=== PATIENT | female | born 1985 | race Caucasian/White ===

== ENCOUNTER 2017-05-21 22:46 | Emergency (ER) | payer OTHER ==
[~2017-05-21] VITALS: Ht 149.9 cm; Wt 98.3 kg
[2017-05-21] MEDS ORDERED: EFFE75CA75 PO (22:56)
[2017-05-21] MEDS ORDERED: REME30TA PO (22:56)
[2017-05-21] MEDS ORDERED: LATU40TA PO (22:56)
[2017-05-21] MEDS ORDERED: TRAZ50TA11 PO (22:56)
[2017-05-21] MEDS ORDERED: VIST25CA PO (22:56)
[2017-05-22] LABS: INR 0.85
[2017-05-22 00:31] LABS: BASO % 0.6 % (0.0-1.0); EOS # 0.3 K/mm3 (0.0-0.50); EOS % 3.3 % (0.0-3.0); LARGE UNSTAINED CELL # 0.1 K/mm3 (0.0-0.4); LARGE UNSTAINED CELL % 1.5 % (0.0-4.0); LYMPH # 3.3 K/mm3 (1.5-4.5); LYMPH % 35.2 % (24.0-44.0); MEAN CORPUSCULAR HEMOGLOBIN 28.2 pg (27.0-33.0); MEAN CORPUSCULAR HGB CONC 33.8 g/dl (32.0-36.5); MEAN CORPUSCULAR VOLUME 83.2 fl (80.0-96.0); MONO # 0.4 K/mm3 (0.0-0.8); MONO % 4.6 % (0.0-5.0); NEUTROPHILS # 4.9 K/mm3 (1.8-7.7); NEUTROPHILS % 54.9 % (36.0-66.0); PLATELET COUNT, AUTOMATED 237 k/mm3 (150-450); RED CELL DISTRIBUTION WIDTH 15.9 % (11.5-14.5)
[2017-05-22 01:05] LABS: ALBUMIN 2.9 GM/DL (3.2-5.2); ALBUMIN/GLOBULIN RATIO 1.12 (1.00-1.93); ALKALINE PHOSPHATASE 53 U/L (45-117); ALT/SGPT 18 U/L (12-78); ANION GAP 7 MEQ/L (8-16); AST/SGOT 10 U/L (15-37); BILIRUBIN,DIRECT < 0.1 MG/DL (0.0-0.2); BILIRUBIN,TOTAL 0.3 MG/DL (0.2-1.0); BLOOD UREA NITROGEN 11 MG/DL (7-18); CALCIUM LEVEL 6.9 MG/DL (8.5-10.1); CARBON DIOXIDE LEVEL 23 MEQ/L (21-32); CHLORIDE LEVEL 113 MEQ/L (98-107); CREATININE FOR GFR 0.91 MG/DL (0.55-1.02); FREE T4 0.77 NG/DL (0.76-1.46); GLOMERULAR FILTRATION RATE > 60.0 (>60); GLUCOSE, FASTING 82 MG/DL (70-105); POTASSIUM SERUM 3.5 MEQ/L (3.5-5.1); SODIUM LEVEL 143 MEQ/L (136-145); TOTAL PROTEIN 5.5 GM/DL (6.4-8.2)
[2017-05-22 01:14] LABS: CONTROL LINE HCG INT CTR LINE PRESENT
--- NOTE | 2017-05-22 02:07 | REP ---
Clinical: Chest pain . Comparison: None . Findings: The mediastinum and cardiac silhouette are stable and within normal limits for portable technique. The lung lr are clear without acute consolidation, effusion, or pneumothorax. Skeletal structures are intact. Impression: No acute cardiopulmonary process appreciated. Signed by Nick Kilpatrick MD 05/22/2017 01:58 A
[2017-05-22] MEDS ORDERED: ISOVUE-370 76% 100ML VIAL (Q9967) As Ordered ONE (03:14)
--- NOTE | 2017-05-22 04:09 | REP ---
Clinical: Acute chest pain. Technique: Axial contrast enhanced images from the thoracic inlet to the upper abdomen using 100 ml Isovue 370 intravenous contrast material with coronal and sagittal re-formations. Findings: Satisfactory enhancement of the pulmonary vasculature is achieved and no filling defects are identified to suggest pulmonary embolus. Thoracic aorta is normal caliber without aneurysm or dissection. Heart and pericardium are normal. Bilateral lung lr are well aerated and clear without acute pulmonary parenchymal consolidation or atelectasis. No nodule or mass lesion. No pleural effusion/reaction. No pneumothorax. No adenopathy. Impression: No evidence for pulmonary embolus. No acute pleuroparenchymal or mediastinal process. Signed by Nick Kilpatrick MD 05/22/2017 04:01 A
[2017-05-22] MEDS ORDERED: KETO10TAB PO (04:38)
[2017-05-22 04:51] VITALS: BP 135/63
--- NOTE | 2017-05-22 11:24 | ECGEPIP ---
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
== END 2017-05-22 04:52 | disposition home or self-care (01) ==
LOC: M ED 22:46
DX: R07.1 Chest pain on breathing (principal); J45.909 Unspecified asthma, uncomplicated; F32.9 Major depressive disorder, single episode, unspecified; F45.42 Pain disorder with related psychological factors; Z90.49 Acquired absence of other specified parts of digestive tract; Z86.711 Personal history of pulmonary embolism; Z79.899 Other long term (current) drug therapy
CPT/HCPCS: 36415; 71010; 71275; 80048; 80076; 82550; 82553; 83690; 84439; 84443; 84703; 85025; 85379; 85610; 85730; 93000; 93041; 94760; 99285; Q9967

== ENCOUNTER 2017-06-20 13:44 | Emergency (ER) | payer OTHER ==
[~2017-06-20] VITALS: Ht 149.9 cm; Wt 90.9 kg
[2017-06-20 13:44] VITALS: BP 140/87
[~2017-06-20 13:44] MED LIST: EFFE75CA75 PO; KETO10TAB PO; LATU40TA PO; REME30TA PO; TRAZ50TA11 PO; VIST25CA PO
[2017-06-20] MEDS ORDERED: PROT1TAB2 PO (13:57)
[2017-06-20] MEDS ORDERED: ONDANSETRON 4 MG ORAL DISINTEGRATING TAB (S0181) PO ONE (15:15)
--- NOTE | 2017-06-20 16:06 | REP ---
Abdominal series: Four views. History: Abdominal pain. Comparison chest x-ray May 22, 2017. Findings: Upright chest radiograph is normal. Heart size is normal. There is no evidence of infiltrate or free subdiaphragmatic air. Supine and erect views of the abdomen show clips in the right upper quadrant. Psoas margins and flank stripes are intact. No mass or organomegaly is seen. There is an air-fluid level in a loop of right colon. There are several loops of air-filled nondilated small bowel in the central abdomen. These are nonspecific. Impression: Nonspecific small bowel loops. Surgical clips right upper quadrant. No evidence of free air. Signed by Sukumar Bush MD 06/20/2017 05:00 P
[2017-06-20 16:29] LABS: BASO # 0.1 K/mm3 (0.0-0.2); BASO % 0.8 % (0.0-1.0); EOS # 0.2 K/mm3 (0.0-0.50); EOS % 2.1 % (0.0-3.0); LARGE UNSTAINED CELL # 0.2 K/mm3 (0.0-0.4); LARGE UNSTAINED CELL % 2.1 % (0.0-4.0); LYMPH # 2.4 K/mm3 (1.5-4.5); LYMPH % 28.1 % (24.0-44.0); MEAN CORPUSCULAR HEMOGLOBIN 29.1 pg (27.0-33.0); MEAN CORPUSCULAR HGB CONC 34.1 g/dl (32.0-36.5); MEAN CORPUSCULAR VOLUME 85.4 fl (80.0-96.0); MONO # 0.5 K/mm3 (0.0-0.8); MONO % 5.6 % (0.0-5.0); NEUTROPHILS % 61.4 % (36.0-66.0); PLATELET COUNT, AUTOMATED 201 k/mm3 (150-450); RED CELL DISTRIBUTION WIDTH 15.1 % (11.5-14.5); WHITE BLOOD COUNT 8.1 K/mm3 (4.0-10.0)
[2017-06-20 17:07] LABS: ALBUMIN 3.5 GM/DL (3.2-5.2); ALBUMIN/GLOBULIN RATIO 0.95 (1.00-1.93); ALKALINE PHOSPHATASE 58 U/L (45-117); ALT/SGPT 17 U/L (12-78); ANION GAP 6 MEQ/L (8-16); AST/SGOT 14 U/L (15-37); BILIRUBIN,DIRECT 0.1 MG/DL (0.0-0.2); BILIRUBIN,TOTAL 0.5 MG/DL (0.2-1.0); BLOOD UREA NITROGEN 18 MG/DL (7-18); CALCIUM LEVEL 8.4 MG/DL (8.5-10.1); CARBON DIOXIDE LEVEL 25 MEQ/L (21-32); CHLORIDE LEVEL 109 MEQ/L (98-107); CREATININE FOR GFR 1.07 MG/DL (0.55-1.02); GLOMERULAR FILTRATION RATE > 60.0 (>60); GLUCOSE, FASTING 82 MG/DL (70-105); POTASSIUM SERUM 4.2 MEQ/L (3.5-5.1); SODIUM LEVEL 140 MEQ/L (136-145); TOTAL PROTEIN 7.2 GM/DL (6.4-8.2)
[2017-06-20] MEDS ORDERED: ZOFR4TAB3 PO (17:26)
== END 2017-06-20 17:33 | disposition home or self-care (01) ==
LOC: M ED 13:44
DX: K29.70 Gastritis, unspecified, without bleeding (principal); Z87.891 Personal history of nicotine dependence; Z79.899 Other long term (current) drug therapy

== ENCOUNTER 2017-08-06 16:14 | Emergency (ER) | payer OTHER ==
[~2017-08-06] VITALS: Ht 149.9 cm; Wt 101.8 kg
[2017-08-06 16:14] VITALS: BP 114/70
[~2017-08-06 16:14] MED LIST changes: +PROT1TAB2 PO; +ZOFR4TAB3 PO
[2017-08-06] MEDS ORDERED: GUAN1TA (16:28)
[2017-08-06] MEDS ORDERED: NYST1POW9 TOP (17:07)
== END 2017-08-06 17:32 | disposition home or self-care (01) ==
LOC: M ED 16:14
DX: B37.2 Candidiasis of skin and nail (principal); J45.909 Unspecified asthma, uncomplicated; E28.2 Polycystic ovarian syndrome; Z86.711 Personal history of pulmonary embolism; F41.9 Anxiety disorder, unspecified; F32.9 Major depressive disorder, single episode, unspecified; Z79.899 Other long term (current) drug therapy

== ENCOUNTER 2017-08-14 17:10 | Emergency (ER) | payer OTHER ==
[~2017-08-14] VITALS: Ht 149.9 cm; Wt 102.3 kg
[~2017-08-14 17:10] MED LIST changes: +GUAN1TA; +NYST1POW9 TOP
[2017-08-14] MEDS ORDERED: GUAN1TAB16 PO (17:30)
[2017-08-14] MEDS ORDERED: LATU1TAB PO (17:30)
[2017-08-14] MEDS ORDERED: KEFL500C17 PO (19:29)
[2017-08-14 19:49] VITALS: BP 122/78
== END 2017-08-14 19:50 | disposition home or self-care (01) ==
LOC: M ED 17:10
DX: S69.91XA Unspecified injury of right wrist, hand and finger(s), initial encounter (principal); T23.001A Burn of unspecified degree of right hand, unspecified site, initial encounter; T31.0 Burns involving less than 10% of body surface; X15.0XXA Contact with hot stove (kitchen), initial encounter; Y92.9 Unspecified place or not applicable; Y93.9 Activity, unspecified; Y99.9 Unspecified external cause status; J45.909 Unspecified asthma, uncomplicated; Z86.711 Personal history of pulmonary embolism; E28.2 Polycystic ovarian syndrome; F41.9 Anxiety disorder, unspecified; F32.9 Major depressive disorder, single episode, unspecified; F43.10 Post-traumatic stress disorder, unspecified; F60.3 Borderline personality disorder; Z90.49 Acquired absence of other specified parts of digestive tract; Z98.84 Bariatric surgery status; Z79.899 Other long term (current) drug therapy

== ENCOUNTER 2017-09-06 10:05 | Emergency (ER) | payer OTHER ==
[~2017-09-06] VITALS: Ht 149.9 cm; Wt 104.9 kg
[~2017-09-06 10:05] MED LIST changes: +GUAN1TAB16 PO; +KEFL500C17 PO; +LATU1TAB PO
[2017-09-06] MEDS ORDERED: TESS100C PO (11:13)
[2017-09-06] MEDS ORDERED: AUGM875T28 PO (11:13)
[2017-09-06 11:24] VITALS: BP 138/74
== END 2017-09-06 11:24 | disposition home or self-care (01) ==
LOC: M ED 10:05
DX: J01.80 Other acute sinusitis (principal); J45.909 Unspecified asthma, uncomplicated; F41.9 Anxiety disorder, unspecified; F32.9 Major depressive disorder, single episode, unspecified; Z87.891 Personal history of nicotine dependence

== ENCOUNTER 2017-09-27 22:03 | Emergency (ER) | payer OTHER ==
[~2017-09-27] VITALS: Ht 149.9 cm; Wt 100.0 kg
[~2017-09-27 22:03] MED LIST changes: +AUGM875T28 PO; +TESS100C PO
[2017-09-27 23:12] LABS: ABG BASE EXCESS -0.2 (-2.0-2.0); ABG PARTIAL PRESSURE CO2 33.1 mmHg (35.0-45.0); ABG PARTIAL PRESSURE O2 94.1 mmHg (75.0-100.0); ABG STANDARD HCO3 24.4 MEQ/L (22.0-26.0); ABG pH (ARTERIAL) 7.459 UNITS (7.350-7.450)
[2017-09-27 23:32] LABS: BASO % 0.4 % (0.0-1.0); EOS # 0.2 10^3/uL (0.0-0.50); EOS % 1.6 % (0.0-3.0); IMMATURE GRANULOCYTE % 0.2 % (0-0); LYMPH # 4.5 10^3/uL (1.5-4.5); LYMPH % 42.5 % (24.0-44.0); MEAN CORPUSCULAR HEMOGLOBIN 29.1 pg (27.0-33.0); MEAN CORPUSCULAR HGB CONC 33.6 g/dl (32.0-36.5); MEAN CORPUSCULAR VOLUME 86.5 fl (80.0-96.0); MONO # 0.8 10^3/uL (0.0-0.8); MONO % 7.7 % (0.0-5.0); NEUTROPHILS % 47.6 % (36.0-66.0); PLATELET COUNT, AUTOMATED 277 10^3/uL (150-450); RED CELL DISTRIBUTION WIDTH 12.4 % (11.5-14.5); WHITE BLOOD COUNT 10.5 10^3/uL (4.0-10.0)
[2017-09-27 23:43] LABS: INR 0.92
[2017-09-27 23:54] LABS: CONTROL LINE HCG INT CTR LINE PRESENT
[2017-09-28 00:05] LABS: ANION GAP 6 MEQ/L (8-16); BLOOD UREA NITROGEN 12 MG/DL (7-18); CALCIUM LEVEL 8.7 MG/DL (8.5-10.1); CARBON DIOXIDE LEVEL 28 MEQ/L (21-32); CHLORIDE LEVEL 106 MEQ/L (98-107); CREATININE FOR GFR 1.07 MG/DL (0.55-1.02); GLOMERULAR FILTRATION RATE > 60.0 (>60); GLUCOSE, FASTING 83 MG/DL (70-105); POTASSIUM SERUM 4.2 MEQ/L (3.5-5.1); SODIUM LEVEL 140 MEQ/L (136-145)
[2017-09-28] MEDS ORDERED: ISOVUE-370 76% 100ML VIAL (Q9967) As Ordered ONE (00:36)
[2017-09-28 01:13] VITALS: BP 140/86
--- NOTE | 2017-09-28 01:40 | REPUSA ---
CLINICAL HISTORY: Dyspnea, exclude PE. TECHNIQUE: Multiple incremental axial, coronal and oblique images are obtained from the thoracic inle t to the upper abdomen. Intravenous contrast material was administered as per pulmonary embolism prot ocol. COMMENTS: There is excellent opacification of pulmonary arterial system without evidence for pulmonary embolism . Aorta is of normal caliber without evidence for dissection or aneurysm. There is no evidence of pleural or parenchymal mass. There are no pleural effusions. There is no evid ence of hilar or mediastinal lymphadenopathy. The heart and great vessels are within normal limits. Images of the upper abdomen demonstrate no evidence of adrenal mass. The bony structures are free of lytic or blastic lesions. IMPRESSION: No evidence for pulmonary embolism. Thank you for your kind referral of this patient.
[2017-09-28] MEDS ORDERED: KETO10TAB PO (01:42)
[2017-09-28] MEDS ORDERED: KETOROLAC 30 MG/ML VIAL (J1885) IV ONE (01:45)
--- NOTE | 2017-09-28 08:08 | REP ---
Chest two views HISTORY: Chest pain Comparison: 06/20/2017 The lungs are clear. The heart is normal in size. The pulmonary vasculature is normal in appearance. The bony structure is intact. IMPRESSION: No acute disease. Signed by Florian Paulson MD 09/28/2017 07:59 A
--- NOTE | 2017-09-28 18:00 | ECGEPIP ---
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
[2017-09-29] MEDS ORDERED: CITRSOL8 PO (18:39)
[2017-09-29] MEDS ORDERED: COLA100C5 PO (18:39)
== END 2017-09-28 02:07 | disposition home or self-care (01) ==
LOC: M ED 22:03
DX: R07.89 Other chest pain (principal); F32.9 Major depressive disorder, single episode, unspecified; Z86.711 Personal history of pulmonary embolism; Z79.899 Other long term (current) drug therapy
CPT/HCPCS: 36600; 71020; 71275; 80048; 82803; 84703; 85025; 85610; 85730; 93000; 96374; 99284; J1885; Q9967

== ENCOUNTER 2017-09-29 12:27 | Emergency (ER) | payer OTHER ==
[~2017-09-29] VITALS: Ht 149.9 cm; Wt 100.0 kg
[2017-09-29] MEDS ORDERED: NS 1,000 ML IV ONE (15:30)
[2017-09-29] MEDS ORDERED: ONDANSETRON 4MG/2ML VIAL (J2405) IV ONE (15:30)
[2017-09-29 16:57] LABS: BASO % 0.5 % (0.0-1.0); EOS # 0.2 10^3/uL (0.0-0.50); EOS % 2.1 % (0.0-3.0); IMMATURE GRANULOCYTE % 0.2 % (0-0); LYMPH # 2.4 10^3/uL (1.5-4.5); LYMPH % 28.4 % (24.0-44.0); MEAN CORPUSCULAR HEMOGLOBIN 29.1 pg (27.0-33.0); MEAN CORPUSCULAR HGB CONC 33.6 g/dl (32.0-36.5); MEAN CORPUSCULAR VOLUME 86.6 fl (80.0-96.0); MONO # 0.5 10^3/uL (0.0-0.8); NEUTROPHILS # 5.3 10^3/uL (1.8-7.7); NEUTROPHILS % 62.8 % (36.0-66.0); PLATELET COUNT, AUTOMATED 281 10^3/uL (150-450); RED CELL DISTRIBUTION WIDTH 12.5 % (11.5-14.5); WHITE BLOOD COUNT 8.5 10^3/uL (4.0-10.0)
[2017-09-29 16:57] LABS: CONTROL LINE HCG INT CTR LINE PRESENT
[2017-09-29 17:05] LABS: ALBUMIN 3.3 GM/DL (3.2-5.2); ALBUMIN/GLOBULIN RATIO 0.85 (1.00-1.93); ALKALINE PHOSPHATASE 66 U/L (45-117); ALT/SGPT 24 U/L (12-78); AMYLASE 63 U/L (25-115); ANION GAP 7 MEQ/L (8-16); AST/SGOT 38 U/L (7-37); BILIRUBIN,DIRECT < 0.1 MG/DL (0.0-0.2); BILIRUBIN,TOTAL 0.7 MG/DL (0.2-1.0); BLOOD UREA NITROGEN 13 MG/DL (7-18); CALCIUM LEVEL 8.7 MG/DL (8.5-10.1); CARBON DIOXIDE LEVEL 25 MEQ/L (21-32); CHLORIDE LEVEL 107 MEQ/L (98-107); CREATININE FOR GFR 0.85 MG/DL (0.55-1.02); GLOMERULAR FILTRATION RATE > 60.0 (>60); GLUCOSE, FASTING 104 MG/DL (70-105); SODIUM LEVEL 139 MEQ/L (136-145); TOTAL PROTEIN 7.2 GM/DL (6.4-8.2)
[2017-09-29] MEDS ORDERED: CITRSOL8 PO (18:39)
[2017-09-29] MEDS ORDERED: COLA100C5 PO (18:39)
[2017-09-29 18:54] VITALS: BP 133/92
--- NOTE | 2017-09-29 19:35 | REP ---
FINDINGS: Supine and upright views of the abdomen show the intestinal gas pattern to be nonspecific. Gas and stool is seen throughout the colon within the rectosigmoid region. The organ silhouettes insofar as delineated appear unremarkable. No abdominal calcific densities are seen within the abdomen or pelvis. The accompanying single frontal view of the chest shows no free subdiaphragmatic air, cardiomegaly, infiltrates or effusions. The accompanying frontal view of the chest has been compared to the previous two view chest exam of 09/27/2017. The accompanying frontal view of the chest is unchanged from the prior exam. IMPRESSION: Nonspecific intestinal gas pattern. Signed by James Caro DO 09/29/2017 08:06 P
== END 2017-09-29 18:55 | disposition home or self-care (01) ==
LOC: M ED 12:27
DX: K59.00 Constipation, unspecified (principal); R10.11 Right upper quadrant pain; R10.12 Left upper quadrant pain; R10.31 Right lower quadrant pain; R10.32 Left lower quadrant pain; Z90.49 Acquired absence of other specified parts of digestive tract; Z98.84 Bariatric surgery status; J45.909 Unspecified asthma, uncomplicated; Z86.711 Personal history of pulmonary embolism; K21.9 Gastro-esophageal reflux disease without esophagitis; E28.2 Polycystic ovarian syndrome; F41.9 Anxiety disorder, unspecified; F32.9 Major depressive disorder, single episode, unspecified; F43.10 Post-traumatic stress disorder, unspecified; F60.3 Borderline personality disorder; Z79.899 Other long term (current) drug therapy
CPT/HCPCS: 36415; 74022; 80048; 80076; 81001; 82150; 83690; 84703; 85025; 96361; 96374; 99284; J2405

== ENCOUNTER → 2017-10-31 | Outpatient (REF) | payer OTHER ==
[2017-10-31 10:15] LABS: PROTHROMBIN TIME 12.6 SECONDS (12.4-14.5)
[2017-10-31 10:16] LABS: INR 0.94
[2017-11-04 09:48] LABS: DRVV SCREEN 40.1 SEC
[2017-11-04 09:52] LABS: PTT LUPUS TYPE ANTICOAG SCREEN 0.9 (0-1.2)
== END ==
LOC: M LAB REF 09:56
DX: D68.62 Lupus anticoagulant syndrome (principal)

== ENCOUNTER 2017-11-03 19:55 | Emergency (ER) | payer OTHER ==
[2017-11-03] MEDS: ADACEL/BOOSTRIX VACCINE (DIPHTH/PERTUSS/ACELL/TETANUS)0.5ML SYR (90715) IM (22:19)
== END 2017-11-03 22:24 | disposition home or self-care (01) ==
LOC: M ED 19:55
DX: T23.101A Burn of first degree of right hand, unspecified site, initial encounter (principal); Z86.711 Personal history of pulmonary embolism; Z98.84 Bariatric surgery status; F43.12 Post-traumatic stress disorder, chronic; X11.8XXA Contact with other hot tap-water, initial encounter; Y92.89 Other specified places as the place of occurrence of the external cause; Y93.89 Activity, other specified
CPT/HCPCS: 90715

== ENCOUNTER 2017-11-22 19:14 | Emergency (ER) | payer OTHER ==
[2017-11-22] MEDS: NS 1,000 ML IV (22:06)
[2017-11-22 22:08] LABS: BASO # 0.1 10^3/uL (0.0-0.2); BASO % 0.5 % (0.0-1.0); EOS # 0.2 10^3/uL (0.0-0.50); EOS % 1.7 % (0.0-3.0); HEMATOCRIT 39.6 % (36.0-47.0); HEMOGLOBIN 13.2 g/dl (12.0-16.0); IMMATURE GRANULOCYTE % 0.3 % (0-0); LYMPH # 3.6 10^3/uL (1.5-4.5); LYMPH % 36.4 % (24.0-44.0); MEAN CORPUSCULAR HEMOGLOBIN 29.2 pg (27.0-33.0); MEAN CORPUSCULAR HGB CONC 33.3 g/dl (32.0-36.5); MEAN CORPUSCULAR VOLUME 87.6 fl (80.0-96.0); MONO # 0.7 10^3/uL (0.0-0.8); MONO % 6.7 % (0.0-5.0); NEUTROPHILS # 5.4 10^3/uL (1.8-7.7); NEUTROPHILS % 54.4 % (36.0-66.0); PLATELET COUNT, AUTOMATED 243 10^3/uL (150-450); RED BLOOD COUNT 4.52 10^6/uL (4.00-5.40); RED CELL DISTRIBUTION WIDTH 12.9 % (11.5-14.5)
[2017-11-22 22:22] LABS: BILIRUBIN, URINE MANUAL NEGATIVE (NEGATIVE); BLOOD URINE MANUAL RFX NEGATIVE (NEGATIVE); GLUCOSE, URINE (UA) MANUAL NEGATIVE (NEGATIVE); KETONE, URINE MANUAL NEGATIVE (NEGATIVE); MICROSCOPIC INDICATED? RFX NO (NO); NITRITE, URINE MANUAL RFX NEGATIVE (NEGATIVE); PROTEIN, URINE MANUAL REFLEX NEGATIVE (NEGATIVE); SP GRAVITY,URINE MANUAL REFLEX 1.025 (1.002-1.035); UROBILINOGEN, URINE MANUAL NORMAL (NORMAL)
[2017-11-22] MEDS: AMOXICILLIN 500 MG CAP PO (22:22)
[2017-11-22] MEDS: ALBUTEROL SULFATE 2.5 MG/0.5 ML INH NEB SOLN NEB (22:29)
[2017-11-22 22:31] LABS: ANION GAP 4 MEQ/L (8-16); BLOOD UREA NITROGEN 12 MG/DL (7-18); CALCIUM LEVEL 8.2 MG/DL (8.5-10.1); CARBON DIOXIDE LEVEL 29 MEQ/L (21-32); CHLORIDE LEVEL 110 MEQ/L (98-107); CREATININE FOR GFR 1.12 MG/DL (0.55-1.02); GLOMERULAR FILTRATION RATE 59.6 (>60); GLUCOSE, FASTING 84 MG/DL (70-100); POTASSIUM SERUM 4.5 MEQ/L (3.5-5.1); SODIUM LEVEL 143 MEQ/L (136-145)
[2017-11-22 22:44] LABS: INFLUENZA A AMPLIFICATION NEGATIVE (NEGATIVE); INFLUENZA B AMPLIFICATION NEGATIVE (NEGATIVE)
== END 2017-11-22 23:43 | disposition home or self-care (01) ==
LOC: M ED 19:14
DX: J45.901 Unspecified asthma with (acute) exacerbation (principal); J02.0 Streptococcal pharyngitis; E86.0 Dehydration; Z86.711 Personal history of pulmonary embolism; E28.2 Polycystic ovarian syndrome; K21.9 Gastro-esophageal reflux disease without esophagitis; F43.10 Post-traumatic stress disorder, unspecified; F41.9 Anxiety disorder, unspecified; F32.9 Major depressive disorder, single episode, unspecified; Z98.84 Bariatric surgery status; Z87.891 Personal history of nicotine dependence; Z79.899 Other long term (current) drug therapy
CPT/HCPCS: 71046

== ENCOUNTER 2017-12-03 18:26 | Emergency (ER) | payer OTHER ==
[2017-12-03] MEDS: ALBUTEROL SULFATE 2.5 MG/0.5 ML INH NEB SOLN NEB (21:17)
[2017-12-03] MEDS: predniSONE 20 MG TAB PO (21:27)
[2017-12-03 22:12] LABS: INFLUENZA A AMPLIFICATION NEGATIVE (NEGATIVE); INFLUENZA B AMPLIFICATION NEGATIVE (NEGATIVE)
== END 2017-12-03 22:57 | disposition home or self-care (01) ==
LOC: M ED 18:26
DX: J45.901 Unspecified asthma with (acute) exacerbation (principal); E28.2 Polycystic ovarian syndrome; F41.9 Anxiety disorder, unspecified; F32.9 Major depressive disorder, single episode, unspecified; F43.10 Post-traumatic stress disorder, unspecified; F60.3 Borderline personality disorder; Z87.891 Personal history of nicotine dependence; Z79.899 Other long term (current) drug therapy
CPT/HCPCS: 94640

== ENCOUNTER 2017-12-12 17:18 | Emergency (ER) | payer OTHER | END 2017-12-12 22:01 | disposition home or self-care (01) | LOC: M ED 17:18 | DX: S83.92XA Sprain of unspecified site of left knee, initial encounter (principal); S80.02XA Contusion of left knee, initial encounter; M17.12 Unilateral primary osteoarthritis, left knee; W19.XXXA Unspecified fall, initial encounter; Y92.099 Unspecified place in other non-institutional residence as the place of occurrence of the external cause; Y93.9 Activity, unspecified; Z86.711 Personal history of pulmonary embolism; F31.9 Bipolar disorder, unspecified; K21.9 Gastro-esophageal reflux disease without esophagitis; Z98.84 Bariatric surgery status; Z87.891 Personal history of nicotine dependence; Z79.899 Other long term (current) drug therapy | CPT/HCPCS: 73564 ==

== ENCOUNTER 2018-01-01 12:47 | Emergency (ER) | payer OTHER ==
[2018-01-01] MEDS: ONDANSETRON 4 MG ORAL DISINTEGRATING TAB (S0181) PO (13:50)
[2018-01-01] MEDS: KETOROLAC 30 MG/ML VIAL (J1885) IV (13:50)
[2018-01-01] MEDS: NS 1,000 ML IV (13:50)
[2018-01-01 14:05] LABS: BASO % 0.5 % (0.0-1.0); EOS # 0.1 10^3/uL (0.0-0.50); EOS % 1.6 % (0.0-3.0); HEMOGLOBIN 12.8 g/dl (12.0-16.0); IMMATURE GRANULOCYTE % 0.3 % (0-3.0); LYMPH # 2.4 10^3/uL (1.5-4.5); LYMPH % 31.8 % (24.0-44.0); MEAN CORPUSCULAR HEMOGLOBIN 28.3 pg (27.0-33.0); MEAN CORPUSCULAR HGB CONC 32.8 g/dl (32.0-36.5); MEAN CORPUSCULAR VOLUME 86.1 fl (80.0-96.0); MONO # 0.7 10^3/uL (0.0-0.8); MONO % 9.5 % (0.0-5.0); NEUTROPHILS # 4.2 10^3/uL (1.8-7.7); NEUTROPHILS % 56.3 % (36.0-66.0); PLATELET COUNT, AUTOMATED 253 10^3/uL (150-450); RED BLOOD COUNT 4.53 10^6/uL (4.00-5.40); RED CELL DISTRIBUTION WIDTH 12.6 % (11.5-14.5); WHITE BLOOD COUNT 7.5 10^3/uL (4.0-10.0)
[2018-01-01 14:15] LABS: CONTROL LINE HCG INT CTR LINE PRESENT; HCG, SERUM QUALITATIVE NEGATIVE (NEGATIVE)
[2018-01-01 14:17] LABS: KETONE, URINE AUTO RFX TRACE mg/dL (NEGATIVE); MUCUS, URINE RFX SMALL (NEGATIVE); NITRITE, URINE AUTO RFX NEGATIVE (NEGATIVE); RBC, URINE AUTO RFX 2 /HPF (0-3); SPECIFIC GRAVITY UR AUTO RFX 1.021 (1.002-1.035); SQUAM EPITHELIAL CELL UR AURFX 3 /HPF (0-6)
[2018-01-01 14:30] LABS: INR 0.96; PROTHROMBIN TIME 12.9 SECONDS (12.4-14.5)
[2018-01-01 14:31] LABS: ALBUMIN 3.2 GM/DL (3.2-5.2); ALBUMIN/GLOBULIN RATIO 1.07 (1.00-1.93); ALKALINE PHOSPHATASE 63 U/L (45-117); ALT/SGPT 20 U/L (12-78); AMYLASE 71 U/L (25-115); ANION GAP 6 MEQ/L (8-16); AST/SGOT 11 U/L (7-37); BILIRUBIN,DIRECT < 0.1 MG/DL (0.0-0.2); BILIRUBIN,TOTAL 0.3 MG/DL (0.2-1.0); BLOOD UREA NITROGEN 12 MG/DL (7-18); CALCIUM LEVEL 8.1 MG/DL (8.5-10.1); CARBON DIOXIDE LEVEL 25 MEQ/L (21-32); CHLORIDE LEVEL 110 MEQ/L (98-107); CREATININE FOR GFR 0.79 MG/DL (0.55-1.30); GLOMERULAR FILTRATION RATE > 60.0 (>60); GLUCOSE, FASTING 84 MG/DL (70-100); LIPASE 225 U/L (73-393); PARTIAL THROMBOPLASTIN TIME 25.1 SECONDS (26.8-37.9); POTASSIUM SERUM 4.3 MEQ/L (3.5-5.1); SODIUM LEVEL 141 MEQ/L (136-145); TOTAL PROTEIN 6.2 GM/DL (6.4-8.2)
[2018-01-01 14:56] LABS: LEUKOCYTE ESTERASE UR AUTO RFX TRACE (NEGATIVE); WBC, URINE AUTO RFX 14 /HPF (0-3)
== END 2018-01-01 15:45 | disposition home or self-care (01) ==
LOC: M ED 12:47
DX: N39.0 Urinary tract infection, site not specified (principal); R11.10 Vomiting, unspecified; R10.9 Unspecified abdominal pain; K21.9 Gastro-esophageal reflux disease without esophagitis; Z87.19 Personal history of other diseases of the digestive system; Z90.49 Acquired absence of other specified parts of digestive tract; Z79.899 Other long term (current) drug therapy; Z79.01 Long term (current) use of anticoagulants; Z86.711 Personal history of pulmonary embolism
CPT/HCPCS: J1885

== ENCOUNTER → 2018-02-25 | Outpatient (CLI) | payer OTHER | LOC: M SLEEP 19:31 | DX: G47.33 Obstructive sleep apnea (adult) (pediatric) (principal) | CPT/HCPCS: 95810 ==

== ENCOUNTER 2018-04-27 18:24 | Emergency (ER) | payer OTHER | END 2018-04-27 21:03 | disposition home or self-care (01) | LOC: M ED 18:24 | DX: B37.3 Candidiasis of vulva and vagina (principal); K21.9 Gastro-esophageal reflux disease without esophagitis; Z79.899 Other long term (current) drug therapy; Z79.2 Long term (current) use of antibiotics; Z79.01 Long term (current) use of anticoagulants | CPT/HCPCS: 99283 ==

== ENCOUNTER → 2018-04-28 | Outpatient (REF) | payer OTHER ==
[2018-05-02 00:12] LABS: HERPES ZOSTER, VARICELLA IgG 333 index (Immune >165); HSV IgM TYPES 1&2 1.42 Ratio (0.00-0.90); HSV TYPE II IgG SPECIFIC 9.67 index (0.00-0.90)
== END ==
LOC: M LAB REF 19:14
DX: L29.2 Pruritus vulvae (principal)
CPT/HCPCS: 86694

== ENCOUNTER 2018-05-26 23:33 | Emergency (ER) | payer OTHER ==
[2018-05-27] MEDS: NORCO 5/325MG TABLET (BULK FOR ED) PO (00:56)
== END 2018-05-27 01:00 | disposition home or self-care (01) ==
LOC: M ED 23:33
DX: S83.421A Sprain of lateral collateral ligament of right knee, initial encounter (principal); M17.11 Unilateral primary osteoarthritis, right knee; X58.XXXA Exposure to other specified factors, initial encounter; Y92.099 Unspecified place in other non-institutional residence as the place of occurrence of the external cause; Y93.89 Activity, other specified; Y99.9 Unspecified external cause status; E66.9 Obesity, unspecified; K21.9 Gastro-esophageal reflux disease without esophagitis; F43.10 Post-traumatic stress disorder, unspecified; N83.209 Unspecified ovarian cyst, unspecified side; Z79.84 Long term (current) use of oral hypoglycemic drugs; Z79.899 Other long term (current) drug therapy; Z88.6 Allergy status to analgesic agent
CPT/HCPCS: 73564

== ENCOUNTER → 2018-06-08 | Outpatient (REF) | payer OTHER, MEDICAID ==
[2018-06-10 14:15] LABS: HPV HYBRID CAPTURE II Negative (Negative)
== END ==
LOC: M LAB REF 13:36
DX: Z12.4 Encounter for screening for malignant neoplasm of cervix (principal)

== ENCOUNTER 2018-06-11 18:13 | Emergency (ER) | payer OTHER ==
[2018-06-11] MEDS: ACETAMINOPHEN TAB 650MG DOSE (2X325MG) PO (21:27)
== END 2018-06-11 22:56 | disposition home or self-care (01) ==
LOC: M ED 18:13
DX: S80.02XA Contusion of left knee, initial encounter (principal); S70.02XA Contusion of left hip, initial encounter; W01.0XXA Fall on same level from slipping, tripping and stumbling without subsequent striking against object, initial encounter; Y92.512 Supermarket, store or market as the place of occurrence of the external cause; J45.909 Unspecified asthma, uncomplicated; K21.9 Gastro-esophageal reflux disease without esophagitis; F41.9 Anxiety disorder, unspecified; F31.9 Bipolar disorder, unspecified; F43.10 Post-traumatic stress disorder, unspecified; Z87.42 Personal history of other diseases of the female genital tract; Z98.84 Bariatric surgery status; Z88.8 Allergy status to other drugs, medicaments and biological substances; Z79.899 Other long term (current) drug therapy; Z79.01 Long term (current) use of anticoagulants; Z79.84 Long term (current) use of oral hypoglycemic drugs
CPT/HCPCS: 73564

== ENCOUNTER → 2018-06-11 | Outpatient (CLI) | payer OTHER | LOC: M RAD 16:26 | DX: N92.0 Excessive and frequent menstruation with regular cycle (principal) | CPT/HCPCS: 76856 ==

== ENCOUNTER → 2018-07-10 | Outpatient (CLI) | payer OTHER | LOC: M RAD 07:35 | DX: R16.0 Hepatomegaly, not elsewhere classified (principal) | CPT/HCPCS: 76705 ==

== ENCOUNTER 2018-09-05 23:21 | Emergency (ER) | payer OTHER | END 2018-09-06 00:35 | disposition home or self-care (01) | LOC: M ED 23:21 | DX: B37.9 Candidiasis, unspecified (principal); L30.4 Erythema intertrigo; J45.909 Unspecified asthma, uncomplicated | CPT/HCPCS: 99282 ==

== ENCOUNTER 2018-09-19 13:09 | Emergency (ER) | payer OTHER | END 2018-09-19 14:32 | disposition home or self-care (01) | LOC: M ED 13:09 | DX: S50.12XA Contusion of left forearm, initial encounter (principal); V49.49XA Driver injured in collision with other motor vehicles in traffic accident, initial encounter; Y92.410 Unspecified street and highway as the place of occurrence of the external cause; K21.9 Gastro-esophageal reflux disease without esophagitis; F33.9 Major depressive disorder, recurrent, unspecified; F41.9 Anxiety disorder, unspecified; F43.10 Post-traumatic stress disorder, unspecified; Z79.899 Other long term (current) drug therapy; Z79.01 Long term (current) use of anticoagulants; Z88.8 Allergy status to other drugs, medicaments and biological substances | CPT/HCPCS: 73090 ==

== ENCOUNTER 2018-10-12 23:19 | Emergency (ER) | payer OTHER ==
[2018-10-13] MEDS: predniSONE 20 MG TAB PO (01:52)
== END 2018-10-13 01:54 | disposition home or self-care (01) ==
LOC: M ED 23:19
DX: M25.512 Pain in left shoulder (principal); Z79.899 Other long term (current) drug therapy; Z79.01 Long term (current) use of anticoagulants; Z88.8 Allergy status to other drugs, medicaments and biological substances; F19.11 Other psychoactive substance abuse, in remission
CPT/HCPCS: 99283

== ENCOUNTER 2018-11-14 18:01 | Emergency (ER) | payer OTHER ==
[~2018-11-14] VITALS: Ht 149.9 cm; Wt 99.1 kg
[~2018-11-14 18:01] MED LIST changes: +ACET1TAB55 PO; +ACET30TAB PO; +ACET65SU PR; +ADDE10CA3 PO; +ALKATAB21 PO; +AMOX500C PO; +BACI500O59 TOP; +CIPR-249 PO; +CITRSOL8 PO; +COLA100C5 PO; +CYTO100T PO; +EFFE150C2 PO; +EFFE37.5 PO; +EFFE75CA2 PO; -EFFE75CA75 PO; +FAMO1TAB11; +FLUC150T; +FLUC150T PO; +LATU1TAB; +LATU20TA PO; +METF500T13; +NAPR-50 PO; +NYST1OIN TOP; +NYSTOI TOP; +PANT20TA2; +PHEN15CA PO; +PRAZ2CAP; +PRAZ2CAP PO; +PRAZ5CAP PO; +PRED20TA PO; +PROTPAK PO; +SUCR1TAB56; +TOPI50TA9; +TRAZ-160; +TRAZ-160 PO; +TRAZ-163; -TRAZ50TA11 PO; +TYLE-45 PO; +VENTAER; +VENTAER INH; +XARE10TA PO; +ZOFR4TAB14 PO; -ZOFR4TAB3 PO
[2018-11-14] MEDS ORDERED: MORPHINE 4 MG/ML 1ML VIAL/SYRINGE (J2270) IV ONE (19:15)
[2018-11-14] MEDS ORDERED: METOCLOPRAMIDE INJ 10MG/2ML VIAL (J2765) IV ONE (19:15)
[2018-11-14] MEDS ORDERED: NS 1,000 ML IV ONE (19:15)
[2018-11-14] MEDS: GASTROGRAFIN SOLUTION 30ML PO SCH ×2 (19:43→20:25)
[2018-11-14 21:14] LABS: ALBUMIN 3.8 GM/DL (3.2-5.2); ALT/SGPT 20 U/L (12-78); AMYLASE 70 U/L (25-115); BILIRUBIN,DIRECT < 0.1 MG/DL (0.0-0.2); BILIRUBIN,TOTAL 0.3 MG/DL (0.2-1.0); BLOOD UREA NITROGEN 16 MG/DL (7-18); CALCIUM LEVEL 8.5 MG/DL (8.5-10.1); CARBON DIOXIDE LEVEL 20 MEQ/L (21-32); CHLORIDE LEVEL 114 MEQ/L (98-107); GLOMERULAR FILTRATION RATE 54.7 (>60); GLUCOSE, FASTING 75 MG/DL (70-100); LIPASE 239 U/L (73-393); POTASSIUM SERUM 4.1 MEQ/L (3.5-5.1); SODIUM LEVEL 140 MEQ/L (136-145); TOTAL PROTEIN 7.7 GM/DL (6.4-8.2)
[2018-11-14 21:18] LABS: APPEARANCE, URINE HAZY (CLEAR); BACTERIA, URINE AUTO NEGATIVE (NEGATIVE); BILIRUBIN, URINE AUTO NEGATIVE (NEGATIVE); BLOOD, URINE BLOOD NEGATIVE (NEGATIVE); COLOR, URINE YELLOW (YELLOW); GLUCOSE, URINE (UA) AUTO NEGATIVE (NEGATIVE); KETONE, URINE AUTO NEGATIVE (NEGATIVE); LEUKOCYTE ESTERASE, URINE AUTO NEGATIVE (NEGATIVE); MUCUS, URINE SMALL (NEGATIVE); NITRITE, URINE AUTO NEGATIVE (NEGATIVE); PROTEIN, URINE AUTO 1+ mg/dL (NEGATIVE); RBC, URINE AUTO 2 /HPF (0-3); SPECIFIC GRAVITY URINE AUTO 1.016 (1.002-1.035); SQUAMOUS EPITHELIAL CELL UR AU 2 /HPF (0-6); UROBILINOGEN, URINE AUTO 0.2 mg/dL (0.0-2.0); WBC, URINE AUTO 12 /HPF (0-3)
[2018-11-14] MEDS ORDERED: ISOVUE-370 76% 100ML VIAL (Q9967) As Ordered ONE (21:18)
--- NOTE | 2018-11-14 22:26 | REPVR ---
EXAM: CT Abdomen and Pelvis With Contrast EXAM DATE/TIME: 11/14/2018 9:25 PM CLINICAL HISTORY: 33 years old, female; Pain; Abdominal pain; Additional info: Right upper abd pain TECHNIQUE: Axial computed tomography images of the abdomen and pelvis with intravenous contrast. All CT scans at this facility use at least one of these dose optimization techniques: automated exposure control; mA and/or kV adjustment per patient size (includes targeted exams where dose is matched to clinical indication); or iterative reconstruction. Coronal and sagittal reformatted images were created and reviewed. CONTRAST: 100 ml of iso 370 administered intravenously. COMPARISON: CT ABD PELVIS W/O CONTRAST 01/01/2018 2:21 PM FINDINGS: Lower thorax: Small hiatal hernia. ABDOMEN: Liver: Mild hepatomegaly. Mild hepatic steatosis. Gallbladder and bile ducts: Status post cholecystectomy. Mild central biliary ductal dilatation, likely postsurgical. Pancreas: Unremarkable. Spleen: Unremarkable. Adrenals: Unremarkable. Kidneys and ureters: No mass. No radiodense calculi. No hydronephrosis. Stomach and bowel: Status post gastric sleeve and partial colectomy. No definite bowel wall thickening. No obstruction. No pneumatosis. Appendix: Normal. PELVIS: Bladder: Unremarkable. Reproductive: Probable involuting left ovarian corpus luteal cyst. ABDOMEN and PELVIS: Intraperitoneal space: No free fluid. No organized fluid collection. No free air. Bones/joints: No acute osseous abnormality. Soft tissues: Unremarkable. Vasculature: Unremarkable. No aneurysm. Lymph nodes: Small mesenteric lymph nodes, nonspecific in appearance. No pathologically enlarged lymph nodes. IMPRESSION: 1. No CT evidence of acute intra-abdominal or pelvic pathology. 2. Additional findings, as above. Electronically signed by: Camilo Guerin On 11/14/2018 22:26:14 PM
[2018-11-14 22:48] LABS: BASO # 0.1 10^3/uL (0.0-0.2); BASO % 0.7 % (0.0-1.0); EOS # 0.3 10^3/uL (0.0-0.50); EOS % 2.9 % (0.0-3.0); HEMATOCRIT 36.6 % (36.0-47.0); HEMOGLOBIN 11.5 g/dl (12.0-15.5); LYMPH # 3.3 10^3/uL (1.5-4.5); LYMPH % 31.9 % (24.0-44.0); MEAN CORPUSCULAR HEMOGLOBIN 24.9 pg (27.0-33.0); MEAN CORPUSCULAR HGB CONC 31.4 g/dl (32.0-36.5); MEAN CORPUSCULAR VOLUME 79.4 fl (80.0-96.0); MONO # 0.7 10^3/uL (0.0-0.8); MONO % 6.6 % (0.0-5.0); NEUTROPHILS % 57.7 % (36.0-66.0); PLATELET COUNT, AUTOMATED 287 10^3/uL (150-450); RED BLOOD COUNT 4.61 10^6/uL (4.00-5.40); WHITE BLOOD COUNT 10.4 10^3/uL (4.0-10.0)
[2018-11-14 23:15] VITALS: BP 126/79
[2018-11-14] MEDS ORDERED: NORCO 5/325MG TABLET (BULK FOR ED) PO ONE (23:15)
== END 2018-11-14 23:31 | disposition home or self-care (01) ==
LOC: M ED 18:01
DX: N83.202 Unspecified ovarian cyst, left side (principal); K44.9 Diaphragmatic hernia without obstruction or gangrene; R11.0 Nausea; G96.9 Disorder of central nervous system, unspecified; J45.909 Unspecified asthma, uncomplicated; Z86.711 Personal history of pulmonary embolism; Z90.49 Acquired absence of other specified parts of digestive tract; K21.9 Gastro-esophageal reflux disease without esophagitis; F41.9 Anxiety disorder, unspecified; F32.9 Major depressive disorder, single episode, unspecified; F43.10 Post-traumatic stress disorder, unspecified; F60.3 Borderline personality disorder; Z88.8 Allergy status to other drugs, medicaments and biological substances; Z98.84 Bariatric surgery status; Z77.098 Contact with and (suspected) exposure to other hazardous, chiefly nonmedicinal, chemicals; Z79.899 Other long term (current) drug therapy
CPT/HCPCS: 36415; 74177; 80048; 80076; 81001; 81025; 82150; 83605; 83690; 85025; 96361; 96374; 96375; 99284; J2270; J2765; Q9963; Q9967

== ENCOUNTER 2018-11-29 19:53 | Emergency (ER) | payer OTHER ==
[~2018-11-29] VITALS: Ht 149.9 cm; Wt 99.1 kg
[2018-11-29 19:53] VITALS: BP 135/86
[2018-11-29] MEDS ORDERED: NS 1,000 ML IV ONE (21:00)
[2018-11-29 21:31] LABS: ALBUMIN 3.6 GM/DL (3.2-5.2); ALT/SGPT 20 U/L (12-78); BILIRUBIN,DIRECT 0.1 MG/DL (0.0-0.2); BILIRUBIN,TOTAL 0.3 MG/DL (0.2-1.0); BLOOD UREA NITROGEN 13 MG/DL (7-18); CALCIUM LEVEL 8.4 MG/DL (8.5-10.1); CARBON DIOXIDE LEVEL 23 MEQ/L (21-32); CHLORIDE LEVEL 110 MEQ/L (98-107); CREATININE FOR GFR 0.81 MG/DL (0.55-1.30); GLOMERULAR FILTRATION RATE > 60.0 (>60); GLUCOSE, FASTING 92 MG/DL (70-100); LIPASE 202 U/L (73-393); POTASSIUM SERUM 3.9 MEQ/L (3.5-5.1); SODIUM LEVEL 142 MEQ/L (136-145); TOTAL PROTEIN 6.8 GM/DL (6.4-8.2)
[2018-11-29] MEDS ORDERED: METOCLOPRAMIDE INJ 10MG/2ML VIAL (J2765) IV ONE (23:00)
== END 2018-11-29 23:28 | disposition home or self-care (01) ==
LOC: M ED 19:53
DX: K52.9 Noninfective gastroenteritis and colitis, unspecified (principal); Z20.89 Contact with and (suspected) exposure to other communicable diseases; K21.9 Gastro-esophageal reflux disease without esophagitis; Z86.711 Personal history of pulmonary embolism; F32.9 Major depressive disorder, single episode, unspecified; K29.70 Gastritis, unspecified, without bleeding; Z79.899 Other long term (current) drug therapy; Z88.6 Allergy status to analgesic agent
CPT/HCPCS: 80048; 80076; 83690; 96361; 96374; 99284; J2765

== ENCOUNTER → 2019-02-05 | Outpatient (CLI) | payer OTHER ==
[~2019-02-05] MED LIST changes: +ACET-716 PO; -ACET30TAB PO; +CLAR10CA3 PO; +DICY20TA PO; -NAPR-50 PO; +NAPR-837 PO; +OMEP20CA3 PO; +ZOFR4TAB16 PO
[2019-02-05 10:02] LABS: THYROID STIMULATING HORMONE 2.79 uIU/ML (0.358-3.740)
[2019-02-05 11:08] LABS: CLOSTRIDIUM DIFFICILE PCR NEGATIVE (NEGATIVE)
== END ==
LOC: M LAB 08:40
PROVIDERS: ATTEND Internal Medicine Gastroenterology
DX: R19.7 Diarrhea, unspecified (principal)

== ENCOUNTER 2019-02-11 06:40 | Day surgery (SDC) | payer OTHER ==
[~2019-02-11] VITALS: Ht 149.9 cm; Wt 98.0 kg
[~2019-02-11 06:40] MED LIST changes: +NS 1,000 ML IV ONE
[2019-02-11] MEDS ORDERED: SIMETHICONE 40MG/0.6ML DROPS 30ML As Ordered ONE (06:47)
[2019-02-11] MEDS ORDERED: PROPOFOL 200 MG/20 ML VIAL As Ordered ONE ×2 (07:16→07:54)
--- NOTE | 2019-02-11 08:03 | ROOR ---
Patient Name: Alex Postal Procedure Date: 02/11/2019 7:30 AM Date of : 1985 Age: 33 Room: [facility] Gender: Female Note Status: Finalized Procedure: Colonoscopy Indications: Chronic diarrhea Providers: Elmer MCGOVERN MD Referring MD: Alvina DEJESUS NP, ZUHAIR MORENO [facility] Requesting Provider: Medicines: Monitored Anesthesia Care Complications: No immediate complications. Procedure: Pre-Anesthesia Assessment: - The heart rate, respiratory rate, oxygen saturations, blood pressure, adequacy of pulmonary ventilation, and response to care were monitored throughout the procedure. The Colonoscope was introduced through the anus and advanced to 20 cm into the ileum. The colonoscopy was performed without difficulty. The patient tolerated the procedure well. The quality of the bowel preparation was adequate. Findings: The perianal and digital rectal examinations were normal. There was evidence of a prior end-to-end ileo-colonic anastomosis in the mid/distal sigmoid colon (at ~30 cm from verge). This was patent and was characterized by healthy appearing mucosa. The anastomosis was traversed. The exam was otherwise without abnormality on direct and retroflexion views. Biopsies were taken with a cold forceps in the entire colon and in the entire examined ileum for histology. Impression: - Patent end-to-end ileo-sigmoid anastomosis at 25-30 cm. - Normal rectum/sigmoid. - Normal neoterminal ileum to 20 cm - Biopsies were taken with a cold forceps for histology in the entire colon and in the entire examined ileum. Recommendation: - Use Questran at 1 scoop (4 grams) twice a day (the script was sent to your pharmacy on file) - Telephone endoscopist for pathology results in 2 weeks. Elmer Mcgovern MD Elmer MCGOVERN MD 02/11/2019 8:02:40 AM Electronically signed by Elmer MCGOVERN MD Number of Addenda: 0 Note Initiated On: 02/11/2019 7:30 AM Estimated Blood Loss: Estimated blood loss: none.
[2019-02-11 08:10] VITALS: BP 146/77
== END 2019-02-11 08:33 | disposition home or self-care (01) ==
LOC: M OPP 06:40
PROVIDERS: ATTEND Internal Medicine Gastroenterology
DX: R19.7 Diarrhea, unspecified (principal); Z98.0 Intestinal bypass and anastomosis status

== ENCOUNTER 2019-02-23 11:10 | Inpatient (IN) | payer OTHER ==
[~2019-02-23] VITALS: Ht 149.9 cm; Wt 96.2 kg
[~2019-02-23 11:10] MED LIST changes: -NS 1,000 ML IV ONE; -PANT20TA2; +PANT20TA2 PO; -PRAZ2CAP; -SUCR1TAB56; +SUCR1TAB56 PO
[2019-02-23] MEDS ORDERED: CHOL4POW3 PO (11:20)
[2019-02-23] MEDS ORDERED: VENL37.598 PO (11:20)
--- NOTE | 2019-02-23 12:33 | REP ---
CT Head without contrast HISTORY: Infarction COMPARISON: None There is no intraparenchymal hemorrhage, acute infarct, mass or midline shift. The ventricular system is normal in appearance. There is no extra cerebral collection. There is no fracture. The visualized sinuses are clear. IMPRESSION: There is no intracranial lesion. Electronically Signed by Florian Paulson MD 02/23/2019 12:25 P
--- NOTE | 2019-02-23 12:36 | REP ---
CHEST, SINGLE VIEW: There is no evidence of acute infiltrate. No pleural effusion is seen. The heart is normal in size. The mediastinal silhouette is unremarkable. The visualized osseous structures are intact. IMPRESSION: No acute pulmonary disease. Electronically Signed by Delgado Patricia MD 02/24/2019 04:37 P
[2019-02-23 13:19] LABS: BASO # 0.1 10^3/uL (0.0-0.2); BASO % 0.6 % (0.0-1.0); EOS # 0.3 10^3/uL (0.0-0.50); EOS % 3.1 % (0.0-3.0); HEMATOCRIT 38.8 % (36.0-47.0); LYMPH # 2.6 10^3/uL (1.5-4.5); LYMPH % 29.4 % (24.0-44.0); MEAN CORPUSCULAR HEMOGLOBIN 24.6 pg (27.0-33.0); MEAN CORPUSCULAR HGB CONC 30.9 g/dl (32.0-36.5); MEAN CORPUSCULAR VOLUME 79.5 fl (80.0-96.0); MONO # 0.6 10^3/uL (0.0-0.8); MONO % 6.7 % (0.0-5.0); NEUTROPHILS # 5.4 10^3/uL (1.8-7.7); NEUTROPHILS % 59.9 % (36.0-66.0); PLATELET COUNT, AUTOMATED 294 10^3/uL (150-450); RED BLOOD COUNT 4.88 10^6/uL (4.00-5.40)
[2019-02-23 13:39] LABS: PROTHROMBIN TIME 13.3 SECONDS (12.1-14.4)
[2019-02-23 13:40] LABS: PARTIAL THROMBOPLASTIN TIME 25.6 SECONDS (25.4-37.6)
[2019-02-23 13:42] LABS: BLOOD UREA NITROGEN 12 MG/DL (7-18); CALCIUM LEVEL 8.9 MG/DL (8.5-10.1); CARBON DIOXIDE LEVEL 28 MEQ/L (21-32); CHLORIDE LEVEL 107 MEQ/L (98-107); CK-MB VALUE MASS < 1.0 NG/ML (<3.6); CPK CREATINE PHOSPHOKINASE 79 U/L (26-192); CREATININE FOR GFR 0.71 MG/DL (0.55-1.30); GLOMERULAR FILTRATION RATE > 60.0 (>60); GLUCOSE, FASTING 79 MG/DL (70-100); MB/CK RELATIVE INDEX 1.27 (< OR =4); POTASSIUM SERUM 4.5 MEQ/L (3.5-5.1); SODIUM LEVEL 139 MEQ/L (136-145); TROPONIN I < 0.02 NG/ML (< 0.10)
--- NOTE | 2019-02-23 13:59 | REP ---
MRA BRAIN WITHOUT CONTRAST: HISTORY: Infarction. 3D [id number] MR angiography was performed at the level of the [place]. There is no aneurysm, arteriovenous malformation, or atherosclerotic lesion. Major intracranial vessels are patent. The left vertebral artery is dominant. IMPRESSION: Normal MRA brain. Electronically Signed by Florian Paulson MD 02/23/2019 02:16 P
[2019-02-23] MEDS ORDERED: ASPIRIN 325 MG TAB PO ONE (14:00)
--- NOTE | 2019-02-23 14:02 | REP ---
MR BRAIN WITHOUT CONTRAST: HISTORY: Infarction. COMPARISON: CT, 02/23/2019. Several punctate areas of increased signal intensity on T2-weighted images are present in the subcortical white matter of the frontal lobes. There is no intraparenchymal hemorrhage, infarct, mass, or midline shift. The ventricular system is normal in appearance. There is no extracerebral collection. Mucosal thickening is present in the left ethmoid and maxillary sinuses. IMPRESSION: There are several punctate areas of increased signal intensity in the subcortical white matter of the frontal lobes. This is a nonspecific finding. Electronically Signed by Florian Paluson MD 02/23/2019 02:16 P
--- NOTE | 2019-02-23 14:44 | HPEPDOC ---
[facility] Medical History & Physical Date of Admission Feb 23, 2019 History and Physical CHIEF COMPLAINT: Left sided weakness HISTORY OF PRESENT ILLNESS: 33 yo female presents for one day history of left sided weakness PAST MEDICAL HISTORY: 1. History of PE (2013, completed course of Xarelto) 2. History of substance abuse (quit 6 years ago) 3. PCOS 4. States she has tested positive for lupus anti-coagulant in the past 5. Short gut syndrome SOCIAL HISTORY: History of illicit drug abuse over six years ago. HOME MEDICATIONS: Please see below. PHYSICAL EXAMINATION: VITAL SIGNS: See Below General: NAD, lying comfortably in bede HEENT: NC/AT, EOMI, PERRLA Lungs: CTA B/L Heart: +S1S2, RRR Abd: soft, NT, +BS, obese Ext: no edema Neuro: strength 5/5 throughout, possible some left sided weakness; states has no sensation left upper extremity LABORATORY DATA: See below. MICROBIOLOGY: Please see below. ASSESSMENT: 33 yo female for focal neurologic deficits. #left sided weakness - MRI pending - neuro c/s pending - check lupus anti-coagulant - PT/OT #Hx PE - completed course of Xarelto #DVT prophylaxis - mechanical for now pending MRI Vital Signs Vital Signs Date Time Temp Pulse Resp B/P (MAP) Pulse Ox O2 Delivery O2 Flow Rate FiO2 02/23/19 13:06 02/23/19 12:55 78 91 02/23/19 11:10 97.8 16 Room Air Laboratory Data Labs 24H Laboratory Tests 2 02/23/19 13:02: Immature Granulocyte % (Auto) 0.3, White Blood Count 9.0, Red Blood Count 4.88, Hemoglobin 12.0, Hematocrit 38.8, Mean Corpuscular Volume 79.5L, Mean Corpuscular Hemoglobin 24.6L, Mean Corpuscular Hemoglobin Concent 30.9L, Red Cell Distribution Width 13.9, Platelet Count 294, Neutrophils (%) (Auto) 59.9, Lymphocytes (%) (Auto) 29.4, Monocytes (%) (Auto) 6.7H, Eosinophils (%) (Auto) 3.1H, Basophils (%) (Auto) 0.6, Neutrophils # (Auto) 5.4, Lymphocytes # (Auto) 2.6, Monocytes # (Auto) 0.6, Eosinophils # (Auto) 0.3, Basophils # (Auto) 0.1, Nucleated Red Blood Cells % (auto) 0.0, Prothrombin Time 13.3, Prothromb Time International Ratio 1.00, Activated Partial Thromboplast Time 25.6, Anion Gap 4L, Glomerular Filtration Rate > 60.0, Blood Urea Nitrogen 12, Creatinine 0.71, Sodium Level 139, Potassium Level 4.5, Chloride Level 107, Carbon Dioxide Level 28, Calcium Level 8.9, Total Creatine Kinase 79, Creatine Kinase MB < 1.0, Creatine Kinase MB Relative Index 1.27, Troponin I < 0.02 CBC/BMP Laboratory Tests 02/23/19 13:02 Red Blood Count 4.88, Mean Corpuscular Volume 79.5 L, Mean Corpuscular Hemoglobin 24.6 L, Mean Corpuscular Hemoglobin Concent 30.9 L, Red Cell Distribution Width 13.9, Neutrophils (%) (Auto) 59.9, Lymphocytes (%) (Auto) 29.4, Monocytes (%) (Auto) 6.7 H, Eosinophils (%) (Auto) 3.1 H, Basophils (%) (Auto) 0.6, Neutrophils # (Auto) 5.4, Lymphocytes # (Auto) 2.6, Monocytes # (Auto) 0.6, Eosinophils # (Auto) 0.3, Basophils # (Auto) 0.1, Calcium Level 8.9, Total Creatine Kinase 79 Home Medications Scheduled Dicyclomine HCl (Dicyclomine HCl) 20 Mg Tab, 20 MG PO QID Loratadine (Claritin) 10 Mg Cap, 10 MG PO DAILY Misoprostol (Cytotec) 100 Mcg Tab, 1 TAB PO QID Omeprazole (Omeprazole) 20 Mg Cap, 20 MG PO DAILY Pantoprazole Sodium (Pantoprazole Sodium) 20 Mg Tab, 40 DAILY Sucralfate (Sucralfate) 1 Gm Tab, QID Trazodone HCl (Trazodone HCl) 100 Mg Tab, QHS Scheduled PRN Ondansetron HCl (Zofran) 4 Mg Tab, 4 MG PO Q6HP PRN for NAUSEA Prazosin Hcl (Prazosin HCl) 2 Mg Cap, QHSP PRN for ANXIETY/AGITATION Miscellaneous Medications Cholestyramine (with Sugar) (Cholestyramine Powder) 378 Gm Powder Venlafaxine HCl (Venlafaxine HCl ER) 37.5 Mg Cap.er.24h Allergies Coded Allergies: NSAIDS (Non-Steroidal Anti-Inflamma (Verified Adverse Reaction, Intermediate, gastric bypass, 01/28/19) egg (Verified Adverse Reaction, Mild, N/V, 01/28/19) CAMPBELL ACE MD Feb 23, 2019 14:44
[2019-02-23 15:09] LABS: DRVV SCREEN 37.5 SEC
[2019-02-23] MEDS ORDERED: TRAZ-160 PO (15:10)
[2019-02-23 15:23] LABS: PTT LUPUS TYPE ANTICOAG SCREEN 0.9 (0-1.2)
[2019-02-23 16:10] VITALS: BP 134/80
[2019-02-23] MEDS ORDERED: SLF 3 ML SYR IV PRN (17:30)
[2019-02-23 20:00] VITALS: BP 117/87
[2019-02-23] MEDS: SLF 3 ML SYR IV SCH (20:50)
[2019-02-23] MEDS ORDERED: ACETAMINOPHEN TAB 650MG DOSE (2X325MG) PO ONE (22:45)
[2019-02-24] VITALS (7 sets, daily range): BP systolic 110–138; BP diastolic 61–93
--- NOTE | 2019-02-24 05:49 | ECGEPIP ---
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
[2019-02-24] MEDS: SLF 3 ML SYR IV SCH ×2 (06:00→15:14)
[2019-02-24 06:23] LABS: HEMATOCRIT 37.7 % (36.0-47.0); HEMOGLOBIN 11.7 g/dl (12.0-15.5); MEAN CORPUSCULAR HEMOGLOBIN 24.3 pg (27.0-33.0); MEAN CORPUSCULAR VOLUME 78.2 fl (80.0-96.0); PLATELET COUNT, AUTOMATED 225 10^3/uL (150-450); RED BLOOD COUNT 4.82 10^6/uL (4.00-5.40); WHITE BLOOD COUNT 5.9 10^3/uL (4.0-10.0)
[2019-02-24 06:47] LABS: ALBUMIN 3.4 GM/DL (3.2-5.2); ALT/SGPT 21 U/L (12-78); BILIRUBIN,TOTAL 0.7 MG/DL (0.2-1.0); BLOOD UREA NITROGEN 16 MG/DL (7-18); CALCIUM LEVEL 8.3 MG/DL (8.5-10.1); CARBON DIOXIDE LEVEL 23 MEQ/L (21-32); CHLORIDE LEVEL 109 MEQ/L (98-107); CHOLESTEROL LEVEL 139 MG/DL (<200); CHOLESTEROL RISK RATIO 2.527 (<5); CREATININE FOR GFR 0.74 MG/DL (0.55-1.30); GLOMERULAR FILTRATION RATE > 60.0 (>60); GLUCOSE, FASTING 76 MG/DL (70-100); HDL CHOLESTEROL 55 MG/DL (>40); LDL CHOLESTEROL 66 MG/DL (<100); NON-HDL-C 84 MG/DL; POTASSIUM SERUM 4.2 MEQ/L (3.5-5.1); SODIUM LEVEL 140 MEQ/L (136-145); TOTAL PROTEIN 6.4 GM/DL (6.4-8.2); TRIGLYCERIDES LEVEL 89 MG/DL (<150)
--- NOTE | 2019-02-24 08:06 | CR ---
DATE OF CONSULTATION: 02/24/2019 REFERRING PHYSICIAN: Dr. Florian Salas REASON FOR CONSULTATION: Left-sided weakness and left eye visual problems. HISTORY OF PRESENT ILLNESS: Alex Monk is a 33-year-old woman presented to [facility] with left-sided numbness, weakness and left-sided vision problems. The patient states that she developed numbness and tingling of left arm and leg around 06:30 p.m. 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 It continued to worsen. She woke up this morning and had no problems but her symptoms returned around 10:30 a.m.. She again developed left-sided numbness, tingling and some weakness in her left arm and leg. The patient states that she also had a slight slurred speech yesterday. Today, her symptoms came back around 10:30 a.m. and around 11 o'clock she also started feeling that her left eye vision became dark and she still sees shadows with the left eye. She denies any pain in her eyes. She denies any headaches or neck pain. The patient has chronic low back pain, which is 6 out of 10 in intensity. She denies any seizures, dysphagia, dysarthria, diplopia, urinary incontinence, falls or loss of consciousness. Emergency room physician called me and he mentioned that the patient had a headache. The patient currently denies any headaches. He did not mention any problems with her vision, but the patient states that she had vision problems since this morning and when she came in. PAST MEDICAL HISTORY: History of pulmonary embolism into 1013. The patient was on Xarelto at that time. History of substance abuse, quit 6 years ago. Polycystic ovarian syndrome. The patient stated that she had tested positive for lupus anticoagulant in the past, short gut syndrome. SOCIAL HISTORY: She quit smoking in 2016. She smoked one to two packs per day. She quit using crack cocaine in 2012. She rarely drinks alcohol. FAMILY HISTORY: Her son is in custody of her sister and she was told that he had seizures. The patient's grandfather had cerebral aneurysm. MEDICATIONS: - Claritin 10 mg twice a day - Cytotec 100 mcg by mouth four times a day - Prilosec 20 mg by mouth daily - Protonix 20 mg, 2 capsules daily - sucralfate 1 gram by mouth four times a day - trazodone 1 mg by mouth at night - venlafaxine 37.5 mg by mouth daily - cholestyramine ALLERGIES: NONSTEROIDAL ANTIINFLAMMATORY DRUGS. PHYSICAL EXAMINATION: Temperature 96.8, pulse 86, respiratory 16, blood pressure 140/85. Heart regular rate and rhythm. Lungs clear to auscultation. Abdomen soft, nontender, nondistended. No pedal edema. No musculoskeletal abnormalities. No rash. No signs of meningeal irritation. The patient is awake, alert, oriented to place, person and time. Normal speech, comprehension and repetition. Extraocular muscles are intact. No facial weakness. Tongue and uvula are midline. Recent and distant memory is intact. There is no nystagmus. 5/5 strength throughout on the right side. Left-sided strength is 4+/5 with intermittent activation and give way The patient states that she has decreased touch and pinprick sensation on the left arm and leg. She is able to do tandem walking, even though she appears to have weakness on left side of her body. DIAGNOSTIC STUDIES: MRI and MRA of brain showed rare punctate white matter foci without any acute disease. 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 ASSESSMENT: 1. Left-sided numbness, weakness and left-sided visual problems of unclear etiology. 2. 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 PLAN: 1. MRI cervical and lumbosacral spine. 2. Ophthalmology consultation for her left eye visual loss. The patient denies any headaches or eye pain. 3. Physical and occupational therapy. 4. EMG nerve conduction study of left arm and leg on outpatient basis. 5. Follow with our office in 2 - 4 weeks after hospital discharge.
--- NOTE | 2019-02-24 08:35 | REP ---
MR CERVICAL SPINE WITHOUT CONTRAST: HISTORY: Left side numbness. A small right paracentral disc protrusion with associated osteophyte formation is present at the C2-3 level. There is mild effacement of the thecal sac without spinal cord compression. Uncinate process hypertrophy is present on the right. This produces minimal narrowing of the right C2 neural foramen. The left C2 neural foramina is patent. A disc bulge is present at the C5-6 level. There is minimal effacement of the thecal sac without spinal cord compression. The C5 neural foramina are patent. A disc bulge is present at the C6-7 level. There is minimal effacement of the thecal sac without spinal cord compression. The C6 neural foramina are patent. There is no other disc bulge or herniation. The remaining neural foramina are patent. The spinal cord is normal in signal intensity. Normal signal intensity is present is present in the cervical vertebral bodies. There is loss of the normal lordotic curve. IMPRESSION:There is cervical spondylosis at the C2-3, C5-6 and C6-7 levels without spinal cord compression. Electronically Signed by Florian Paulson MD 02/24/2019 09:01 A
--- NOTE | 2019-02-24 08:39 | REP ---
MR LUMBAR SPINE WITHOUT CONTRAST: HISTORY: Left side weakness. COMPARISON: 05/19/2015. Decreased signal intensity on T2-weighted images is present in the L3-4 intervertebral disc. The disc is decreased in height. These findings are consistent with disc degeneration. There is no disc bulge or herniation at the L1-2, L2-3, L4-5 and L5-S1 levels. There is hypertrophy of the posterior articulating facets at the L4-5 and L5-S1 levels. The nerves exit the neural foramina without compression. A diffuse disc bulge is present at the L3-4 level. There is minimal compression of the thecal sac. The L3 nerves exit the neural foramina without compression. The conus medullaris is normal in appearance terminating at the level of the T12-L1 intervertebral disc . Normal signal intensity is present in the lumbar vertebral bodies. IMPRESSION: Diffuse disc bulge at the L3-4 level with minimal thecal sac compression. Electronically Signed by Florian Paulson MD 02/24/2019 09:02 A
[2019-02-24 10:50] LABS: VITAMIN B12 LEVEL 731 PG/ML (247-911)
--- NOTE | 2019-02-24 12:19 | IPNPDOC ---
Text Note Date of Service The patient was seen on 02/24/19. NOTE Subjective: Patient seen and examined at bedside. No acute overnight events reported Patient has no new medical complaints. States her weakness/numbness is improving. Objective: General: NAD, sitting comfortably in chair HEENT: NC/AT, EOMI, PERRL Lungs: CTA B/L Heart: +S1S2, RRR Abd: soft, obese, NT, +BS Ext: no edema ASSESSMENT: 33 yo female for focal neurologic deficits. #left sided weakness - MRI no acute pathology - neuro c/s appreciated - check lupus anti-coagulant - PT/OT #vision deficits - patient still complains of visual deficits - but improving - d/w optho dr hester #Hx PE - completed course of Xarelto #DVT prophylaxis - mechanical Dispo: failed PT, discharge to optho clinic when ready - anticipate 24-48 hours A-FIB/CHADSVASC A-FIB History Current/History of A-Fib/PAF?: No VS,Fishbone, I+O VS, Fishbone, I+O Laboratory Tests 02/23/19 13:02 Red Blood Count 4.88, Mean Corpuscular Volume 79.5 L, Mean Corpuscular Hemoglobin 24.6 L, Mean Corpuscular Hemoglobin Concent 30.9 L, Red Cell Distribution Width 13.9, Neutrophils (%) (Auto) 59.9, Lymphocytes (%) (Auto) 29.4, Monocytes (%) (Auto) 6.7 H, Eosinophils (%) (Auto) 3.1 H, Basophils (%) (Auto) 0.6, Neutrophils # (Auto) 5.4, Lymphocytes # (Auto) 2.6, Monocytes # (Auto) 0.6, Eosinophils # (Auto) 0.3, Basophils # (Auto) 0.1, Calcium Level 8.9, Total Creatine Kinase 79 02/24/19 05:39 Red Blood Count 4.82, Mean Corpuscular Volume 78.2 L, Mean Corpuscular Hemoglobin 24.3 L, Mean Corpuscular Hemoglobin Concent 31.0 L, Red Cell Distribution Width 13.9, Calcium Level 8.3 L, Aspartate Amino Transf (AST/SGOT) 15, Alanine Aminotransferase (ALT/SGPT) 21, Alkaline Phosphatase 57, Total Elliott irubin 0.7, Triglycerides Level 89, LDL Cholesterol 66, Total Protein 6.4, Albumin 3.4 Vital Signs Date Time Temp Pulse Resp B/P (MAP) Pulse Ox O2 Delivery O2 Flow Rate FiO2 02/24/19 08:00 97.8 66 18 110/70 (83) 96 02/23/19 16:06 Room Air I&O- Last 24 Hours up to 6 AM 02/24/19 06:00 Intake Total 240 ml Output Total 0 ml Balance 240 ml CAMPBELL ACE MD February 24, 2019 12:19
[2019-02-24] MEDS ORDERED: ONDANSETRON 4 MG TAB (S0181) PO PRN (18:30)
[2019-02-24] MEDS ORDERED: PRAZOSIN 1 MG CAP PO PRN (18:30)
[2019-02-24] MEDS: PANTOPRAZOLE 20 MG TAB PO SCH (20:15)
[2019-02-24] MEDS: SUCRALFATE 1 GM TAB PO SCH (20:15)
[2019-02-24] MEDS: miSOPROStol 100 MCG TAB (S0191) PO SCH (20:15)
[2019-02-24] MEDS ORDERED: traZODone 50 MG TAB PO SCH (21:00)
[2019-02-24] MEDS: CHOLESTYRAMINE 4 GM PWD PKT PO SCH (21:35)
[2019-02-25 04:00] VITALS: BP 126/77
[2019-02-25 08:00] VITALS: BP 134/90
[2019-02-25] MEDS: SUCRALFATE 1 GM TAB PO SCH ×2 (08:11→12:03)
[2019-02-25] MEDS: PANTOPRAZOLE 20 MG TAB PO SCH (08:11)
[2019-02-25] MEDS: miSOPROStol 100 MCG TAB (S0191) PO SCH ×2 (08:12→12:03)
[2019-02-25] MEDS ORDERED: NYSTATIN 100,000 UNITS/GM TOPICAL PWD 15 GM TOP SCH (09:00)
[2019-02-25] MEDS ORDERED: OMEPRAZOLE 20 MG CAP PO SCH (09:00)
[2019-02-25] MEDS ORDERED: VENLAFAXINE **XR** 37.5 MG CAPSULE PO SCH (09:00)
[2019-02-25] MEDS ORDERED: LORATADINE 10 MG TAB PO SCH (09:00)
[2019-02-25] MEDS: CHOLESTYRAMINE 4 GM PWD PKT PO SCH (09:41)
[2019-02-25 12:00] VITALS: BP 143/93
[2019-02-25 13:28] LABS: ALBUMIN 3.56 GM/DL (3.29-5.55); ALBUMIN % 55.7 % (55.8-66.1); ALPHA-1-GLOBULIN % 3.8 % (2.9-4.9); ALPHA-1-GLOBULINS 0.24 GM/DL (0.17-0.41); ALPHA-2-GLOBULINS % 12.5 % (7.1-11.8); BETA-1-GLOBULINS 0.44 GM/DL (0.28-0.60); BETA-1-GLOBULINS % 6.9 % (4.7-7.2); BETA-2-GLOBULINS 0.36 GM/DL (0.19-0.55); BETA-2-GLOBULINS % 5.7 % (3.2-6.5); GAMMA GLOBULIN % 15.4 % (11.1-18.8); GAMMA GLOBULINS 0.99 GM/DL (0.65-1.58)
--- NOTE | 2019-02-25 16:12 | DS.PDOC ---
Discharge Summary General Date of Admission Feb 23, 2019 at 14:35 Date of Discharge 02/25/19 Specialist/Consultants Involve: NIRMAL ARENAS MD Specialist/Consultants Involve dr hester - [facility] Discharge Summary PROCEDURES PERFORMED DURING STAY: [None]. ADMITTING DIAGNOSES: 1. left sided weakness DISCHARGE DIAGNOSES: 1. left sided weakness, numbness, left visual changes - unknown etiology COMPLICATIONS/CHIEF COMPLAINT: Left Sided Weakness. HOSPITAL COURSE: 33 year old female admitted for left sided weakness, left sided visual deficits, left side parasthesia. Seen by neurology, further workup including imaging and laboratory studies - MRI brain, C-spine, L-spine, electrophoresis. Serum copper pending. DISCHARGE MEDICATIONS: Please see below. ALLERGIES: Please see below. PHYSICAL EXAMINATION ON DISCHARGE: VITAL SIGNS: See Below General: NAD, sitting comfortably at edge of bed HEENT: NC/AT, EOMI, PERRLA Lungs: CTA B/L Heart: +S1S2, RRR Abd: soft, NT, +BS, obese Ext: no edema Neuro: strength 5/5 throughout LABORATORY DATA: Please see below. ACTIVITY: [As tolerated]. DIET: Regular DISPOSITION: 01 Home, Self-Care. DISCHARGE INSTRUCTIONS: 1. Follow up today with ophthalmology - Dr. Hester. 2. Follow up with PCP in 3-5 days. 3. Follow up with neurology Dr. Arenas - 2-3 weeks. DISCHARGE CONDITION: [Stable]. TIME SPENT ON DISCHARGE: Greater than 30 minutes. Vital Signs/I&Os Vital Signs Date Time Temp Pulse Resp B/P (MAP) Pulse Ox O2 Delivery O2 Flow Rate FiO2 02/25/19 12:00 98.9 78 18 143/93 (110) 98 02/23/19 16:06 Room Air I&O- Last 24 Hours up to 6 AM 02/25/19 06:00 Intake Total 720 ml Output Total 775 ml Balance -55 ml Discharge Medications Scheduled Cholestyramine (with Sugar) (Cholestyramine Powder) 378 Gm Powder, 2 DOSE PO BID, (Reported) 2 SCOOPS Dicyclomine HCl (Dicyclomine HCl) 20 Mg Tab, 20 MG PO ACHS, (Reported) Loratadine (Claritin) 10 Mg Cap, 10 MG PO DAILY, (Reported) Misoprostol (Cytotec) 100 Mcg Tab, 100 MCG PO QID, (Reported) Omeprazole (Omeprazole) 20 Mg Cap, 20 MG PO DAILY, (Reported) Pantoprazole Sodium (Pantoprazole Sodium) 20 Mg Tab, 20 MG PO BID, (Reported) Sucralfate (Sucralfate) 1 Gm Tab, 1 GRAM PO QID, (Reported) Trazodone HCl (Trazodone HCl) 50 Mg Tablet, 100 MG PO QHS, (Reported) Venlafaxine HCl (Venlafaxine HCl ER) 37.5 Mg Cap.er.24h, 37.5 MG PO DAILY, (Reported) Scheduled PRN Ondansetron HCl (Zofran) 4 Mg Tab, 4 MG PO Q6HP PRN for NAUSEA, (Reported) Prazosin Hcl (Prazosin HCl) 2 Mg Cap, 2 MG PO QHS PRN for NIGHTMARES, (Reported) Allergies Coded Allergies: NSAIDS (Non-Steroidal Anti-Inflamma (Verified Adverse Reaction, Intermediate, gastric bypass, 01/28/19) egg (Verified Adverse Reaction, Mild, N/V, 01/28/19) CAMPBELL ACE MD February 25, 2019 16:12
== END 2019-02-25 14:14 | disposition home or self-care (01) | DRG 58 ==
LOC: M ED 11:10 → M ED INP 14:35 → M PCU 16:11
PROVIDERS: ADMIT Internal Medicine; ATTEND Internal Medicine
DX: R20.0 Anesthesia of skin (principal); G82.20 Paraplegia, unspecified; Z79.899 Other long term (current) drug therapy; Z88.8 Allergy status to other drugs, medicaments and biological substances; Z91.012 Allergy to eggs; Z88.6 Allergy status to analgesic agent; Z86.711 Personal history of pulmonary embolism; E28.2 Polycystic ovarian syndrome

== ENCOUNTER → 2019-03-17 | Outpatient (CLI) | payer OTHER ==
[~2019-03-17] MED LIST changes: +CHOL4POW3 PO; +VENL37.598 PO
--- NOTE | 2019-03-19 10:02 | SLEEPHOME ---
DATE OF STUDY: 03/17/2019 ORDERED BY: Nick Valdez Diagnostic home sleep testing was performed due to concern for the obstructive sleep apnea syndrome in this patient with history of excessive somnolence and nonrestorative sleep. For testing, a nocturnal T3 respiratory monitoring device was used. Continuous record was made of pulse, oxygen saturation, airflow, chest and abdominal strain and body position. 9 hours and 59 minutes of data were reviewed. There were 7 hours and 58 minutes marked as time in bed. During the interval marked time in bed, there were 65 respiratory events identified of 10 seconds in duration or greater for a respiratory event index of 8.2. The events were predominantly obstructive, 13 mixed and central apneas were seen. Baseline pulse rate 65 beats per minute, pulse rate ranged 45-164. Baseline saturation 95% and saturations fell as low as 72%. Testing was performed in both the supine and nonsupine positions. IMPRESSION: Abnormal home sleep testing with repetitive respiratory events and oxygen desaturations to 72% with a respiratory event index of 8.2 is consistent with the obstructive sleep apnea syndrome. RECOMMENDATION: The patient should be encouraged to undergo formal sleep evaluation and in-laboratory pressure titration.
== END ==
LOC: M SLEEP HO 10:37
PROVIDERS: ATTEND Physician Assistant
DX: G47.33 Obstructive sleep apnea (adult) (pediatric) (principal)

== ENCOUNTER → 2019-04-07 | Outpatient (CLI) | payer OTHER ==
[~2019-04-07] MED LIST changes: -TRAZ-160; -TRAZ-160 PO; +TRAZ-252; +TRAZ-252 PO
--- NOTE | 2019-04-08 21:53 | SLEEPCENT ---
DATE OF PROCEDURE: 04/07/2019 ORDERED BY: David Valdez PA-C Nocturnal polysomnography was performed for the titration of pressure therapy in this patient with a clinical diagnosis of obstructive sleep apnea syndrome confirmed by home testing revealing a respiratory event index of 8.2. For testing the patient was fit with a [employer] [place] View full face mask of small size, 4 cm of water pressure were applied to the circuit and the lights were extinguished. 8 hours and 48 minutes of data were reviewed. There were 446 minutes of sleep identified. Sleep latency was prolonged at 47 minutes. Rapid eye movement (REM) latency was short at 65 minutes. Sleep architecture improved with pressure therapy. There were four REM cycles noted. Overall sleep efficiency was 85.5%. The electrocardiogram showed a sinus rhythm with an average heart rate of 58 beats per minute. EEG showed normal waveforms for awake and sleep. Respiratory events were fully palliated with continuous positive airway pressure (CPAP) at a pressure of +5. There was scattered limb activity and remaining measures of sleep physiology were normal. IMPRESSION: Obstructive sleep apnea syndrome (G47.33). RECOMMENDATIONS: Nightly use of pressure therapy 5 cm of water.
== END ==
LOC: M SLEEP 19:49
PROVIDERS: ATTEND Physician Assistant
DX: G47.33 Obstructive sleep apnea (adult) (pediatric) (principal)

== ENCOUNTER 2019-04-19 11:13 | Emergency (ER) | payer OTHER ==
[~2019-04-19] VITALS: Ht 149.9 cm; Wt 97.3 kg
[~2019-04-19 11:13] MED LIST changes: -OMEP20CA3 PO; +OMEP20CA4 PO
--- NOTE | 2019-04-19 12:44 | REP ---
Clinical: Pain with recent fall. Technique: AP, lateral, bilateral oblique views of the left ankle. Findings: Generalized age-related degenerative changes are appreciated. Swelling cannot be excluded. No obvious acute fracture dislocation. The mortise intact. Lateral view demonstrates moderate calcaneal heal spur. Impression: No acute fracture or dislocation identified. Electronically Signed by Nick Kilpatrick MD 04/19/2019 12:35 P
[2019-04-19 13:06] VITALS: BP 141/101
== END 2019-04-19 13:09 | disposition home or self-care (01) ==
LOC: M ED 11:13
DX: S93.402A Sprain of unspecified ligament of left ankle, initial encounter (principal); X50.1XXA Overexertion from prolonged static or awkward postures, initial encounter; Y92.098 Other place in other non-institutional residence as the place of occurrence of the external cause; K21.9 Gastro-esophageal reflux disease without esophagitis; J45.909 Unspecified asthma, uncomplicated; Z86.711 Personal history of pulmonary embolism; Z87.891 Personal history of nicotine dependence; Z98.84 Bariatric surgery status; Z91.012 Allergy to eggs; Z88.6 Allergy status to analgesic agent; Z79.899 Other long term (current) drug therapy; Z79.01 Long term (current) use of anticoagulants

== ENCOUNTER → 2019-05-07 | Outpatient (CLI) | payer OTHER ==
[~2019-05-07] MED LIST changes: +ALBU8.5H INH; +BENZ200C70 PO; +E-Z-GAS II EFFERVESCENT PACKET (SODIUM BICARB./CITRIC ACID/SIMETHICONE) As Ordered ONE; +E-Z-HD 98% w/w 340GM SUSP BTL As Ordered ONE; +E-Z-PAQUE 96% w/w SUSP 176GM BTL As Ordered ONE; +OMEP1CAP73 PO; -OMEP20CA4 PO; +ONDA4TAB6 PO; +RIZA5TAB52; -TRAZ-163; +TRAZ-257
--- NOTE | 2019-05-07 20:16 | REP ---
Upper GI Air Contrast with SBFT The procedure was performed by MENG Barker, under the the direct supervision of Dr. Bush. The images were reviewed with Dr. Bush. The exhaust and muffler repairer film shows no organomegaly or pathological masses. The intestinal gas pattern appears normal. There are postsurgical gloria noted in the right upper quadrant Liquid barium and gas producing crystals were given in the erect position as well as liquid barium in the prone position in order to perform a double contrast upper GI examination. Flash penetration out aspiration was visualized during oral and pharyngeal stages of deglutition. There are osteophytes of the C5/6 vertebral bodies indenting the posterior esophageal wall. Esophageal transport is efficient and there is no esophagitis, stricture, or mucosal ring noted. There is a small hiatal hernia. Gastroesophageal reflux as visualized to the level of the shabnam. The stomach moy are normally outlined. The rugal folds are smooth and regular. There is no gastritis, neoplasm, or ulcer disease noted. The duodenal moy are normally outlined. The mucosal folds are smooth and regular. There is no duodenitis, peptic ulcer disease, or neoplasm noted. The visualized portion of the proximal small bowel appears normal in course and caliber. The barium column was followed through the small bowel to the level of the ileocolonic anastomosis in the right upper quadrant. There is no obstruction and contrast flows freely into the remaining sigmoid colon. Small bowel transit time was approximately 20 minutes. During fluoroscopy gentle palpation shows all loops are freely mobile and pliable. There are no fixed or angulated loops. The small bowel mucosal pattern is normal in course and caliber. There is no transition to set suggest a partial small-bowel obstruction. Impression: 1. Hiatal hernia. 2. Gastroesophageal reflux to the level of the shabnam. 3. C5-6 osteophytes indenting the posterior wall of the esophagus. 4. Free flow of contrast into the ileocolonic anastomosis, no obstruction. 5. Flash penetration without aspiration. 1.8 minutes of fluoroscopy time was utilized for this procedure. Some fluoroscopic images are performed with last image hold technology. These images require no additional radiation. Reviewed by MENG Figueroa 05/07/2019 03:33 P Electronically Signed by Sukumar Bush MD 05/07/2019 08:07 P
== END ==
LOC: M RAD 10:16
PROVIDERS: ATTEND Surgery
DX: K21.9 Gastro-esophageal reflux disease without esophagitis (principal); K44.9 Diaphragmatic hernia without obstruction or gangrene; M25.78 Osteophyte, vertebrae

== ENCOUNTER 2019-10-01 18:47 | Emergency (ER) | payer OTHER ==
[~2019-10-01] VITALS: Ht 149.9 cm; Wt 100.5 kg
[~2019-10-01 18:47] MED LIST changes: -ALBU8.5H INH; -BENZ200C70 PO; -E-Z-GAS II EFFERVESCENT PACKET (SODIUM BICARB./CITRIC ACID/SIMETHICONE) As Ordered ONE; -E-Z-HD 98% w/w 340GM SUSP BTL As Ordered ONE; -E-Z-PAQUE 96% w/w SUSP 176GM BTL As Ordered ONE; +OMEP-172 PO; -OMEP1CAP73 PO; -ONDA4TAB6 PO; -RIZA5TAB52; +TRAZ-163; -TRAZ-257
[2019-10-01] MEDS ORDERED: RIZA5TAB52 (20:04)
[2019-10-01] MEDS ORDERED: TOPI50TA9 (20:05)
[2019-10-01] MEDS ORDERED: ONDANSETRON 4MG/2ML VIAL (J2405) IV ONE (21:00)
[2019-10-01] MEDS ORDERED: NS 1,000 ML IV ONE (21:00)
[2019-10-01] MEDS ORDERED: MORPHINE 4 MG/ML 1ML VIAL/SYRINGE (J2270) IV ONE (21:00)
[2019-10-01 21:19] LABS: BASO # 0.1 10^3/uL (0.0-0.2); BASO % 0.6 % (0.0-1.0); EOS # 0.2 10^3/uL (0.0-0.5); EOS % 2.4 % (0.0-3.0); HEMATOCRIT 40.1 % (36.0-47.0); HEMOGLOBIN 12.1 g/dl (12.0-15.5); LYMPH # 3.3 10^3/uL (1.5-5.0); LYMPH % 34.9 % (24.0-44.0); MEAN CORPUSCULAR HEMOGLOBIN 24.8 pg (27.0-33.0); MEAN CORPUSCULAR HGB CONC 30.2 g/dl (32.0-36.5); MEAN CORPUSCULAR VOLUME 82.3 fl (80.0-96.0); MONO # 0.7 10^3/uL (0.0-0.8); MONO % 7.7 % (0.0-5.0); NEUTROPHILS # 5.2 10^3/uL (1.5-8.5); NEUTROPHILS % 54.1 % (36.0-66.0); PLATELET COUNT, AUTOMATED 305 10^3/uL (150-450); RED BLOOD COUNT 4.87 10^6/uL (4.00-5.40); WHITE BLOOD COUNT 9.6 10^3/uL (4.0-10.0)
[2019-10-01 21:42] LABS: ALBUMIN 3.4 GM/DL (3.2-5.2); ALT/SGPT 18 U/L (12-78); BILIRUBIN,DIRECT < 0.1 MG/DL (0.0-0.2); BILIRUBIN,TOTAL 0.3 MG/DL (0.2-1.0); BLOOD UREA NITROGEN 13 MG/DL (7-18); CALCIUM LEVEL 8.9 MG/DL (8.5-10.1); CARBON DIOXIDE LEVEL 26 MEQ/L (21-32); CHLORIDE LEVEL 110 MEQ/L (98-107); GLOMERULAR FILTRATION RATE > 60.0 (>60); GLUCOSE, FASTING 77 MG/DL (70-100); LIPASE 243 U/L (73-393); POTASSIUM SERUM 4.3 MEQ/L (3.5-5.1); SODIUM LEVEL 141 MEQ/L (136-145); TOTAL PROTEIN 6.8 GM/DL (6.4-8.2)
[2019-10-01 21:43] LABS: HCG, SERUM QUALITATIVE NEGATIVE (NEGATIVE)
[2019-10-01] MEDS ORDERED: ISOVUE-370 76% 100ML VIAL (Q9967) As Ordered ONE (21:45)
[2019-10-01 22:10] VITALS: BP 120/56
--- NOTE | 2019-10-01 22:38 | REPVR ---
PROCEDURE INFORMATION: Exam: CT Abdomen And Pelvis With Contrast Exam date and time: 10/01/2019 9:58 PM Age: 34 years old Clinical history: Abdominal pain; Localized; Right upper quadrant (ruq); Additional info: Right side abdominal pain worse in ruq TECHNIQUE: Imaging protocol: Computed tomography of the abdomen and pelvis with intravenous contrast. Radiation optimization: All CT scans at this facility use at least one of these dose optimization techniques: automated exposure control; mA and/or kV adjustment per patient size (includes targeted exams where dose is matched to clinical indication); or iterative reconstruction. Contrast material: ISOVUE 370; Contrast volume: 100 ml; Contrast route: IV; COMPARISON: CT ABD/PEL W/IV ORAL CONTRAS 11/14/2018 9:12 PM FINDINGS: Liver: Normal. No mass. Gallbladder and bile ducts: There has been prior cholecystectomy. Pancreas: Normal. No ductal dilation. Spleen: Normal. No splenomegaly. Adrenals: Normal. No mass. Kidneys and ureters: Normal. No hydronephrosis. Stomach and bowel: Changes from prior bariatric surgery are noted. Prior partial colectomy. The small bowel and residual colon are unremarkable. No bowel obstruction or inflammatory process. Appendix: The appendix is not well-visualized. No right lower quadrant inflammatory changes. Intraperitoneal space: Unremarkable. No free air. No significant fluid collection. Vasculature: Unremarkable. No abdominal aortic aneurysm. Lymph nodes: Unremarkable. No enlarged lymph nodes. Bladder: Unremarkable as visualized. Reproductive: Unremarkable as visualized. Bones/joints: Unremarkable. No acute fracture. Soft tissues: Unremarkable. IMPRESSION: 1. No acute findings. 2. Postoperative changes as above. Electronically signed by: Ryan Heranndez On 10/01/2019 22:37:42 PM
--- NOTE | 2019-10-02 09:16 | REP ---
ABDOMEN, TWO VIEWS: 10/01/2019. CLINICAL HISTORY: Right-sided abdominal pain. COMPARISON: Upper GI series with small bowel, 05/07/2019. CT abdomen/pelvis 11/14/2018. FINDINGS: There are right upper quadrant surgical clips and anastomotic sutures in the left upper quadrant from prior surgery. Gas pattern is nonspecific. There is a gas filled bowel loop likely at the ileocolic anastomosis in the right upper quadrant. This is similar to previous CT. I do not see any other air-fluid levels. There is no mass or abnormal soft-tissue calcification. Bones are without acute findings. IMPRESSION: 1. Nonspecific gas pattern without any definite obstruction, mass, or free air. 2. Postoperative changes in the right and left upper quadrant. Electronically Signed by Aime Rosenthal MD 10/02/2019 07:43 P
== END 2019-10-01 23:01 | disposition home or self-care (01) ==
LOC: M ED 18:47
DX: R10.84 Generalized abdominal pain (principal); R11.0 Nausea; R51 Headache; Z86.711 Personal history of pulmonary embolism; E28.2 Polycystic ovarian syndrome; F43.10 Post-traumatic stress disorder, unspecified; K21.9 Gastro-esophageal reflux disease without esophagitis; Z79.899 Other long term (current) drug therapy; Z88.6 Allergy status to analgesic agent; Z91.012 Allergy to eggs
CPT/HCPCS: 36415; 74019; 74177; 80048; 80076; 81001; 83605; 83690; 84703; 85025; 87086; 96361; 96374; 96375; 99284; J2270; J2405; Q9967

== ENCOUNTER 2019-10-31 18:18 | Emergency (ER) | payer OTHER ==
[~2019-10-31] VITALS: Ht 149.9 cm; Wt 95.5 kg
[~2019-10-31 18:18] MED LIST changes: +RIZA5TAB52
[2019-10-31] MEDS ORDERED: BENZ200C70 PO (18:26)
[2019-10-31] MEDS ORDERED: ALBU8.5H INH (18:26)
[2019-10-31] MEDS ORDERED: PRED20TA PO (18:26)
[2019-10-31] MEDS ORDERED: ONDANSETRON 4 MG ORAL DISINTEGRATING TAB (Q0162 PER 1MG) PO ONE (20:00)
[2019-10-31 20:35] LABS: INFLUENZA A AMPLIFICATION NEGATIVE (NEGATIVE); INFLUENZA B AMPLIFICATION NEGATIVE (NEGATIVE)
[2019-10-31 20:57] VITALS: BP 127/79
[2019-10-31] MEDS ORDERED: ONDA4TAB6 PO (21:00)
== END 2019-10-31 21:15 | disposition home or self-care (01) ==
LOC: M ED 18:18
DX: J06.9 Acute upper respiratory infection, unspecified (principal); B34.9 Viral infection, unspecified; Z79.899 Other long term (current) drug therapy; Z88.6 Allergy status to analgesic agent; Z91.012 Allergy to eggs
CPT/HCPCS: 87502; 87880; 99284; Q0162

== ENCOUNTER → 2019-12-07 | Outpatient (REF) | payer OTHER, MEDICAID ==
[~2019-12-07] MED LIST changes: +ALBU8.5H INH; +BENZ200C70 PO; -OMEP-172 PO; +OMEP1CAP73 PO; +ONDA4TAB6 PO; -TRAZ-163; +TRAZ-257
[2019-12-07 19:09] LABS: BASO # 0.1 10^3/uL (0.0-0.2); BASO % 0.8 % (0.0-1.0); EOS # 0.2 10^3/uL (0.0-0.5); HEMATOCRIT 40.2 % (36.0-47.0); HEMOGLOBIN 11.9 g/dl (12.0-15.5); LYMPH # 1.9 10^3/uL (1.5-5.0); MEAN CORPUSCULAR HEMOGLOBIN 24.4 pg (27.0-33.0); MEAN CORPUSCULAR HGB CONC 29.6 g/dl (32.0-36.5); MEAN CORPUSCULAR VOLUME 82.4 fl (80.0-96.0); MONO # 0.5 10^3/uL (0.0-0.8); MONO % 8.6 % (0.0-5.0); NEUTROPHILS # 3.3 10^3/uL (1.5-8.5); NEUTROPHILS % 55.3 % (36.0-66.0); PLATELET COUNT, AUTOMATED 281 10^3/uL (150-450); RED BLOOD COUNT 4.88 10^6/uL (4.00-5.40)
[2019-12-07 19:37] LABS: ALBUMIN 3.6 GM/DL (3.2-5.2); ALT/SGPT 18 U/L (12-78); BILIRUBIN,TOTAL 0.6 MG/DL (0.2-1.0); BLOOD UREA NITROGEN 13 MG/DL (7-18); CALCIUM LEVEL 8.5 MG/DL (8.5-10.1); CARBON DIOXIDE LEVEL 29 MEQ/L (21-32); CHLORIDE LEVEL 107 MEQ/L (98-107); CHOLESTEROL LEVEL 155 MG/DL (<200); CREATININE FOR GFR 0.84 MG/DL (0.55-1.30); FREE T4 1.07 NG/DL (0.76-1.46); GLOMERULAR FILTRATION RATE > 60.0 (>60); GLUCOSE, FASTING 77 MG/DL (70-100); HDL CHOLESTEROL 62 MG/DL (>40); LDL CHOLESTEROL 79 MG/DL (<100); NON-HDL-C 93 MG/DL; POTASSIUM SERUM 4.5 MEQ/L (3.5-5.1); SODIUM LEVEL 140 MEQ/L (136-145); TOTAL PROTEIN 6.7 GM/DL (6.4-8.2); TRIGLYCERIDES LEVEL 71 MG/DL (<150)
[2019-12-07 19:41] LABS: HEMOGLOBIN A1c 5.1 %
[2019-12-08 11:49] LABS: TOTAL 25(OH) VITAMIN D 29.2 NG/ML (30.0-100.0)
[2019-12-08 12:08] LABS: VITAMIN B12 LEVEL 287 PG/ML
== END ==
LOC: M LAB REF 17:27
PROVIDERS: ATTEND Nurse Practitioner Family
DX: R53.83 Other fatigue (principal); Z13.9 Encounter for screening, unspecified; N92.0 Excessive and frequent menstruation with regular cycle; G43.109 Migraine with aura, not intractable, without status migrainosus; F41.8 Other specified anxiety disorders; E66.01 Morbid (severe) obesity due to excess calories

== ENCOUNTER 2019-12-24 05:26 | Emergency (ER) | payer MEDICAID, OTHER ==
[~2019-12-24] VITALS: Ht 149.9 cm; Wt 98.8 kg
[2019-12-24 06:27] LABS: INFLUENZA A AMPLIFICATION NEGATIVE (NEGATIVE); INFLUENZA B AMPLIFICATION POSITIVE (NEGATIVE)
[2019-12-24] MEDS ORDERED: OSEL75CA PO (06:59)
[2019-12-24 07:03] VITALS: BP 137/87
== END 2019-12-24 07:10 | disposition home or self-care (01) ==
LOC: M ED 05:26
DX: J10.1 Influenza due to other identified influenza virus with other respiratory manifestations (principal); Z20.89 Contact with and (suspected) exposure to other communicable diseases; R51 Headache; E28.2 Polycystic ovarian syndrome; Z86.711 Personal history of pulmonary embolism; F43.10 Post-traumatic stress disorder, unspecified; F41.9 Anxiety disorder, unspecified; F32.9 Major depressive disorder, single episode, unspecified; F60.3 Borderline personality disorder; Z98.84 Bariatric surgery status; Z79.899 Other long term (current) drug therapy; Z88.6 Allergy status to analgesic agent; Z91.012 Allergy to eggs

== ENCOUNTER → 2019-12-29 | Outpatient (REF) | payer OTHER ==
[~2019-12-29] MED LIST changes: +OSEL75CA PO
[2019-12-29 16:13] LABS: CHLAMYDIA DNA AMPLIFICATION NEGATIVE (NEGATIVE); GC DNA AMPLIFICATION NEGATIVE (NEGATIVE)
== END ==
LOC: M SFHCWAGY 12:55
PROVIDERS: ATTEND Obstetrics & Gynecology
DX: Z12.4 Encounter for screening for malignant neoplasm of cervix (principal); Z11.3 Encounter for screening for infections with a predominantly sexual mode of transmission; N88.0 Leukoplakia of cervix uteri

== ENCOUNTER 2020-01-24 06:29 | Observation (INO) | payer OTHER ==
[~2020-01-24] VITALS: Ht 149.9 cm; Wt 101.0 kg
[~2020-01-24 06:29] MED LIST changes: -RIZA5TAB52; +RIZA5TAB52 PO; +TOPI50TA9 PO
[2020-01-24] MEDS ORDERED: MORPHINE 4 MG/ML 1ML VIAL/SYRINGE (J2270) IV ONE (07:00)
[2020-01-24] MEDS ORDERED: NS 500 ML IV ONE (07:00)
[2020-01-24] MEDS ORDERED: ISOVUE-370 76% 100ML VIAL (Q9967) As Ordered ONE (07:31)
[2020-01-24] MEDS ORDERED: ONDANSETRON 4MG/2ML VIAL (J2405) IV ONE (07:45)
--- NOTE | 2020-01-24 08:02 | REP ---
A portable chest x-ray: Single view. History: Abdominal pain. Comparison study: February 23 2019. Findings: The lungs are well inflated and clear. Pleural angles are sharp. Heart size is normal. Pulmonary vasculature is not increased. No significant bony abnormalities seen. Impression: No active disease. Electronically Signed by Sukumar Bush MD 01/24/2020 07:53 A
--- NOTE | 2020-01-24 08:22 | REP ---
CT pulmonary angiogram: With IV contrast. History: Abdomen pain. History of bowel surgery. Comparison studies: Comparison CT study of the chest is from September 28, 2017. Contrast dose: 100 ML of Isovue [address] technique: Helical scanning is acquired and overlapping 1.5 mm and contiguous 3 mm axial images are reformatted. In addition, maximum intensity projection and multiplanar re-formation images are generated in sagittal and coronal imaging projections. CT pulmonary angiographic findings: There is good opacification of the pulmonary arterial tree. There is no filling defect or vessel cutoff to suggest pulmonary embolism. No pleural or pericardial effusion is seen. No hilar or mediastinal mass or adenopathy is observed. There is no evidence of pulmonary nodule or mass lesion. No definite infiltrate is seen. There is subsegmental atelectatic changes in the lower lobes bilaterally. The lungs are slightly under inflated. No bony abnormality. Impression: No acute cardiopulmonary disease seen. No CT evidence of pulmonary embolus. Electronically Signed by Sukumar Bush MD 01/24/2020 08:14 A
[2020-01-24] MEDS ORDERED: NS 1,000 ML IV ONE (08:30)
[2020-01-24] MEDS ORDERED: ONDA4TAB6 PO (08:43)
[2020-01-24] MEDS ORDERED: VENL75CA47 PO (08:43)
[2020-01-24 08:44] LABS: BASO % 0.3 % (0.0-1.0); EOS # 0.3 10^3/uL (0.0-0.5); EOS % 3.1 % (0.0-3.0); HEMATOCRIT 40.5 % (36.0-47.0); HEMOGLOBIN 12.3 g/dl (12.0-15.5); LYMPH # 2.1 10^3/uL (1.5-5.0); LYMPH % 20.6 % (24.0-44.0); MEAN CORPUSCULAR HEMOGLOBIN 24.3 pg (27.0-33.0); MEAN CORPUSCULAR HGB CONC 30.4 g/dl (32.0-36.5); MEAN CORPUSCULAR VOLUME 79.9 fl (80.0-96.0); MONO # 0.8 10^3/uL (0.0-0.8); MONO % 7.4 % (0.0-5.0); NEUTROPHILS # 7.1 10^3/uL (1.5-8.5); NEUTROPHILS % 68.2 % (36.0-66.0); PLATELET COUNT, AUTOMATED 260 10^3/uL (150-450); RED BLOOD COUNT 5.07 10^6/uL (4.00-5.40); WHITE BLOOD COUNT 10.3 10^3/uL (4.0-10.0)
[2020-01-24 09:13] LABS: ALBUMIN 3.1 GM/DL (3.2-5.2); BILIRUBIN,DIRECT 0.2 MG/DL (0.0-0.2); BILIRUBIN,TOTAL 0.8 MG/DL (0.2-1.0); TOTAL PROTEIN 6.3 GM/DL (6.4-8.2)
--- NOTE | 2020-01-24 09:32 | REP ---
CT ABDOMEN AND PELVIS WITH IV BUT WITHOUT ORAL CONTRAST: HISTORY: History of bowel surgery. Abdominal pain. CT CONTRAST DOSE: 100 mL of intravenous Isovue 370. Comparison CT study October 01, 2019. CT FINDINGS: There is moderate diffuse fatty infiltration of the liver. The patient is status post gastric sleeve. The gallbladder is surgically absent. No focal hepatic or splenic lesion is seen. No abnormality is noted in the pancreas. No adrenal lesion is seen. The kidneys enhance symmetrically and appear morphologically intact. No retroperitoneal mass or adenopathy is observed. The small bowel obstruction pattern in the bowel gas with multiple moderately dilated central and proximal abdominal small bowel loops. There is some interloop fluid in the left mid abdomen. The distal most loops of small intestine are normal in caliber. There appears to be a point of transition in the left lower quadrant. There is no evidence of free intraperitoneal air. There is some mucosal fold and mild mural thickening in the involved small bowel loops. No uterine, ovarian or urinary bladder abnormality. No abdominal wall defect is seen. No bony abnormality is appreciated. IMPRESSION: Small bowel obstruction pattern with point of transition in the left lower quadrant. No obstructive lesion visible. There is mural edema and some interloop ascitic fluid but no evidence of free air. Postoperative changes. Fatty infiltration of the liver. Electronically Signed by Sukumar Bush MD 01/24/2020 03:33 P
[2020-01-24] MEDS ORDERED: ONDANSETRON 4MG/2ML VIAL (J2405) IV PRN (10:30)
[2020-01-24] MEDS ORDERED: ACETAMINOPHEN TAB 650MG DOSE (2X325MG) PO PRN (10:30)
[2020-01-24] MEDS ORDERED: RIZATRIPTAN MLT 10 MG TAB PO PRN (10:30)
[2020-01-24] MEDS: MORPHINE 2 MG/ML 1ML VIAL (J2270) IV PRN ×4 (11:13→22:30)
[2020-01-24] MEDS: KETOROLAC 30 MG/ML VIAL (J1885) IV PRN (11:13)
[2020-01-24 11:15] VITALS: BP 120/76
[2020-01-24] MEDS: LR 1,000 ML IV SCH ×2 (11:23→18:38)
[2020-01-24] MEDS: VENLAFAXINE **XR** 75MG CAPSULE PO SCH (11:31)
[2020-01-24] MEDS: PANTOPRAZOLE 40MG INJ (PROTONIX) (C9113) IV SCH (11:32)
[2020-01-24] MEDS: TOPIRAMATE (TopAMAX) 25 MG TAB PO SCH (11:32)
[2020-01-24 14:00] VITALS: BP 118/74
[2020-01-24 18:00] VITALS: BP 148/118
[2020-01-24 19:15] VITALS: BP 126/76
[2020-01-24] MEDS: traZODone 50 MG TAB PO SCH (20:18)
[2020-01-24 22:00] VITALS: BP 142/88
--- NOTE | 2020-01-24 23:53 | HPE ---
DATE OF ADMISSION: 01/24/2020 Date of placement on observation status is January 24, 2020. ADMITTING DIAGNOSIS: Small bowel obstruction. HISTORY OF THE PRESENT ILLNESS: The patient is a pleasant 34-year-old woman who presented to the hospital on the morning of the 23 of January for evaluation of abdominal pain. The patient reported that she had some abdominal discomfort on the evening of the , but it was fairly mild and she went to sleep. She awoke at about 5 o'clock in the morning of the with what she described as severe pain. She initially felt as if she would feel better if she had a bowel movement. She reported having waves of pain every 10 or 15 minutes. She had some nausea but no vomiting. She attempted to have a bowel movement, which she did have and she described it as fairly normal for her and of moderate quantity. She had some crampy-type pains with the bowel movement, but this did not resolve her discomfort. Her discomfort continued to come in waves, and she presented to the emergency department for evaluation. She was evaluated with some blood tests and a CT scan of the abdomen and pelvis. Her CT scan suggested some dilated proximal small bowel, primarily in the left mid and upper abdomen, and I was consulted regarding treatment of what appeared to be a bowel obstruction. She is now admitted for treatment. ALLERGIES: The patient has no known drug allergies. She was advised to avoid NONSTEROIDAL ANTI-INFLAMMATORY MEDICATIONS by her bariatric surgeon following her sleeve gastrectomy. Does report allergies to EGGS. MEDICATIONS: Current medications include: - dicyclomine 20 mg by mouth before meals and at bedtime as needed for abdominal pain - loratadine 10 mg by mouth daily - Zofran 4 mg orally dissolving tablets by mouth every 6 hours as needed for nausea or vomiting - Protonix 20 mg by mouth daily - rizatriptan benzoate 5 mg by mouth daily as needed for migraines - topiramate 50 mg by mouth daily - trazodone 50 mg by mouth nightly - venlafaxine hydrochloride ER 75 mg by mouth daily SURGICAL HISTORY: Her surgical history is significant for a history of necrotizing enterocolitis as an infant. She apparently had surgery with a temporary ostomy with a partial bowel resection. She was subsequently reconnected and has done well in this regard. She had a cholecystectomy and in 2014, she underwent a sleeve gastrectomy for obesity. She reports that she has lost about 150 pounds in the 4 years since her surgery and seems to have plateaued. She had an exploratory laparoscopy in 2018 because of some abdominal pains, and her bariatric surgeon did a lysis of adhesions laparoscopically. The patient has also had a section in 2016. MEDICAL HISTORY: Significant for longstanding obesity. She did have her sleeve gastrectomy in 2014 and remains morbidly obese. She has a history of pulmonary embolism in 2013 for which she received treatment with Xarelto, but reports that she has been off of anticoagulation for at least a year. Her medical history is significant for a history of migraine headaches. She reportedly has a history of sleep apnea and was previously prescribed a continuous positive airway pressure (CPAP) but does not use this. She does have a history of anxiety and depression as well. SOCIAL HISTORY: The patient is a former smoker and denies any significant alcohol intake. FAMILY HISTORY: Noncontributory. REVIEW OF SYSTEMS: Reveals no history of heart disease. She has no history of palpitations. She has had no dysuria or hematuria. She denies any current bone or joint issues. She has had no shortness of breath, cough or wheezing. She denies any history of hepatitis, pancreatitis, or jaundice. There is no history of peptic ulcer disease. She reports that she is eating a regular diet. PHYSICAL EXAM: Reveals a pleasant woman lying quietly propped up in a hospital stretcher. She is alert and oriented. Her vital signs at the time of my evaluation showed a temperature of 98.3, pulse of 85 and blood pressure of 131/64 with an oxygen saturation of 99% on room air. Sclerae are anicteric. Mucous membranes are moist. The patient is obviously morbidly obese. She is breathing easily. Heart exam shows a regular rate and rhythm. Lungs are clear to auscultation bilaterally with no wheezes, rales or rhonchi. The abdomen shows an irregular depressed midline scar beginning in the epigastrium and extending down to the area of the suprapubic region. There is no sign of definite hernia. The abdominal wall was quite obese. She has active bowel sounds throughout the abdomen. Palpation reveals some mild fairly diffuse tenderness in the upper abdomen, which may be slightly worse in the right upper quadrant than the rest of the abdomen. There is no rebound or guarding. Extremities are without edema, and she has palpable radial and pedal pulses. LABORATORY STUDIES: Include a med profile that is normal with a BUN of 13, creatinine 0.8 and a glucose of 83. Her CBC showed a white count of 10, hemoglobin 12, hematocrit 40, and platelet count of 260,000. Differential count showed 68% neutrophils, 21% lymphocytes and 7% monocytes. The liver function tests were normal with a total protein of 6.3 and an albumin of 3.1. Lipase was normal. Lactic acid was normal at 1.2. CT scan of the abdomen was obtained. She also had a CT angiogram of the chest, which showed no evidence of pulmonary embolus. Her CT scan of the abdomen and pelvis revealed a suggestion of some diffuse fatty infiltration of the liver. Her sleeve gastrectomy was noted. The gallbladder was absent. There was a suggestion of a small bowel obstruction with multiple moderately dilated proximal small bowel loops. The radiologist felt that there appeared to be a point of transition in the left lower quadrant, though I reviewed the films personally and felt that the transition point appeared to be more in the right upper quadrant in the region of where her bowel crossed beneath the liver. There was no free air and no significant free fluid. My impression is that she appears to be missing all of her colon with the exception of a portion of the sigmoid and her rectosigmoid. She appears to have an anastomosis of the small bowel to the colon in the right lower quadrant. On my review, it also seems that she has a roughly 5 cm cyst in the left adnexa. IMPRESSION: 1. Small bowel obstruction secondary to adhesions. 2. Morbid obesity. 3. History of migraine headaches. 4. History of obstructive sleep apnea. 5. Anxiety and depression. 6. History of prior colonic resection. PLAN: I discussed with the patient the nature of a small bowel obstruction and that these are usually caused by scar tissue from prior surgery. I advised her that these will often resolve on their own with observation and support and that most do not require surgical intervention. I discussed with her the possibility of a nasogastric (NG) tube, but given her prior gastric surgery, and her lack of any vomiting at this point, I have recommended that we hold off on the NG tube for now. I advised her that we would keep her nothing by mouth (n.p.o.) and provide her with IV fluids. She will be provided with analgesics as necessary. Her other medications will be continued as much as possible. She does not require any antibiotics at this time. We will follow her clinically based on bowel activity and physical exam. I will check back on her later in the day and see if she is progressing or not.
[2020-01-25 02:00] VITALS: BP 122/77
[2020-01-25] MEDS: KETOROLAC 30 MG/ML VIAL (J1885) IV PRN ×2 (02:26→09:54)
[2020-01-25] MEDS: LR 1,000 ML IV SCH ×3 (02:26→19:02)
[2020-01-25 05:36] LABS: BASO % 0.6 % (0.0-1.0); EOS # 0.3 10^3/uL (0.0-0.5); EOS % 4.2 % (0.0-3.0); HEMATOCRIT 33.6 % (36.0-47.0); LYMPH # 2.1 10^3/uL (1.5-5.0); LYMPH % 32.5 % (24.0-44.0); MEAN CORPUSCULAR HEMOGLOBIN 24.4 pg (27.0-33.0); MEAN CORPUSCULAR HGB CONC 30.7 g/dl (32.0-36.5); MEAN CORPUSCULAR VOLUME 79.6 fl (80.0-96.0); MONO # 0.6 10^3/uL (0.0-0.8); MONO % 8.5 % (0.0-5.0); NEUTROPHILS # 3.5 10^3/uL (1.5-8.5); NEUTROPHILS % 53.7 % (36.0-66.0); PLATELET COUNT, AUTOMATED 248 10^3/uL (150-450); RED BLOOD COUNT 4.22 10^6/uL (4.00-5.40); WHITE BLOOD COUNT 6.5 10^3/uL (4.0-10.0)
[2020-01-25 05:40] LABS: HEMOGLOBIN 10.3 g/dl (12.0-15.5)
[2020-01-25 05:59] LABS: BLOOD UREA NITROGEN 14 MG/DL (7-18); CALCIUM LEVEL 7.8 MG/DL (8.5-10.1); CARBON DIOXIDE LEVEL 25 MEQ/L (21-32); CHLORIDE LEVEL 110 MEQ/L (98-107); CREATININE FOR GFR 0.86 MG/DL (0.55-1.30); GLOMERULAR FILTRATION RATE > 60.0 (>60); GLUCOSE, FASTING 73 MG/DL (70-100); POTASSIUM SERUM 4.1 MEQ/L (3.5-5.1); SODIUM LEVEL 141 MEQ/L (136-145)
[2020-01-25 06:00] VITALS: BP 117/66
[2020-01-25] MEDS: PANTOPRAZOLE 40MG INJ (PROTONIX) (C9113) IV SCH (08:17)
[2020-01-25] MEDS: TOPIRAMATE (TopAMAX) 25 MG TAB PO SCH (08:17)
[2020-01-25] MEDS: VENLAFAXINE **XR** 75MG CAPSULE PO SCH (08:17)
--- NOTE | 2020-01-25 08:22 | REP ---
KUB: Two views. HISTORY: Small bowel obstruction. COMPARISON STUDY: October 01, 2019. FINDINGS: There are surgical sutures in the left upper quadrant and clips in the right upper quadrant. There is air and stool in a nondistended colon in the right mid abdomen and in the distal colon. No small bowel dilation is seen. Flank stripes are intact. The right psoas margin is obscured. Left psoas margin is intact. No mass or organomegaly is seen. No pathologic calcification is noted. IMPRESSION: Surgical clips and sutures in the upper abdomen. Normal bowel gas pattern. Electronically Signed by Sukumar Bush MD 01/25/2020 10:17 A
[2020-01-25 10:00] VITALS: BP 118/73
[2020-01-25 14:00] VITALS: BP 125/77
[2020-01-25 18:00] VITALS: BP 130/71
[2020-01-25] MEDS: traZODone 50 MG TAB PO SCH (20:07)
[2020-01-25 22:00] VITALS: BP 127/78
--- NOTE | 2020-01-25 23:17 | IPN ---
DATE: 01/25/2020 HISTORY: The patient was placed on observation yesterday for a small bowel obstruction. This morning she had reported that she had not passed any gas, though her pain had largely resolved. She had had two episodes of a very small amount of bilious emesis yesterday but none overnight or into the morning. A KUB this morning showed resolution of small bowel loops in the upper abdomen with some gas and stool noted in her residual rectosigmoid. Vital signs: Show that she has been afebrile since admission. Her pulse is in the 60s and 70s, and her blood pressure is normal. Intake and output shows that her urine output has been adequate, though she has mostly been voiding in the bathroom. PHYSICAL EXAMINATION: The patient is alert and oriented. Heart exam shows a regular rhythm. Lungs are clear, and the abdomen shows active bowel sounds with the abdomen being soft and without any significant tenderness. Laboratory studies today showed a white count of 6 with a hemoglobin of 10, hematocrit 34 and platelet count of 248,000. The differential was normal. Her chemistries were normal as well. IMPRESSION: The patient was seen twice today; first in the morning when she reported no flatus and then in the early afternoon after she had her KUB reviewed. At that time, she reported some flatus and a bowel movement and was indicating that she was not having any pain at that point. PLAN: The patient was advanced to clear liquids and encouraged to be up out of bed. If she tolerates the clear liquids, will advance to full liquids and saline lock her IV. I would anticipate monitoring her overnight, and if she is doing well on the morning of January 26, 2020, she can be discharged home.
[2020-01-26 02:00] VITALS: BP 123/78
[2020-01-26 06:00] VITALS: BP 122/77
[2020-01-26] MEDS: PANTOPRAZOLE 40MG INJ (PROTONIX) (C9113) IV SCH (09:31)
[2020-01-26] MEDS: TOPIRAMATE (TopAMAX) 25 MG TAB PO SCH (09:31)
[2020-01-26] MEDS: VENLAFAXINE **XR** 75MG CAPSULE PO SCH (09:31)
[2020-01-26 10:00] VITALS: BP 136/88
--- NOTE | 2020-01-26 17:52 | IPN ---
DATE: 01/26/2020 HISTORY: The patient was admitted on January 23 with a small-bowel obstruction. She was provided with analgesics, and her symptoms had largely resolved by the morning of the . Her followup KUB showed improvement in her x-ray picture. She was started on clear liquids at about noon on January 24 and advanced to full liquids later that evening. She has done well overnight with no pain and several bowel movements with positive flatus. Vital signs show that she has been afebrile. Her pulse is in the 60s to low 70s. Blood pressure is excellent. Intake and output shows that her intake was 970 in orally with 1200 of intravenous (IV) fluid yesterday. Her urine output has been brisk today, and she reports several bowel movements. PHYSICAL EXAMINATION: The patient is lying quietly in the hospital bed and denies any pain, nausea, or vomiting. IMPRESSION: The patient's obstruction has clearly resolved, and she is now asymptomatic and tolerating a full liquid diet. PLAN: The patient will be discharged home today. She will continue her usual medications. I did discuss with her that sometimes dietary issues can cause partial or temporary blockages in people who have had issues with adhesions. She volunteered that she had recently eaten a lot of cabbage, and this certainly could be a culprit. I advised her to monitor her diet closely. There is no need for her to followup with me in the office. She can return to the emergency department as needed.
== END 2020-01-26 11:23 | disposition home or self-care (01) ==
LOC: M ED 06:29 → EEVIPCON 06:30 → M ED INP 06:30 → ENRESERVDT 10:42 → ENRESERVTM 10:42 → M MSPAV 11:19
PROVIDERS: ADMIT Surgery; ATTEND Surgery
DX: K56.50 Intestinal adhesions [bands], unspecified as to partial versus complete obstruction (principal); E66.01 Morbid (severe) obesity due to excess calories; G47.30 Sleep apnea, unspecified; G43.909 Migraine, unspecified, not intractable, without status migrainosus; Z86.711 Personal history of pulmonary embolism; Z98.84 Bariatric surgery status; Z79.899 Other long term (current) drug therapy; Z87.891 Personal history of nicotine dependence; F41.9 Anxiety disorder, unspecified; F32.9 Major depressive disorder, single episode, unspecified
CPT/HCPCS: 36415; 71045; 71275; 74018; 74177; 80047; 80048; 80076; 83605; 83690; 84702; 85025; 96361; 96374; 96375; 96376; 99284; C9113; J1885; J2270; J2405; Q9967

== ENCOUNTER → 2020-02-11 | Outpatient (CLI) | payer OTHER ==
[~2020-02-11] MED LIST changes: +VENL75CA47 PO
--- NOTE | 2020-02-12 10:18 | REP ---
Pelvic sonography: History: Abnormal uterine bleeding. Findings: Transabdominal and transvaginal scanning are performed. Uterine dimensions are 9.5 x 4.8 x 6.8 cm. Endometrial echo is 0.9 cm thick. There is a small amount of endocervical fluid visualized. No focal uterine mass is seen. Exam quality is somewhat inhibited by patient body habitus and relatively limited urinary bladder filling. Limited visualization of the left ovary transvaginally. Left ovarian dimensions are 2.8 x 3.1 x 2.3 cm. Doppler flow is observed in the left ovary. No left ovarian abnormality is seen. The right ovary measures 4.4 x 2.9 x 3.1 cm. There is a right ovarian cyst seen on transabdominal scanning 2.5 x 1.5 x 2.1 cm consistent with an ovarian follicle. Doppler flow is noted in the right ovary as well. Resistive indices are 0.60 on the right and 0.46 on the left. Impression: A small quantity of endocervical fluid is seen. Otherwise unremarkable pelvic sonography. Follicle cyst right ovary.
== END ==
LOC: M WHC 13:23
PROVIDERS: ATTEND Obstetrics & Gynecology
DX: N93.9 Abnormal uterine and vaginal bleeding, unspecified (principal); N83.01 Follicular cyst of right ovary

== ENCOUNTER → 2020-02-14 | Outpatient (REF) | payer OTHER | LOC: M SFHCWAGY 07:28 | PROVIDERS: ATTEND Obstetrics & Gynecology | DX: N39.9 Disorder of urinary system, unspecified (principal) ==

== ENCOUNTER 2020-04-30 20:18 | Emergency (ER) | payer OTHER ==
[~2020-04-30] VITALS: Ht 149.9 cm; Wt 99.9 kg
[~2020-04-30 20:18] MED LIST changes: -CYTO100T PO; +CYTO1TAB2 PO; -PANT20TA2 PO; +PANT20TA6 PO
[2020-04-30] MEDS ORDERED: NS 1,000 ML IV ONE (20:45)
[2020-04-30] MEDS ORDERED: ONDANSETRON 4MG/2ML VIAL IV ONE (20:45)
[2020-04-30 21:23] LABS: BASO # 0.1 10^3/uL (0.0-0.2); EOS # 0.4 10^3/uL (0.0-0.5); EOS % 4.3 % (0.0-3.0); HEMOGLOBIN 11.8 g/dl (12.0-15.5); LYMPH # 3.3 10^3/uL (1.5-5.0); LYMPH % 33.6 % (24.0-44.0); MEAN CORPUSCULAR HEMOGLOBIN 24.7 pg (27.0-33.0); MEAN CORPUSCULAR HGB CONC 31.1 g/dl (32.0-36.5); MEAN CORPUSCULAR VOLUME 79.7 fl (80.0-96.0); MONO # 0.7 10^3/uL (0.0-0.8); MONO % 6.7 % (0.0-5.0); NEUTROPHILS # 5.4 10^3/uL (1.5-8.5); NEUTROPHILS % 54.2 % (36.0-66.0); PLATELET COUNT, AUTOMATED 284 10^3/uL (150-450); RED BLOOD COUNT 4.77 10^6/uL (4.00-5.40)
[2020-04-30 21:48] LABS: ALBUMIN 3.4 GM/DL (3.2-5.2); ALT/SGPT 19 U/L (12-78); BILIRUBIN,DIRECT < 0.1 MG/DL (0.0-0.2); BILIRUBIN,TOTAL 0.2 MG/DL (0.2-1.0); LIPASE 294 U/L (73-393); TOTAL PROTEIN 6.8 GM/DL (6.4-8.2)
[2020-04-30] MEDS ORDERED: ISOVUE-370 76% 100ML VIAL As Ordered ONE (21:50)
--- NOTE | 2020-04-30 22:21 | REPVR ---
PROCEDURE INFORMATION: Exam: CT Abdomen And Pelvis With Contrast Exam date and time: 04/30/2020 9:55 PM Age: 34 years old Clinical indication: Abdominal pain; Localized; Right lower quadrant (rlq); Additional info: Sudden rlq pain with nausea R/O appendicitis TECHNIQUE: Imaging protocol: Computed tomography of the abdomen and pelvis with intravenous contrast. Radiation optimization: All CT scans at this facility use at least one of these dose optimization techniques: automated exposure control; mA and/or kV adjustment per patient size (includes targeted exams where dose is matched to clinical indication); or iterative reconstruction. Contrast material: ISOVUE 370; Contrast volume: 100 ml; Contrast route: INTRAVENOUS (IV); COMPARISON: CT ABD/PEL W/IV CONTRAST ONLY 01/24/2020 7:48 AM FINDINGS: Liver: There is a diffuse decrease in hepatic parenchymal density, consistent with steatosis. Gallbladder and bile ducts: There has been a cholecystectomy. Pancreas: Normal. No ductal dilation. Spleen: Normal. No splenomegaly. Adrenals: Normal. No mass. Kidneys and ureters: Normal. No hydronephrosis. Stomach and bowel: This patient is status post gastric bypass surgery. 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 Increased feces demonstrated in the colon consistent with constipation. Fecalization of small bowel contents consistent with stasis. No significant small bowel dilatation to suggest obstruction. Appendix: Appendix not clearly visualized. Intraperitoneal space: Unremarkable. No free air. No significant fluid collection. Vasculature: Unremarkable. No abdominal aortic aneurysm. Lymph nodes: Unremarkable. No enlarged lymph nodes. Bladder: Unremarkable as visualized. Reproductive: 3.7 cm cyst left ovary likely functional. Bones/joints: Unremarkable. No acute fracture. Soft tissues: Unremarkable. IMPRESSION: 1. There is a diffuse decrease in hepatic parenchymal density, consistent with steatosis. 2. This patient is status post gastric bypass surgery. 3. There has been a cholecystectomy. 4. 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 5. Increased feces demonstrated in the colon consistent with constipation. 6. Appendix not clearly visualized. 7. Fecalization of small bowel contents consistent with stasis. No significant small bowel dilatation to suggest obstruction. Electronically signed by: Alireza Gomez On 04/30/2020 22:20:45 PM
[2020-04-30] MEDS ORDERED: MIRA3350 PO (22:44)
[2020-04-30 22:59] VITALS: BP 121/73
== END 2020-04-30 23:00 | disposition home or self-care (01) ==
LOC: M ED 20:18
DX: K59.00 Constipation, unspecified (principal); F43.10 Post-traumatic stress disorder, unspecified; F31.9 Bipolar disorder, unspecified; E28.2 Polycystic ovarian syndrome; K21.9 Gastro-esophageal reflux disease without esophagitis; Z98.84 Bariatric surgery status; Z90.49 Acquired absence of other specified parts of digestive tract; Z79.899 Other long term (current) drug therapy; Z88.6 Allergy status to analgesic agent; Z91.012 Allergy to eggs
CPT/HCPCS: 74177; 80047; 80076; 81001; 83690; 84702; 85025; 87086; 96361; 96374; 99284; J2405; Q9967

== ENCOUNTER 2020-05-13 10:07 | Emergency (ER) | payer OTHER ==
[~2020-05-13] VITALS: Ht 149.9 cm; Wt 100.3 kg
[2020-05-13 10:07] VITALS: BP 139/94
[~2020-05-13 10:07] MED LIST changes: +MIRA3350 PO
[2020-05-13] MEDS ORDERED: MELA3TAB49 PO (10:32)
--- NOTE | 2020-05-13 14:49 | REP ---
ANKLE: REASON: Pain after trauma. COMPARISON: No priors. FINDINGS: No acute fracture or destructive osseous lesion. The mortise is intact. There is a plantar calcaneal heel spur. Electronically Signed by James Caro DO 05/13/2020 04:26 P
== END 2020-05-13 12:36 | disposition home or self-care (01) ==
LOC: M ED 10:07
DX: S93.401A Sprain of unspecified ligament of right ankle, initial encounter (principal); X50.9XXA Other and unspecified overexertion or strenuous movements or postures, initial encounter; Y92.009 Unspecified place in unspecified non-institutional (private) residence as the place of occurrence of the external cause; Y93.9 Activity, unspecified; Y99.9 Unspecified external cause status; J45.909 Unspecified asthma, uncomplicated; F43.10 Post-traumatic stress disorder, unspecified; F41.9 Anxiety disorder, unspecified; Z79.899 Other long term (current) drug therapy; Z88.8 Allergy status to other drugs, medicaments and biological substances; Z91.012 Allergy to eggs; Z90.49 Acquired absence of other specified parts of digestive tract; Z98.84 Bariatric surgery status; Z86.711 Personal history of pulmonary embolism

== ENCOUNTER 2020-08-03 20:41 | Emergency (ER) | payer OTHER ==
[~2020-08-03] VITALS: Ht 149.9 cm; Wt 99.8 kg
[~2020-08-03 20:41] MED LIST changes: +MELA3TAB49 PO
[2020-08-03 20:42] VITALS: BP 127/89
[2020-08-03] MEDS ORDERED: PRED20TA PO (21:42)
[2020-08-03] MEDS ORDERED: predniSONE 20 MG TAB PO ONE (21:45)
== END 2020-08-03 22:12 | disposition home or self-care (01) ==
LOC: M ED 20:41
DX: M79.632 Pain in left forearm (principal); E66.9 Obesity, unspecified; R51.9 Headache, unspecified; K58.9 Irritable bowel syndrome, unspecified; K21.9 Gastro-esophageal reflux disease without esophagitis; G47.33 Obstructive sleep apnea (adult) (pediatric); F19.10 Other psychoactive substance abuse, uncomplicated; F41.9 Anxiety disorder, unspecified; F32.9 Major depressive disorder, single episode, unspecified; F43.10 Post-traumatic stress disorder, unspecified; F60.3 Borderline personality disorder; Z86.711 Personal history of pulmonary embolism; Z98.84 Bariatric surgery status; Z79.899 Other long term (current) drug therapy; Z88.6 Allergy status to analgesic agent; Z91.012 Allergy to eggs

== ENCOUNTER 2020-08-16 17:31 | Emergency (ER) | payer OTHER ==
[~2020-08-16] VITALS: Ht 149.9 cm; Wt 95.5 kg
[2020-08-16] MEDS ORDERED: TOPI200T7 (17:57)
[2020-08-16] MEDS ORDERED: VENL150C43 (17:57)
[2020-08-16] MEDS ORDERED: ALBUTEROL 90 MCG/ACT 8GM HFA INHALER INH ONE (19:00)
[2020-08-16 20:03] LABS: BASO # 0.1 10^3/uL (0.0-0.2); BASO % 0.5 % (0.0-1.0); EOS # 0.4 10^3/uL (0.0-0.5); EOS % 3.6 % (0.0-3.0); HEMATOCRIT 39.9 % (36.0-47.0); HEMOGLOBIN 12.2 g/dl (12.0-15.5); LYMPH # 3.1 10^3/uL (1.5-5.0); LYMPH % 26.2 % (24.0-44.0); MEAN CORPUSCULAR HGB CONC 30.6 g/dl (32.0-36.5); MEAN CORPUSCULAR VOLUME 78.4 fl (80.0-96.0); MONO # 0.6 10^3/uL (0.0-0.8); MONO % 5.3 % (0.0-5.0); NEUTROPHILS # 7.7 10^3/uL (1.5-8.5); NEUTROPHILS % 64.1 % (36.0-66.0); PLATELET COUNT, AUTOMATED 286 10^3/uL (150-450); RED BLOOD COUNT 5.09 10^6/uL (4.00-5.40); WHITE BLOOD COUNT 11.9 10^3/uL (4.0-10.0)
[2020-08-16 20:31] LABS: ALBUMIN 3.5 GM/DL (3.2-5.2); ALT/SGPT 12 U/L (12-78); BILIRUBIN,DIRECT 0.1 MG/DL (0.0-0.2); BILIRUBIN,TOTAL 0.4 MG/DL (0.2-1.0); BLOOD UREA NITROGEN 11 MG/DL (7-18); CALCIUM LEVEL 8.5 MG/DL (8.5-10.1); CARBON DIOXIDE LEVEL 21 MEQ/L (21-32); CHLORIDE LEVEL 111 MEQ/L (98-107); CK-MB VALUE MASS < 1.0 NG/ML (<3.6); CPK CREATINE PHOSPHOKINASE 72 U/L (26-192); CREATININE FOR GFR 0.98 MG/DL (0.55-1.30); GLOMERULAR FILTRATION RATE > 60.0 (>60); GLUCOSE, FASTING 78 MG/DL (70-100); MB/CK RELATIVE INDEX 1.39 (< OR =4); POTASSIUM SERUM 3.9 MEQ/L (3.5-5.1); SODIUM LEVEL 141 MEQ/L (136-145); TOTAL PROTEIN 6.8 GM/DL (6.4-8.2); TROPONIN I < 0.02 NG/ML (< 0.10)
[2020-08-16 21:00] VITALS: BP 132/70
--- NOTE | 2020-08-16 21:00 | REPVR ---
PROCEDURE INFORMATION: Exam: XR Chest, 1 View Exam date and time: 08/16/2020 8:22 PM Age: 35 years old Clinical indication: Chest pain; Additional info: Dyspnea/cough TECHNIQUE: Imaging protocol: XR of the chest Views: 1 view. COMPARISON: MA Chest, 1 view 01/24/2020 7:20 AM FINDINGS: Lungs: Unremarkable. No consolidation. Pleural space: Unremarkable. No pleural effusion. No pneumothorax. Heart/Mediastinum: Unremarkable. No cardiomegaly. Bones/joints: Unremarkable. IMPRESSION: No acute findings. No change from prior x-ray. Electronically signed by: Jamin Tobias On 08/16/2020 21:00:43 PM
--- NOTE | 2020-08-16 23:02 | ECGEPIP ---
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
== END 2020-08-16 21:38 | disposition home or self-care (01) ==
LOC: M ED 17:31
DX: R00.2 Palpitations (principal); F19.10 Other psychoactive substance abuse, uncomplicated; Z79.899 Other long term (current) drug therapy; Z88.6 Allergy status to analgesic agent; Z91.012 Allergy to eggs

== ENCOUNTER → 2020-08-23 | Outpatient (CLI) | payer OTHER ==
[~2020-08-23] MED LIST changes: +TOPI200T7; +VENL150C43
[2020-08-23 13:32] LABS: BASO # 0.1 10^3/uL (0.0-0.2); BASO % 0.7 % (0.0-1.0); EOS # 0.4 10^3/uL (0.0-0.5); EOS % 5.8 % (0.0-3.0); HEMATOCRIT 40.6 % (36.0-47.0); HEMOGLOBIN 12.3 g/dl (12.0-15.5); LYMPH # 2.3 10^3/uL (1.5-5.0); MEAN CORPUSCULAR HEMOGLOBIN 24.9 pg (27.0-33.0); MEAN CORPUSCULAR HGB CONC 30.3 g/dl (32.0-36.5); MEAN CORPUSCULAR VOLUME 82.2 fl (80.0-96.0); MONO # 0.5 10^3/uL (0.0-0.8); MONO % 7.4 % (0.0-5.0); NEUTROPHILS # 3.5 10^3/uL (1.5-8.5); NEUTROPHILS % 51.7 % (36.0-66.0); PLATELET COUNT, AUTOMATED 290 10^3/uL (150-450); RED BLOOD COUNT 4.94 10^6/uL (4.00-5.40); WHITE BLOOD COUNT 6.8 10^3/uL (4.0-10.0)
[2020-08-23 13:43] LABS: HEMATOCRIT 40.6 % (36.0-47.0)
[2020-08-23 14:04] LABS: ALBUMIN 3.3 GM/DL (3.2-5.2); ALT/SGPT 14 U/L (12-78); BILIRUBIN,TOTAL 0.5 MG/DL (0.2-1.0); BLOOD UREA NITROGEN 10 MG/DL (7-18); CALCIUM LEVEL 8.4 MG/DL (8.5-10.1); CARBON DIOXIDE LEVEL 26 MEQ/L (21-32); CHLORIDE LEVEL 114 MEQ/L (98-107); CREATININE FOR GFR 0.78 MG/DL (0.55-1.30); FERRITIN 6 NG/ML (8-252); GLOMERULAR FILTRATION RATE > 60.0 (>60); GLUCOSE, FASTING 74 MG/DL (70-100); IRON (FE) 38 UG/DL (50-170); MAGNESIUM LEVEL 2.2 MG/DL (1.8-2.4); PERCENT SATURATION 12.4 % (13.2-45.0); PHOSPHORUS LEVEL 2.2 MG/DL (2.5-4.9); POTASSIUM SERUM 4.1 MEQ/L (3.5-5.1); SODIUM LEVEL 143 MEQ/L (136-145); TOTAL IRON BINDING CAPACITY 306 UG/DL (250-450); TOTAL PROTEIN 6.6 GM/DL (6.4-8.2)
[2020-08-23 14:09] LABS: HEMOGLOBIN A1c 5.2 %; TOTAL 25(OH) VITAMIN D 30.6 NG/ML (30.0-100.0); VITAMIN B12 LEVEL 310 PG/ML (247-911)
== END ==
LOC: M PLALAB 11:29
PROVIDERS: ATTEND Physician Assistant
DX: K91.2 Postsurgical malabsorption, not elsewhere classified (principal); Z98.84 Bariatric surgery status; E55.9 Vitamin D deficiency, unspecified; Z86.39 Personal history of other endocrine, nutritional and metabolic disease

== ENCOUNTER 2020-09-03 20:08 | Emergency (ER) | payer OTHER ==
[~2020-09-03] VITALS: Ht 149.9 cm; Wt 95.5 kg
[2020-09-03 21:22] LABS: BASO # 0.1 10^3/uL (0.0-0.2); BASO % 0.7 % (0.0-1.0); EOS # 0.4 10^3/uL (0.0-0.5); EOS % 3.8 % (0.0-3.0); HEMATOCRIT 36.5 % (36.0-47.0); HEMOGLOBIN 11.1 g/dl (12.0-15.5); LYMPH # 2.8 10^3/uL (1.5-5.0); LYMPH % 28.4 % (24.0-44.0); MEAN CORPUSCULAR HEMOGLOBIN 24.3 pg (27.0-33.0); MEAN CORPUSCULAR HGB CONC 30.4 g/dl (32.0-36.5); MEAN CORPUSCULAR VOLUME 79.9 fl (80.0-96.0); MONO # 0.7 10^3/uL (0.0-0.8); MONO % 6.7 % (0.0-5.0); PLATELET COUNT, AUTOMATED 275 10^3/uL (150-450); RED BLOOD COUNT 4.57 10^6/uL (4.00-5.40)
[2020-09-03 22:20] LABS: ALBUMIN 3.2 GM/DL (3.2-5.2); ALT/SGPT 20 U/L (12-78); BILIRUBIN,DIRECT < 0.1 MG/DL (0.0-0.2); BILIRUBIN,TOTAL 0.4 MG/DL (0.2-1.0); BLOOD UREA NITROGEN 10 MG/DL (7-18); CALCIUM LEVEL 8.7 MG/DL (8.5-10.1); CARBON DIOXIDE LEVEL 25 MEQ/L (21-32); CHLORIDE LEVEL 112 MEQ/L (98-107); CK-MB VALUE MASS < 1.0 NG/ML (<3.6); CPK CREATINE PHOSPHOKINASE 73 U/L (26-192); CREATININE FOR GFR 0.88 MG/DL (0.55-1.30); FREE T4 1.04 NG/DL (0.76-1.46); GLOMERULAR FILTRATION RATE > 60.0 (>60); GLUCOSE, FASTING 84 MG/DL (70-100); LIPASE 153 U/L (73-393); MB/CK RELATIVE INDEX 1.37 (< OR =4); NT-PRO BNP 98 PG/ML (<125); POTASSIUM SERUM 3.6 MEQ/L (3.5-5.1); SODIUM LEVEL 142 MEQ/L (136-145); TOTAL PROTEIN 6.2 GM/DL (6.4-8.2); TROPONIN I < 0.02 NG/ML (< 0.10)
--- NOTE | 2020-09-03 22:44 | REPVR ---
PROCEDURE INFORMATION: Exam: XR Chest, 1 View Exam date and time: 09/03/2020 8:12 PM Age: 35 years old Clinical indication: Chest pain; Type not specified TECHNIQUE: Imaging protocol: XR of the chest Views: 1 view. COMPARISON: CR PORTABLE CHEST X-RAY 2020-08-16 20:19 FINDINGS: Lungs: Unremarkable. No consolidation. Pleural space: Unremarkable. No pleural effusion. No pneumothorax. Heart/Mediastinum: Unremarkable. No cardiomegaly. Bones/joints: Unremarkable. IMPRESSION: No acute findings. Electronically signed by: Elmer Meneses On 09/03/2020 22:43:51 PM
[2020-09-03 22:45] VITALS: BP 113/73
--- NOTE | 2020-09-04 09:52 | ECGEPIP ---
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
== END 2020-09-03 22:58 | disposition home or self-care (01) ==
LOC: M ED 20:08
DX: R00.2 Palpitations (principal); J45.909 Unspecified asthma, uncomplicated; Z86.711 Personal history of pulmonary embolism; K58.9 Irritable bowel syndrome, unspecified; K21.9 Gastro-esophageal reflux disease without esophagitis; E28.2 Polycystic ovarian syndrome; Z98.84 Bariatric surgery status; Z79.899 Other long term (current) drug therapy; Z88.6 Allergy status to analgesic agent; Z91.012 Allergy to eggs

== ENCOUNTER → 2020-10-04 | Outpatient (CLI) | payer SELFPAY ==
[~2020-10-04] MED LIST changes: +MIRT-60 PO; -REME30TA PO
== END ==
LOC: M LABSMTC 10:30
PROVIDERS: ATTEND Pediatrics
DX: Z11.59 Encounter for screening for other viral diseases (principal)

== ENCOUNTER 2020-10-27 21:09 | Emergency (ER) | payer OTHER, SELFPAY ==
[~2020-10-27] VITALS: Ht 149.9 cm; Wt 101.9 kg
[2020-10-27 21:10] VITALS: BP 128/87
[2020-10-27] MEDS ORDERED: KETOROLAC 60MG 2ML VIAL IM ONE (22:15)
--- NOTE | 2020-10-27 22:44 | REPVR ---
PROCEDURE INFORMATION: Exam: XR Right Knee Exam date and time: 10/27/2020 10:08 PM Age: 35 years old Clinical indication: Pain; Knee; Right; Additional info: Injury TECHNIQUE: Imaging protocol: XR Right knee. Views: 4 or more views. COMPARISON: CR Knee, complete 06/11/2018 9:08 PM FINDINGS: Bones/joints: Subtle lucent line of the articular surface medial tibial plateau could be a minimal hairline fracture or area of bony trabecular injury. There is narrowing of the medial knee joint which is consistent with changes of chondromalacia. There is moderate osteophyte formation medial and lateral compartments. There is a bipartite patella which is a normal variant. Very prominent osteophyte formation along the margins of the patella. Osteophyte formation at the tibial spine is also present and there is osteophyte formation along the anterior surface of the medial femoral condyle. Soft tissues: Prominent medial side. IMPRESSION: Possible minimal hairline fracture of the articular surface medial femoral condyle. An MRI scan would better define bone injuries such as a hairline fracture or bony trabecular injury. Severe degenerative and arthritic changes described above. Electronically signed by: Skyler Castillo On 10/27/2020 22:44:18 PM
== END 2020-10-27 23:00 | disposition home or self-care (01) ==
LOC: M ED 21:09
DX: S72.421A Displaced fracture of lateral condyle of right femur, initial encounter for closed fracture (principal); W10.9XXA Fall (on) (from) unspecified stairs and steps, initial encounter; Y92.099 Unspecified place in other non-institutional residence as the place of occurrence of the external cause; Y93.9 Activity, unspecified; Y99.9 Unspecified external cause status; F43.10 Post-traumatic stress disorder, unspecified; G47.00 Insomnia, unspecified; K58.9 Irritable bowel syndrome, unspecified; K21.9 Gastro-esophageal reflux disease without esophagitis; R51.9 Headache, unspecified; E28.2 Polycystic ovarian syndrome; Z86.711 Personal history of pulmonary embolism; F19.11 Other psychoactive substance abuse, in remission; Z98.84 Bariatric surgery status; M25.761 Osteophyte, right knee; Z79.899 Other long term (current) drug therapy; Z88.6 Allergy status to analgesic agent; Z91.012 Allergy to eggs
CPT/HCPCS: 73564; 96372; 99284; J1885

== ENCOUNTER 2021-02-13 22:14 | Emergency (ER) | payer OTHER ==
[~2021-02-13] VITALS: Ht 149.9 cm; Wt 100.4 kg
[~2021-02-13 22:14] MED LIST changes: -DICY20TA PO; +DICY20TA3 PO; -TOPI200T7; +TOPI200T7 PO
[2021-02-13] MEDS ORDERED: BIOT1CAP2 PO (22:43)
[2021-02-13] MEDS ORDERED: VITMTA PO (22:43)
[2021-02-14 03:06] VITALS: BP 139/99
== END 2021-02-14 04:10 | disposition home or self-care (01) ==
LOC: M ED 22:14
DX: S46.911A Strain of unspecified muscle, fascia and tendon at shoulder and upper arm level, right arm, initial encounter (principal); X50.3XXA Overexertion from repetitive movements, initial encounter; Y92.9 Unspecified place or not applicable; Y93.89 Activity, other specified; Y99.0 Civilian activity done for income or pay; F43.10 Post-traumatic stress disorder, unspecified; Z86.711 Personal history of pulmonary embolism; Z79.899 Other long term (current) drug therapy; Z88.6 Allergy status to analgesic agent; Z91.012 Allergy to eggs

== ENCOUNTER 2021-03-01 11:49 | Emergency (ER) | payer OTHER ==
[~2021-03-01] VITALS: Ht 149.9 cm; Wt 210.0 kg
[~2021-03-01 11:49] MED LIST changes: +BIOT1CAP2 PO; +VITMTA PO
[2021-03-01 13:35] LABS: BASO # 0.1 10^3/uL (0.0-0.2); BASO % 0.5 % (0.0-1.0); EOS # 0.1 10^3/uL (0.0-0.5); EOS % 0.9 % (0.0-3.0); HEMATOCRIT 43.3 % (36.0-47.0); LYMPH # 1.8 10^3/uL (1.5-5.0); LYMPH % 14.5 % (24.0-44.0); MEAN CORPUSCULAR HEMOGLOBIN 23.4 pg (27.0-33.0); MONO # 0.5 10^3/uL (0.0-0.8); MONO % 4.2 % (2.0-8.0); NEUTROPHILS # 9.9 10^3/uL (1.5-8.5); NEUTROPHILS % 79.3 % (36.0-66.0); PLATELET COUNT, AUTOMATED 323 10^3/uL (150-450); RED BLOOD COUNT 5.55 10^6/uL (4.00-5.40); WHITE BLOOD COUNT 12.4 10^3/uL (4.0-10.0)
[2021-03-01 14:04] LABS: ALBUMIN 3.8 GM/DL (3.2-5.2); BILIRUBIN,DIRECT 0.2 MG/DL (0.0-0.2); BILIRUBIN,TOTAL 0.6 MG/DL (0.2-1.0); TOTAL PROTEIN 7.4 GM/DL (6.4-8.2)
[2021-03-01] MEDS ORDERED: ONDANSETRON 4MG/2ML VIAL IV ONE (14:55)
[2021-03-01] MEDS ORDERED: MORPHINE 4 MG/ML 1ML VIAL/SYRINGE (J2270) IV ONE ×2 (14:55→19:25)
[2021-03-01] MEDS: GASTROGRAFIN SOLUTION 30ML PO SCH ×2 (14:58→15:30)
[2021-03-01] MEDS ORDERED: ISOVUE-370 76% 100ML VIAL As Ordered ONE (16:31)
--- NOTE | 2021-03-01 18:41 | REPVR ---
PROCEDURE INFORMATION: Exam: CT Abdomen And Pelvis With Contrast Exam date and time: 03/01/2021 2:27 PM Age: 35 years old Clinical indication: Abdominal pain; Additional info: Rlq pain, h/o gastric bypass TECHNIQUE: Imaging protocol: Computed tomography of the abdomen and pelvis with contrast. Radiation optimization: All CT scans at this facility use at least one of these dose optimization techniques: automated exposure control; mA and/or kV adjustment per patient size (includes targeted exams where dose is matched to clinical indication); or iterative reconstruction. Contrast material: ISOVUE 370; Contrast volume: 100 ml; Contrast route: INTRAVENOUS (IV); Other contrast: Oral, gastrografin; COMPARISON: CT ABD/PEL W/IV CONTRAST ONLY 04/30/2020 9:52 PM FINDINGS: Lungs: Clear appearing lung bases. Heart: The heart is normal in size and there is no evidence of pericardial effusion. Liver: Normal appearing liver. Gallbladder and bile ducts: Surgical clips at the gallbladder fossa. Pancreas: Normal. No ductal dilation. Spleen: Normal spleen. Adrenal glands: Normal adrenal glands. Kidneys and ureters: There is enhancement of both kidneys. There is no evidence of hydronephrosis right or left kidney. Stomach and bowel: Contrast opacified all of the small bowel and colon. At the junction of the sigmoid colon and rectum there is a focal area of narrowing and not seen on 2019. Direct visualization might be considered to ensure that this is normal. There is dilatation of the right colon. The left colon has been removed. There is distension of the small bowel with contrast in a few air-fluid levels which may be secondary to mild ileus. Intraperitoneal space: There is no evidence of pneumoperitoneum or free fluid. Vasculature: There is enhancement of the aorta which appears intact. Lymph nodes: Unremarkable. No enlarged lymph nodes. Urinary bladder: Normal urinary bladder. Reproductive: There is a 2.3 cm cyst of the right ovary. There is a cyst of the left ovary which measures 4.4 cm and previously measuring 4 cm 04/30/2020. There may be some internal high density debris such is blood material or proteinaceous material. Normal common bile duct. Normal uterus. Bones/joints: There is no evidence of bony abnormality. Soft tissues: There is no evidence of soft tissue abnormality. IMPRESSION: 1. 4.4 cm cyst left ovary which is increased by 3 mm since 04/30/2020. 2. At the junction of sigmoid colon and rectum there is focal tapering which may be normal variation or due to scarring. Direct visualization should be considered. This is thought unnecessary sequential surveillance and study should be obtained. 3. There is moderate distention of small bowel with a few air-fluid levels that could be the result of ileus. Electronically signed by: Skyler Castillo On 03/01/2021 18:41:30 PM
[2021-03-01] MEDS ORDERED: ONDA4TAB6 PO (19:40)
[2021-03-01] MEDS ORDERED: HYDR-3713 PO (19:40)
[2021-03-01 19:41] VITALS: BP 134/80
== END 2021-03-01 20:18 | disposition home or self-care (01) ==
LOC: M ED 11:49
DX: K56.7 Ileus, unspecified (principal); R93.3 Abnormal findings on diagnostic imaging of other parts of digestive tract; E66.9 Obesity, unspecified; K21.9 Gastro-esophageal reflux disease without esophagitis; E28.2 Polycystic ovarian syndrome; Z86.711 Personal history of pulmonary embolism; Z90.49 Acquired absence of other specified parts of digestive tract; Z79.899 Other long term (current) drug therapy; Z88.6 Allergy status to analgesic agent; Z91.012 Allergy to eggs
CPT/HCPCS: 36415; 74177; 80047; 80076; 81001; 83690; 84702; 85025; 87086; 96374; 96375; 96376; 99284; J2270; J2405; Q9963; Q9967

== ENCOUNTER → 2021-04-09 | Outpatient (REF) | payer OTHER ==
[~2021-04-09] MED LIST changes: +HYDR-3713 PO
== END ==
LOC: M PLALAB 12:13
PROVIDERS: ATTEND Obstetrics & Gynecology
DX: N83.209 Unspecified ovarian cyst, unspecified side (principal)

== ENCOUNTER → 2021-04-27 | Outpatient (CLI) | payer OTHER ==
[~2021-04-27] MED LIST changes: +PANT40TA29; +RIZA10TA2; +TRAZ1TAB14
== END ==
LOC: M LABSMTC 10:45
PROVIDERS: ATTEND Anesthesiology
DX: Z01.812 Encounter for preprocedural laboratory examination (principal); Z20.822 Contact with and (suspected) exposure to COVID-19

== ENCOUNTER 2021-05-02 09:42 | Day surgery (SDC) | payer OTHER ==
[~2021-05-02] VITALS: Ht 149.9 cm; Wt 98.4 kg
[~2021-05-02 09:42] MED LIST changes: +NS 1,000 ML IV ONE
[2021-05-02] MEDS ORDERED: LIDOCAINE 2% 100MG/5ML SDV (FOR ANES.) As Ordered ONE (11:55)
[2021-05-02] MEDS ORDERED: propofoL 200 MG/20 ML VIAL As Ordered ONE (11:55)
--- NOTE | 2021-05-02 12:19 | ROOR ---
Patient Name: Alex Postal Procedure Date: 05/02/2021 11:55 AM Date of : 1985 Age: 35 Room: [facility] Gender: Female Note Status: Finalized Procedure: Upper GI endoscopy Indications: Suspected esophageal reflux Providers: DO Oneyda Smith MD: Ivis Harding Requesting Provider: Medicines: Propofol per Anesthesia Complications: No immediate complications. Procedure: Pre-Anesthesia Assessment: - Prior to the procedure, a History and Physical was performed, and patient medications and allergies were reviewed. The patient is competent. The risks and benefits of the procedure and the sedation options and risks were discussed with the patient. All questions were answered and informed consent was obtained. Patient identification and proposed procedure were verified by the physician, the nurse, the sales team recruiter and the endoscopy technician in the endoscopy suite. Mental Status Examination: alert and oriented. Airway Examination: normal oropharyngeal airway and neck mobility. Respiratory Examination: clear to auscultation. CV Examination: normal. Prophylactic Antibiotics: The patient does not require prophylactic antibiotics. Prior Anticoagulants: The patient has taken no previous anticoagulant or antiplatelet agents. ASA Grade Assessment: III - A patient with severe systemic disease. After reviewing the risks and benefits, the patient was deemed in satisfactory condition to undergo the procedure. The anesthesia plan was to use monitored anesthesia care (MAC). Immediately prior to administration of medications, the patient was re-assessed for adequacy to receive sedatives. The heart rate, respiratory rate, oxygen saturations, blood pressure, adequacy of pulmonary ventilation, and response to care were monitored throughout the procedure. The physical status of the patient was re-assessed after the procedure. The Endoscope was introduced through the mouth, and advanced to the third part of duodenum. The upper GI endoscopy was accomplished without difficulty. The patient tolerated the procedure well. Findings: The Z-line was irregular. Biopsies were taken with a cold forceps for histology. Estimated blood loss was minimal. Scattered mild inflammation characterized by congestion (edema), erythema, friability, granularity and mucus was found in the entire examined stomach. Biopsies were taken with a cold forceps for Helicobacter pylori testing. Estimated blood loss was minimal. One non-bleeding cratered gastric ulcer with no stigmata of bleeding was found on the greater curvature of the stomach. Impression: - Z-line irregular. Biopsied. - Gastritis. Biopsied. - Non-bleeding gastric ulcer with no stigmata of bleeding. Recommendation: - Patient has a contact number available for emergencies. The signs and symptoms of potential delayed complications were discussed with the patient. Return to normal activities tomorrow. Written discharge instructions were provided to the patient. - Await pathology results. - Return to my office at appointment to be scheduled. Procedure Code(s): --- Professional --- 49306, Esophagogastroduodenoscopy, flexible, transoral; with biopsy, single or multiple Diagnosis Code(s): --- Professional --- K22.8, Other specified diseases of esophagus K29.70, Gastritis, unspecified, without bleeding K25.9, Gastric ulcer, unspecified as acute or chronic, without hemorrhage or perforation CPT copyright 2019 [employer]. All rights reserved. The codes documented in this report are preliminary and upon sas developer review may be revised to meet current compliance requirements. Delgado Lovell DO 05/02/2021 12:19:35 PM Electronically signed by Delgado Lovell DO Number of Addenda: 0 Note Initiated On: 05/02/2021 11:55 AM Estimated Blood Loss: Estimated blood loss was minimal.
--- NOTE | 2021-05-02 12:23 | ROOR ---
Patient Name: Alex Postal Procedure Date: 05/02/2021 11:55 AM Date of : 1985 Age: 35 Room: [facility] Gender: Female Note Status: Finalized Procedure: Colonoscopy Indications: Abnormal CT of the GI tract Providers: DO Oneyda Smith MD: Ivis Harding Requesting Provider: Medicines: Propofol per Anesthesia Complications: No immediate complications. Procedure: Pre-Anesthesia Assessment: - Prior to the procedure, a History and Physical was performed, and patient medications and allergies were reviewed. The patient is competent. The risks and benefits of the procedure and the sedation options and risks were discussed with the patient. All questions were answered and informed consent was obtained. Patient identification and proposed procedure were verified by the physician, the nurse, the dealer development manager and the mine technician in the endoscopy suite. Mental Status Examination: alert and oriented. Airway Examination: normal oropharyngeal airway and neck mobility. Respiratory Examination: clear to auscultation. CV Examination: normal. Prophylactic Antibiotics: The patient does not require prophylactic antibiotics. Prior Anticoagulants: The patient has taken no previous anticoagulant or antiplatelet agents. ASA Grade Assessment: III - A patient with severe systemic disease. After reviewing the risks and benefits, the patient was deemed in satisfactory condition to undergo the procedure. The anesthesia plan was to use monitored anesthesia care (MAC). Immediately prior to administration of medications, the patient was re-assessed for adequacy to receive sedatives. The heart rate, respiratory rate, oxygen saturations, blood pressure, adequacy of pulmonary ventilation, and response to care were monitored throughout the procedure. The physical status of the patient was re-assessed after the procedure. The Colonoscope was introduced through the anus and advanced to the ileocolonic anastomosis. The colonoscopy was performed without difficulty. The patient tolerated the procedure well. Findings: Non-bleeding internal hemorrhoids were found during retroflexion. The hemorrhoids were Grade I (internal hemorrhoids that do not prolapse). No signs of any stricture at the anastamosis. Impression: - Non-bleeding internal hemorrhoids. - No specimens collected. Recommendation: - Patient has a contact number available for emergencies. The signs and symptoms of potential delayed complications were discussed with the patient. Return to normal activities tomorrow. Written discharge instructions were provided to the patient. - Repeat colonoscopy in 5-10 years for screening purposes. - Return to my office PRN. Procedure Code(s): --- Professional --- 26529, Colonoscopy, flexible; diagnostic, including collection of specimen(s) by brushing or washing, when performed (separate procedure) Diagnosis Code(s): --- Professional --- K64.0, First degree hemorrhoids R93.3, Abnormal findings on diagnostic imaging of other parts of digestive tract CPT copyright 2019 [employer]. All rights reserved. The codes documented in this report are preliminary and upon business process manager review may be revised to meet current compliance requirements. Delgado Lovell DO 05/02/2021 12:22:49 PM Electronically signed by Delgado Lovell DO Number of Addenda: 0 Note Initiated On: 05/02/2021 11:55 AM Estimated Blood Loss: Estimated blood loss: none.
[2021-05-02 12:40] VITALS: BP 112/55
== END 2021-05-02 12:43 | disposition home or self-care (01) ==
LOC: M OPP 09:42
PROVIDERS: ATTEND Surgery
DX: K64.0 First degree hemorrhoids (principal); R93.3 Abnormal findings on diagnostic imaging of other parts of digestive tract; K22.8 Other specified diseases of esophagus; K29.70 Gastritis, unspecified, without bleeding; K25.9 Gastric ulcer, unspecified as acute or chronic, without hemorrhage or perforation; M32.9 Systemic lupus erythematosus, unspecified; Z79.899 Other long term (current) drug therapy; Z88.8 Allergy status to other drugs, medicaments and biological substances; Z91.012 Allergy to eggs

== ENCOUNTER → 2021-06-01 | Outpatient (CLI) | payer OTHER, MEDICAID ==
[~2021-06-01] MED LIST changes: -NS 1,000 ML IV ONE
--- NOTE | 2021-06-01 09:50 | REP ---
INDICATION: N83.209 OVARIAN CYST. COMPARISON: 06/11/2018. TECHNIQUE: Pelvic ultrasound utilizing transabdominal, endovaginal and Doppler ultrasound. FINDINGS: The uterus is anteverted and normal size measuring 8.4 x 5.3 x 5.7. The myometrium is unremarkable. The endometrium is not thickened measuring up to 9 mm and is otherwise unremarkable. Right ovary: There is a right ovarian cyst measuring 3.6 x 3.5 x 3.9 cm. No cysts septations are identified, however there are internal echoes, likely internal debris. Including the cyst the right ovary is upper normal size overall measuring 4.5 x 4.8 x 4.3 cm. Left ovary: The left ovary is normal size measuring 3.1 x 2.9 x 2.1 cm. There is no dominant left ovarian mass or cyst. There is vascular flow in both ovaries. The Doppler resistive index in the parenchymal arteries of the right ovary is 0.67 and left ovary 0.53. Nabothian cysts are incidentally identified in the cervix. The study is technically difficult because of patient body habitus. IMPRESSION: There is a right ovarian 3.9 cm cyst as described. Otherwise, negative pelvic ultrasound. <Electronically signed by Delgado Bartlett > 06/01/21 0946
== END ==
LOC: M WHC 08:55
PROVIDERS: ATTEND Obstetrics & Gynecology
DX: N83.201 Unspecified ovarian cyst, right side (principal)

== ENCOUNTER → 2021-08-07 | Outpatient (CLI) | payer OTHER ==
[2021-08-07 13:36] LABS: BASO # 0.1 10^3/uL (0.0-0.2); BASO % 0.7 % (0.0-1.0); EOS # 0.3 10^3/uL (0.0-0.5); EOS % 4.3 % (0.0-3.0); HEMATOCRIT 41.3 % (36.0-47.0); HEMOGLOBIN 12.6 g/dl (12.0-15.5); LYMPH % 29.8 % (24.0-44.0); MEAN CORPUSCULAR HEMOGLOBIN 24.4 pg (27.0-33.0); MEAN CORPUSCULAR HGB CONC 30.5 g/dl (32.0-36.5); MONO # 0.4 10^3/uL (0.0-0.8); MONO % 6.5 % (2.0-8.0); NEUTROPHILS % 58.4 % (36.0-66.0); PLATELET COUNT, AUTOMATED 288 10^3/uL (150-450); RED BLOOD COUNT 5.16 10^6/uL (4.00-5.40); WHITE BLOOD COUNT 6.8 10^3/uL (4.0-10.0)
[2021-08-07 14:13] LABS: ALBUMIN 3.4 GM/DL (3.2-5.2); ALT/SGPT 19 U/L (12-78); BILIRUBIN,TOTAL 0.8 MG/DL (0.2-1.0); BLOOD UREA NITROGEN 13 MG/DL (7-18); CALCIUM LEVEL 8.8 MG/DL (8.5-10.1); CARBON DIOXIDE LEVEL 26 MEQ/L (21-32); CHLORIDE LEVEL 109 MEQ/L (98-107); CHOLESTEROL LEVEL 159 MG/DL (<200); CHOLESTEROL RISK RATIO 2.271 (<5); CREATININE FOR GFR 0.91 MG/DL (0.55-1.30); FREE T4 1.01 NG/DL (0.76-1.46); GLOMERULAR FILTRATION RATE > 60.0 (>60); GLUCOSE, FASTING 89 MG/DL (70-100); HDL CHOLESTEROL 70 MG/DL (>40); IRON (FE) 51 UG/DL (50-170); LDL CHOLESTEROL 78 MG/DL (<100); NON-HDL-C 89 MG/DL; PERCENT SATURATION 15.3 % (13.2-45.0); SODIUM LEVEL 140 MEQ/L (136-145); TOTAL IRON BINDING CAPACITY 334 UG/DL (250-450); TOTAL PROTEIN 6.8 GM/DL (6.4-8.2); TRIGLYCERIDES LEVEL 57 MG/DL (<150)
[2021-08-07 14:15] LABS: TOTAL 25(OH) VITAMIN D 30.7 NG/ML (30.0-100.0); VITAMIN B12 LEVEL 362 PG/ML (247-911)
== END ==
LOC: M PLALAB 10:49
PROVIDERS: ATTEND Nurse Practitioner Family
DX: E55.9 Vitamin D deficiency, unspecified (principal); F41.8 Other specified anxiety disorders; Z13.220 Encounter for screening for lipoid disorders; Z98.84 Bariatric surgery status
CPT/HCPCS: 36415; 80053; 80061; 82306; 82607; 83550; 84439; 84443; 85025; 90471; 90682; G0463

== ENCOUNTER → 2021-09-14 | Outpatient (CLI) | payer OTHER ==
[~2021-09-14] MED LIST changes: +PRENTAB9 PO
== END ==
LOC: M PLALAB 13:34
PROVIDERS: ATTEND Nurse Practitioner Family
DX: Z32.01 Encounter for pregnancy test, result positive (principal)

== ENCOUNTER 2021-09-16 15:44 | Emergency (ER) | payer OTHER ==
[~2021-09-16] VITALS: Ht 149.9 cm; Wt 99.5 kg
[~2021-09-16 15:44] MED LIST changes: -PRENTAB9 PO
--- OUTSIDE RECORDS SUMMARY | 2021-09-16 15:49 | CCD | Continuity of Care Document ---
Author Author Alex CANDELARIO DO Organization Unknown Address [address] [place] [address], [facility] [place] [place] [address] Phone [phone] Care Team Providers Care Infection Prevention Coordinator Name Role Phone Cindy Chen AUTM [phone] Dean Shaffer MD AUTM [phone] Rubina Shen M.D. AUTM [phone] Ivis Harding.ABen-C AUTM [phone] Jie TorresP. AUTM [phone] AUTM Unavailable Problems Active Problems Provider Date Obstructive sleep apnea syndrome Sole Cabral Onset: 02/03/2018 Allergic asthma without status asthmaticus Elmer Mcgovern MD Onset: 01/12/2019 Difficulty breathing Sole Cabral Onset: 02/03/2018 Disturbance of consciousness Sole Cabral Onset: 01/25 Hypertrophy of tonsils Dean Shaffer MD Onset: 06/02/2018 Allergic rhinitis Dean Shaffer MD Onset: 06/02/2018 Postgastric surgery syndrome Elmer Mcgovern MD Onset: 01/25 Diarrhea Elmer Mcgovern MD Onset: 02/08/2019 Generalized abdominal pain Elmer Mcgovern MD Onset: 2018 Bariatric surgery status Elmer Mcgovern MD Onset: 02/09/20 19 Gynecologic examination Vanesa Montoya CNM Onset: 9 Excessive and frequent menstruation Vanesa Montoya CNM Onse t: 02/08/2019 Cyst of ovary Vanesa Montoya CNM Onset: 02/08/2019 Social History Type Date Description Comments Sex Female ETOH Use Occasionally consumes alcohol 1- 2 DRINKS OCCASIONALLY Recreational Drug Use Former Drug User 8 YEARS 3 MONTHS CLEAN FROM CRACK Tobacco Use Start: 10/27/93 End: 10/27/18 Patient is a forme r smoker hx: 1/2-1 ppd x's 25 years, pt vaped for a little while but quit in Oct 2018 Smoking Status Reviewed: 09/11/21 Patient is a former smoker hx : 1/2-1 ppd x's 25 years, pt vaped for a little while but quit in Oct 2018 Exercise Type/Frequency Occasional Mild Exercise Allergies and adverse reactions Active Allergies Criticality Reaction | Severity Comments Date Eggs Unable to assess criticality 02/03/2018 NSAIDS Unable to assess criticality patient had gastric sleeve eleazar Has Gastric Sleeve 06/02/2018 Medications Active Medications SIG Qnty Indications Ordering Provide r Date Claritin 10mg Capsules 10 mg by mouth once per day 30caps R06.83 Dean Shaffer MD 06/02/2018 Trazodone HCL 100mg Tablets 1 by mouth every day at bedtime prn Unknown [address] 1 by mouth twice a day 90tabs Unknown Effexor XR 150mg Caps ER 24HR 1 by mouth every day Unknown Multivitamin Adult Tablets 1 by mouth every day Unknown Vitamin B12 1 qd Unknown Topamax 200mg Tablets 1 by mouth twice per day Unknown Rizatriptan Benzoate 10mg Tablets as Needed Unknown Calcium 600 600mg Tablets 2 q d Unknown Biotin 1000mcg Chewtabs 1 qd Unknown Carafate 1gm Tablets 1 tab by mouth four times a day with meals for 6 months Unknown Venlafaxine HCL ER 37.5mg Caps ER 24HR Unknown Trazodone HCL 150mg Tablets Unknown 27-1mg Tablets 1 tab by mouth daily Unknown History Medications Sutab [id number] Tablets take tablets as directed per doctor for bowel prep. 1kit Z12.11 Delgado Lovell, DO 04/27/2021 - 05/20/2021 Suprep Bowel Prep Kit 17.5-3.13-1.6GM/177ML Solution take per doctor's bowel prep instructions. 354ml Delgado Lovell, DO 04/16/2021 - 04/27/2021 Immunizations Description No Information Available Vital Signs Date Vital Result Comment 09/11/2021 7:38am Body Temperature 98.4 F Height 59 inches 4'11" Weight 221.25 lb BMI (Body Mass Index) 44.7 kg/m2 [place] Body Weight 106 lb Weight 100.359 kg BSA (Body Surface Area) 1.93 m2 05/21/2021 10:20am BP Systolic 102 mmHg BP Diastolic 58 mmHg Height 59 inches 4'11" Weight 221.25 lb BMI (Body Mass Index) 44.7 kg/m2 [place] Body Weight 100 lb Weight 100.359 kg BSA (Body Surface Area) 1.93 m2 Results Test Acquired Date Facility Test Result H/L Range Note Laboratory test finding 05/02/2021 [facility] [address] [place], [place] [id number] [phone] Pathology Request For Service (SEE NOTE) 1 1 FINAL DIAGNOSIS A--Stomach, prepyloric, biopsy: Gastric mucosa without significant pathology. No H.pylori is identified. B-Esophagus, GE junction, biopsy: Fragments of squamous mucosa with reparative changes and inflammatory infiltrate including a few scattered eosinophils. No columnar mucosa identified. 05/03/2021 - 1016 CLINICAL DIAGNOSIS Reflux, abnormal imaging for colon 05/02/2021 - 1511 GROSS DIAGNOSIS A - Received in formalin labeled "prepyloric biopsy R/O H. pylori" and consists of fragment of tissue 0.1 x 0.1 x 0.1 cm. All in one. B - Received in formalin labeled "biopsy GE junction" and consists of fragments of tissue 0.1 x 0.1 x 0.1 cm. All in one. -OA 05/03/2021 - 1016 Signed MARILIN FITZPATRICK MD 05/03/2021 1016 Procedures Date Code Description Status 09/11/2021 16363 Office/Outpatient New Moderate M DM 45-59 Minutes Completed 05/21/2021 49036 Office/Outpatient Established Mo d MDM 30-39 Min Completed 05/02/2021 54086 Colonoscopy Flexible Proximal To Splenic Flexure Diagnostic W/Or Completed 05/02/2021 76933 Endoscopy Upper GI Biopsy Comple ryan 03/20/2021 19792 Office/Outpatient Established Mo d MDM 30-39 Min Completed Medical Devices Description No Information Available Encounters Type Date Location Provider Dx Diagnosis Office Visit 09/11/2021 8:00a [facility] Steff Candelario, DO M17.11 Unilateral primary osteoarthritis, right knee Office Visit 05/21/2021 10:00a [facility] BROOKE Javier R93.3 Abnormal findings on dx imaging of prt d igestive tract K64.0 First degree hemorrhoids K21.9 Gastro-esophageal reflux dis ease without esophagitis Office Visit 03/20/2021 3:45p [facility] Delgado Lovell, DO R93.3 Abnormal findings on dx imaging of prt d igestive tract K21.9 Gastro-esophageal reflux dis ease without esophagitis Assessments Date Code Description Provider 09/11/2021 M17.11 Unilateral primary osteoarthriti s, right knee Sánchez EveRaúl, DO 05/21/2021 R93.3 Abnormal findings on diagnostic imaging of other parts of digestive tract BROOKE Brooks 05/21/2021 K64.0 First degree hemorrhoids BROOKE Villagomez 05/21/2021 K21.9 Gastro-esophageal reflux disease without esophagitis BROOKE Brooks 05/02/2021 R93.3 Abnormal findings on diagnostic imaging of other parts of digestive tract Delgado Lovell, DO 05/02/2021 K64.0 First degree hemorrhoids Delgado Lovell, DO 05/02/2021 K22.8 Other specified diseases of esop hagus Delgado Lovell, DO 05/02/2021 K29.70 Gastritis, unspecified, without bleeding Delgado Lovell, DO 05/02/2021 K25.9 Gastric ulcer, unspe cified as acute or chronic, without hemorrhage or perforation Delgado Lovell, DO 03/20/2021 R93.3 Abnormal findings on diagnostic imaging of other parts of digestive tract Delgado Lovell, DO 03/20/2021 K21.9 Gastro-esophageal reflux disease without esophagitis Delgado Lovell DO Plan of Treatment 09/11/2021 - Raúl Candelario DO* M17.11 Unilateral primary osteoarthritis, right knee* Comments:* Follow-up after to discuss her right knee arthritis Functional Status Functional Condition Comment Date Status Independent with all ADL's Activ e Independent with all IADL's Acti ve Mental Status Mental Condition Comment Date Status Cognitive ability not impaired A ctive Referrals Description No Information Available
--- OUTSIDE RECORDS SUMMARY | 2021-09-16 15:49 | CCD ---
Author Author [facility] Organization [facility] Address Unknown Phone Unavailable Care Team Providers Care Lift Truck Operator Name Role Phone Melissa Sade Unavailable PROBLEMS Type Condition ICD9-CM Code XLR15-HA Code Onset Dates Condition S tatus W/U Status Risk SNOMED Code Notes Problem Abnormal uterine bleeding (AUB) N93.9 Active confirmed 02853679321414 Problem Chronic migraine G43.709 Active confirmed 42 4425398 Problem Insomnia G47.00 Active confirmed 087927292 Problem Vitamin D deficiency E55.9 Active confirmed 80196943 Problem Anxiety disorder, unspecified F41.9 Active confirm ed 388813505 Problem Major depressive disorder, single episode, unspecified F32.9 Active confirmed 99517605 Problem Anxiety with depression F41.8 Active confirmed 713585106 Problem Gastric ulcer without hemorrhage or perf oration, unspecified chronicity K25.9 Active confirmed 66783240 ALLERGIES Allergen (clinical drug ingredient) Drug/Non Drug Allergy do cumented on EMR Reaction Allergy Type Onset Date Status Egg Proteins Eggs or Egg-derived Products Unknown Drug Allergy Active Tolmetin NSAIDs Unknown Drug Allergy Active ENCOUNTERS from 1984 to 2021-09-14 Encounter Location Date Provider Diagnosis [address] [phone] [place] [address] Aug, Sade Torres IMMUNIZATIONS Vaccine Route Administration Date Status Influenza 18 yrs & older Flublok IM Intramuscular Aug 07, 2021 Administered Influenza 18 yrs & older Flublok IM Intramuscular Aug 10, 2020 Administered SOCIAL HISTORY Tobacco Use: Social History Observation Description Date Details (start date - stop date) Former Smoker Sex Assigned At : Social History Observation Description Sex Assigned At Unknown Education: Question Answer Notes Level of Education: High School Audit Question Answer Notes Total Score: 0 Interpretation: Alcohol Education Language: Question Answer Notes Languages spoken: Spanish Hoahaoism: Question Answer Notes Hoahaoism No scientologist beliefs that would impact health care. Domestic Violence: Question Answer Notes Status: Sexual Hx: Question Answer Notes Had sex in the last 12 months (vaginal, oral, or anal)? Yes LMP: 06/2021 Have you ever had an STD? Yes Prevention Strategies discussed: Other with Men only Use protection? No Herpes? Yes Drug and Alcohol Question Answer Notes Total Score: 0 Interpretation: No problems reported Alcohol Screening: Question Answer Notes Did you have a drink containing alcohol in the past year? No Points 0 Interpretation Negative Tobacco Use: Question Answer Notes Are you a: former smoker How long has it been since you last smoked? 5-10 years REASON FOR REFERRAL No Information VITAL SIGNS No information MEDICATIONS Medication SIG (Take, Route, Frequency, Duration) Notes Start Da te End Date Status Protonix 40 MG 1 tablet Orally BID A ctive Carafate 1 GM 1 tablet Orally Twice a day Active Diflucan 150 MG 1 tablet Orally take now; re peat in 72 hours if your symptoms persist for 4 days Aug, Not-Taking Calcium 500 MG 1 tablet with meals Orally Twice a day for 30 day(s) Not-Taking Effexor XR 150 MG 1 capsule with food Orally Once a day along with 37 .5 Active Topamax 200 MG 1 tablet Orally twice a day Active traZODone HCl 100 MG 1 tablet at bedtime as needed Orally prn Active Multivitamin - 1 tablet Orally Once a day Active Valtrex 1 GM 1 tablet Orally Once a day for 5 day(s) 2019 Not-Taking Biotin 10 MG 1 tablet Orally Once a day for 30 day(s) Active Calcium 200 MG as directed Orally Ac tive Multivitamin Adult - as directed Orally Not-Taking Rizatriptan Benzoate 10 MG TAKE 1 TABLET BY MOUTH EVER Y 2 HOURS NEEDED NO MORE THAN 2 PILLS IN 24 HOURS Oral Active Triamcinolone Acetonide 0.5 % 1 application Externally Once a day for 14 day(s) Apr, Active Vitamin B Complex - as directed Orally Not-Taking Melatonin 3 MG 2 tablet at bedtime as needed Orally Once a day Active PROCEDURES No Information RESULTS No Results REASON FOR VISIT labs MEDICAL (GENERAL) HISTORY Type Description Date Medical History migraines Medical History PTSD Medical History Depression and anxiety Medical History PCOS Medical History s/p Gastric Sleeve in [address] Perez f/u yearly Medical History Non-bleeding gastric Ulcer -04/2021 Dr. Lucian darling- EGD Medical History Hemorroid grade I -colonoscopy 04/2021 Medical History Insomnia Surgical History NEC -small bowel resection as an infant Surgical History colostomy reversal at 9 months old Surgical History gastric sleeve 2014 Surgical History cholecystectomy 2017 Surgical History 2016 Surgical History exploratory laparoscopy- Dr. Perez, abdominal pain s/p gastric sleeeve 2018 Surgical History right knee surgery 2018 Surgical History colonoscopy and endoscopy 05/02/2021 Hospitalization History childbirth Hospitalization History bowel obstruction 01/2020 Hospitalization History after exploratory laparoscopy 2017 Hospitalization History pulmonary embolism x 3- [facility] in [place] 2013 Hospitalization History bowel obstruction 01/2020 Goals [place] No Information Health Concerns No Information MEDICAL EQUIPMENT No Information MENTAL STATUS No Information FUNCTIONAL STATUS No Information ASSESSMENTS No Information PLAN OF TREATMENT Medication Medication Name Sig Start Date Stop Date Effexor XR 150 MG 1 capsule with food Orally Once a day traZODone HCl 100 MG 1 tablet at bedtime as needed Orally prn Multivitamin - 1 tablet Orally Once a day Topamax 200 MG 1 tablet Orally twice a day Calcium 200 MG as directed Orally Rizatriptan Benzoate 10 MG TAKE 1 TABLET BY MOUTH EVER Y 2 HOURS NEEDED NO MORE THAN 2 PILLS IN 24 HOURS Oral Protonix 40 MG 1 tablet Orally BID Carafate 1 GM 1 tablet Orally Twice a day Next Appt Details Provider Name:Ru Silver, 11:00:00 AM, [address] [place] [address], , [place], [address], Provider Name:Sade Torres, 02-05 09:30:00 AM, [address] [place] [address] , [place], [address], Insurance Providers Payer Name Payer Address Payer Phone Insured Name Patient Relati onship to Insured Coverage Start Date Coverage End Date [place] [phone] EMILY SPANGLER
--- OUTSIDE RECORDS SUMMARY | 2021-09-16 15:49 | CCD ---
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 Name Role Phone MickiSari lucianoy Unavailable PROBLEMS Type Condition ICD9-CM Code [id number] Code Onset Dates Condition S tatus W/U Status Risk SNOMED Code Notes Problem Abnormal uterine bleeding (AUB) N93.9 Active confirmed 53221279694317 Problem Chronic migraine G43.709 Active confirmed 42 5915578 Problem Insomnia G47.00 Active confirmed 372393592 Problem Vitamin D deficiency E55.9 Active confirmed 66369958 Problem Anxiety disorder, unspecified F41.9 Active confirm ed 683162925 Problem Major depressive disorder, single episode, unspecified F32.9 Active confirmed 59729482 Problem Anxiety with depression F41.8 Active confirmed 742759721 Problem Gastric ulcer without hemorrhage or perf oration, unspecified chronicity K25.9 Active confirmed 15682451 ALLERGIES Allergen (clinical drug ingredient) Drug/Non Drug Allergy do cumented on EMR Reaction Allergy Type Onset Date Status Egg Proteins Eggs or Egg-derived Products Unknown Drug Allergy Active Tolmetin NSAIDs Unknown Drug Allergy Active ENCOUNTERS from 1984 to 2021-09-14 Encounter Location Date Provider Diagnosis [address] [phone] [place] [address] Aug, Sade Torres Positive test Z32. 01 IMMUNIZATIONS Vaccine Route Administration Date Status Influenza [...] Education Language: Question Answer Notes Languages spoken: Belarusian Mandaeism: Question Answer Notes Mandaeism No latter day beliefs that would impact health care. Domestic [...] a day Active PROCEDURES No Information RESULTS Component Value Reference Range HCG, SERUM QUANTITATIVE Reviewed date:09/14/2021 16:02:29 Interpretation: Performing Lab:Formerly [facility], [facility], [facility], [facility] [address] [facility] [address] , ,[place] [address] HCG, SERUM QUANTITATIVE 309 REASON FOR VISIT positive test MEDICAL (GENERAL) HISTORY Type Description Date Medical History migraines Medical History PTSD Medical History Depression and anxiety Medical History PCOS Medical History s/p Gastric Sleeve in [address] Perez f/u yearly Medical History Non-bleeding gastric Ulcer -04/2021 Dr. Epstein ryden- EGD Medical History Hemorroid grade I -colonoscopy 04/2021 Medical History Insomnia Surgical History NEC -small bowel resection as an Surgical History colostomy reversal at 9 months old Surgical History gastric sleeve 2014 Surgical History cholecystectomy 2017 Surgical History 2016 Surgical History exploratory laparoscopy- Dr. Perez, abdominal pain s/p gastric sleeeve 2017 Surgical History right knee surgery 2018 Surgical History colonoscopy and endoscopy 05/02/2021 Hospitalization History childbirth Hospitalization History bowel obstruction 01/2020 Hospitalization History after exploratory laparoscopy 2018 Hospitalization History pulmonary embolism x 3- [facility] in [place] 2013 Hospitalization History bowel obstruction 01/2020 Goals Section No Information Health Concerns No Information MEDICAL EQUIPMENT No Information MENTAL STATUS No Information FUNCTIONAL STATUS No Information ASSESSMENTS Encounter Date Diagnosis Assessment Notes Treatment Notes Treatm ent Clinical Notes Aug, Positive test (ICD-10 - Z32.01) PLAN OF TREATMENT Medication Medication Name Sig [...] Appt Details Provider Name:Ru Silver, 11:00:00 AM, [address] [facility], , [place], [address], Provider Name:Sade oTrres, 2-0 02-05 09:30:00 AM, [address] [facility], , [place], [address], Insurance Providers Payer Name Payer Address Payer Phone Insured Name Patient Relati onship to Insured Coverage Start Date Coverage End Date [place] [phone] EMILY SPANGLER self
--- OUTSIDE RECORDS SUMMARY | 2021-09-16 15:50 | CCD ---
Author Author [facility] Organization [facility] Address Unknown Phone Unavailable Support Name Relationship Address Phone MORGAN SPANGLER Next Of Kin [address] [place] [address] ANÍBAL, AMAURI Next Of Kin [address] [place] [address] MORGAN MONSON Next Of Kin Unknown Rubina Pompa DDS Next Of Kin [address] [place], [place] [phone] Morgan Spangler (Boyfriend) Next Of Kin Unknown Unavai monica BELL Next Of Kin [address] [place] [address] MARCO HERNANDES Next Of Kin [address] [place] [address] MARCO DELGADILLO Next Of Kin Unknown Alvina Cornelius Next Of Kin [address] [place] [address] MORGAN ORTEGA Next Of Kin [address] [place] [address] Cindy Aguilar Next Of Kin [address] [place], [place] [phone] JAZMIN SPANGLER Next Of Kin [address] [place] [address] TAM Next Of Kin Unknown Unavailable POSTALCAMPBELL Next Of Kin [address] [place] [address] FAISAL HERNANDES Next Of Kin [address] [place] [address] MISTY SLAUGHTER Next Of Kin Unknown Unavailabl e POSTAL, FAISAL Next Of Kin [address] [address] POSTAL, VINCENZO Next Of Kin Unknown FAISAL POSTAL Next Of Kin [address] [place] [address] VINCENZO POSTAL Next Of Kin [address] [place] [address] RAFAEL POSTAL Next Of Kin [address] [place] [address] MISTY SLAUGHTER Next Of Kin [address] [place] [address] WILFREDO HERNANDES Next Of Kin Unknown PHONG GOMES Next Of Kin [address] [place] [address] MISTY YOUNG Next Of Kin [address] [place] [address] [place] PER PT [id number] Next Of Kin Unknown Unavailable WILFREDO HERNANDES Next Of Kin [address] [place] [address] AMAURI SPANGLER ECON [address] [place] [address] Unavailable Morgan Spangler ECON Unknown [phone] Misty Slaughter ECON [address] [place] [address] Care Team Providers Care Gerontology Aide Name Role Phone Fish, Jazmine [facility], PA-C Unavailable Unavailabl e Fish, [facility], PA-C Unavailable Unavailabl e Fish, [facility], PA-C Unavailable Unavailabl e Fish, [facility], PA-C Unavailable Unavailabl e Fish, [facility], PA-C Unavailable Unavailabl e Fish, [facility], PA-C Unavailable Unavailabl e Fish, [facility], PA-C Unavailable Unavailabl e Fish, [facility], PA-C Unavailable Unavailabl e Fish, [facility], PA-C Unavailable Unavailabl e Fish, [facility], PA-C Unavailable Unavailabl e Fish, [facility], PA-C Unavailable Unavailabl e Fish, [facility], PA-C Unavailable Unavailabl e Fish, [facility], PA-C Unavailable Unavailabl e Fish, [facility], PA-C Unavailable Unavailabl e Fish, [facility], PA-C Unavailable Unavailabl e Fish, [facility], PA-C Unavailable Unavailabl e Fish, [facility], PA-C Unavailable Unavailabl e Fish, [facility], PA-C Unavailable Unavailabl e Fish, [facility], PA-C Unavailable Unavailabl e Fish, [facility], PA-C Unavailable Unavailabl e Fish, [facility], PA-C Unavailable Unavailabl e Fish, [facility], PA-C Unavailable Unavailabl e Fish, [facility], PA-C Unavailable Unavailabl e Fish, [facility], PA-C Unavailable Unavailabl e Fish, [facility], PA-C Unavailable Unavailabl e Fish, [facility], PA-C Unavailable Unavailabl e Fish, [facility], PA-C Unavailable Unavailabl e Fish, [facility], PA-C Unavailable Unavailabl e Fish, [facility], PA-C Unavailable Unavailabl e Fish, [facility], PA-C Unavailable Unavailabl e Fish, [facility], PA-C Unavailable Unavailabl e Fish, [facility], PA-C Unavailable Unavailabl e Fish, [facility], PA-C Unavailable Unavailabl e Fish, [facility], PA-C Unavailable Unavailabl e Fish, [facility], PA-C Unavailable Unavailabl e Fish, [facility], PA-C Unavailable Unavailabl e Milad Mckinley MD Unavailable Unavailable Milad Mckinley MD Unavailable Unavailable Milad Mckinley MD Unavailable Unavailable Milad Mckinley MD Unavailable Unavailable Milad Mckinley MD Unavailable Unavailable Milad Mckinley MD Unavailable Unavailable JAZMYNE PA-C, [id number]. ROSSY PA Unavailable Unava ilable JAZMYNE PA-C, [id number] A. ROSSY PA Unavailable Unava ilable JAZMYNE PA-C, [id number] A. ROSSY PA Unavailable Unava ilable JAZMYNE PA-C, [id number] A. ROSSY PA Unavailable Unava ilable JAZMYNE PA-C, [id number]. ROSSY PA Unavailable Unava ilable JAZMYNE PA-C, [id number] A. ROSSY PA Unavailable Unava ilable JAZMYNE PA-C, [id number]. ROSSY PA Unavailable Unava ilable CRISTI CASEY MD Unavailable Unavailable CRISTI CASEY MD Unavailable Unavailable CRISTI CASEY MD Unavailable Unavailable BRYDEN, A GELY DO Unavailable Unavailable BRYDEN, A EGLY DO Unavailable Unavailable BRYDEN, A GELY DO Unavailable Unavailable BRYDEN, A GELY DO Unavailable Unavailable BRYDEN, A GELY DO Unavailable Unavailable BRYDEN, A GELY DO Unavailable Unavailable BRYDEN, A GELY DO Unavailable Unavailable BRYDEN, A GELY DO Unavailable Unavailable BRYDEN, A GELY DO Unavailable Unavailable BRYDEN, A GELY DO Unavailable Unavailable BRYDEN, A GELY DO Unavailable Unavailable BRYDEN, A GELY DO Unavailable Unavailable BRYDEN, A GELY DO Unavailable Unavailable BRYDEN, A GELY DO Unavailable Unavailable BRYDEN, A GELY DO Unavailable Unavailable BRYDEN, A GELY DO Unavailable Unavailable BRYDEN, A GELY DO Unavailable Unavailable BRYDEN, A GELY DO Unavailable Unavailable BRYDEN, A GELY DO Unavailable Unavailable BRYDEN, A GELY DO Unavailable Unavailable BRYDEN, A GELY DO Unavailable Unavailable BRYDEN, A GELY DO Unavailable Unavailable BRYDEN, A GELY DO Unavailable Unavailable BRYDEN, A GELY DO Unavailable Unavailable BRYDEN, A GELY DO Unavailable Unavailable BRYDEN, A GELY DO Unavailable Unavailable BRYDEN, A GELY DO Unavailable Unavailable BRYDEN, A GELY DO Unavailable Unavailable BRYDEN, A GELY DO Unavailable Unavailable Dille, E Rubina DDS Unavailable Unavailable Dille, E Rubina DDS Unavailable Unavailable Dille, E Rubina DDS Unavailable Unavailable Dille, E Rubina DDS Unavailable Unavailable [place], Arvind Unavailable Unavailable [place], Arvind Unavailable Unavailable KAMBHAMPATI DO, AZEEM Unavailable Unavailable Ramirez, L Noreen RPA Unavailable Unavailable Ramirez, L Noreen RPA Unavailable Unavailable Ramirez, L Noreen RPA Unavailable Unavailable Ramirez, L Noreen RPA Unavailable Unavailable Ramirez, L Noreen RPA Unavailable Unavailable Ramirez, L Noreen RPA Unavailable Unavailable Ramirez, L Noreen RPA Unavailable Unavailable Ramirez, L Noreen RPA Unavailable Unavailable Ramirez, L Noreen RPA Unavailable Unavailable Ramirez, L Noreen RPA Unavailable Unavailable Ramirez, L Noreen RPA Unavailable Unavailable Ramirez, L Noreen RPA Unavailable Unavailable Ramirez, L Noreen RPA Unavailable Unavailable Ramirez, L Noreen RPA Unavailable Unavailable Ramirez, L Noreen RPA Unavailable Unavailable Ramirez, L Noreen RPA Unavailable Unavailable Ramirez, L Noreen RPA Unavailable Unavailable Ramirez, L Noreen RPA Unavailable Unavailable Ramirez, L Noreen RPA Unavailable Unavailable Ramirez, L Noreen RPA Unavailable Unavailable Ramirez, L Noreen RPA Unavailable Unavailable Ramirez, L Noreen RPA Unavailable Unavailable Ramirez, L Noreen RPA Unavailable Unavailable Ramirez, L Noreen RPA Unavailable Unavailable Ramirez, L Noreen RPA Unavailable Unavailable Ramirez, L Noreen RPA Unavailable Unavailable Ramirez, L Noreen RPA Unavailable Unavailable Ramirez, L Noreen RPA Unavailable Unavailable Ramirez, L Noreen RPA Unavailable Unavailable Ramirez, L Noreen RPA Unavailable Unavailable Ramirez, L Noreen RPA Unavailable Unavailable Ramirez, L Noreen RPA Unavailable Unavailable JOE, P ARMANDO MD Unavailable Unavailable JOE, P ARMANDO MD Unavailable Unavailable JOE, P ARMANDO MD Unavailable Unavailable JOE, P ARMANDO MD Unavailable Unavailable JOE, P ARMANDO MD Unavailable Unavailable JOE, P ARMANDO MD Unavailable Unavailable JOE, P ARMANDO MD Unavailable Unavailable JOE, P ARMANDO MD Unavailable Unavailable JOE, P ARMANDO MD Unavailable Unavailable JOE, P ARMANDO MD Unavailable Unavailable JOE, P ARMANDO MD Unavailable Unavailable JOE, P ARMANDO MD Unavailable Unavailable JOE, P ARMANDO MD Unavailable Unavailable JOE, P ARMANDO MD Unavailable Unavailable JOE, P ARMANDO MD Unavailable Unavailable JOE, P ARMANDO MD Unavailable Unavailable JOE, P ARMANDO MD Unavailable Unavailable JOE, P ARMANDO MD Unavailable Unavailable JOE, P ARMANDO MD Unavailable Unavailable JOE, P ARMANDO MD Unavailable Unavailable JOE, P ARMANDO MD Unavailable Unavailable JOE, P ARMANDO MD Unavailable Unavailable JOE, P ARMANDO MD Unavailable Unavailable JOE, P ARMANDO MD Unavailable Unavailable JOE, P ARMANDO MD Unavailable Unavailable OJE, P ARMANDO MD Unavailable Unavailable JOE, P ARMANDO MD Unavailable Unavailable Rodrigo JOE MD Unavailable Unavailable Rodrigo JOE MD Unavailable Unavailable Rodrigo JOE MD Unavailable Unavailable Rodrigo JOE MD Unavailable Unavailable Rodrigo JOE MD Unavailable Unavailable Rodrigo JOE MD Unavailable Unavailable Rodrigo JOE MD Unavailable Unavailable Rodrigo JOE MD Unavailable Unavailable Rodrigo JOE MD Unavailable Unavailable Rodrigo JOE MD Unavailable Unavailable Rodrigo JOE MD Unavailable Unavailable Rodrigo JOE MD Unavailable Unavailable Rodrigo JOE MD Unavailable Unavailable Rodrigo JOE MD Unavailable Unavailable Rodrigo JOE MD Unavailable Unavailable Rodrigo JOE MD Unavailable Unavailable Rodrigo JOE MD Unavailable Unavailable Rodrigo JOE MD Unavailable Unavailable Keisha Pena MD Unavailable Unavailable Keisha Pena MD Unavailable Unavailable Keisha Pena MD Unavailable Unavailable Keisha Pena MD Unavailable Unavailable Keisha Pena MD Unavailable Unavailable Keisha ePna MD Unavailable Unavailable Keisha Pena MD Unavailable Unavailable Keisha Pena MD Unavailable Unavailable Keisha Pena MD Unavailable Unavailable Keisha Pena MD Unavailable Unavailable Keisha Pena MD Unavailable Unavailable Keisha Pena MD Unavailable Unavailable Keisha Pena MD Unavailable Unavailable Keisha Pena MD Unavailable Unavailable Keisha Pena MD Unavailable Unavailable Keisha Pena MD Unavailable Unavailable Keisha Pena MD Unavailable Unavailable Keisha Pena MD Unavailable Unavailable Keisha Pena MD Unavailable Unavailable Keisha Pena MD Unavailable Unavailable Keisha Pena MD Unavailable Unavailable Keisha Pena MD Unavailable Unavailable Keisha Pena MD Unavailable Unavailable Keisha Pena MD Unavailable Unavailable Keisha Pena MD Unavailable Unavailable Keisha Pena MD Unavailable Unavailable Keisha Pena MD Unavailable Unavailable Keisha Pena MD Unavailable Unavailable Keisha Pena MD Unavailable Unavailable Keisha Pena MD Unavailable Unavailable Slezka, Vojtech MD Unavailable Unavailable Slezka, Vojtech MD Unavailable Unavailable Slezka, Vojtech MD Unavailable Unavailable Slezka, Vojtech MD Unavailable Unavailable Slezka, Vojtech MD Unavailable Unavailable Slezka, Vojtech MD Unavailable Unavailable Slezka, Vojtech MD Unavailable Unavailable Slezka, Vojtech MD Unavailable Unavailable Slezka, Vojtech MD Unavailable Unavailable Slezka, Vojtech MD Unavailable Unavailable Slezka, Vojtech MD Unavailable Unavailable Slezka, Vojtech MD Unavailable Unavailable Slezka, Vojtech MD Unavailable Unavailable Slezka, Vojtech MD Unavailable Unavailable Slezka, Vojtech MD Unavailable Unavailable Slezka, Vojtech MD Unavailable Unavailable Slezka, Vojtech MD Unavailable Unavailable Slezka, Vojtech MD Unavailable Unavailable Slezka, Vojtech MD Unavailable Unavailable Slezka, Vojtech MD Unavailable Unavailable Slezka, Vojtech MD Unavailable Unavailable Slezka, Vojtech MD Unavailable Unavailable Slezka, Vojtech MD Unavailable Unavailable Slezka, Vojtech MD Unavailable Unavailable Slezka, Vojtech MD Unavailable Unavailable Slezka, Vojtech MD Unavailable Unavailable Slezka, Vojtech MD Unavailable Unavailable Slezka, Vojtech MD Unavailable Unavailable Slezka, Vojtech MD Unavailable Unavailable Re-disclosure Warning The records that you are about to access may contain information from federally-assisted alcohol or drug abuse programs. If such information is present, then the following federally mandated warning applies: This information has been disclosed to you from records protected by federal confidentiality rules (42 CFR part 2). The federal rules prohibit you from making any further disclosure of this information unless further disclosure is expressly permitted by the written consent of the person to whom it pertains or as otherwise permitted by 42 CFR part 2. A general authorization for the release of medical or other information is NOT sufficient for this purpose. The Federal rules restrict any use of the information to criminally investigate or prosecute any alcohol or drug abuse patient.The records that you are about to access may contain highly sensitive health information, the redisclosure of which is protected by Article 27-F of the [facility] Public Health law. If you continue you may have access to information: Regarding HIV / AIDS; Provided by facilities licensed or operated by the [facility] Office of Mental Health; or Provided by the [facility] Office for People With Developmental Disabilities. If such information is present, then the following [facility] mandated warning applies: This information has been disclosed to you from confidential records which are protected by state law. State law prohibits you from making any further disclosure of this information without the specific written consent of the person to whom it pertains, or as otherwise permitted by law. Any unauthorized further disclosure in violation of state law may result in a fine or half-way sentence or both. A general authorization for the release of medical or other information is NOT sufficient authorization for further disc losure. Allergies and Adverse Reactions Type Description Substance Reaction Status Data Source(s ) Propensity to adverse reactions NO ALLERGIES ON FILE NO ALLERGIES ON FILE [facility] Propensity to adverse reactions NSAIDS (NON-STEROIDAL ANTI-I NFLAMMATORY DRUG) NSAIDS (NON-STEROIDAL ANTI-INFLAMMATORY DRUG) [facility] Family History Family Member Name Family Member Gender Family Member Status Date o f Status Description Data Source(s) Unknown Unknown Problem [facility] ([facility], ) Unknown Unknown Problem [facility] ([facility], ) Encounters Encounter Providers Location Date Indications Data Source(s ) Unknown [address] [facility] [address] 09/14/2021 12:00:00 AM EST eCW1 ([facility]) Unknown [address] [facility] [address] 09/14/2021 12:00:00 AM EST eCW1 ([facility]) Outpatient Attender: CRISTI Wood/Marie/Dhruv/ Froilan 09/11/2021 07:00:00 AM EST [facility] ([facility], ) Emergency Attender: Milad Mckinley MDConsultant: [phone] ROSSY SAMANO PA-C 08/31/2021 05:37:00 PM EDT - 08/31/2021 10:27:00 PM EDT [facility] Patient discharged. Unknown [address] [facility] [address] 08/08/2021 12:00:00 AM EDT eCW1 ([facility]) Emergency Attender: Mliad Mckinley MDConsultant: [id number] ROSSY SAMANO PA-C 06/03/2021 06:56:00 PM EDT - 06/03/2021 11:39:00 PM EDT [facility] Patient discharged. Outpatient Attender: Noreen Wood/Marie/Dhruv/R nav 05/21/2021 10:00:00 AM EDT [facility] [place] [address] [facility] [address] 05/15/2021 12:00:00 AM EDT eCW1 ([facility]) Unknown [address] [facility] [address] 05/15/2021 12:00:00 AM EDT eCW1 ([facility]) Outpatient [address] [facility] [address] 04/09/2021 12:00:00 AM EDT eCW1 ([facility]) Outpatient Attender: GELY Negron/Marie/Dhruv/Hans ndparvez 03/20/2021 03:45:00 PM EDT [facility] ([facility], ) Emergency Attender: Arvind Ballard ES1-ES1 2020 12:36:00 AM EDT - 03/04/2021 07:15:00 AM EDT [facility] Patient discharged. Unknown [address] [facility] [address] 02/27/2021 12:00:00 AM EDT eCW1 ([facility]) Outpatient [address] [facility] [address] 02/06/2021 12:00:00 AM EDT eCW1 ([facility]) Outpatient Attender: Keisha Pena MD SJP.GERBER-SJP.GERBER 10/27 12:00:00 AM [facility] Outpatient Attender: ARMANDO JOE MD [id number] 10/31/2020 12:00:00 AM [facility] [place] [address] [facility] [place] [address] 10/03/2020 12:00:00 AM EST eCW1 ([facility]) Unknown [address] [facility] [address] 09/18/2020 12:00:00 AM EST eCW1 ([facility]) Outpatient Att[facility]: [facility] 09/05/2020 12:00:48 A M EST [facility] Unknown [address] [facility] [address] 09/04/2020 12:00:00 AM EST eCW1 ([facility]) Outpatient Attender: Clau SAM PA-C Physical Therapy 08/24/2020 03:20:00 PM EDT [facility] ([facility]) Outpatient [address] [facility] [address] 08/22/2020 12:00:00 AM EDT eCW1 ([facility]) EMERGENCY Attender: AZEEM ARROYO DO [id number] 08/13/2020 03:28:23 PM EDT - 08/13/2020 04:19:00 PM EDT [facility] Patient discharged. Outpatient [address] [facility] [address] 08/10/2020 12:00:00 AM EDT eCW1 ([facility]) Outpatient Attender: Rubina MARTINES 08/03/2020 12:00:28 A M EDT [facility] Outpatient Attender: Clau SAM PA-C Physical Therapy 08/01/2020 09:30:00 AM EDT [facility] ([facility]) Immunizations Vaccine Date Status Description Data Source(s) COVID-19 VACCINE Moderna 09/01/2021 12:00:00 AM EDT completed [employer] Vaccine Series Complete: NOThis Data was Submitted to [facility] Via [employer]. influenza, recombinant, quadrIvalent,injectable, prese rvative free 08/07/2021 10:30:00 AM EDT completed eCW1 ([facility]) influenza, recombinant, quadrIvalent,injectable, prese rvative free 08/07/2021 10:30:00 AM EDT completed eCW1 ([facility]) influenza, recombinant, quadrIvalent,injectable, prese rvative free 08/07/2021 10:30:00 AM EDT completed eCW1 ([facility]) COVID-19 VACCINE Moderna 01/19/2021 12:00:00 AM EDT completed [facility] Vaccine Series Complete: NOThis Data was Submitted to [facility] Via [employer]. influenza, recombinant, quadrIvalent,injectable, prese rvative free 08/10/2020 11:21:00 AM EDT completed eCW1 ([facility]) influenza, recombinant, quadrIvalent,injectable, prese rvative free 08/10/2020 11:21:00 AM EDT completed eCW1 ([facility]) influenza, recombinant, quadrIvalent,injectable, prese rvative free 08/10/2020 11:21:00 AM EDT completed eCW1 ([facility]) influenza, recombinant, quadrIvalent,injectable, prese rvative free 08/10/2020 11:21:00 AM EDT completed eCW1 ([facility]) influenza, recombinant, quadrIvalent,injectable, prese rvative free 08/10/2020 11:21:00 AM EDT completed eCW1 ([facility]) influenza, recombinant, quadrIvalent,injectable, prese rvative free 08/10/2020 11:21:00 AM EDT completed eCW1 ([facility]) influenza, recombinant, quadrIvalent,injectable, prese rvative free 08/10/2020 11:21:00 AM EDT completed eCW1 ([facility]) influenza, recombinant, quadrIvalent,injectable, prese rvative free 08/10/2020 11:21:00 AM EDT completed eCW1 ([facility]) influenza, recombinant, quadrIvalent,injectable, prese rvative free 08/10/2020 11:21:00 AM EDT completed eCW1 ([facility]) influenza, recombinant, quadrIvalent,injectable, prese rvative free 08/10/2020 11:21:00 AM EDT completed eCW1 ([facility]) influenza, recombinant, quadrIvalent,injectable, prese rvative free 08/10/2020 11:21:00 AM EDT completed eCW1 ([facility]) influenza, recombinant, quadrIvalent,injectable, prese rvative free 08/10/2020 11:21:00 AM EDT completed eCW1 ([facility]) influenza, recombinant, quadrIvalent,injectable, prese rvative free 08/10/2020 11:21:00 AM EDT completed eCW1 ([facility]) Medications Medication Brand Name Start Date Product Form Dose Route Admi nistrative Instructions Pharmacy Instructions Status Indications Reaction Description Data Source(s) Triamcinolone Acetonide 5 MG/ML Topical Cream Triamcin olone Acetonide 0.5 % Triamcinolone Acetonide 0.5 % 05/15/2021 12:00:00 AM EDT 1.0 {appli cation} active Triamcinolone Acetonide 0 .5 % eCW1 ([facility]) Triamcinolone Acetonide 5 MG/ML Topical Cream Triamcin olone Acetonide 0.5 % Triamcinolone Acetonide 0.5 % 05/15/2021 12:00:00 AM EDT 1.0 {appli cation} active Triamcinolone Acetonide 0 .5 % eCW1 ([facility]) Triamcinolone Acetonide 5 MG/ML Topical Cream Triamcin olone Acetonide 0.5 % Triamcinolone Acetonide 0.5 % 05/15/2021 12:00:00 AM EDT 1.0 {appli cation} active Triamcinolone Acetonide 0 .5 % eCW1 ([facility]) Triamcinolone Acetonide 5 MG/ML Topical Cream Triamcin olone Acetonide 0.5 % Triamcinolone Acetonide 0.5 % 05/15/2021 12:00:00 AM EDT 1.0 {appli cation} active Triamcinolone Acetonide 0 .5 % eCW1 ([facility]) Triamcinolone Acetonide 5 MG/ML Topical Cream Triamcin olone Acetonide 0.5 % Triamcinolone Acetonide 0.5 % 05/15/2021 12:00:00 AM EDT 1.0 {appli cation} active Triamcinolone Acetonide 0 .5 % eCW1 ([facility]) Sutab Sutab 04/27/2021 12:00:00 AM EDT completed [facility] ([facility], ) Suprep Bowel Prep Kit Suprep Bowel Prep Kit 04/16/2021 12:00:00 AM EDT completed [facility]ENT ([facility], ) iopamidol (ISOVUE-370) 76 % 70 mL [id number] 03/04/2021 05:21:55 AM E DT 70 mL Intravenous completed 70 mL, Intrav enous, Once in imaging, contrast, Starting on 03/04/21 at 0521, For 1 dose [facility] Medication administered onsite Aluminum Hydroxide 40 MG/ML / Magnesium Hydroxide 40 MG/ML / Simethicone 4 MG/ML Oral Suspension alum & mag hydroxide-simeth 200-200-20 MG/5ML suspension 30 mL alum & mag hydroxide-simeth 200-200-20 MG/5ML suspension 30 mL 03/04/2021 03:30:00 AM EDT 30 mL Oral completed 30 mL, Oral, Once, On 03/04/21 at 0330, For 1 dose [facility] Medication administered onsite lidocaine (XYLOCAINE) 2 % mouth solution 10 mL [id number] 03/04/2021 03:30:00 AM EDT 10 mL Mouth/Throat completed 1 0 mL, Mouth/Throat, Once, On 03/04/21 at 0330, For 1 dose [facility] Medication administered onsite topiramate 200 MG Oral Tablet Topiramate 200 MG Oral T ablet (TOPAMAX) Topiramate 200 MG Oral Tablet (TOPAMAX) 10/16/2020 12:00:00 AM EST 200 mg Oral active Take 200 mg by mouth Two Times D [facility] topiramate 200 MG Oral Tablet topiramate (TOPAMAX) 200 MG tablet topiramate (TOPAMAX) 200 MG tablet 10/16/2020 12:00:00 AM EST 200 mg Oral active Take 200 mg by mouth 2 (two) times a day [facility] valacyclovir 1000 MG Oral Tablet [Valtrex] Valtrex 1 GM Valt karen 1 GM 09/18/2020 12:00:00 AM EST 1.0 {tablet} active Va ltrex 1 GM eCW1 ([facility]) Fluconazole 150 MG Oral Tablet [Diflucan] Diflucan 150 MG Di flucan 150 MG 09/18/2020 12:00:00 AM EST 1.0 {tablet} active Diflucan 150 MG eCW1 ([facility]) Fluconazole 150 MG Oral Tablet [Diflucan] Diflucan 150 MG Di flucan 150 MG 09/18/2020 12:00:00 AM EST 1.0 {tablet} suspended Diflucan 150 MG eCW1 ([facility]) Fluconazole 150 MG Oral Tablet [Diflucan] Diflucan 150 MG Di flucan 150 MG 09/18/2020 12:00:00 AM EST 1.0 {tablet} active Diflucan 150 MG eCW1 ([facility]) Fluconazole 150 MG Oral Tablet [Diflucan] Diflucan 150 MG Di flucan 150 MG 09/18/2020 12:00:00 AM EST 1.0 {tablet} suspended Diflucan 150 MG eCW1 ([facility]) Fluconazole 150 MG Oral Tablet [Diflucan] Diflucan 150 MG Di flucan 150 MG 09/18/2020 12:00:00 AM EST 1.0 {tablet} suspended Diflucan 150 MG eCW1 ([facility]) Fluconazole 150 MG Oral Tablet [Diflucan] Diflucan 150 MG Di flucan 150 MG 09/18/2020 12:00:00 AM EST 1.0 {tablet} active Diflucan 150 MG eCW1 ([facility]) Fluconazole 150 MG Oral Tablet [Diflucan] Diflucan 150 MG Di flucan 150 MG 09/18/2020 12:00:00 AM EST 1.0 {tablet} suspended Diflucan 150 MG eCW1 ([facility]) valacyclovir 1000 MG Oral Tablet [Valtrex] Valtrex 1 GM Valt karen 1 GM 09/18/2020 12:00:00 AM EST 1.0 {tablet} active Va ltrex 1 GM eCW1 ([facility]) valacyclovir 1000 MG Oral Tablet [Valtrex] Valtrex 1 GM Valt karen 1 GM 09/18/2020 12:00:00 AM EST 1.0 {tablet} active Va ltrex 1 GM eCW1 ([facility]) Fluconazole 150 MG Oral Tablet [Diflucan] Diflucan 150 MG Di flucan 150 MG 09/18/2020 12:00:00 AM EST 1.0 {tablet} suspended Diflucan 150 MG eCW1 ([facility]) valacyclovir 1000 MG Oral Tablet [Valtrex] Valtrex 1 GM Valt karen 1 GM 09/18/2020 12:00:00 AM EST 1.0 {tablet} suspended Valtrex 1 GM eCW1 ([facility]) valacyclovir 1000 MG Oral Tablet valACYclovir (VALTREX ) 1000 MG tablet valACYclovir (VALTREX) 1000 MG tablet 09/18/2020 12:00:00 AM EST active as needed [facility] Fluconazole 150 MG Oral Tablet [Diflucan] Diflucan 150 MG Di flucan 150 MG 09/18/2020 12:00:00 AM EST 1.0 {tablet} active Diflucan 150 MG eCW1 ([facility]) valacyclovir 1000 MG Oral Tablet [Valtrex] Valtrex 1 GM Valt karen 1 GM 09/18/2020 12:00:00 AM EST 1.0 {tablet} active Va ltrex 1 GM eCW1 ([facility]) valacyclovir 1000 MG Oral Tablet [Valtrex] Valtrex 1 GM Valt karen 1 GM 09/18/2020 12:00:00 AM EST 1.0 {tablet} suspended Valtrex 1 GM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 ................................ : 36 Film# .................. .:[id number] Sex ......... ........................ : F Unsigned transcriptions are preliminary reports and do not represent a medical or legal document KNEE COMPLETE-4 OR MORE Jose Antonio Bello [id number] COMPLETE:08/31/21 19:07 [facility] [id number] Reason(s): Pain RADIOGRAPHS OF THE RIGHT KNEE 4 VIEWS INDICATION: Pain COMPARISON: None. FINDINGS: Curvilinear lucency through the superior lateral quadrant of the patella. This has sclerotic margins. 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 No acute fracture. Moderate joint space narrowing and marginal osteophytes in the medial compartment. Mild degenerative changes in the lateral compartment and patellofemoral joint. No significant soft tissue abnormality. 8 Clinical Report - Physicians/Mid Levels [facility] Emergency Department [address] [place] [address] Phone #: ext- [phone] 08/31/2021 17:35 Patient: EMILY SPANGLER Sex: F : 1985 Age: 36y IMPRESSION: 1. 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 2. No acute fracture. 3. Tricompartmental osteoarthropathy. Electronically Reviewed and Signed By Amadeo Bell MD , 09/01/21 12:14, MELONY Transcribe Initials: NICOLE , Transcribe Date: 09/01/21 11:15, Dictation Date: Copy for: EMERGENCY DEPT via modem Copy for: 710 MED REC DISCHARGED Page 1 of 1.PROGRESS AND PROCEDURESCourse of Care: Enter room and pt lying peacefully in bed in NAD. Patient stable. Denies any newissues, concerns, or complaints. VSS, NAD, AOx3, interacting well and appropriately, no use of accessory muscle, able to speak full sentences, stable, non-toxic looking. Pt presents to the ER with c/o of atruamtic and insidious onset of R knee pain. Sts it started to hurt and is painful to bear weight. PE demos NV intact b/l LE. Noted TTP of the infrapatellar region and TTP of the posterier knee. Does ahve a hx of PEs a few yrs ago. No current CP, SOB, dyspnea, or palps. will order imaging for further eval. Pending results. Reviewed initial resutls. WIll order CT for furhter eval. Enter room and patient lying peacefully in bed in NAD. Patient stable. Pt sts many years ago she did sustained a injury to this knee. Pending restuls. Reviewed results Enter room pt sittig peacefully in bed in NAD. Denies any new issues, concerns, or complaints. Discussed results with pt. Discussed tx plan with pt. Discussed and counseled on stable condition. Discussed importance of a f/u with PCP. Discussed return to ER criteria. Answered their questions. Indicates and verbalizes that they understand, agree, and will comply with above. Denies any new questions or concerns. Patient has capacity to understand. Discharge decision based on the following: patient's condition is stable; patient's exam is stable; social support is adequate; transportation is available; follow-up is available. 9 Clinical Report - Physicians/Mid Levels [facility] Emergency Department [address] [place] [address] Phone #: ext- [phone] 08/31/2021 17:35 Patient: EMILY SPANGLER Sex: F : 1985 Age: 36y Discussed of OTC Motrin and Tylenol to control inflammation and pain management. Informed to follow directions on bottle that are appropriate for age and/or weight. Disposition: Discharged in good and improved condition. Condition: good and stable.CLINICAL IMPRESSION Acute right knee pain.INSTRUCTIONS Apply ice for 10 minutes three times a day for one weeks followed by heat 10 minutes three times a day for one weeks as needed. Don't apply ice directly to skin, don't use while asleep and don't use high setting on heating pad. No weight bearing on right leg for one weeks. (Recommend to utilize OTC Motrin and Tylenol to control inflammation and pain management. Recommend to follow the instructions on the bottle and not to exceed.). Prescription monitor program consulted by me due to This report was requested by: Jesus Killian Reference #: [id number]. Prescription does not exceed state maximum supply of medications Prescription Medications: hydrocodone 5 mg-acetaminophen 325 mg tablet Take 1 tablet three times a day for 3 days -- Dispense 9 tablet. Refills: 0. Substitution permitted. Pharmacy - [facility] - [address] [facility] ; [place], [place] [id number]. . The following was rx'ed today in [facility] ER: NORCO 5mg/325mg x 2 tabs ( VOID). Follow-up: Return to the emergency department as needed. Follow up with your healthcare provider in about two days if not better. Call for an appointment. Understanding of the discharge instructions verbalized by patient. Follow-up with: [facility], , , [address] [place] [address] [address], , [place], [address] Follow up. Reason for referral: evaluation and treatment. 10 Clinical Report - Physicians/Mid Levels [facility] Emergency Department [address] [place] [address] Phone #: ext- [phone] 08/31/2021 17:35 Patient: EMILY SPANGLER Sex: F : 1985 Age: 36y(Electronically signed by Jesus Killian P.A.-C 09/02/2021 00:34) Name Value Range Interpretation Code Description Data Queta rce(s) Supporting Document(s) ID Date Data Source [id number] 09/01/2021 12:15:00 PM EDT [facility] [address] [place] [address] PHONE: [phone] FAX: [phone] Name .................. : ANÍBAL Buchanan Acct Number.................. : [id number] ROOM. ................. : TR-1A MR Number ................... : [id number] Stay type ............. : E/R Discharge Date......... ... : 08/31/21 Admit Date ......... : 08/31/21 Admit Phys .................... : ARLEN Quintero Date of ....... : 1985 Family Phys ................... : JAZMYNE SCHAFFERSuperfish Phone .................. : [phone] Age ................................ : 36 Film# .................. .:[id number] Sex ................................. : F Unsigned transcriptions are preliminary reports and do not represent a medical or legal document CT LOWER EXT RT W/O CONT [id number] COMPLETE:09/01/21 07:23 [facility] [id number] Reason(s): patella vs fem condyle fx vs other. CT RIGHT KNEE WITHOUT CONTRAST INDICATION: Pain COMPARISON: X-rays 08/31/2021 CONTRAST: None PROCEDURE: The patient is scanned axially. Multiplanar reconstructions are performed. One or more of the following dose reduction techniques were utilized in effectively lowering the radiation dose for this examination: Automated Exposure Control, Adjustment of the mA and/or kV according to patient size, or Iterative reconstruction. FINDINGS: Accessory ossicle superior lateral patella sclerotic margins. No acute fracture. No subluxation or dislocation. Moderate joint space narrowing and marginal osteophytes in the medial compartment and patellofemoral joint. Mild joint space narrowing and marginal osteophytes in the lateral compartment. Cluster of subarticular cysts posterior weightbearing portion of the lateral femoral condyle measuring 7 mm. Sclerotic margins. 8mm oval bony density in the posterior intercondylar notch. This does not appear attached to the tibia or t he femur and may be a loose body. Best seen on sagittal 204 image 41. IMPRESSION: 1. Tricompartmental osteoarthropathy. 2. Probable loose body posterior intercondylar notch. 3. Subarticular cyst lateral femoral condyle, likely degenerative. 4. Bipartite patella. Page 1 of 2 [facility] [address] [place] [address] PHONE: [phone] FAX: [phone] Name .................. : ANÍBAL Buchanan Acct Number.................. : [id number] ROOM. ................. : TR-1A MR Number ................... : [id number] Stay type ............. : E/R Discharge Date......... ... : 08/31/21 Admit Date ......... : 08/31/21 Admit Phys .................... : ARLEN Quintero Date of ....... : 1985 Family Phys ................... : JAZMYNE CORRALES Phone .................. : [phone] Age ................................ : 36 Film# .................. .:[id number] Sex ................................. : F Unsigned transcriptions are preliminary reports and do not represent a medical or legal document CT LOWER EXT RT W/O CONT [id number] COMPLETE:09/01/21 07:23 [facility] [id number] Reason(s): patella vs fem condyle fx vs other. Preliminary report for this exam was provided by Daron. Electronically Reviewed and Signed By Amadeo Bell MD , 09/01/21 12:15, JWJose Antonio Transcribe Initials: NICOLE , Transcribe Date: 09/01/21 11:42, Dictation Date: Copy for: DANIELLE SEBASTIAN via fax Copy for: EMERGENCY DEPT via modem Copy for: 710 MED REC DISCHARGED Page 2 of 2 Name Value Range Interpretation Code Description Data Queta rce(s) Supporting Document(s) ID Date Data Source [id number] 09/01/2021 12:14:00 [place] [address] PHONE: [phone] FAX: [phone] Name .................. : ANÍBAL Buchanan Acct Number.................. : [id number] ROOM. ................. : TR-1A MR Number ................... : [id number] Stay type ............. : E/R Discharge Date......... ... : 08/31/21 Admit Date ......... : 08/31/21 Admit Phys .................... : ARLEN Quintero Date of ....... : 1985 Family Phys ................... : JAZMYNE CORRALES Phone .................. : [phone] Age ................................ : 36 Film# .................. .:[id number] Sex ................................. : F Unsigned transcriptions are preliminary reports and do not represent a medical or legal document KNEE COMPLETE-4 OR MORE S R [id number] COMPLETE:08/31/21 19:07 [facility] [id number] Reason(s): Pain RADIOGRAPHS OF THE RIGHT KNEE 4 VIEWS INDICATION: Pain COMPARISON: None. FINDINGS: Curvilinear lucency through the superior lateral quadrant of the patella. This has sclerotic margins. 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 No acute fracture. Moderate joint space narrowing and marginal osteophytes in the medial compartment. Mild degenerative changes in the lateral compartment and p atellofemoral joint. No significant soft tissue abnormality. IMPRESSION: 1. 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 2. No acute fracture. 3. Tricompartmental osteoarthropathy. Electronically Reviewed and Signed By Amadeo Bell MD , 09/01/21 12:14, MELONY Transcribe Initials: NICOLE , Transcribe Date: 09/01/21 11:15, Dictation Date: Copy for: EMERGENCY DEPT via mode Copy for: 710 MED REC DISCHARGED Page 1 of 1 Name Value Range Interpretation Code Description Data Queta rce(s) Supporting Document(s) ID Date Data Source [id number] 06/04/2021 05:33:00 PM EDT [facility] [address] [place] [address] PHONE: [phone] FAX: [phone] Name .................. : ANÍBAL Buchanan Acct Number.................. : [id number] ROOM. ................. : VT-49 Number ................... : [id number] Stay type ............. : E/R Discharge Date......... ... : Admit Date ......... : 06/03/21 Admit Phys .................... : ARLEN Quintero Date of ....... : 1985 Family Phys ................... : RAYSHAWN SAMANO Phone .................. : [phone] Age ................................ : 35 Film# .................. .:[id number] Sex ................................. : F Unsigned transcriptions are preliminary reports and do not represent a medical or legal document CT ABD & PELVIS W/ IV ONLY [id number] COMPLETE:06/03/21 20:32 [id number] Reason(s): Abdominal Pain CT ABDOMEN AND PELVIS WITH IV CONTRAST INDICATION: Abdominal pain. History of bowel resection and colostomy reversal, gastric sleeve. COMPARISON: None IV CONTRAST: None One or more of the following dose reduction techniques were utilized in effectively lowering the radiation dose for this examination: Automated Exposure Control, Adjustment of the mA and/or kV according to patient size, or Iterative reconstruction. FINDINGS: LUNG BASES: No pulmonary nodules or masses. No pleural effusions. LIVER/BILIARY: Liver is unremarkable. Multiple surgical clips in the gallbladder fossa or gallbladder is absent. SPLEEN: Normal. PANCREAS: Normal. ADRENALS: Normal bilaterally. RIGHT KIDNEY: No hydronephrosis, stones or masses. LEFT KIDNEY: No hydronephrosis, stones or masses. OTHER : No abnormalities seen in the urinary bladder. Uterus is unremarkable. Right ovarian water density cyst 44 mm. This has a few punctate mural calcifications. Page 1 of 2 [facility] [address] [place] [address] PHONE: [phone] FAX: [phone] Name .................. : ANÍBAL Buchanan Acct Number.................. : [id number] ROOM. ................. : VT-49 MR Number ................... : [id number] Stay type ............. : E/R Discharge Date......... ... : Admit Date ......... : 06/03/21 Admit Phys .................... : ARLEN Quintero Date of ....... : 1985 Family Phys ................... : RAYSHAWN SAMANO Phone .................. : [phone] Age ................................ : 35 Film# .................. .:[id number] Sex . ................................ : F Unsigned transcriptions are preliminary reports and do not represent a medical or legal document CT ABD & PELVIS W/ IV ONLY [id number] COMPLETE:06/03/21 20:32 [id number] Reason(s): Abdominal Pain BOWEL/GI: Radiopaque sutures around the stomach. Partial colectomy. There is fecalization of the content in the distal small bowel which is mildly dilated. No transition point seen to suggest obstruction. No bowel wall thickening. No hernia. PERITONEUM: No free fluid, focal fluid collection or free air. NODES/RETROPERITONEUM: No adenopathy. No AAA. SKELETAL: Within normal limits. IMPRESSION: 1. Prior gastric surgery and partial colectomy. 2. Fecalization of distal small bowel content. Bowel is mildly dilated. No transition point seen to suggest obstruction. 3. Right ovarian cyst 44 mm. Internal contents uniform water density. There are a few punctate mural calcifications. 4. Cholecystectomy. Electronically Reviewed and Signed By Amadeo Bell MD , 06/04/21 17:34, MELONY Transcribe Initials: NICOLE , Transcribe Date: 06/03/21 23:04, Dictation Date: Copy for: EMERGENCY DEPT via modem Copy for: 710 MED REC DISCHARGED Page 2 of 2 Name Value Range Interpretation Code Description Data Queta rce(s) Supporting Document(s) ID Date Data Source [id number] 06/03/2021 06:56:00 PM EDT [facility] 1 OrderSheet [facility] Emergency Department [address] [place] [address] Phone #: ext- [phone] 06/03/2021 18:55 Patient: EMILY SPANGLER Sex: F : 1985 Age: 35yWEIGHT:95.2 kg (S) HEIGHT:59 inches (S) BMI:42.4ALLERGIES: NSAIDsCHIEF COMPLAINT: abdominal painDIAGNOSIS: Gastroenteritis, Cyst of ovaryLAB ORDERSOrder Description Priority Entered Acknowledged InitialedUrinalysis (Clean STAT :06 06/03/2021 20:06 Diana Plascencia) Molly Plascencia R.N. R.NBen; Per protocol; Milad MckinleyHCMulugeta Urine Qual STAT 20:06/03/2021 20:06 Temo Plascencia Rachel Rachel R.N. R.NBen; Per protocol; Milad MckinleyCMP STAT 20:32 06/03/2021 21:05 Arlen Plascencia Jack ; Molly PerazaCBC w Diff STAT 20:32 06/03/2021 21:05 Arlen Plascencia Jack ; Molly PerazaLipase STAT 20:32 06/03/2021 21:05 Arlen Plascencia Jack ; Molly PerazaDIAGNOSTIC STUDY ORDERSOrder Description Priority Entered Acknowledged InitialedCT Abd PEL W/ IV STAT 20:32 06/03/2021 22:22 TemoContrast Only Milad Mckinley ; Molly Peraza(Oxygen?(No))(IV?(Yes)) Reason for Study: Abdominal PainMEDICATION/IV/DRIP/FLUID ORDERSOrder Description Priority Entered Acknowledged InitialedDicyclomine PO 10 20:32 06/03/2021 21:07 mg Arlen Plascencia Jack ; Molly PerazaGENERAL ORDERSOrder Description Priority Entered Acknowledged Initialed 2 OrderSheet [facility] Emergency Department [address] [place] [address] Phone #: ext- [phone] 06/03/2021 18:55 Patient: EMILY SPANGLER Sex: F : 1985 Age: 35y[Electronically signed by Sotero Vital RN (23:39 06/03/2021)][Electronically signed by Milad Mckinley (23:46 06/03/2021)][Electronically locked by Sotero Vital RN (23:39 06/03/2021)] Name Value Range Interpretation Code Description Data Queta rce(s) Supporting Document(s) ID Date Data Source [id number] 06/03/2021 06:56:00 PM EDT [facility] 1 Medication Reconciliation Report [facility] Emergency Department [address] [place] [address] Phone #: ext- [phone] 06/03/2021 18:55 Patient: EMILY SPANGLER Sex: F : 1985 Age: 35yWeight: 95.2 kgHeight/Length: 59 in.BMI: 42.4ALLERGIES: NSAIDsThe patient's Home Medications are listed below:CONTINUE TAKING THE FOLLOWING MEDICATIONS: Biotin Oral, daily Calcium Oral, daily Carafate Oral (1 gm), 4x a day Effexor XR Oral (150 mg), daily Multivitamin Oral, daily Protonix Oral 40 mg, 2x a day Topamax Oral (200 mg), 2x a dayThe source(s) of the original Home Medication information:Not obtained.The following Medications were given to the patient in the Emergency Department:Dicyclomine [PO] PO 10 mg, administered: 21:07 06/03/2021The following Medications were prescribed to the patient:None. Name Value Range Interpretation Code Description Data Queta rce(s) Supporting Document(s) ID Date Data Source [id number] 06/03/2021 06:56:00 PM EDT [facility] 1 Medication Administration Record [facility] Emergency Department [address] [place] [address] Phone #: ext- [phone] 06/03/2021 18:55 Patient: EMILY SPANGLER Sex: F : 1985 Age: 35yWeight: 95.2 kgHeight/Length: 59 inBMI: 42.4ALLERGIES: NSAIDs Date/Time Medication Administered Medication OrderedGiven DICYCLOMINE [PO] Dicyclomine PO 10 mg21:07 06/03/2021 Dose: 10 mg Molly Nath R.N. Name Value Range Interpretation Code Description Data Queta rce(s) Supporting Document(s) ID Date Data Source [id number] 06/03/2021 06:56:00 PM EDT [facility] 1 General Instructions [facility] Emergency Department [address] [place] [address] Phone #: ext- [phone] 06/03/2021 18:55 Patient: EMILY SPANGLER Sex: F : 1985 Age: 35yAcute noninfectious gastroenteritis. No volume depletion.Single simple right ovarian cyst with polycystic ovarian disease.INSTRUCTIONSWarnings: Further evaluation is necessary.GENERAL WARNINGS: Return or contact your physician immediately if your condition worsens orchanges unexpectedly, if not improving as expected, or if other problems arise.Your Current Medications: Your current home medications have been reviewed.CONTINUE TAKING THE FOLLOWING MEDICATIONS:Biotin Oral : daily.Calcium Oral : daily.Carafate Oral : Tablet 1 gm, 4x a day.Effexor XR Oral : Capsule Extended Release 24 Hour 150 mg, daily.Multivitamin Oral : daily.Protonix Oral : 40 mg 2x a day.Topamax Oral : Tablet 200 mg, 2x a day.Follow-up:Follow up with your healthcare provider.Understanding of the discharge instructions verbalized by patient. ADDITIONAL INFORMATIONViral Gastroenteritis ( Adult) 2 General Instructions [facility] Emergency Department [address] [place] [address] Phone #: ext- [phone] 06/03/2021 18:55 Patient: EMILY SPANGLER Sex: F : 1985 Age: 35yGastroenteritis is commonly called the "stomach flu," although it has nothing to do with influenza. It ismost often caused by a virus that affects the stomach and intestinal tract and usually lasts from 2 to 7days. Common viruses causing gastroenteritis include norovirus, rotavirus, and hepatitis A. Non- viralcauses of gastroenteritis include bacteria, parasites, and toxins.The danger from repeated vomiting or diarrhea is dehydration. This is the loss of too much fluid fromthe body. When this occurs, body fluids must be replaced. Antibiotics don't help with this illnessbecause it is usually viral. Simple home treatment will be helpful.Symptoms of viral gastroenteritis may include: Watery, loose stools Stomach pain or abdominal cramps Fever and chills Nausea and vomiting Loss of bowel control [facility] 3 General Instructions [facility] Emergency Department [address] [place] [address] Phone #: ext- [phone] 06/03/2021 18:55 Patient: EMILY SPANGLER Sex: F : 1985 Age: 35yGastroenteritis is transmitted by contact with the stool or vomit of an infected person. This can occurfrom person to person or from contact with a contaminated surface.Follow these guidelines when caring for yourself at home: If symptoms are severe, rest at home for the next 24 hours or until you are feeling better. Wash your hands with soap and water or use alcohol-based cnc manufacturing engineer to prevent the spread of infection. Wash your hands after touching anyone who is sick. Wash your hands or use alcohol-based cnc manufacturing engineer after using the toilet and before meals. Clean the toilet after each use.Remember these tips when preparing food: People with diarrhea should not prepare or serve food to others. When preparing foods, wash your hands before and after. Wash your hands after using cutting boards, countertops, knives, or utensils that have been in contact with raw food. Dry your hands with a single use towel. Keep uncooked meats away from cooked and givzl-xr-gxu foods.MedicineYou may use acetaminophen or NSAID medicines like ibuprofen or naproxen to control fever unlessanother medicine was given. If you have chronic liver or kidney disease, talk with your healthcareprovider before using these medicines. Also talk with your provider if you've had a stomach ulceror gastr ointestinal bleeding. Don't give aspirin to anyone under 18 years of age who is ill with a fever.It may cause severe liver damage. Don't use NSAIDS is you are already taking one for anothercondition (like arthritis) or are on aspirin (such as for heart disease or after a stroke).If medicine for vomiting or diarrhea are prescribed, take these only as directed. Nausea and diarrheamedicines are generally OK unless you have bleeding, fever, or severe abdominal pain.DietFollow these guidelines for food: Water and liquids are important so you don't get dehydrated. Drink a small amount at a time or suck on ice chips if you are vomiting. If you eat, avoid fatty, greasy, spicy, or fried foods. Don't eat dairy if you have diarrhea. This can make diarrhea worse. 4 General Instructions [facility] Emergency Department [address] [place] [address] Phone #: ext- [phone] 06/03/2021 18:55 [id number] : 1985 Age: 35y Avoid tobacco, alcohol, and caffeine which may worsen symptoms.During the first 24 hours (the first full day), follow the diet below: Beverages. Sports drinks, soft drinks without caffeine, noe blayne, mineral water (plain or flavored), decaffeinated tea and coffee. If you are very dehydrated, sports drinks aren't a good choice. They have too much sugar and not enough electrolytes. In this case, commercially available products called oral rehydration solutions, are best. Soups. Eat clear broth, consomm, and bouillon. Desserts. Eat gelatin, ice pops, and fruit juice bars.During the next 24 hours (the second day), you may add the following to the above: Hot cereal, plain toast, bread, rolls, and crackers Plain noodles, rice, mashed potatoes, chicken noodle or rice soup Unsweetened canned fruit (avoid pineapple), bananas Limit fat intake to less than 15 grams per day. Do this by avoiding margarine, butter, oils, mayonnaise, sauces, gravies, fried foods, peanut butter, meat, poultry, and fish. Limit fiber and avoid raw or cooked vegetables, fresh fruits (except bananas), and bran cereals. Limit caffeine and chocolate. Don't use spices or seasonings other than salt. Limit dairy products. Avoid alcohol.During the next 24 hours: Gradually resume a normal diet as you feel better and your symptoms improve. If at any time it starts getting worse again, go back to clear liquids until you feel better.Follow-up careFollow up with your healthcare provider, or as advised. Call your provider if you don't get better [id number] hours or if diarrhea lasts more than a week. Also follow up if you are unable to keep down liquidsand get dehydrated. If a stool (diarrhea) sample was taken, call as directed for the results.Call [phone] if any of these occur: 5 General Instructions [facility] Emergency Department [address] [place] [address] Phone #: ext- [phone] 06/03/2021 18:55 Patient: EMILY SPANGLER Parvez Sex: F : 1985 Age: 35y Trouble breathing Chest pain Confused Severe drowsiness or trouble awakening Fainting or loss of consciousness Rapid heart rate Seizure Stiff neckWhen to seek medical adviceCall your healthcare provider right away if any of these occur: Abdominal pain that gets worse Continued vomiting (unable to keep liquids down) Frequent diarrhea (more than 5 times a day) Blood in vomit or stool (black or red color) Dark urine, reduced urine output, or extreme thirst Weakness or dizziness Drowsiness Fever of 100.4F (38C) or higher, or as directed by your healthcare provider Enrike sauer [id number] [employer]. [address] [place] [address]. All rights reserved. This information is not intended as asubstitute for professional medical care. Always follow your healthcare professional's instructions.Ovarian Cysts 6 General Instructions [facility] Emergency Department [address] [place] [address] Phone #: ext- [phone] 06/03/2021 18:55 Patient: EMILY SPANGLER Sex: F : 1985 Age: 35yThe ovaries are two small organs located on each side of a woman's uterus (womb). They are part ofthe female reproductive system. Ovarian cysts are sacs filled with fluid or tissue that form on or insidethe ovaries.Ovarian cysts are common in women, especially during childbearing years. There are different typesof cysts. Most are harmless (benign) and go away on their own. They often cause no symptoms. Ifsymptoms do occur, they can include mild pain or pressure in the lower belly (abdomen).Cysts that are large or break (rupture) may cause more severe pain and symptoms. In these cases,you may need hospital care or treatment such as surgery. You may need more extensive treatment ifa cyst causes an ovary to twist (called torsion) or if your doctor suspects your cyst is cancerous. Keepin mind that most cysts are not cancerous, however.General care To help relieve pain, your healthcare provider may recommend using sjtf-dkm-uugqoze pain medicine. If needed, your provide may prescribe stronger pain medicine. Depending on the type of cyst you have, your healthcare provider may advise taking control pills. These help shrink cysts in certain cases. They may also help prevent new cysts from forming. Be sure to take these medicines as directed if they are prescribed. Your healthcare provider may advise you to watch your symptoms over time to see if they go away or worsen. Regular ultrasound tests may also be advised. These can help check if a cyst goes away or grows in size.Follow-up careFollow up with your healthcare provider, or as advised. 7 General Instructions [facility] Emergency Department [address] [place] [address] Phone #: ext- [phone] 06/03/2021 18:55 Patient: EMILY SPANGLER Sex: F : 1985 Age: 35yWhen to seek medical adviceCall your healthcare provider right away if any of these occur: Pain worsens or fails to get better with home treatment Fever of 100.4F (38C) or higher (or other fever amount directed by your healthcare provider) Nausea and vomiting Weakness, dizziness, or fainting Abnormal vaginal bleeding [phone] [employer]. [address] [place] [address]. All rights reserved. This information is not intended as asubstitute for professional medical care. Always follow your healthcare professional's instructions. You have been given the following additional information: Gastroenteritis, Viral (Adult) Ovarian Cyst(Electronically signed by Milad Mckinley 06/03/2021 23:46) Name Value Range Interpretation Code Description Data Queta rce(s) Supporting Document(s) ID Date Data Source [id number] 06/03/2021 06:56:00 PM EDT [facility] 1 Clinical Report - Nurses [facility] Emergency Department [address] [place] [address] Phone #: ext- [phone] 06/03/2021 18:55 Patient: EMILY SPANGLER Sex: F : 1985 Age: 35yTRIAGEArrived by private vehicle. Historian: patient. Accompanied by family.Acuity: LEVEL 3.Chief Complaint: ABDOMINAL PAIN, NAUSEA and DIARRHEA.Alert. No acute distress.Onset. (4 PM). ( PT reports around 4 pm she began having a sharp pain in her RLQ and nausea. Shealso had 3 episodes of watery diarrhea.).Treatment CONTEMPORARY OR MODERN DANCER:None.SEPSIS SCREEN: SIRS SCREEN NEGATIVE. SEPSIS SCREEN NEGATIVE. No suspected or confirmedsigns of infection present.AMMY COMA SCORE: 15- eyes open- spontaneous (4); best verbal response- oriented (5); bestmotor response- obeys commands (6). --19:23 06/03/21 Molly Plascencia R.N.19:16 06/03/21. BP: 123/80. HR: 72. RR: 16. O2 saturation: 97%. Temp: 98.1 F. Pain l evel now 06/05.--19:23 06/03/21 Molly Plascencia R.N.Weight: 95.2 kg stated. Height/Length: 59 inches Per Patient. BMI: 42.4. --19:20 06/03/21 Molly Plascencia R.N.MedicationsCarafate Oral (Tablet 1 gm), 4x a day. --19:20 06/03/21 Molly Plascencia R.N. Topamax Oral (Tablet 200 mg), 2x a day. --19:20 06/03/21 Molly Plascencia R.N. Effexor XR Oral (Capsule Extended Release 24 Hour 150 mg), daily. --19:20 06/03/21 Molly Plascencia R.N. Protonix Oral 40 mg, 2x a day. --19:06/03/21 Molly Plascencia R.N. Multivitamin Oral, daily. --19:06/03/21 Molly Plascencia R.N. Biotin Oral, daily. --19:06/03/21 Molly Plascencia R.N. Calcium Oral, daily. --19:06/03/21 Molly Plascencia R.N.AllergiesNSAIDs. --19:20 06/03/21 Molly Plascencia R.N.PROBLEMS:Polycystic Ovary Disease. 2 Clinical Report - Nurses [facility] Emergency Department [address] [place] [address] Phone #: ext- [phone] 06/03/2021 18:55 Patient: EMILY SPANGLER Sex: F : 1985 Age: 35yEsophageal ulcer. --19:23 06/03/21 Molly Plascencia R.N.ADDITIONAL SURGERIES:Bowel resection.Colostomy reversal..Gastric bypass. --19:23 06/03/21 Molly Plascencia R.N.Cholecystectomy.Knee Surgery.Laparoscopy. --19:06/03/21 Molly Plascencia R.N.HistoryPAST MEDICAL HX: Immunizations: up-to-date. Last normal menstrual period- 1 months ago.SOCIAL HX: Never smoker. Occasional alcohol use. Is a recovering addict. (pt has been sober fromcocaine for 9 years). No recent travel. No known contact with a sick individual. She was offered HIVtesting but declined and hepatitis C testing but declined. She has not traveled outside the [place]Infectious disease exposure: The patient was not exposed to C-diff, MRSA, VRE, CRE or Coronavirus.SELF HARM ASSESSMENT: Self harm assessment was performed. The patient answered "no" to thequestion(s) "Have you recently felt down, depressed, or hopeless?", "Do you have thoughts of harming orkilling yourself?", "Do you have a plan for harming or killing yourself?", "Have you recently had thoughtsabout harming or killing others?", "Do you have any dangerous items in your possession?", "Have younoticed less interest or pleasure in doing things?", "Are you here because you tried to hurt yourself?" and"Have you ever tried to hurt yourself before today?".ABUSE ASSESSMENT: No report of abuse.NUTRITIONAL RISK ASSESSMENT: The nutritional risk assessment revealed no deficiencies.FUNCTIONAL ASSESSMENT: Functional assessment: no impairments noted.LEARNING NEEDS ASSESSMENT: The learning needs assessment revealed no barriers.FALL RISK ASSESSMENT: Fall risk assessment completed. No risk factors identified.SKIN INTEGRITY ASSESSMENT: Skin integrity risk assessment completed. No skin integrity riskidentified. --19:23 06/03/21 Molly Plascencia R.N.FAMILY HX:No significant family medical history. --20:54 06/03/21 Milad Mckinley.InterventionsIdentification and allergy band on patient. To treatment room. --19:23 06/03/21 Molly Plascencia R.N.PHYSICAL ASSESSMENT 3 Clinical Report - Nurses [facility] Emergency Department [address] [place] [address] Phone #: ext- [phone] 06/03/2021 18:55 Patient: EMILY SPANGLER Sex: F : 1985 Age: 35y Ambulatory to room. GENERAL / NEURO / PSYCH: Alert. Oriented X 4. Appears in no acute distress. HEENT: Mucous membranes are pink. RESPIRATORY: Respirations not labored. Breath sounds within normal limits. GI / : The patient has had nausea and diarrhea. Abdominal tenderness in the right side of the abdomen. Bowel sounds within normal limits. SKIN: Skin is warm and dry. --20:13 06/03/21 Molly Plascencia R.N.NURSING PROGRESS NOTES20:05 06/03/21. BP: 128/78. HR: 79. RR: 16. O2 saturation: 98%. --20:06 06/03/21 [facility] TechEstefani ER Tech1 21:07 06/03/2021 Dicyclomine PO 10 mg given. Allergies verified and confirmed 5 rights. Information reviewed with patient including reason for taking this medication. Verbalizes understanding. --21:07 06/03/21 Molly Plascencia R.N. 21:18 06/03/2021 Site #1 started via IV in the left antecubital space with an 20g angiocath. --21:23 06/03/21 Mahi Vital R.N. The patient is calm and resting quietly. ( Pt using cellular device. Smiling. Appears to be in NAD.). --21:24 06/03/21 Mahi Vital R.N. Patient transported to [place] by wheelchair with mask and tech. --22:23 06/03/21 Molly Plascencia R.N.DISPOSITION / DISCHARGE [place] Coma Scale: 15- eyes open- spontaneous (4); best verbal response- oriented (5); best motor response- obeys commands (6). Departure time: 23:39 06/03/2021. Condition at departure: improved. No learning barriers present. Reviewed referral to family practice for followup. Reviewed need for increased fluid intake. Patient verbalized understanding. Written instructions provided in Montene[place]. The patient was discharged home. She left ambulatory and via private vehicle. Patient driving. --23:39 06/03/21 Sotero Vital RN 23:37 06/03/21. BP: 126/74 (large adult cuff) taken on the right arm, via an automated monitor, while sitting. MAP: 91. HR: 76 (regular, normal rate and strong). RR: 18 (regular, unlabored and normal). O2 saturation: 97% on room air. Temp: 98.2 F (oral). Pain level now: 10. --23:39 06/03/21 Sotero Vital RN.Locked/Released at 06/03/2021 23:39 by oStero Vital RN Name Value Range Interpretation Code Description Data Queta rce(s) Supporting Document(s) ID Date Data Source [id number] 06/03/2021 06:56:00 PM EDT [facility] 1 Clinical Report - Physicians/Mid Levels [facility] Emergency Department [address] [place] [address] Phone #: ext- [phone] 06/03/2021 18:55 Patient: EMILY SPANGLER Sex: F : 1985 Age: 35y Time Seen: 20:37 06/03/2021. Arrived- By private vehicle. Historian- patient.HISTORY OF PRESENT ILLNESS Chief Complaint: ABDOMINAL PAIN. This started just prior to arrival and is still present (better). It was abrupt in onset. It is described as cramping. No radiation. It is described as located in the right lower quadrant and right pelvis. At its maximum, severity described as moderate. When seen in the E.D., severity described as mild. Modifying factors. Not worsened by anything. The patient has had nausea. No loss of appetite or vomiting. She has had moderate diarrhea (several times). It has been watery. No additional abdominal pain. (After eating frozen banana, felt nauseated and had right lower abdominal pain. Gastric bypass surgery 6 years ago. History of ovarian cyst in past). Similar symptoms previously. Patient has had similar symptoms several times. Recent medical care: Not recently seen/assessed.REVIEW OF SYSTEMSNo constipation, black stools, hematemesis, difficulty with urination or pain with urination. No bloodystools, fever, headache, sore throat or chest pain. No difficulty breathing, joint pain or back pain. Deniescurrent . The patient has had irregular periods. All other systems reviewed and are negative.PAST HISTORYSee nurses notes. Bowel obstruction. Has not had urinary calculi. Problems: Polycystic Ovary Disease. Esophageal ulcer. Additional Surgeries: Bowel resection. Cholecystectomy. Colostomy reversal. . Gastric bypass. Knee Surgery. Medications: Calcium Oral, daily. Biotin Oral, daily. 2 Clinical Report - Physicians/Mid Levels [facility] Emergency Department [address] [place] [address] Phone #: ext- [phone] 06/03/2021 18:55 Patient: EMILY SPANGLER Sex: F : 1985 Age: 35y Multivitamin Oral, daily. Protonix Oral 40 mg, 2x a day. Effexor XR Oral (Capsule Extended Release 24 Hour 150 mg), daily. Topamax Oral (Tablet 200 mg), 2x a day. Carafate Oral (Tablet 1 gm), 4x a day. Allergies: NSAIDs.SOCIAL HISTORYNever smoker. Alcohol use.FAMILY HISTORYNo significant family medical history.ADDITIONAL NOTESThe nursing notes have been reviewed.PHYSICAL EXAMVital Signs: 06/03/2021 19:16 BP: 123/80. MAP: 94. HR: 72. RR: 16. O2 saturation: 97%. Temp: 98.1 F.Appearance: Alert. Oriented X3. No acute distress.Eyes: Pupils equal, round and reactive to light.ENT: Nose normal. Pharynx normal.Neck: Normal inspection. Neck supple.CVS: Normal heart rate and rhythm. Heart sounds normal. Pulses normal.Respiratory: No respiratory distress. Breath sounds normal. Chest nontender.Abdomen: Soft. Tenderness in the periumbilical area. Bowel sounds normal. No mass. Obese.(Exam limited due to large body habitus).Back: Normal inspection. No CVA tenderness.Skin: Skin warm. Normal skin color. No rash. Normal skin turgor.Extremities: Extremities exhibit normal ROM.Neuro: Oriented X 3. No motor deficit. No sensory deficit.LABS, X-RAYS, AND EKGLaboratory Tests: CMP: (JUSTIN: 06/03/2021 20:50) ( MsgRcvd 06/03/2021 22:02) Final results Test Result Flag Units (Reference) COMPREHENSIVE METABOLIC PANEL COMPREHENSIVE METABOLIC PANEL SODIUM 139 mEq/L (134 - 153) POTASSIUM 4.2 mEq/L (3.6 - 5.0) CHLORIDE 106 mEq/L (98 - 107) CO2 21 L MEQ/L (22 - 30) GLUCOSE 82 MG/DL (70 - 99) BUN 11 MG/DL (7 - 21) CREATININE 0.9 MG/DL (0.7 - 1.5) BUN/CREAT 12 (8 - 27) 3 Clinical Report - Physicians/Mid Levels [facility] Emergency Department [address] [place] [address] Phone #: ext- [phone] 06/03/2021 18:55 Patient: EMILY SPANGLER Sex: F : 1985 Age: 35y TOTAL PROTEIN 6.3 G/DL (6.3 - 8.2) ALBUMIN 4.0 G/DL (3.9 - 5.0) GLOBULIN 2.3 L GM/DL (2.4 - 3.2) A/G RATIO 1.7 (0.8 - 2.0) CALCIUM 8.7 MG/DL (8.4 - 10.2) TOTAL BILI <0.7 MG/DL (0.2 - 1.3) ALKALINE PHOS 61 U/L (38 - 126) SGOT/AST 13 U/L (5 - 40) SGPT/ALT 10 U/L (7 - 56) ANION GAP 12.0 mmol/L (8.0 - 16.0) AGE 35 yrs NON-AA GFR >60 mL/min AFR AMER GFR >60 mL/min Male GFR Interprentation 20-49 yrs >60 mL/min Pjsahs40-56 yrs >56 mL/min Normal 60-69 yrs >49 mL/min Normal 70-79yrs>42 mL/min Normal 80 and above >35 mL/min Normal Female GFRInterpretation 20-39 yrs >60 mL/min Normal 40-49 yrs >58 mL/minNormal 50-59 yrs >51 mL/min Normal 60-69 yrs >45 mL/min Cnupaz87-33 yrs >39 mL/min Normal 80 and above >32 mL/min NormalCBC w Diff: (JUSTIN: 06/03/2021 20:50) ( MsgRcvd 06/03/2021 21:21) F inal results Test Result Flag Units (Reference) CBC W/AUTOMATED DIFF COMPLETE BLOOD COUNT WBC 11.3 H 10/uL (4.2 - 11.0) RBC 5.05 10/uL (4.20 - 5.40) HEMOGLOBIN 12.3 g/dL (12.0 - 16.0) HEMATOCRIT 39.5 % (37.0 - 47.0) MCV 78.2 L fL (81.0 - 101) MCH 24.4 L pg (27.0 - 34.0) MCHC 31.1 g/dL (31.0 - 36.0) RDW 14.7 H % (11.5 - 14.5) PLATELETS 289 10/uL (150 - 450) MPV 9.4 fL (7.4 - 10.4) NEUT 67.4 % (37.0 - 80.0) LYMPH 20.1 L % (25.0 - 40.0) MONO 5.2 % (3.0 - 8.0) EOS 6.5 % (0.0 - 7.0) BASO 0.4 % (0.0 - 2.5) %IG 0.4 H % (0.0 - 0.0) %NRBC 0.0 % (0.0 - 0.0) #NEUT 7.61 H 10/uL (2.00 - 6.90) #LYMPH 2.27 10/uL (0.60 - 3.40) #MONO 0.59 10/uL (0.00 - 0.90) #EOS 0.73 H 10/uL (0.00 - 0.70) #BASO 0.05 10/uL (0.00 - 0.20) #IG 0.04 10/uL (0.00 - 0.10) #NRBC 0.00 10/uL (0.00 - 0.00) MANUAL DIFF NOT INDICATED RBC MORPH NOT INDICATEDLipase: (JUSTIN: 06/03/2021 20:50) ( MsgRcvd 06/03/2021 22:02) Final results Test Result Flag Units (Reference) LIPASE 40 U/L (13 - 60)CT Abd PEL W/ IV Contrast Only: (JUSTIN: 06/03/2021 20:32) ( MsgRcvd 06/03/2021 23:05) In Progress Exam 4 Clinical Report - Physicians/Mid Levels [facility] Emergency Department [address] [place] [address] Phone #: ext- [phone] 06/03/2021 18:55 Patient: EMILY SPANGLER Sex: F : 1985 Age: 35y CT ABD //T// PELVIS W/ [place] [address] PHONE: [phone] FAX: [phone] Name .................. : ANÍBAL Buchanan Acct Number.................. : [id number] ROOM. ................. : VT-[id number] MR Number ................... : [id number] Stay type ............. : E/R Discharge Date......... ... : Admit Date ......... : 06/03/21 Admit Phys .................... : ARLEN Quintero Date of ....... : 1985 Family Phys ................... : RAYSHAWN SAMANO Phone .................. : [phone] Age ................................ : 35 Film# .................. .:[id number] Sex ................................. : F Unsigned transcriptions are preliminary reports and do not represent a medical or legal document CT ABD Reason(s): Abdominal Pain CT ABDOMEN AND PELVIS WITH IV CONTRAST INDICATION: Abdominal pain. History of bowel resection and colostomy reversal, gastric sleeve. COMPARISON: None IV CONTRAST: None One or more of the following dose reduction techniques were utilized in effectively lowering the radiation dose for this examination: Automated Exposure Control, Adjustment of the mA and/or kV according to patient size, or Iterative reconstruction. FINDINGS: LUNG BASES: No pulmonary nodules or masses. No pleural effusions. LIVER/BILIARY: Liver is unremarkable. Multiple surgical clips in the gallbladder fossa or gallbladder is absent. SPLEEN: Normal. PANCREAS: Normal. ADRENALS: Normal bilaterally. RIGHT KIDNEY: No hydronephrosis, stones or masses. LEFT KIDNEY: No hydronephrosis, stones or masses. OTHER : No abnormalities seen in the urinary bladder. Uterus is unremarkable. Right ovarian water density cyst 44 mm. This has a few punct ate mural calcifications. Page 1of 2 [place] [address] PHONE: [phone] FAX: [phone] Name .................. : ANÍBAL Buchanan Acct Number.................. : [id number] Clinical Report - Physicians/Mid Levels [facility] Emergency Department [address] [place] [address] Phone #: ext- [phone] 06/03/2021 18:55 Patient: EMILY SPANGLER A cct#: [id number] Sex: F : 1985 Age: 35y ROOM. ................. : [facility]49 MR Number ................... : [id number] Stay type ............. : E/R Discharge Date......... ... : Admit Date ......... : 06/03/21 Admit Phys .................... : ARLEN Quintero Date of ....... : 1985 Family Phys ................... : RAYSHAWN SAMANO Phone .................. : [phone] Age ................................ : 35 Film# ........... ....... .:[id number] Sex ................................. : F Unsigned transcriptions are preliminary reports and do not represent a medical or legal document CT ABD Reason(s): Abdominal Pain BOWEL/GI: Radiopaque sutures around the stomach. Partial colectomy. There is fecalization of the content in the distal small bowel which is mildly dilated. No transition point seen to suggest obstruction. No bowel wall thickening. No hernia. PERITONEUM: No free fluid, focal fluid collection or free air. NODES/RETROPERITONEUM: No adenopathy. No AAA. SKELETAL: Within normal limits. IMPRESSION: 1. Prior gastric surgery and partial colectomy. 2. Fecalization of distal small bowel content. Bowel is mildly dilated. No transition point seen to suggest obstruction. 3. Right ovarian cyst 44 mm. Internal contents uniform water density. There are a few punctate mural calcifications. 4. Cholecys tectomy. Electronically Reviewed and Signed By DCTNAME , SIGNDATE, MELONY Transcribe Initials: NICOLE , Transcribe Date: 06/03/21 23:04, Dictation Date: <<REPDIST>> Page 2of 2Urinalysis: (JUSTIN: 06/03/2021 20:00) ( MsgRcvd 06/03/2021 20:31) Final results Test Result Flag Units (Reference) URINALYSIS URINALYSIS SOURCE R COLOR yellow (NORMAL: Yello CLARITY clear (NORMAL: Clear SPEC GRAVITY 1.010 (1.001 - 1.030 pH 7 (5 - 9) GLUCOSE NORM (NORMAL: Negat BILIRUBIN NEG (NORMAL: Negat KETONE 5 A (NORMAL: Negat PROTEIN 15 (NORMAL: Negat NITRITE NEG (NORMAL: Negat 6 Clinical Report - Physicians/Mid [facility] Emergency Department [address] [place] [address] Phone #: [phone] 06/03/2021 18:55 Patient: EMILY SPANGLER Sex: F : 1985 Age: 35y BLOOD NEG (NORMAL: Negat LEUK EST 25 (NORMAL: Negat UROBILINOGEN 1 (less than 1.0 MICROSCOPIC See Below WBC 0 - 1 (NORMAL: NONE RBC 0 - 1 (NORMAL: NONE Beta-HCG, Qual Urine: (JUSTIN: 06/03/2021 20:00) ( MsgRcvd 06/03/2021 20:27) Final results Test Result Flag Units (Reference) HCG URINE QUAL NEGATIVE (NORMAL: NEGAT HCG URINE QL REENTER NEGATIVE (NORMAL: NEGAT { KIT LOT # [id number] ){ KIT EXP DATE 10/26/22 ){ PROCEDURAL CONTROL VALID ).PROGRESS AND PROCEDURESCourse of Care: 20:55 06/03/21. Abdominal pain is more waxing and waning and improving. Enteritis orcolitis. No clinical signs of bowel obstruction. Other possibilities include ovarian cyst or urinary tractinfection. 23:14 06/03/21. No acute abdomen. Patient has had an ovarian cyst in the past. possible enteritis. CT ruled out any bowel obstructi on. Old medical records ordered. Disposition: Discharged. Condition: stable.CLINICAL IMPRESSION Acute noninfectious gastroenteritis. No volume depletion. Single simple right ovarian cyst with polycystic ovarian disease.INSTRUCTIONS Warnings: Further evaluation is necessary. GENERAL WARNINGS: Return or contact your physician immediately if your condition worsens or changes unexpectedly, if not improving as expected, or if other problems arise. Your Current Medications: Your current home medications have been reviewed. CONTINUE TAKING THE FOLLOWING MEDICATIONS: Biotin Oral : daily. Calcium Oral : daily. Carafate Oral : Tablet 1 gm, 4x a day. 7 Clinical Report - Physicians/Mid Levels [facility] Emergency Department [address] [place] [address] Phone #: [phone] 06/03/2021 18:55 Patient: EMILY SPANGLER Sex: F : 1985 Age: 35y Effexor XR Oral : Capsule Extended Release 24 Hour 150 mg, daily. Multivitamin Oral : daily. Protonix Oral : 40 mg 2x a day. Topamax Oral : Tablet 200 mg, 2x a day. Follow-up: Follow up with your healthcare provider. Understanding of the discharge instructions verbalized by patient.(Electronically signed by Milad Mckinley 06/03/2021 23:46) Name Value Range Interpretation Code Description Data Queta rce(s) Supporting Document(s) ID Date Data Source [id number] 06/03/2021 10:02:00 PM EDT [facility] Name Value Range Interpretation Code Description Data Queta rce(s) Supporting Document(s) Lipase [Enzymatic activity/volume] in Serum or Plasma 40 U/L 13 - 60 [facility] ID Date Data Source [id number] 06/03/2021 10:02:00 PM EDT [facility] Name Value Range Interpretation Code Description Data Queta rce(s) Supporting Document(s) COMPREHENSIVE METABOLIC PANEL [facility] COMPREHENSIVE METABOLIC PANEL Sodium [Moles/volume] in Serum or Plasma 139 mEq/L 134 - 153 [facility] Potassium [Moles/volume] in Serum or Plasma 4.2 mEq/L 3.6 - 5.0 [facility] Chloride [Moles/volume] in Serum or Plasma 106 mEq/L 98 - 107 [facility] Carbon dioxide, total [Moles/volume] in Serum or Plasma 21 MEQ/L 22 - 30 L [facility] Glucose [Mass/volume] in Serum or Plasma 82 MG/DL 70 - 99 [facility] BUN 11 MG/DL 7 - [facility] Creat[facility] [Mass/volume] in Serum or Plasma 0.9 MG/DL 0.7 - 1.5 [facility] BUN/CREAT 12 8 - 27 [facility] al Protein [Mass/volume] in Serum or Plasma 6.3 G/DL 6.3 - 8.2 [facility] Albumin [Mass/volume] in Serum or Plasma 4.0 G/DL 3.9 - 5.0 [facility] Globulin [Mass/volume] in Serum by calculation 2.3 GM/DL 2.4 - 3.2 L [facility] A/G RATIO 1.7 0.8 - 2.0 [facility] al Calcium [Mass/volume] in Serum or Plasma 8.7 MG/DL 8.4 - 10.2 [facility] Bilirubin.total [Mass/volume] in Serum or Plasma <0.7 MG/DL 0.2 - 1.3 [facility] Alkaline phosphatase [Enzymatic activity/volume] in Serum or Plasma 61 U/L 38 - 126 [facility] Aspartate aminotransferase [Enzymatic activity/volume] in Serum or Plasma 13 U/L 5 - 40 [facility] Alanine aminotransferase [Enzymatic activity/volume] in Seru m or Plasma 10 U/L 7 - 56 [facility] Anion gap 3 in Serum or Plasma 12.0 mmol/L 8.0 - 16.0 [facility] AGE 35 yrs [facility] NON-AA GFR >60 mL/min [facility] AFR AMER GFR >60 mL/min [facility] Male GFR In terprentation 20-49 yrs >60 mL/min Normal 50-59 yrs >56 mL/min Normal 60-69 yrs >49 mL/min Normal 70-79yrs >42 mL/min Normal 80 and above >35 mL/min Normal Female GFR Interpretation 20-39 yrs >60 mL/min Normal 40-49 yrs >58 mL/min Normal 50-59 yrs >51 mL/min Normal 60-69 yrs >45 mL/min Normal 70-79 yrs >39 mL/min Normal 80 and above >32 mL/min Normal ID Date Data Source [id number] 06/03/2021 09:21:00 PM EDT [facility] Name Value Range Interpretation Code Description Data Queta rce(s) Supporting Document(s) CBC W/AUTOMATED DIFF [facility] COMPLETE BLOOD COUNT Leukocytes [#/volume] in Blood by Automated count 11.3 10^3/uL 4.2 - 11.0 H [facility] Erythrocytes [#/volume] in Blood by Automated count 5.05 10^6/uL 4. 20 - 5.40 [facility] Hemoglobin [Mass/volume] in Blood 12.3 g/dL 12.0 - 16.0 [facility] Hematocrit [Volume Fraction] of Blood by Automated count 39.5 % 3 7.0 - 47.0 [facility] Erythrocyte mean corpuscular volume [Entitic volume] by Auto mated count 78.2 fL 81.0 - 101 L [facility] Erythrocyte mean corpuscular hemoglobin [Entitic mass] by Automated count 24.4 pg 27.0 - 34.0 L [facility] Erythrocyte mean corpuscular hemoglobin concentration [Mass/volume] by Automated count 31.1 g/dL 31.0 - 36.0 [facility] Erythrocyte distribution width [Ratio] by Automated count 14.7 % 11.5 - 14.5 H [facility] Platelets [#/volume] in Blood by Automated count 289 10^3/uL 150 - 45 0 [facility] Platelet mean volume [Entitic volume] in Blood by Automated count 9.4 fL 7.4 - 10.4 [facility] Neutrophils/100 leukocytes in Blood by Automated count 67.4 % 37. 0 - 80.0 [facility] Lymphocytes/100 leukocytes in Blood by Manual count 20.1 % 25.0 - 40.0 L [facility] Monocytes/100 leukocytes in Blood by Automated count 5.2 % 3.0 - 8.0 [facility] Eosinophils/100 leukocytes in Blood by Automated count 6.5 % 0.0 - 7.0 [facility] Basophils/100 leukocytes in Blood by Automated count 0.4 % 0.0 - 2.5 [facility] %IG 0.4 % 0.0 - 0.0 H [facility] %NRBC 0.0 % 0.0 - 0.0 [facility] al Neutrophils [#/volume] in Blood by Automated count 7.61 10^3/uL 2.00 - 6.90 H [facility] Lymphocytes [#/volume] in Blood by Automated count 2.27 10^3/uL 0.60 - 3.40 [facility] Monocytes [#/volume] in Blood by Automated count 0.59 10^3/uL 0.00 - 0.90 [facility] Eosinophils [#/volume] in Blood by Automated count 0.73 10^3/uL 0.00 - 0.70 H [facility] Basophils [#/volume] in Blood by Automated count 0.05 10^3/uL 0.00 - 0.20 [facility] #IG 0.04 10^3/uL 0.00 - 0.10 [facility] #NRBC 0.00 10^3/uL 0.00 - 0.00 [facility] MANUAL DIFF NOT INDICATED [facility] RBC MORPH NOT INDICATED [facility] ID Date Data Source [id number] 06/03/2021 08:26:00 PM EDT [facility] Name Value Range Interpretation Code Description Data Queta rce(s) Supporting Document(s) HCG URINE QUAL NEGATIVE NORMAL: NEGATIVE [facility] HCG URINE QL REENTER NEGATIVE NORMAL: NEGATIVE [facility] { KIT LOT # [id number] ){ KIT EXP DATE 10/26/22 ){ PROCEDURAL CONTROL VALID ) ID Date Data Source [id number] 06/03/2021 08:31:00 PM EDT [facility] Name Value Range Interpretation Code Description Data Queta rce(s) Supporting Document(s) [facility] URINALYSIS SOURCE R [facility] COLOR yellow NORMAL: Yellow [facility] CLARITY clear NORMAL: Clear [facility] Specific gravity of Urine by Test strip 1.010 1.001 - 1.030 [facility] pH 7 5 - 9 [facility] Glucose [Mass/volume] in Urine by Test strip NORM NORMAL: Negat [facility] Bilirubin.total [Presence] in Urine by Test strip NEG NORMAL: Negative [facility] Ketones [Presence] in Urine by Test strip 5 NORMAL: Negative [facility] Protein [Mass/volume] in Urine by Test strip 15 [facility] [Presence] in Urine by Test strip NEG NORMAL: Negative [facility] BLOOD NEG NORMAL: Negative [facility] LEUK EST 25 NORMAL: Negative [facility] Urobilinogen [Mass/volume] in Urine by Test strip 1 less sergey n 1.0 mg/dL [facility] MICROSCOPIC See Below [facility] ital WBC 0 - 1 NORMAL: NONE SEEN [facility] Erythrocytes [#/volume] in Urine by Test strip 0 - 1 NORMAL: NON E SEEN [facility] ID Date Data Source [id number] 05/02/2021 12:01:00 PM EDT [facility] ([facility], ) Name Value Range Interpretation Code Description Data Queta rce(s) Supporting Document(s) Surgical pathology study Laboratory test result [facility] ([facility], ) FINAL DIAGNOSIS A--Stomach, prepyloric, biopsy: Gastric mucosa [...] 1016 Signed MARILIN FITZPATRICK MD 05/03/2021 1016 ID Date Data Source [id number] 03/20/2021 09:52:00 AM EDT [facility] FASTING:YESFASTING: YESReceived: 021 at 09:43:00 QPT: [facility], [address], [address] [place] [address], [phone] MD Received: 03/19/2021 at 09:43:00 QPT : [facility], [address], [address] [place] [address], [phone] MD Received: 03/19/2021 at 09:43:00 QPT : [facility], [address], [address] [place] [address], [phone] MD Received: 03/19/2021 at 09:43:00 QPT : [facility], [address], [address] [place] [address], [phone] MD Received: 03/19/2021 at 09:43:00 QPT : [facility], [address], [address] [place] [address], [phone] MD Received: 03/19/2021 at 09:43:00 QPT : [facility], [address], [address] [place], [phone], Sky Will MD Received: 03/19/2021 at 09:43:00 QPT : [facility], [address], [address] [place], [phone], Sky Will MD Received: 03/19/2021 at 09:43:00 QPT : [facility], [address], [address] [place] [address], [phone], Sky Will MD Received: 03/19/2021 at 09:43:00 QPT : [facility], [address], [address] [place] [address], [phone], Sky Will MD Received: 03/19/2021 at 09:43:00 QPT : [facility], [address], [address] [place] [address], [phone], Sky Will MD Name Value Range Interpretation Code Description Data Queta rce(s) Supporting Document(s) Magnesium [Mass/volume] in Serum or Plasma 1.8 mg/dL 1.5-2 .5 Normal (applies to non-numeric results) [facility] ID Date Data Source [id number] 03/20/2021 09:52:00 AM EDT [facility] FASTING:YESFASTING: YESReceived: 021 at 09:43:00 QPT: [facility], [address], [address] [place] [address], [phone] MD Received: 03/19/2021 at 09:43:00 QPT : [facility], [address], [address] [place] [address], [phone] MD Received: 03/19/2021 at 09:43:00 QPT : [facility], [address], [address] [place] [address], [phone] MD Received: 03/19/2021 at 09:43:00 QPT : [facility], [address], [address] [place], [phone], Sky Will MD Received: 03/19/2021 at 09:43:00 QPT : [facility], [address], [address] [place], [phone], Sky Will MD Received: 03/19/2021 at 09:43:00 QPT : [facility], [address], [address] [place] [address], [phone], Sky Will MD Received: 03/19/2021 at 09:43:00 QPT : [facility], [address], [address] [place] [address], [phone], Sky Will MD Received: 03/19/2021 at 09:43:00 QPT : [facility], [address], [address] [place] [address], [phone], Sky Will MD Received: 03/19/2021 at 09:43:00 QPT : [facility], [address], [address] [place] [address], [phone], Sky Will MD Received: 03/19/2021 at 09:43:00 QPT : [facility], [address], [address] [place] [address], [phone], Sky Will MD Name Value Range Interpretation Code Description Data Queta rce(s) Supporting Document(s) Phosphate [Mass/volume] in Serum or Plasma 3.5 mg/dL 2.5-4 .5 Normal (applies to non-numeric results) [facility] ID Date Data Source [id number] 03/20/2021 09:52:00 AM EDT [facility] FASTING:YESFASTING: YESReceived: 021 at 09:43:00 QPT: [facility], [address], [address] [place] [address], [phone] MD Received: 03/19/2021 at 09:43:00 QPT : [facility], [address], [address] [place] [address], [phone], Sky Will MD Received: 03/19/2021 at 09:43:00 QPT : [facility], [address], [address] [place] [address], [phone], Sky Will MD Received: 03/19/2021 at 09:43:00 QPT : [facility], [address], [address] [place] [address], [phone], Sky Will MD Received: 03/19/2021 at 09:43:00 QPT : [facility], [address], [address] [place] [address], [phone], Sky Will MD Received: 03/19/2021 at 09:43:00 QPT : [facility], [address], [address] [place] [address], [phone], Sky Will MD Received: 03/19/2021 at 09:43:00 QPT : [facility], [address], [address] [place] [address], [phone], Sky Will MD Received: 03/19/2021 at 09:43:00 QPT : [facility], [address], [address] [place] [address], [phone], Sky Will MD Received: 03/19/2021 at 09:43:00 QPT : [facility], [address], [address] [place] [address], [phone], Sky Will MD Received: 03/19/2021 at 09:43:00 QPT : [facility], [address], [address] [place] [address], [phone], Sky Will MD Name Value Range Interpretation Code Description Data Queta rce(s) Supporting Document(s) Iron [Mass/volume] in Serum or Plasma 33 mcg/dL 40-190 Below low normal [facility] Iron binding capacity [Mass/volume] in Serum or Plasma 340 m cg/dL (calc) 250-450 Normal (applies to non-numeric results) [facility] Iron saturation [Mass Fraction] in Serum or Plasma 10 % (calc) 16-45 Below low normal [facility] ID Date Data Source [id number] 03/20/2021 09:52:00 AM EDT [facility] FASTING:YESFASTING: YESReceived: 021 at 09:43:00 QPT: [facility], [address], [address] [place] [address], [phone], Sky Will MD Received: 03/19/2021 at 09:43:00 QPT : [facility], [address], [address] [place] [address], [phone] MD Received: 03/19/2021 at 09:43:00 QPT : [facility], [address], [address] [place] [address], [phone] MD Received: 03/19/2021 at 09:43:00 QPT : [facility], [address], [address] [place] [address], [phone], Sky Will MD Received: 03/19/2021 at 09:43:00 QPT : [facility], [address], [address] [place] [address], [phone] MD Received: 03/19/2021 at 09:43:00 QPT : [facility], [address], [address] [place] [address], [phone] MD Received: 03/19/2021 at 09:43:00 QPT : [facility], [address], [address] [place] [address], [phone] MD Received: 03/19/2021 at 09:43:00 QPT : [facility], [address], [address] [place], [phone], Sky Will MD Received: 03/19/2021 at 09:43:00 QPT : [facility], [address], [address] [place], [phone], Sky Will MD Received: 03/19/2021 at 09:43:00 QPT : [facility], [address], [address] [place], [phone], Sky Will MD Name Value Range Interpretation Code Description Data Queta rce(s) Supporting Document(s) Glucose [Mass/volume] in Serum or Plasma 76 mg/dL 65-99 Normal (applies to non- numeric results) [facility] Fasting reference interval Urea nitrogen [Mass/volume] in Serum or Plasma 13 mg/dL 7 -25 Normal (applies to non-numeric results) [facility] Creatinine [Mass/volume] in Serum or Plasma 0.78 mg/dL 0.50 -1.10 Normal (applies to non-numeric results) [facility] eGFR NON-AFR. SAMOAN 98 mL/min/1.73m2 > OR = 60 Normal ( applies to non-numeric results) [facility] eGFR 113 mL/min/1.73m2 > OR = 60 Normal ( applies to non-numeric results) [facility] Urea nitrogen/Creatinine [Mass Ratio] in Serum or Plasma NOT APPLICABLE (calc) 6-22 [facility] Sodium [Moles/volume] in Serum or Plasma 139 mmol/L 135-146 Normal (applies to non-numeric results) [facility] Potassium [Moles/volume] in Serum or Plasma 4.3 mmol/L 3.5- 5.3 Normal (applies to non-numeric results) [facility] Chloride [Moles/volume] in Serum or Plasma 105 mmol/L 98-11 0 Normal (applies to non-numeric results) [facility] Carbon dioxide, total [Moles/volume] in Serum or Plasma 26 mmol/ L 20-32 Normal (applies to non-numeric results) [facility] Calcium [Mass/volume] in Serum or Plasma 8.8 mg/dL 8.6-10. 2 Normal (applies to non-numeric results) [facility] Protein [Mass/volume] in Serum or Plasma 6.5 g/dL 6.1-8.1 Normal (applies to non-numeric results) [facility] Albumin [Mass/volume] in Serum or Plasma 3.9 g/dL 3.6-5.1 Normal (applies to non-numeric results) [facility] Globulin [Mass/volume] in Serum by calculation 2.6 g/dL (calc) 1 .9-3.7 Normal (applies to non-numeric results) [facility] Albumin/Globulin [Mass Ratio] in Serum or Plasma 1.5 (calc) 1.0-2.5 Normal (applies to non-numeric results) [facility] Bilirubin.total [Mass/volume] in Serum or Plasma 0.7 mg/dL 0.2-1.2 Normal (applies to non-numeric results) [facility] Alkaline phosphatase [Enzymatic activity/volume] in Serum or Plasma 58 U/L 31-125 Normal (applies to non-numeric results) [facility] Aspartate aminotransferase [Enzymatic activity/volume] in Serum or Plasma 19 U/L 10-30 Normal (applies to non-numeric results) [facility] Alanine aminotransferase [Enzymatic activity/volume] in Seru m or Plasma 16 U/L 6-29 Normal (applies to non-numeric results) [facility] ID Date Data Source [id number] 03/20/2021 09:52:00 AM EDT [facility] FASTING:YESFASTING: YESReceived: 021 at 09:43:00 QPT: [facility], [address], [address] [place] [address], [phone], Sky Will MD Received: 03/19/2021 at 09:43:00 QPT : [facility], [address], [address] [place] [address], [phone] MD Received: 03/19/2021 at 09:43:00 QPT : [facility], [address], [address] [place] [address], [phone] MD Received: 03/19/2021 at 09:43:00 QPT : [facility], [address], [address] [place] [address], [phone] MD Received: 03/19/2021 at 09:43:00 QPT : [facility], [address], [address] [place], [phone], Sky Will MD Received: 03/19/2021 at 09:43:00 QPT : [facility], [address], [address] [place], [phone], Sky Will MD Received: 03/19/2021 at 09:43:00 QPT : [facility], [address], [address] [place], [phone] MD Received: 03/19/2021 at 09:43:00 QPT : [facility], [address], [address] [place], [phone], Sky Will MD Received: 03/19/2021 at 09:43:00 QPT : [facility], [address], [address] [place] [address], [phone] MD Received: 03/19/2021 at 09:43:00 QPT : [facility], [address], [address] [place] [address], [phone], Sky Will MD Name Value Range Interpretation Code Description Data Queta rce(s) Supporting Document(s) Leukocytes [#/volume] in Blood by Automated count 7.3 Thousand/u L 3.8-10.8 Normal (applies to non-numeric results) [facility] Erythrocytes [#/volume] in Blood by Automated count 4.89 Million /uL 3.80-5.10 Normal (applies to non-numeric results) [facility] Hemoglobin [Mass/volume] in Blood 11.7 g/dL 11.7-15.5 Normal (applies to non- numeric results) [facility] Hematocrit [Volume Fraction] of Blood by Automated count 38.9 % 35.0-45.0 Normal (applies to non-numeric results) [facility] Erythrocyte mean corpuscular volume [Entitic volume] by Auto mated count 79.6 fL 80.0-100.0 Below low normal [facility] Erythrocyte mean corpuscular hemoglobin [Entitic mass] by Automated count 23.9 pg 27.0-33.0 Below low normal [facility] Erythrocyte mean corpuscular hemoglobin concentration [Mass/volume] by Automated count 30.1 g/dL 32.0-36.0 Below low normal [facility] Erythrocyte distribution width [Ratio] by Automated count 15.1 % 11.0-15.0 Above high normal [facility] Platelets [#/volume] in Blood by Automated count 293 Thousand/uL 140-400 Normal (applies to non-numeric results) [facility] Platelet mean volume [Entitic volume] in Blood by GilbertoCoreenKendra 9.7 fL 7.5-12.5 Normal (applies to non-numeric results) [facility] Neutrophils [#/volume] in Blood by Automated count 3862 cells/uL 3209-0400 Normal (applies to non-numeric results) [facility] Lymphocytes [#/volume] in Blood by Automated count 2511 cells/uL 850-3900 Normal (applies to non-numeric results) [facility] Monocytes [#/volume] in Blood by Automated count 438 cells/uL 200-950 Normal (applies to non-numeric results) [facility] Eosinophils [#/volume] in Blood by Automated count 402 cells/uL 15-500 Normal (applies to non-numeric results) [facility] Basophils [#/volume] in Blood by Automated count 88 cells/uL 0-200 Normal (applies to non-numeric results) [facility] Neutrophils/100 leukocytes in Blood by Automated count 52.9 % 38-80 Normal (applies to non-numeric results) [facility] Lymphocytes/100 leukocytes in Blood by Automated count 34.4 % 15-49 Normal (applies to non-numeric results) [facility] Monocytes/100 leukocytes in Blood by Automated count 6.0 % 0-13 Normal (applies to non-numeric results) [facility] Eosinophils/100 leukocytes in Blood by Automated count 5.5 % 0-8 Normal (applies to non-numeric results) [facility] Basophils/100 leukocytes in Blood by Automated count 1.2 % 0-2 Normal (applies to non-numeric results) [facility] ID Date Data Source [id number] 03/20/2021 09:52:00 AM EDT [facility] FASTING:YESFASTING: YESReceived: 021 at 09:43:00 QPT: [facility], [address], [address] [place], [phone], Sky Will MD Received: 03/19/2021 at 09:43:00 QPT : [facility], [address], [address] [place] [address], [phone], Sky Will MD Received: 03/19/2021 at 09:43:00 QPT : [facility], [address], [address] [place] [address], [phone], Sky Will MD Received: 03/19/2021 at 09:43:00 QPT : [facility], [address], [address] [place] [address], [phone], Sky Will MD Received: 03/19/2021 at 09:43:00 QPT : [facility], [address], [address] [place] [address], [phone], Sky Will MD Received: 03/19/2021 at 09:43:00 QPT : [facility], [address], [address] [place] [address], [phone], Sky Will MD Received: 03/19/2021 at 09:43:00 QPT : [facility], [address], [address] [place] [address], [phone], Sky Will MD Received: 03/19/2021 at 09:43:00 QPT : [facility], [address], [address] [place] [address], [phone] MD Received: 03/19/2021 at 09:43:00 QPT : [facility], [address], [address] [place] [address], [phone] MD Received: 03/19/2021 at 09:43:00 QPT : [facility], [address], [address] [place] [address], [phone] MD Name Value Range Interpretation Code Description Data Queta rce(s) Supporting Document(s) Ferritin [Mass/volume] in Serum or Plasma 5 ng/mL 16-154 Below low normal [facility] ID Date Data Source [id number] 03/20/2021 09:52:00 AM EDT [facility] FASTING:YESFASTING: YESReceived: 021 at 09:43:00 QPT: [facility], [address], [address] [place] [address], [phone], Sky Will MD Received: 03/19/2021 at 09:43:00 QPT : [facility], [address], [address] [place] [address], [phone], Sky Will MD Received: 03/19/2021 at 09:43:00 QPT : [facility], [address], [address] [place] [address], [phone], Sky Will MD Received: 03/19/2021 at 09:43:00 QPT : [facility], [address], [address] [place] [address], [phone], Sky Will MD Received: 03/19/2021 at 09:43:00 QPT : [facility], [address], [address] [place] [address], [phone], Sky Will MD Received: 03/19/2021 at 09:43:00 QPT : [facility], [address], [address] [place] [address], [phone] MD Received: 03/19/2021 at 09:43:00 QPT : [facility], [address], [address] [place] [address], [phone] MD Received: 03/19/2021 at 09:43:00 QPT : [facility], [address], [address] [place] [address], [phone] MD Received: 03/19/2021 at 09:43:00 QPT : [facility], [address], [address] [place], [phone], Sky Will MD Received: 03/19/2021 at 09:43:00 QPT : [facility], [address], [address] [place], [phone], Sky Will MD Name Value Range Interpretation Code Description Data Queta rce(s) Supporting Document(s) Folate [Mass/volume] in Red Blood Cells 684 ng/mL RBC >280 Normal (applies to non-numeric results) [facility] ID Date Data Source [id number] 03/20/2021 09:52:00 AM EDT [facility] FASTING:YESFASTING: YESReceived: 021 at 09:43:00 QPT: [facility], [address], [address] [place] [address], [phone], Sky Will MD Received: 03/19/2021 at 09:43:00 QPT : [facility], [address], [address] [place] [address], [phone] MD Received: 03/19/2021 at 09:43:00 QPT : [facility], [address], [address] [place] [address], [phone] MD Received: 03/19/2021 at 09:43:00 QPT : [facility], [address], [address] [place] [address], [phone] MD Received: 03/19/2021 at 09:43:00 QPT : [facility], [address], [address] [place] [address], [phone] MD Received: 03/19/2021 at 09:43:00 QPT : [facility], [address], [address] [place] [address], [phone] MD Received: 03/19/2021 at 09:43:00 QPT : [facility], [address], [place], [phone] MD Received: 03/19/2021 at 09:43:00 QPT : [facility], [address], [address] [place], [phone] MD Received: 03/19/2021 at 09:43:00 QPT : [facility], [address], [address] [place], [phone] MD Received: 03/19/2021 at 09:43:00 QPT : [facility], [address], [address] [place], [phone], Sky Will MD Name Value Range Interpretation Code Description Data Queta rce(s) Supporting Document(s) Cobalamin (Vitamin B12) [Mass/volume] in Serum or Plasma 335 pg/ mL 200-1100 Normal (applies to non-numeric results) [facility] Please Note: Although the reference rang e for [id number] is 200-1100 pg/mL, it has been reported that between5 and 10% of patients with values between 200 and 400pg/mL may experience neuropsychiatric and hematologicabnormalities due to occult B12 deficiency; less than 1%of patients with values above 400 pg/mL will have symptoms. ID Date Data Source [id number] 03/20/2021 09:52:00 AM EDT [facility] FASTING:YESFASTING: YESReceived: 021 at 09:43:00 QPT: [facility], [address], [address] [place], [phone] MD Received: 03/19/2021 at 09:43:00 QPT : [facility], [address], [address] [place], [phone] Thomason MD Received: 03/19/2021 at 09:43:00 QPT : [facility], [address], [address] [place], [phone] Thomason MD Received: 03/19/2021 at 09:43:00 QPT : [facility], [address], [address] [place], [phone], Sky Will MD Received: 03/19/2021 at 09:43:00 QPT : [facility], [address], [address] [place], [phone], Sky Will MD Received: 03/19/2021 at 09:43:00 QPT : [facility], [address], [address] [place], [phone], Sky Will MD Received: 03/19/2021 at 09:43:00 QPT : [facility], [address], [address] [place], [phone], Sky Will MD Received: 03/19/2021 at 09:43:00 QPT : [facility], [address], [address] [place] [address], [phone], Sky Will MD Received: 03/19/2021 at 09:43:00 QPT : [facility], [address], [address] [place] [address], [phone] MD Received: 03/19/2021 at 09:43:00 QPT : [facility], [address], [address] [place] [address], [phone] MD Name Value Range Interpretation Code Description Data Queta rce(s) Supporting Document(s) Calcidiol [Mass/volume] in Serum or Plasma 20 ng/mL 30-100 Belo w low normal [facility] Vitamin D Status 25-OH Vitamin D :Deficiency: <20 ng/mLInsufficiency: 20 - 29 ng/mLOptimal: > or = 30 ng/mLFor 25-OH Vitamin D testing on patients onD2-supplementation and patients for whom quantitationof D2 and D3 fractions is required, the [facility]ure[facility](TM)25- OH VIT D, (D2,D3), LC/MS/MS is recommended: ordercode 70150 (patients >2yrs).See Note 1Note 1For additional information, please refer [email or web address].[employer]/faq/SYM203(This link is being provided for informational/educational purposes only.) ID Date Data Source [id number] 03/20/2021 09:52:00 AM EDT [facility] FASTING:YESFASTING: YESReceived: 021 at 09:43:00 QPT: [facility], [address], [address] [place] [address], [phone] MD Received: 03/19/2021 at 09:43:00 QPT : [facility], [address], [address] [place] [address], [phone] Thomason MD Received: 03/19/2021 at 09:43:00 QPT : [facility], [address], [address] [place] [address], [phone] MD Received: 03/19/2021 at 09:43:00 QPT : [facility], [address], [address] [place] [address], [phone] MD Received: 03/19/2021 at 09:43:00 QPT : [facility], [address], [address] [place] [address], [phone] MD Received: 03/19/2021 at 09:43:00 QPT : [facility], [address], [address] [place] [address], [phone] MD Received: 03/19/2021 at 09:43:00 QPT : [facility], [address], [address] [place] [address], [phone] MD Received: 03/19/2021 at 09:43:00 QPT : [facility], [address], [address] [place] [address], [phone] Thomason MD Received: 03/19/2021 at 09:43:00 QPT : [facility], [address], [address] [place], [phone], Sky Will MD Received: 03/19/2021 at 09:43:00 QPT : [facility], [address], [address] [place], [phone], Sky Will MD Name Value Range Interpretation Code Description Data Queta rce(s) Supporting Document(s) Hemoglobin A1c/Hemoglobin.total in Blood 4.7 % of total Hgb <5.7 Normal (applies to non-numeric results) [facility] For the purpose of screening for the pre sence ofdiabetes:<5.7% Consistent with the absence of diabetes5.7-6.4% Consistent with increased risk for diabetes (prediabetes)> or =6.5% Consistent with diabetesThis assay result is consistent with a decreased riskof diabetes.Currently, no consensus exists regarding use ofhemoglobin A1c for diagnosis of diabetes in children.Ac cording to [place] Diabetes Association (ADA)guidelines, hemoglobin A1c <7.0% represents optimalcontrol in non- diabetic patients. Differentmetrics may apply to specific patient populations.Standards of Medical Care in Diabetes(ADA). ID Date Data Source [id number] 03/04/2021 07:28:44 AM EDT [facility] NT INFORMATIONPatient MRN Name Date of Age Gend*PT [id number] Postal, Emily 1985 35 years F EDPT Location Admission Date/Time Visit ID Attending [id number] 03/04/21 0237 --- Arvind Ballard MD([id number]) EPI ID CSN Admitting Provider [id number] ---Patient provider in Triage NotesNo notes on fileHistory of Present IllnessChief ComplaintPatient presents with Abdominal Pain dull, constant with intermittent sharp stabbing right sided abd pain x 3 days,increases when eating. [facility] for same complaint, calledDr. Perez's office tonight referred to ED. Has been on clear liquid dietPatient is a 35-year-old female with history of gastric bypass, cholecystectomyPCOS coming in for abdominal pain. Patient states for the past 3 days she hasbeen having some right upper quadrant abdominal pain after eating. She says sheis able to tolerate liquids anytime she eats she has pain. She michele t to anoutside ER 2 days ago and was evaluated and sent home. She says she had a CTscan done and was told that she had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 ([facility]) Body mass index (BMI) [Ratio] 44.7 kg/m2 44.7 k g/m2 [facility] ([facility]) [place] body weight 106 [lb_av] 106 [lb_av] [facility] T ([facility]) Body weight 100.359 kg 100.359 kg [facility] ([facility]) Body temperature 98.4 [degF] 98.4 [degF] [facility] ([facility]) Body height 59 [in_i] 59 [in_i] [facility] ([facility]) 4'11" Body weight 221.25 [lb_av] 221.25 [lb_av] [facility] T ([facility]) Systolic blood pressure 102 mm[Hg] 102 mm[Hg] M [facility]ENT ([facility]) Diastolic blood pressure 58 mm[Hg] 58 mm[Hg] [facility] ([facility]) Body height 59 [in_i] 59 [in_i] [facility] ([facility]) 4'11" Body weight 221.25 [lb_av] 221.25 [lb_av] [facility] T ([facility]) Body mass index (BMI) [Ratio] 44.7 kg/m2 44.7 k g/m2 [facility] ([facility]) [place] body weight 100 [lb_av] 100 [lb_av] [facility] T ([facility]) Body weight 100.359 kg 100.359 kg [facility] ([facility]) Body surface area Derived from formula 1.93 m2 1.93 m2 [facility] ([facility]) Body weight 221.8 [lb_av] 221.8 [lb_av] eCW1 ([facility]) Body temperature 97.3 [degF] 97.3 [degF] eCW1 ( [facility]) Systolic blood pressure 124 mm[Hg] 124 mm[Hg] e CW1 ([facility]) Diastolic blood pressure 76 mm[Hg] 76 mm[Hg] eCW1 ([facility]) Body height 59 [in_i] 59 [in_i] eCW1 ([facility]) Body mass index (BMI) [Ratio] 44.79 kg/m2 44.79 kg/m2 W1 ([facility]) Heart rate 86 /min 86 /min eCW1 ([facility]) Respiratory rate 18 /min 18 /min eCW1 ([facility]) Body weight 222 [lb_av] 222 [lb_av] eCW1 ([facility]) Body height 59 [in_i] 59 [in_i] eCW1 ([facility]) Body mass index (BMI) [Ratio] 44.83 kg/m2 44.83 kg/m2 eCW1 ([facility]) Systolic blood pressure 132 mm[Hg] 132 mm[Hg] e CW1 ([facility]) Diastolic blood pressure 94 mm[Hg] 94 mm[Hg] eCW1 ([facility]) Body mass index (BMI) [Ratio] 44.9 kg/m2 44.9 k g/m2 [facility] ([facility]) Body weight 100.926 kg 100.926 [facility] Body surface area Derived from formula 1.93 m2 1.93 m2 [facility] ([facility]) [place] body weight 100 [lb_av] 100 [lb_av] MED[facility] T ([facility]) Systolic blood pressure 126 mm[Hg] 126 mm[Hg] M EDENT ([facility]) Diastolic blood pressure 70 mm[Hg] 70 mm[Hg] [facility] ([facility]) Body height 59 [in_i] 59 [in_i] [facility] ([facility]) 4'11" Body weight 222.50 [lb_av] 222.50 [lb_av] [facility] T ([facility]) Body mass index (BMI) [Ratio] 44.9 kg/m2 44.9 k g/m2 [facility] ([facility]) [place] body weight 100 [lb_av] 100 [lb_av] [facility] T ([facility]) Body weight 100.926 kg 100.926 kg [facility] ([facility]) Body surface area Derived from formula 1.93 m2 1.93 m2 [facility] ([facility]) Body height 59 [in_i] 59 [in_i] [facility] ([facility]) 4'11" Body weight 222.50 [lb_av] 222.50 [lb_av] [facility] T ([facility]) Heart rate 70 /min 70 /min [facility] Respiratory rate 18 /min 18 /min [facility] Oxygen saturation in Arterial blood by Pulse oximetry 96 % 96 % [facility] Systolic blood pressure 112 mm[Hg] 112 mm[Hg] [facility] Diastolic blood pressure 68 mm[Hg] 68 mm[Hg] [facility] Body temperature 36.56 Anuradha 36.56 Anuradha [facility] Body weight 95.255 kg 95.255 kg [facility] Body mass index (BMI) [Ratio] 42.41 kg/m2 42.41 kg/m2 [facility] Body weight 224.2 [lb_av] 224.2 [lb_av] eCW1 ([facility]) Body height 59 [in_i] 59 [in_i] eCW1 ([facility]) Body mass index (BMI) [Ratio] 45.28 kg/m2 45.28 kg/m2 eCW1 ([facility]) Heart rate 80 /min 80 /min eCW1 ([facility]) Respiratory rate 18 /min 18 /min eCW1 ([facility]) Body temperature 98.2 [degF] 98.2 [degF] eCW1 ( [facility]) Systolic blood pressure 108 mm[Hg] 108 mm[Hg] e CW1 ([facility]) Diastolic blood pressure 70 mm[Hg] 70 mm[Hg] eCW1 ([facility]) Systolic blood pressure 102 mm[Hg] 102 mm[Hg] [facility] Diastolic blood pressure 78 mm[Hg] 78 mm[Hg] [facility] Heart rate 63 /min 63 /min [facility] Body height 149.9 cm 149.9 cm [facility] Body weight 100.245 kg 100.245 kg [facility] Body mass index (BMI) [Ratio] 44.64 kg/m2 44.64 kg/m2 [facility] Oxygen saturation in Arterial blood by Pulse oximetry 97 % 97 % [facility] Body weight 220 [lb_av] 220 [lb_av] W1 ([facility]) Body height 59 [in_i] 59 [in_i] eCW1 ([facility]) Body mass index (BMI) [Ratio] 44.43 kg/m2 44.43 kg/m2 W1 ([facility]) Heart rate 96 /min 96 /min eCW1 ([facility]) Respiratory rate 18 /min 18 /min eCW1 ([facility]) Body temperature 97.7 [degF] 97.7 [degF] eCW1 ( [facility]) Systolic blood pressure 118 mm[Hg] 118 mm[Hg] e CW1 ([facility]) Diastolic blood pressure 80 mm[Hg] 80 mm[Hg] eCW1 ([facility]) Body height 149.9 cm 149.9 cm [facility] Systolic blood pressure 146 mm[Hg] 146 mm[Hg] M [facility] Body weight 95.255 kg 95.255 kg [facility] Diastolic blood pressure 103 mm[Hg] 103 mm[Hg] [facility] Body mass index (BMI) [Ratio] 42.41 kg/m2 42.41 kg/m2 [facility] Heart rate 86 /min 86 /min [facility] Oxygen saturation in Arterial blood by Pulse oximetry 100 % 100 % [facility] Body temperature 36.89 Anuradha 36.89 Anuradha [facility] Respiratory rate 18 /min 18 /min [facility] Body weight 219 [lb_av] 219 [lb_av] eCW1 ([facility]) Body height 59 [in_i] 59 [in_i] eCW1 ([facility]) Body mass index (BMI) [Ratio] 44.23 kg/m2 44.23 kg/m2 W1 ([facility]) Heart rate 112 /min 112 /min eCW1 ([facility]) Respiratory rate 18 /min 18 /min eCW1 ([facility]) Body temperature 97.2 [degF] 97.2 [degF] eCW1 ( [facility]) Systolic blood pressure 128 mm[Hg] 128 mm[Hg] e CW1 ([facility]) Diastolic blood pressure 80 mm[Hg] 80 mm[Hg] eCW1 ([facility]) Body temperature 97.3 [degF] 97.3 [degF] MED[facility] ([facility]) Body height 59 [in_i] 59 [in_i] [facility] ([facility]) 4'11" Body weight 2138.00 [lb_av] 2138.00 [lb_av] [facility] ([facility]) Body mass index (BMI) [Ratio] 431.8 kg/m2 431.8 kg/m2 [facility] ([facility]) ID Date Data Source [id number] 10/31/2020 02:13:44 PM [facility] Hospital Name Value Range Interpretation Code Description Data Source(s) PREFERRED NAME Emily Emily [facility] Patient Treatment Plan of Care Planned Activity Planned Date Details Description Data Source (s) Triamcinolone Acetonide 5 MG/ML Topical Cream 05/15/2021 12:00:00 A M EDT eCW1 ([facility]) Triamcinolone Acetonide 5 MG/ML Topical Cream 05/15/2021 12:00:00 A M EDT eCW1 ([facility]) topiramate 200 MG Oral Tablet 10/16/2020 12:00:00 AM EST [facility] topiramate 200 MG Oral Tablet 10/16/2020 12:00:00 AM [facility] valacyclovir 1000 MG Oral Tablet 09/18/2020 12:00:00 AM EST [facility] Fluconazole 150 MG Oral Tablet [Diflucan] 09/18/2020 12:00:00 AM ES T eCW1 ([facility]) valacyclovir 1000 MG Oral Tablet [Valtrex] 09/18/2020 12:00:[address] eCW1 ([facility]) Fluconazole 150 MG Oral Tablet [Diflucan] 09/18/2020 12:00:00 AM ES T eCW1 ([facility]) valacyclovir 1000 MG Oral Tablet [Valtrex] 09/18/2020 12:00:[address] eCW1 ([facility]) Fluconazole 150 MG Oral Tablet [Diflucan] 09/18/2020 12:00:00 AM ES T eCW1 ([facility]) valacyclovir 1000 MG Oral Tablet [Valtrex] 09/18/2020 12:00:[address] eCW1 ([facility]) rizatriptan 5 MG Disintegrating Oral Tablet 07/24/2020 12:00:00 AM EDT [facility] rizatriptan 5 MG Disintegrating Oral Tablet 07/24/2020 12:00:00 AM EDT [facility] Cholestyramine Resin 66.7 MG/ML Oral Suspension 02/11/2019 12:00:00 AM EDT [facility] Dicyclomine Hydrochloride 20 MG Oral Tablet 01/12/2019 12:00:00 AM EDT [facility] Acetaminophen 325 MG Oral Tablet 08/18/2018 12:00:00 AM EDT [facility] topiramate 50 MG Oral Tablet 05/29/2018 12:00:00 AM EDT [facility] Metformin hydrochloride 500 MG Oral Tablet 05/29/2018 12:00:00 AM E DT [facility] Acetaminophen 325 MG / Hydrocodone Bitartrate 7.5 MG O ral Tablet 03/29/2018 12:00:00 AM T [facility] Sucralfate 1000 MG Oral Tablet [facility] Prazosin 2 MG Oral Capsule S [facility] Nystatin 100 UNT/MG Topical Powder [facility] Prazosin 2 MG Oral Capsule U [facility] Misoprostol 0.2 MG Oral Tablet [facility] Famotidine 20 MG Oral Tablet [facility] Sucralfate 1000 MG Oral Tablet [facility] rivaroxaban 10 MG Oral Tablet [facility]
--- OUTSIDE RECORDS SUMMARY | 2021-09-16 15:50 | CCD ---
Author Author [facility] Organization [facility] Address Unknown Phone Unavailable Care Team Providers Care Wheel Setter Name Role Phone Melissa Sade Unavailable PROBLEMS Type Condition ICD9-CM Code [id number] Code Onset Dates Condition S tatus W/U Status Risk SNOMED Code Notes Problem Abnormal uterine bleeding (AUB) N93.9 Active confirmed [id number] Problem Chronic migraine G43.709 Active confirmed 42 9192147 Problem Insomnia G47.00 Active confirmed 687736199 Problem Vitamin D deficiency E55.9 Active confirmed 13683240 Problem Anxiety disorder, unspecified F41.9 Active confirm ed 213386352 Problem Major depressive disorder, single episode, unspecified F32.9 Active confirmed 39161183 Problem Anxiety with depression F41.8 Active confirmed 169672119 Problem Gastric ulcer without hemorrhage or perf oration, unspecified chronicity K25.9 Active confirmed 40884202 ALLERGIES Allergen (clinical drug ingredient) Drug/Non Drug Allergy do cumented on EMR Reaction Allergy Type Onset Date Status Eggs Unknown Non Drug Allergy Active Tolmetin NSAIDs Unknown Drug Allergy Active ENCOUNTERS from 1984 to 2021-08-08 Encounter Location Date Provider Diagnosis [address] [phone] [place] [address] Jul, Sade Torres IMMUNIZATIONS Vaccine Route Administration Date [...] Education Language: Question Answer Notes Languages spoken: Bolivian Sabianist: Question Answer Notes Sabianist No mormon beliefs that would impact health care. Domestic [...] 2017 Hospitalization History pulmonary embolism x 3- [facility] in [place] 2013 Hospitalization History bowel obstruction 01/2020 Goals [...] Twice a day Next Appt Details Provider Name:Sade Torres, 2021-0 02-05 09:30:00 AM, [address] [facility], , [place], [address], Insurance Providers Payer Name Payer Address Payer Phone Insured Name Patient Relati onship to Insured Coverage Start Date Coverage End Date [address] [phone] EMILY SPANGLER
--- OUTSIDE RECORDS SUMMARY | 2021-09-16 15:50 | CCD | Continuity of Care Document ---
Author Author Alex CANDELARIO DO Organization Unknown Address [address] [place] [address], [facility] [place] [address] Phone [phone] Care Team Providers Care Stove Cleaner Name Role Phone Cindy Chen AUTM [phone] Dean Shaffer MD AUTM [phone] Rubina Shen M.D. AUTM Ivis Harding.ABen-C AUTM [phone] Jie TorresP. AUTM AUTM Unavailable Problems Active Problems Provider Date [...] by mouth daily Unknown History Medications Sutab [id number] Tablets take tablets as directed per doctor [...] lb BMI (Body Mass Index) 44.7 kg/m2 [place] Body Weight 106 lb Weight 100.359 kg BSA (Body Surface Area) 1.93 m2 05/21/2021 10:20am BP Systolic 102 mmHg BP Diastolic 58 mmHg Height 59 inches 4'11" Weight 221.25 lb BMI (Body Mass Index) 44.7 kg/m2 [place] Body Weight 100 lb Weight 100.359 kg BSA (Body Surface Area) 1.93 m2 Results Test Acquired Date Facility Test Result H/L Range Note Laboratory test finding 05/02/2021 [facility] [address] [place], [place] [id number] [phone] Pathology Request For Service (SEE NOTE) 1 [...] 05/03/2021 1016 Procedures Date Code Description Status 05/21/2021 80966 Office/Outpatient Established Mo d MDM 30-39 Min Completed 05/02/2021 63911 Colonoscopy Flexible Proximal To Splenic Flexure Diagnostic W/Or Completed 05/02/2021 65403 Endoscopy Upper GI Biopsy Comple ryan 03/20/2021 41168 Office/Outpatient Established Mo d MDM 30-39 Min Completed Medical Devices Description No Information Available Encounters Type Date Location Provider Dx Diagnosis Office Visit 05/21/2021 10:00a [facility] BROOKE Jaiver R93.3 Abnormal findings on dx imaging of prt d igestive tract K64.0 First degree hemorrhoids K21.9 Gastro-esophageal reflux dis ease without esophagitis Office Visit 03/20/2021 3:45p [facility] Delgado Lovell, DO R93.3 Abnormal findings on dx imaging of prt d igestive tract K21.9 Gastro-esophageal reflux dis ease without esophagitis Assessments Date Code Description Provider 05/21/2021 R93.3 Abnormal findings on diagnostic imaging of other parts of digestive tract BROOKE Brooks 05/21/2021 K64.0 First degree hemorrhoids BROOKE Villagomez 05/21/2021 K21.9 Gastro-esophageal reflux disease without esophagitis BROOKE Brooks 05/02/2021 R93.3 Abnormal findings on diagnostic imaging of other parts of digestive tract Delgado Lovell, 05/02/2021 K64.0 First degree hemorrhoids Delgado Lovell, 05/02/2021 K22.8 Other specified diseases of esop hagus Delgado Lovell, DO 05/02/2021 K29.70 Gastritis, unspecified, without bleeding Delgado Lovell, DO 05/02/2021 K25.9 Gastric ulcer, unspe cified as acute or chronic, without hemorrhage or perforation Delgado Lovell, DO 03/20/2021 R93.3 Abnormal findings on diagnostic imaging of other parts of digestive tract Delgado Lovell, DO 03/20/2021 K21.9 Gastro-esophageal reflux disease without esophagitis Delgado Lovell, Plan of Treatment No Information Available Functional Status Functional Condition Comment Date Status Independent with all ADL's Activ e Independent with all IADL's Acti ve Mental Status Mental Condition Comment Date Status Cognitive ability not impaired A ctive Referrals Description No Information Available
[2021-09-16 16:19] LABS: BASO % 0.4 % (0.0-1.0); EOS # 0.2 10^3/uL (0.0-0.5); EOS % 2.1 % (0.0-3.0); HEMATOCRIT 36.9 % (36.0-47.0); HEMOGLOBIN 11.6 g/dl (12.0-15.5); LYMPH # 2.2 10^3/uL (1.5-5.0); LYMPH % 27.3 % (24.0-44.0); MEAN CORPUSCULAR HEMOGLOBIN 24.5 pg (27.0-33.0); MEAN CORPUSCULAR HGB CONC 31.4 g/dl (32.0-36.5); MONO # 0.4 10^3/uL (0.0-0.8); MONO % 5.4 % (2.0-8.0); NEUTROPHILS # 5.2 10^3/uL (1.5-8.5); NEUTROPHILS % 64.4 % (36.0-66.0); PLATELET COUNT, AUTOMATED 281 10^3/uL (150-450); RED BLOOD COUNT 4.73 10^6/uL (4.00-5.40); WHITE BLOOD COUNT 8.1 10^3/uL (4.0-10.0)
[2021-09-16 16:43] LABS: ALBUMIN 3.1 GM/DL (3.2-5.2); ALT/SGPT 18 U/L (12-78); BILIRUBIN,DIRECT 0.1 MG/DL (0.0-0.2); BILIRUBIN,TOTAL 0.4 MG/DL (0.2-1.0); BLOOD UREA NITROGEN 11 MG/DL (7-18); CALCIUM LEVEL 8.5 MG/DL (8.5-10.1); CARBON DIOXIDE LEVEL 23 MEQ/L (21-32); CHLORIDE LEVEL 111 MEQ/L (98-107); CREATININE FOR GFR 0.83 MG/DL (0.55-1.30); GLOMERULAR FILTRATION RATE > 60.0 (>60); GLUCOSE, FASTING 126 MG/DL (70-100); HCG, SERUM QUANTITATIVE 750 MIU/ML; LIPASE 483 U/L (73-393); POTASSIUM SERUM 3.5 MEQ/L (3.5-5.1); SODIUM LEVEL 142 MEQ/L (136-145); TOTAL PROTEIN 6.2 GM/DL (6.4-8.2)
[2021-09-16] MEDS ORDERED: NS 1,000 ML IV ONE (19:35)
[2021-09-16 19:58] LABS: AMYLASE 98 U/L (25-115)
--- OUTSIDE RECORDS SUMMARY | 2021-09-16 20:16 | CCD ---
Author Author [facility] Organization [facility] Address Unknown Phone Unavailable Support Name Relationship Address Phone MORGAN SPANGLER Next Of Kin [address] [place] [address] ANÍBAL, AMAURI Next Of Kin [address] [place] [address] MORGAN MONSON Next Of Kin Unknown Rubina Pompa DDS Next Of Kin [address] [place], [place] [id number] Morgan Spangler (Boyfriend) Next Of Kin Unknown Unavai monica BELL Next Of Kin [address] [place] [address] MARCO HERNANDES Next Of Kin [address] [place] [address] MARCO DELGADILLO Next Of Kin Unknown Alvina Cornelius Next Of Kin [address] [place] [address] MORGAN ORTEGA Next Of Kin [address] [place] [address] Cindy Aguilar Next Of Kin [address] [place], [place] [id number] JAZMIN SPANGLER Next Of Kin [address] [place] [address] TAM Next Of Kin Unknown Unavailable POSTALCAMPBELL Next Of Kin [address] [place] [address] FAISAL HERNANDES Next Of Kin [address] [place] [address] MISTY SLAUGHTER Next Of Kin Unknown Unavailabl e POSTAL, FAISAL Next Of Kin [address] [address] POSTAL, VINCENZO Next Of Kin Unknown FAISAL POSTAL Next Of Kin [address] [place] [address] VINCENZO POSTAL Next Of Kin [address] [place] [address] RAFAEL POSTAL Next Of Kin [address] [place] [address] MISTY SLAUGHTER Next Of Kin [address] [place] [address] WILFREDO HERNANDES Next Of Kin Unknown PHONG GOMES Next Of Kin [address] [place] [address] MISTY YOUNG Next Of Kin [address] [place] [address] [place]ONE [place] PT [id number] Next Of Kin Unknown Unavailable WILFREDO HERNANDES Next Of Kin [address] [place] [address] AMAURI SPANGLER ECON [address] [place] [address] Unavailable Morgan Spangler ECON Unknown [phone] Misty Slaughter ECON [address] [place] [address] Care Team Providers Care Tank Worker Name Role Phone Fish, Jazmine [facility], PA-C Unavailable Unavailabl e Fish, [facility], PA-C Unavailable Unavailabl e Fish, [facility], PA-C Unavailable Unavailabl e Fish, [facility], PA-C Unavailable Unavailabl e Fish, [facility], PA-C Unavailable Unavailabl e Fish, [facility], PA-C Unavailable Unavailabl e Fish, [facility], PA-C Unavailable Unavailabl e Fish, [facility], PA-C Unavailable Unavailabl e Fish, [facility], PA-C Unavailable Unavailabl e Fish, [facility], PA-C Unavailable Unavailabl e Fish, [facility], PA-C Unavailable Unavailabl e Fish, [facility], PA-C Unavailable Unavailabl e Fish, [facility], PA-C Unavailable Unavailabl e Fish, [facility], PA-C Unavailable Unavailabl e Fish, [facility], PA-C Unavailable Unavailabl e Fish, [facility], PA-C Unavailable Unavailabl e Fish, [facility], PA-C Unavailable Unavailabl e Fish, [facility], PA-C Unavailable Unavailabl e Fish, [facility], PA-C Unavailable Unavailabl e Fish, [facility], PA-C Unavailable Unavailabl e Fish, [facility], PA-C Unavailable Unavailabl e Fish, [facility], PA-C Unavailable Unavailabl e Fish, [facility], PA-C Unavailable Unavailabl e Fish, [facility], PA-C Unavailable Unavailabl e Fish, [facility], PA-C Unavailable Unavailabl e Fish, [facility], PA-C Unavailable Unavailabl e Fish, [facility], PA-C Unavailable Unavailabl e Fish, [facility], PA-C Unavailable Unavailabl e Fish, [facility], PA-C Unavailable Unavailabl e Fish, [facility], PA-C Unavailable Unavailabl e Fish, [facility], PA-C Unavailable Unavailabl e Fish, [facility], PA-C Unavailable Unavailabl e Fish, [facility], PA-C Unavailable Unavailabl e Fish, [facility], PA-C Unavailable Unavailabl e Fish, [facility], PA-C Unavailable Unavailabl e Fish, [facility], PA-C Unavailable Unavailabl e Milad Mckinley MD Unavailable Unavailable Milad Mckinley MD Unavailable Unavailable Milad Mckinley MD Unavailable Unavailable Milad Mckinley MD Unavailable Unavailable Milad Mckinley MD Unavailable Unavailable Milad Mckinley MD Unavailable Unavailable JAZMYNE PA-C, [id number]. ROSSY PA Unavailable Unava ilable JAZMYNE PA-C, [id number] A. ROSSY PA Unavailable Unava ilable JAZMYNE PA-C, [id number] A. ROSSY PA Unavailable Unava ilable JAZMYNE PA-C, [id number] A. ROSSY PA Unavailable Unava ilable JAZMYNE PA-C, [id number] A. ROSSY PA Unavailable Unava ilable JAZMYNE PA-C, [id number] A. ROSSY PA Unavailable Unava ilable JAZMYNE PA-C, [id number] A. ROSSY PA Unavailable Unava ilable CRISTI CASEY MD Unavailable Unavailable CRISTI CSAEY MD Unavailable Unavailable CRISTI CASEY MD Unavailable [...] L Noreen RPA Unavailable Unavailable Ramirez, L Noeren RPA Unavailable Unavailable Ramirez, L Noreen RPA [...] Unavailable Ramirez, L Noreen RPA Unavailable Unavailable Rmairez, L Noreen RPA Unavailable Unavailable Ramirez, L [...] Unavailable JOE, P ARMANDO MD Unavailable Unavailable JEO, P ARMANDO MD Unavailable Unavailable JOE, P [...] is protected by Article 27-F of the [facility] Public Health law. If you continue you may have access to information: Regarding HIV / AIDS; Provided by facilities licensed or operated by the [facility] Office of Mental Health; or Provided by the [facility] Office for People With Developmental Disabilities. If such information is present, then the following [facility] mandated warning applies: This information has been [...] law may result in a fine or alf sentence or both. A general authorization for the release of medical or other information is NOT sufficient authorization for further disc losure. Allergies and Adverse Reactions Type Description Substance Reaction Status Data Source(s ) Propensity to adverse reactions NO ALLERGIES ON FILE NO ALLERGIES ON FILE [facility] Propensity to adverse reactions NSAIDS (NON-STEROIDAL ANTI-I NFLAMMATORY DRUG) NSAIDS (NON-STEROIDAL ANTI-INFLAMMATORY DRUG) [facility] Family History Family Member Name Family Member Gender Family Member Status Date o f Status Description Data Source(s) Unknown Unknown Problem MEDENT ([facility], ) Unknown Unknown Problem [facility]ENT ([facility], ) Encounters Encounter Providers Location Date Indications Data Source(s ) [place] [address] [facility] [address] 09/14/2021 12:00:00 AM EST eCW1 ([facility]) [place] [address] [facility] [address] 09/14/2021 12:00:00 AM EST eCW1 ([facility]) Outpatient Attender: CRISTI Wood/Marie/Dhruv/ Froilan 09/11/2021 07:00:00 AM EST MEDENT ([facility], ) Emergency Attender: Milad Mckinley MDConsultant: [id number] ROSSY SAMANO PA-C 08/31/2021 05:37:00 PM EDT - 08/31/2021 10:27:00 PM EDT [facility] Patient discharged. [place] [address] [facility] [address] 08/08/2021 12:00:00 AM EDT eCW1 ([facility]) Emergency Attender: Milad Mckinley MDConsultant: [id number] ROSSY SAMANO PA-C 06/03/2021 06:56:00 PM EDT - 06/03/2021 11:39:00 PM EDT [facility] Patient discharged. Outpatient Attender: Noreen Wood/Marie/Dhruv/R nav 05/21/2021 10:00:00 AM EDT [facility] [place] [address] [facility] [address] 05/15/2021 12:00:00 AM EDT eCW1 ([facility]) [place] [address] [facility] [address] 05/15/2021 12:00:00 AM EDT eCW1 ([facility]) [place] [address] [facility] [address] 04/09/2021 12:00:00 AM EDT eCW1 ([facility]) Outpatient Attender: GELY Negron/Marie/Dhruv/Hans ndparvez 03/20/2021 03:45:00 PM EDT MEDENT ([facility], ) Emergency Attender: Arvind Ballard ES1-ES1 2020 12:36:00 AM EDT - 03/04/2021 07:15:00 AM EDT [facility] Patient discharged. [place] [address] [facility] [address] 02/27/2021 12:00:00 AM EDT eCW1 ([facility]) [place] [address] [facility] [address] 02/06/2021 12:00:00 AM EDT eCW1 ([facility]) Outpatient Attender: Keisha Pena MD SJP.GERBER-SJP.GERBER 10/27 12:00:00 AM [facility] Outpatient Attender: ARMANDO JOE MD [id number] 10/31/2020 12:00:00 AM [facility] [address] [facility] [place] [address] 10/03/2020 12:00:00 AM EST eCW1 ([facility]) [place] [address] [facility] [address] 09/18/2020 12:00:00 AM EST eCW1 ([facility]) Outpatient Attender: Rubina [facility] 09/05/2020 12:00:48 A M EST [facility] [place] [address] [facility] [address] 09/04/2020 12:00:00 AM EST eCW1 ([facility]) Outpatient Attender: Clau SAM PA-C Physical Therapy 08/24/2020 03:20:00 PM EDT MEDENT ([facility]) [place] [address] [facility] [address] 08/22/2020 12:00:00 AM EDT eCW1 ([facility]) EMERGENCY Attender: AZEEM ARROYO DO 5F-ER 08/13/2020 03:28:23 PM EDT - 08/13/2020 04:19:00 PM EDT [facility] Patient discharged. [place] [address] [facility] [address] 08/10/2020 12:00:00 AM EDT eCW1 ([facility]) Outpatient Attender: Rubina MARTINES 08/03/2020 12:00:28 A M EDT [facility] Outpatient Attender: Clau SAM PA-C Physical Therapy 08/01/2020 09:30:00 AM EDT MEDENT ([facility]) Immunizations Vaccine Date Status Description Data Source(s) COVID-19 VACCINE Moderna 09/01/2021 12:00:00 AM EDT completed [facility] Vaccine Series Complete: NOThis Data was Submitted to [facility] Via [employer]. influenza, recombinant, quadrIvalent,injectable, prese rvative free 08/07/2021 10:30:00 AM EDT completed eCW1 ([facility]) influenza, recombinant, quadrIvalent,injectable, prese rvative free 08/07/2021 10:30:00 AM EDT completed eCW1 ([facility]) influenza, recombinant, quadrIvalent,injectable, prese rvative free 08/07/2021 10:30:00 AM EDT completed eCW1 ([facility]) COVID-19 VACCINE Moderna 01/19/2021 12:00:00 AM EDT completed [facility] Vaccine Series Complete: NOThis Data was Submitted to [facility] Via [employer]robe. influenza, recombinant, quadrIvalent,injectable, prese rvative free 08/10/2020 11:21:00 AM EDT completed eCW1 ([facility]) influenza, recombinant, quadrIvalent,injectable, prese rvative free 08/10/2020 11:21:00 AM EDT completed eCW1 ([facility]) influenza, recombinant, quadrIvalent,injectable, prese rvative free 08/10/2020 11:21:00 AM EDT completed eCW1 ([facility]) influenza, recombinant, quadrIvalent,injectable, prese rvative free 08/10/2020 11:21:00 AM EDT completed eCW1 ([facility]) influenza, recombinant, quadrIvalent,injectable, prese rvative free 08/10/2020 11:21:00 AM EDT completed eCW1 ([facility]) influenza, recombinant, quadrIvalent,injectable, prese rvative free 08/10/2020 11:21:00 AM EDT completed eCW1 ([facility]) influenza, recombinant, quadrIvalent,injectable, prese rvative free 08/10/2020 11:21:00 AM EDT completed eCW1 ([facility]) influenza, recombinant, quadrIvalent,injectable, prese rvative free 08/10/2020 11:21:00 AM EDT completed eCW1 ([facility]) influenza, recombinant, quadrIvalent,injectable, prese rvative free 08/10/2020 11:21:00 AM EDT completed eCW1 ([facility]) influenza, recombinant, quadrIvalent,injectable, prese rvative free 08/10/2020 11:21:00 AM EDT completed eCW1 ([facility]) influenza, recombinant, quadrIvalent,injectable, prese rvative free 08/10/2020 11:21:00 AM EDT completed eCW1 ([facility]) influenza, recombinant, quadrIvalent,injectable, prese rvative free 08/10/2020 11:21:00 AM EDT completed eCW1 ([facility]) influenza, recombinant, quadrIvalent,injectable, prese rvative free 08/10/2020 11:21:00 AM EDT completed eCW1 ([facility]) Medications Medication Brand Name Start Date Product Form Dose Route Admi nistrative Instructions Pharmacy Instructions Status Indications Reaction Description Data Source(s) Triamcinolone Acetonide 5 MG/ML Topical Cream Triamcin olone Acetonide 0.5 % Triamcinolone Acetonide 0.5 % 05/15/2021 12:00:00 AM EDT 1.0 {appli cation} active Triamcinolone Acetonide 0 .5 % eCW1 ([facility]) Triamcinolone Acetonide 5 MG/ML Topical Cream Triamcin olone Acetonide 0.5 % Triamcinolone Acetonide 0.5 % 05/15/2021 12:00:00 AM EDT 1.0 {appli cation} active Triamcinolone Acetonide 0 .5 % eCW1 ([facility]) Triamcinolone Acetonide 5 MG/ML Topical Cream Triamcin olone Acetonide 0.5 % Triamcinolone Acetonide 0.5 % 05/15/2021 12:00:00 AM EDT 1.0 {appli cation} active Triamcinolone Acetonide 0 .5 % eCW1 ([facility]) Triamcinolone Acetonide 5 MG/ML Topical Cream Triamcin olone Acetonide 0.5 % Triamcinolone Acetonide 0.5 % 05/15/2021 12:00:00 AM EDT 1.0 {appli cation} active Triamcinolone Acetonide 0 .5 % eCW1 ([facility]) Triamcinolone Acetonide 5 MG/ML Topical Cream Triamcin olone Acetonide 0.5 % Triamcinolone Acetonide 0.5 % 05/15/2021 12:00:00 AM EDT 1.0 {appli cation} active Triamcinolone Acetonide 0 .5 % eCW1 ([facility]) Sutab Sutab 04/27/2021 12:00:00 AM EDT completed MEDENT ([facility], ) Suprep Bowel Prep Kit Suprep Bowel Prep Kit 04/16/2021 12:00:00 AM EDT completed MEDENT ([facility], ) iopamidol (ISOVUE-370) 76 % 70 mL [id number] 03/04/2021 05:21:55 AM E DT 70 mL Intravenous completed 70 mL, Intrav enous, Once in imaging, contrast, Starting on 03/04/21 at 0521, For 1 dose [facility] Medication administered onsite Aluminum Hydroxide 40 MG/ML / Magnesium Hydroxide 40 MG/ML / Simethicone 4 MG/ML Oral Suspension alum & mag hydroxide-simeth 200-200-20 MG/5ML suspension 30 mL alum & mag hydroxide-simeth 200-200-20 MG/5ML suspension 30 mL 03/04/2021 03:30:00 AM EDT 30 mL Oral completed 30 mL, Oral, Once, On 03/04/21 at 0330, For 1 dose [facility] Medication administered onsite lidocaine (XYLOCAINE) 2 % mouth solution 10 mL 8907-0337-85 03/04/2021 03:30:00 AM EDT 10 mL Mouth/Throat completed 1 0 mL, Mouth/Throat, Once, On 03/04/21 at 0330, For 1 dose [facility] Medication administered onsite topiramate 200 MG Oral Tablet Topiramate 200 MG Oral T ablet (TOPAMAX) Topiramate 200 MG Oral Tablet (TOPAMAX) 10/16/2020 12:00:00 AM EST 200 mg Oral active Take 200 mg by mouth Two Times D [facility] topiramate 200 MG Oral Tablet topiramate (TOPAMAX) 200 MG tablet topiramate (TOPAMAX) 200 MG tablet 10/16/2020 12:00:00 AM EST 200 mg Oral active Take 200 mg by mouth 2 (two) times a day [facility] valacyclovir 1000 MG Oral Tablet [Valtrex] Valtrex 1 GM Valt karen 1 GM 09/18/2020 12:00:00 AM EST 1.0 {tablet} active Va ltrex 1 GM eCW1 ([facility]) Fluconazole 150 MG Oral Tablet [Diflucan] Diflucan 150 MG Di flucan 150 MG 09/18/2020 12:00:00 AM EST 1.0 {tablet} active Diflucan 150 MG eCW1 ([facility]) Fluconazole 150 MG Oral Tablet [Diflucan] Diflucan 150 MG Di flucan 150 MG 09/18/2020 12:00:00 AM EST 1.0 {tablet} suspended Diflucan 150 MG eCW1 ([facility]) Fluconazole 150 MG Oral Tablet [Diflucan] Diflucan 150 MG Di flucan 150 MG 09/18/2020 12:00:00 AM EST 1.0 {tablet} active Diflucan 150 MG eCW1 ([facility]) Fluconazole 150 MG Oral Tablet [Diflucan] Diflucan 150 MG Di flucan 150 MG 09/18/2020 12:00:00 AM EST 1.0 {tablet} suspended Diflucan 150 MG eCW1 ([facility]) Fluconazole 150 MG Oral Tablet [Diflucan] Diflucan 150 MG Di flucan 150 MG 09/18/2020 12:00:00 AM EST 1.0 {tablet} suspended Diflucan 150 MG eCW1 ([facility]) Fluconazole 150 MG Oral Tablet [Diflucan] Diflucan 150 MG Di flucan 150 MG 09/18/2020 12:00:00 AM EST 1.0 {tablet} active Diflucan 150 MG eCW1 ([facility]) Fluconazole 150 MG Oral Tablet [Diflucan] Diflucan 150 MG Di flucan 150 MG 09/18/2020 12:00:00 AM EST 1.0 {tablet} suspended Diflucan 150 MG eCW1 ([facility]) valacyclovir 1000 MG Oral Tablet [Valtrex] Valtrex 1 GM Valt karen 1 GM 09/18/2020 12:00:00 AM EST 1.0 {tablet} active Va ltrex 1 GM eCW1 ([facility]) valacyclovir 1000 MG Oral Tablet [Valtrex] Valtrex 1 GM Valt karen 1 GM 09/18/2020 12:00:00 AM EST 1.0 {tablet} active Va ltrex 1 GM eCW1 ([facility]) Fluconazole 150 MG Oral Tablet [Diflucan] Diflucan 150 MG Di flucan 150 MG 09/18/2020 12:00:00 AM EST 1.0 {tablet} suspended Diflucan 150 MG eCW1 ([facility]) valacyclovir 1000 MG Oral Tablet [Valtrex] Valtrex 1 GM Valt karen 1 GM 09/18/2020 12:00:00 AM EST 1.0 {tablet} suspended Valtrex 1 GM eCW1 ([facility]) valacyclovir 1000 MG Oral Tablet valACYclovir (VALTREX ) 1000 MG tablet valACYclovir (VALTREX) 1000 MG tablet 09/18/2020 12:00:00 AM EST active as needed [facility] Fluconazole 150 MG Oral Tablet [Diflucan] Diflucan 150 MG Di flucan 150 MG 09/18/2020 12:00:00 AM EST 1.0 {tablet} active Diflucan 150 MG eCW1 ([facility]) valacyclovir 1000 MG Oral Tablet [Valtrex] Valtrex 1 GM Valt karen 1 GM 09/18/2020 12:00:00 AM EST 1.0 {tablet} active Va ltrex 1 GM eCW1 ([facility]) valacyclovir 1000 MG Oral Tablet [Valtrex] Valtrex 1 GM Valt karen 1 GM 09/18/2020 12:00:00 AM EST 1.0 {tablet} suspended Valtrex 1 GM eCW1 ([facility]) valacyclovir 1000 MG Oral Tablet [Valtrex] Valtrex 1 GM Valt karen 1 GM 09/18/2020 12:00:00 AM EST 1.0 {tablet} suspended Valtrex 1 GM eCW1 ([facility]) valacyclovir 1000 MG Oral Tablet [Valtrex] Valtrex 1 GM Valt karen 1 GM 09/18/2020 12:00:00 AM EST 1.0 {tablet} suspended Valtrex 1 GM eCW1 ([facility]) valacyclovir 1000 MG Oral Tablet [Valtrex] Valtrex 1 GM Valt karen 1 GM 09/18/2020 12:00:00 AM EST 1.0 {tablet} suspended Valtrex 1 GM eCW1 ([facility]) Fluconazole 150 MG Oral Tablet [Diflucan] Diflucan 150 MG Di flucan 150 MG 09/18/2020 12:00:00 AM EST 1.0 {tablet} suspended Diflucan 150 MG eCW1 ([facility]) valacyclovir 1000 MG Oral Tablet [Valtrex] Valtrex 1 GM Valt karen 1 GM 09/18/2020 12:00:00 AM EST 1.0 {tablet} active Va ltrex 1 GM eCW1 ([facility]) Fluconazole 150 MG Oral Tablet [Diflucan] Diflucan 150 MG Di flucan 150 MG 09/18/2020 12:00:00 AM EST 1.0 {tablet} active Diflucan 150 MG eCW1 ([facility]) valacyclovir 1000 MG Oral Tablet [Valtrex] Valtrex 1 GM Valt karen 1 GM 09/18/2020 12:00:00 AM EST 1.0 {tablet} suspended Valtrex 1 GM eCW1 ([facility]) rizatriptan 5 MG Disintegrating Oral Tab let Rizatriptan Benzoate 5 MG Oral Tablet Disintegrating ([employer]PER[employer]) Rizatriptan Benzoate 5 MG Oral Tablet Disintegrating ([employer]PER[employer]OR) 07/24/2020 12:00:00 AM EDT active TAKE 1 TABLET BY MOUTH EVERY 2 HOURS NEEDED NO MORE THAN 2 TABLETS IN [address] 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) 5 MG disintegrating tablet 07/24/2020 12:00:00 AM EDT active as needed [facility] Cholestyramine Resin 66.7 MG/ML Oral Susie pension cholestyramine (QUESTRAN) 4 GM/DOSE powder cholestyramine (QUESTRAN) 4 GM/DOSE powder 02/11/2019 12:00:00 AM EDT aborted MIX AND DRINK 2 SCOOPS TWO TIMES A DAY [facility] Dicyclomine Hydrochloride 20 MG Oral Tablet dicyclomin e (BENTYL) 20 MG tablet dicyclomine (BENTYL) 20 MG tablet 01/12/2019 12:00:00 AM EDT aborted TAKE ONE TABLET BY MOUTH FOU R TIMES A DAY NEEDED 30 MINUTES BEFORE MEALS FOR ABDOMINAL PAIN DIARRHEA SPASM [facility] Acetaminophen 325 MG Oral Tablet acetaminophen (TYLENO L) 325 MG tablet acetaminophen (TYLENOL) 325 MG tablet 08/18/2018 12:00:00 AM EDT 65 0 mg Oral aborted Take 2 tablets (650 mg total) by mouth every 6 (six) hours as needed for pain [facility] Metformin hydrochloride 500 MG Oral Tablet metformin ( GLUCOPHAGE) 500 MG tablet metformin (GLUCOPHAGE) 500 MG tablet 05/29/2018 12:00:00 AM EDT aborted [facility] topiramate 50 MG Oral Tablet topiramate (TOPAMAX) 50 M G tablet topiramate (TOPAMAX) 50 MG tablet 05/29/2018 12:00:[address] [facility] Acetaminophen 325 MG / Hydrocodone Galileo trate 7.5 MG Oral Tablet HYDROcodone- acetaminophen (NORCO) 7.5-325 MG per tablet HYDROcodone-acetaminophen (NORCO) 7.5-325 MG per tablet 03/29/2018 12:00:00 AM EDT aborted TAKE ONE TABLET BY MOUTH EVERY SIX HOURS NEEDED FOR PAIN MAXIMUM DAILY DOSE IS [address] [facility] Sucralfate 1000 MG Oral Tablet sucralfate (CARAFATE) 1 g tablet sucralfate (CARAFATE) 1 g tablet 1 g Oral aborted Take 1 g by mouth Four times daily [facility] Nystatin 100 UNT/MG Topical Powder nystatin (MYCOSTATI N) powder nystatin (MYCOSTATIN) powder Topical aborted Ap ply topically [facility] Sucralfate 1000 MG Oral Tablet sucralfate (CARAFATE) 1 g tablet sucralfate (CARAFATE) 1 g tablet 1 g Oral aborted Ta ke 1 g by mouth [facility] Famotidine 20 MG Oral Tablet famotidine (PEPCID) 20 MG tablet famotidine (PEPCID) 20 MG tablet 20 mg Oral aborted Take 20 mg by mouth Two Times Daily [facility] Prazosin 2 MG Oral Capsule prazosin (MINIPRESS) 2 MG c apsule prazosin (MINIPRESS) 2 MG capsule 2 mg Oral aborted Take 2 mg by mouth nightly as needed [facility] rivaroxaban 10 MG Oral Tablet rivaroxaban (XARELTO) 10 MG tablet rivaroxaban (XARELTO) 10 MG tablet 10 mg Oral aborted Take 10 mg by mouth daily with dinner [facility] Misoprostol 0.2 MG Oral Tablet misoprostol (CYTOTEC) 2 00 MCG tablet misoprostol (CYTOTEC) 200 MCG tablet 200 ug Oral aborted Take 200 mcg by mouth Four times daily [facility] Prazosin 2 MG Oral Capsule prazosin (MINIPRESS) 2 MG c apsule prazosin (MINIPRESS) 2 MG capsule 2 mg Oral aborted Take 2 mg by mouth nightly [facility] Insurance Providers Payer name Policy type / Coverage type Policy ID Covered alliance party ID Covered alliance party's relationship to soliz Policy Soliz Plan Information MEDICAID [id number] Patient [id number] [facility] Individual Policy 0 [id number] Self 0 TIMMY I [id number] Self [id number] TIMMY ([id number] TIMMY I [id number] Self [id number] TIM[place] MEDICAID [id number] [place] 7 [id number] [place] Medicaid/CHP/FHP Commercial [id number] Self [id number] [place]P/FHP Commercial [id number] Self [id number] [place] Medicaid [id number] SELF [id number] [place] Medicaid/CHP/FHP Commercial [id number] Self [id number] TIMMY [id number] [place] Medicaid/CHP/FHP Commercial [id number] Self [id number] [place] MEDICAID [id number] xxxxxxxxxxx [id number] TIMMY [id number] Self [id number] [place] Medicaid/CHP/FHP Medigap Part B [id number] Self [id number] [place] Medicaid/CHP/FHP Medigap Part B [id number] Self [id number] [place]P/FHP Medigap Part B [id number] Self [id number] [place]P/FHP Medigap Part B [id number] Self [id number] [place]P/FHP Medigap Part B [id number] Self [id number] [facility] [place] [id number] S [id number] [place] Medicaid/CHP/FHP Commercial [id number] Self [id number] [place] Medicaid/CHP/FHP Commercial [id number] Self [id number] TIMMY [id number] SP [id number] Medicaid S [id number] S [id number] [place] Medicaid/CHP/FHP Commercial [id number] Self [id number] TIMMY I [id number] Self [id number] TIM[place] I [id number] Self [id number] Medicaid S [id number] S [id number] [employer] (NF) Workers Compensation [id number] Self [id number] [employer] (NF) Workers Compensation [id number] Self [id number] [employer] ((NF) Workers Compensation [id number] Self [id number] [employer] (NF) Workers Compensation [id number] Self [id number] [employer] (NF) Workers Compensation [id number] Self [id number] [employer] ((NF) Workers Compensation [id number] Self [id number] [employer] (NF) Workers Compensation [id number] Self [id number] [employer] (NF) Workers Compensation [id number] Self [id number] Medicaid S [id number] S [id number] NF MISC. [id number] Self [id number] [facility] [id number] Patient [id number] MEDICAID [id number] PT [id number] MEDICAID [id number] PT [id number] UHC/MEDICAID/AMERICHOICE [id number] PT [id number] UHC/MEDICAID/AMERICHOICE [id number] PT [id number] MEDICAID [id number] PT [id number] UHC/MEDICAID/AMERICHOICE [id number] PT [id number] MEDICAID [id number] PT [id number] [facility] [id number] SP [id number] MEDICAID [id number] PT [id number] TIMMY [id number] SP [id number] SELF PAY ONLY [id number] SP [id number] USFHP AT [facility] [id number] 18 [id number] [place] CARE [place] -[place] [id number] 18 [id number] [place] CARE OF [place] XIX MAN -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 MEDICAID [id number] SP [id number] [id number] S [id number] TIMMY [id number] SP [id number] [place] [id number] S [id number] MEDICAID [id number] SP [id number] Medicaid [facility] Part B [id number] Self [id number] [place] [facility] [place] Medicaid [id number] Self [id number]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 [phone] Name .................. : ANÍBAL Buchanan Acct Number.................. : [id number] ROOM. ................. : VT-49 Number ................... : [id number] Stay type ............. : E/R Discharge Date......... ... : Admit Date ......... : 06/03/21 Admit Phys .................... : ARLEN Quintero Date of ....... : 1985 Family Phys ................... : RAYSHAWN SAMANO Phone .................. : [phone] Age ................................ : 35 Film# .................. .:[id number] Sex ................................. : F Unsigned transcriptions are preliminary reports and do not represent a medical or legal document CT ABD & PELVIS W/ IV ONLY [id number] COMPLETE:06/03/21 20:32 [id number] Reason(s): Abdominal Pain CT ABDOMEN AND PELVIS [...] punctate mural calcifications. Page 1 of 2 [facility] [address] [place] [address] PHONE: [phone] FAX: [phone] Name .................. : ANÍBAL Buchanan Acct Number.................. : [id number] ROOM. ................. : VT-49 MR Number ................... : [id number] Stay type ............. : E/R Discharge Date......... ... : Admit Date ......... : 06/03/21 Admit Phys .................... : ARLEN Quintero Date of ....... : 1985 Family Phys ................... : RAYSHAWN SAMANO Phone .................. : [phone] Age ................................ : 35 Film# .................. .:[id number] Sex . ................................ : F Unsigned transcriptions are preliminary reports and do not represent a medical or legal document CT ABD & PELVIS W/ IV ONLY 70811 COMPLETE:06/03/21 20:32 33594 Reason(s): Abdominal Pain BOWEL/GI: Radiopaque sutures around [...] rce(s) Supporting Document(s) ID Date Data Source [id number] 06/03/2021 06:56:00 PM EDT [facility] 1 OrderSheet [facility] Emergency Department [address] [place] [address] Phone #: ext- [phone] 06/03/2021 18:55 Patient: EMILY SPANGLER Sex: F [...] Description Priority Entered Acknowledged Initialed 2 OrderSheet [facility] Emergency Department [address] [place] [address] Phone #: ext- [phone] 06/03/2021 18:55 Patient: EMILY SPANGLER Sex: F : 1985 Age: 35y[Electronically signed by Sotero Vital RN (23:39 06/03/2021)][Electronically signed by Milad Mckinley (23:46 06/03/2021)][Electronically locked by Sotero Vital RN (23:39 06/03/2021)] Name Value Range Interpretation Code Description Data Queta rce(s) Supporting Document(s) ID Date Data Source [id number] 06/03/2021 06:56:00 PM EDT [facility] 1 Medication Reconciliation Report [facility] Emergency Department [address] [place] [address] Phone #: ext- [phone] 06/03/2021 18:55 Patient: EMILY SPANGLER Sex: F [...] rce(s) Supporting Document(s) ID Date Data Source [id number] 06/03/2021 06:56:00 PM EDT [facility] 1 Medication Administration Record [facility] Emergency Department [address] [place] [address] Phone #: ext- [phone] 06/03/2021 18:55 Patient: EMILY SPANGLER Sex: F : 1985 Age: 35yWeight: 95.2 kgHeight/Length: 59 inBMI: 42.4ALLERGIES: NSAIDs Date/Time Medication Administered Medication OrderedGiven DICYCLOMINE [PO] Dicyclomine PO 10 mg21:07 06/03/2021 Dose: 10 mg Molly Nath R.N. Name Value Range Interpretation Code Description Data Queta rce(s) Supporting Document(s) ID Date Data Source [id number] 06/03/2021 06:56:00 PM EDT [facility] 1 General Instructions [facility] Emergency Department [address] [place] [address] Phone #: ext- [phone] 06/03/2021 18:55 Patient: [...] INFORMATIONViral Gastroenteritis ( Adult) 2 General Instructions [facility] Emergency Department [address] [place] [address] Phone #: ext- [phone] 06/03/2021 18:55 Patient: [...] Nausea and vomiting Loss of bowel control [facility] 3 General Instructions [facility] Emergency Department [address] [place] [address] Phone #: ext- [phone] 06/03/2021 18:55 Patient: [...] with soap and water or use alcohol-based patient monitor to prevent the spread of infection. Wash your hands after touching anyone who is sick. Wash your hands or use alcohol-based patient monitor after using the toilet and before meals. [...] Keep uncooked meats away from cooked and qclcg-wo-kud foods.MedicineYou may use acetaminophen or NSAID medicines [...] can make diarrhea worse. 4 General Instructions [facility] Emergency Department [address] [place] [address] Phone #: ext- [phone] 06/03/2021 18:55 Patient: [facility]ANGLER [id number] Sex: F : 1985 Age: 35y Avoid [...] your provider if you don't get better mgulid83 hours or if diarrhea lasts more than a week. Also follow up if you are unable to keep down liquidsand get dehydrated. If a stool (diarrhea) sample was taken, call as directed for the results.Call [phone] if any of these occur: 5 General Instructions [facility] Emergency Department [address] [place] [address] Phone #: ext- [phone] 06/03/2021 18:55 Patient: [...] directed by your healthcare provider Enrike sauer [phone] [employer]. [address] [place] [address]. All rights reserved. This information is not intended as asubstitute for professional medical care. Always follow your healthcare professional's instructions.Ovarian Cysts 6 General Instructions [facility] Emergency Department [address] [place] [address] Phone #: ext- [phone] 06/03/2021 18:55 Patient: EMILY SPANGLER Sex: F [...] pain, your healthcare provider may recommend using pcyd-elq-pgykfah pain medicine. If needed, your provide may [...] provider, or as advised. 7 General Instructions [facility] Emergency Department [address] [place] [address] Phone #: ext- [phone] 06/03/2021 18:55 Patient: [...] Weakness, dizziness, or fainting Abnormal vaginal bleeding [phone] [employer]. [address] [place] [address]. All rights reserved. This information is not intended as asubstitute for professional medical care. Always follow your healthcare professional's instructions. You have been given the following additional information: Gastroenteritis, Viral (Adult) Ovarian Cyst(Electronically signed by Milad Mckinley 06/03/2021 23:46) Name Value Range Interpretation Code Description Data Queta rce(s) Supporting Document(s) ID Date Data Source [id number] 06/03/2021 06:56:00 PM EDT [facility] 1 Clinical Report - Nurses [facility] Emergency Department [address] [place] [address] Phone #: ext- [phone] 06/03/2021 18:55 Patient: EMILY SPANGELR Sex: F : 1985 Age: 35yTRIAGEArrived by private vehicle. Historian: patient. Accompanied by family.Acuity: LEVEL 3.Chief Complaint: ABDOMINAL PAIN, NAUSEA and DIARRHEA.Alert. No acute distress.Onset. (4 PM). ( PT reports around 4 pm she began having a sharp pain in her RLQ and nausea. Shealso had 3 episodes of watery diarrhea.).Treatment MATERIALS BUYER:None.SEPSIS SCREEN: SIRS SCREEN NEGATIVE. SEPSIS SCREEN NEGATIVE. [...] Ovary Disease. 2 Clinical Report - Nurses [facility] Emergency Department [address] [place] [address] Phone #: ext- [phone] 06/03/2021 18:55 Patient: [...] R.N.PHYSICAL ASSESSMENT 3 Clinical Report - Nurses [facility] Emergency Department [address] [place] [address] Phone #: ext- [phone] 06/03/2021 18:55 Patient: [...] 16. O2 saturation: 98%. --20:06 06/03/21 [facility] TechEstefani ER Tech1 21:07 06/03/2021 Dicyclomine PO 10 mg given. Allergies verified and confirmed 5 rights. Information reviewed with patient including reason for taking this medication. Verbalizes understanding. --21:07 06/03/21 Molly lPascencia R.N. 21:18 06/03/2021 Site #1 started via IV in the left antecubital space with an 20g angiocath. --21:23 06/03/21 Mahi Vital R.N. The patient is calm and resting quietly. ( Pt using cellular device. Smiling. Appears to be in NAD.). --21:24 06/03/21 Mahi Vital R.N. Patient transported to [place] by wheelchair with mask and tech. --22:23 06/03/21 Molly Plascencia R.N.DISPOSITION / DISCHARGE [place] Coma Scale: 15- eyes open- spontaneous (4); best verbal response- oriented (5); best motor response- obeys commands (6). Departure time: 23:39 06/03/2021. Condition at departure: improved. No learning barriers present. Reviewed referral to family practice for followup. Reviewed need for increased fluid intake. Patient verbalized understanding. Written instructions provided in Estonian. The patient was discharged home. She left [...] Sotero Vital RN.Locked/Released at 06/03/2021 23:39 by Sotero Vital RN Name Value Range Interpretation Code Description Data Queta rce(s) Supporting Document(s) ID Date Data Source [id number] 06/03/2021 06:56:00 PM EDT [facility] 1 Clinical Report - Physicians/Mid Levels [facility] Emergency Department [address] [place] [address] Phone #: ext- [phone] 06/03/2021 18:55 Patient: [...] daily. 2 Clinical Report - Physicians/Mid Levels [facility] Emergency Department [address] [place] [address] Phone #: ext- [phone] 06/03/2021 18:55 Patient: [...] 27) 3 Clinical Report - Physicians/Mid Levels [facility] Emergency Department [address] [place] [address] Phone #: ext- [phone] 06/03/2021 18:55 Patient: [...] Male GFR Interprentation 20-49 yrs >60 mL/min Reiion76-42 yrs >56 mL/min Normal 60-69 yrs >49 mL/min Normal 70-79yrs>42 mL/min Normal 80 and above >35 mL/min Normal Female GFRInterpretation 20-39 yrs >60 mL/min Normal 40-49 yrs >58 mL/minNormal 50-59 yrs >51 mL/min Normal 60-69 yrs >45 mL/min Samscg16-59 yrs >39 mL/min Normal 80 and above [...] Exam 4 Clinical Report - Physicians/Mid Levels [facility] Emergency Department [address] [place] [address] Phone #: ext- [phone] 06/03/2021 18:55 Patient: EMILY SPANGLER Sex: F : 1985 Age: 35y CT ABD //T// PELVIS W/ [place] [address] PHONE: [phone] FAX: [phone] Name .................. : ANÍBAL Buchanan Acct Number.................. : [id number] ROOM. ................. : VT-49 MR Number ................... : [id number] Stay type ............. : E/R Discharge Date......... ... : Admit Date ......... : 06/03/21 Admit Phys .................... : ARLEN Quintero Date of ....... : 1985 Family Phys ................... : RAYSHAWN SAMANO Phone .................. : [phone] Age ................................ : 35 Film# .................. .:[id number] Sex ................................. : F Unsigned transcriptions are [...] punct ate mural calcifications. Page 1of 2 [place] [address] PHONE: [phone] FAX: [phone] Name .................. : ANÍBAL Buchanan Acct Number.................. : [id number] Clinical Report - Physicians/Mid Levels [facility] Emergency Department [address] [place] [address] Phone #: ext- [phone] 06/03/2021 18:55 Patient: EMILY SPANGLER A cct#: [id number] Sex: F : 1985 Age: 35y ROOM. ................. : [facility]49 MR Number ................... : [id number] Stay type ............. : E/R Discharge Date......... ... : Admit Date ......... : 06/03/21 Admit Phys .................... : ARLEN Quintero Date of ....... : 1985 Family Phys ................... : RAYSHAWN SAMANO Phone .................. : [phone] Age ................................ : 35 Film# ........... ....... .:[id number] Sex ................................. : F Unsigned transcriptions are [...] (NORMAL: Negat 6 Clinical Report - Physicians/Mid [facility] Emergency Department [address] [place] [address] Phone #: ext- [phone] 06/03/2021 18:55 Patient: EMILY SPANGLER Sex: F [...] NEGATIVE (NORMAL: NEGAT { KIT LOT # [id number] ){ KIT EXP DATE 10/26/22 ){ PROCEDURAL [...] day. 7 Clinical Report - Physicians/Mid Levels [facility] Emergency Department [address] [place] [address] Phone #: ext- [phone] 06/03/2021 18:55 Patient: [...] rce(s) Supporting Document(s) ID Date Data Source [id number] 06/03/2021 10:02:00 PM EDT [facility] Name Value Range Interpretation Code Description Data Queta rce(s) Supporting Document(s) Lipase [Enzymatic activity/volume] in Serum or Plasma 40 U/L 13 - 60 [facility] ID Date Data Source [id number] 06/03/2021 10:02:00 PM EDT [facility] Name Value Range Interpretation Code Description Data Queta rce(s) Supporting Document(s) COMPREHENSIVE METABOLIC PANEL [facility] COMPREHENSIVE METABOLIC PANEL Sodium [Moles/volume] in Serum or Plasma 139 mEq/L 134 - 153 [facility] Potassium [Moles/volume] in Serum or Plasma 4.2 mEq/L 3.6 - 5.0 [facility] Chloride [Moles/volume] in Serum or Plasma 106 mEq/L 98 - 107 [facility] Carbon dioxide, total [Moles/volume] in Serum or Plasma 21 MEQ/L 22 - 30 L [facility] Glucose [Mass/volume] in Serum or Plasma 82 MG/DL 70 - 99 [facility] BUN 11 MG/DL 7 - [facility] Creatinine [Mass/volume] in Serum or Plasma 0.9 MG/DL 0.7 - 1.5 [facility] BUN/CREAT 12 8 - 27 [facility] al Protein [Mass/volume] in Serum or Plasma 6.3 G/DL 6.3 - 8.2 [facility] Albumin [Mass/volume] in Serum or Plasma 4.0 G/DL 3.9 - 5.0 [facility] Globulin [Mass/volume] in Serum by calculation 2.3 GM/DL 2.4 - 3.2 L [facility] A/G RATIO 1.7 0.8 - 2.0 [facility] al Calcium [Mass/volume] in Serum or Plasma 8.7 MG/DL 8.4 - 10.2 [facility] Bilirubin.total [Mass/volume] in Serum or Plasma <0.7 MG/DL 0.2 - 1.3 [facility] Alkaline phosphatase [Enzymatic activity/volume] in Serum or Plasma 61 U/L 38 - 126 [facility] Aspartate aminotransferase [Enzymatic activity/volume] in Serum or Plasma 13 U/L 5 - 40 [facility] Alanine aminotransferase [Enzymatic activity/volume] in Seru m or Plasma 10 U/L 7 - 56 [facility] Anion gap 3 in Serum or Plasma 12.0 mmol/L 8.0 - 16.0 [facility] AGE 35 yrs [facility] NON-AA GFR >60 mL/min [facility] AFR AMER GFR >60 mL/min [facility] Male GFR In terprentation 20-49 [...] >32 mL/min Normal ID Date Data Source [id number] 06/03/2021 09:21:00 PM EDT [facility] Name Value Range Interpretation Code Description Data Queta rce(s) Supporting Document(s) CBC W/AUTOMATED DIFF [facility] COMPLETE BLOOD COUNT Leukocytes [#/volume] in Blood by Automated count 11.3 10^3/uL 4.2 - 11.0 H [facility] Erythrocytes [#/volume] in Blood by Automated count 5.05 10^6/uL 4. 20 - 5.40 [facility] Hemoglobin [Mass/volume] in Blood 12.3 g/dL 12.0 - 16.0 [facility] Hematocrit [Volume Fraction] of Blood by Automated count 39.5 % 3 7.0 - 47.0 [facility] Erythrocyte mean corpuscular volume [Entitic volume] by Auto mated count 78.2 fL 81.0 - 101 L [facility] Erythrocyte mean corpuscular hemoglobin [Entitic mass] by Automated count 24.4 pg 27.0 - 34.0 L [facility] Erythrocyte mean corpuscular hemoglobin concentration [Mass/volume] by Automated count 31.1 g/dL 31.0 - 36.0 [facility] Erythrocyte distribution width [Ratio] by Automated count 14.7 % 11.5 - 14.5 H [facility] Platelets [#/volume] in Blood by Automated count 289 10^3/uL 150 - 45 0 [facility] Platelet mean volume [Entitic volume] in Blood by Automated count 9.4 fL 7.4 - 10.4 [facility] Neutrophils/100 leukocytes in Blood by Automated count 67.4 % 37. 0 - 80.0 [facility] Lymphocytes/100 leukocytes in Blood by Manual count 20.1 % 25.0 - 40.0 L [facility] Monocytes/100 leukocytes in Blood by Automated count 5.2 % 3.0 - 8.0 [facility] Eosinophils/100 leukocytes in Blood by Automated count 6.5 % 0.0 - 7.0 [facility] Basophils/100 leukocytes in Blood by Automated count 0.4 % 0.0 - 2.5 [facility] %IG 0.4 % 0.0 - 0.0 H [facility] %NRBC 0.0 % 0.0 - 0.0 [facility] al Neutrophils [#/volume] in Blood by Automated count 7.61 10^3/uL 2.00 - 6.90 H [facility] Lymphocytes [#/volume] in Blood by Automated count 2.27 10^3/uL 0.60 - 3.40 [facility] Monocytes [#/volume] in Blood by Automated count 0.59 10^3/uL 0.00 - 0.90 [facility] Eosinophils [#/volume] in Blood by Automated count 0.73 10^3/uL 0.00 - 0.70 H [facility] Basophils [#/volume] in Blood by Automated count 0.05 10^3/uL 0.00 - 0.20 [facility] #IG 0.04 10^3/uL 0.00 - 0.10 [facility] #NRBC 0.00 10^3/uL 0.00 - 0.00 [facility] MANUAL DIFF NOT INDICATED [facility] RBC MORPH NOT INDICATED [facility] ID Date Data Source [id number] 06/03/2021 08:26:00 PM EDT [facility] Name Value Range Interpretation Code Description Data Queta rce(s) Supporting Document(s) HCG URINE QUAL NEGATIVE NORMAL: NEGATIVE [facility] HCG URINE QL REENTER NEGATIVE NORMAL: NEGATIVE [facility] { KIT LOT # [id number] ){ KIT EXP DATE 10/26/22 ){ PROCEDURAL CONTROL VALID ) ID Date Data Source [id number] 06/03/2021 08:31:00 PM EDT [facility] Name Value Range Interpretation Code Description Data Queta rce(s) Supporting Document(s) [facility] S[facility] R [facility] COLOR yellow NORMAL: Yellow [facility] CLARITY clear NORMAL: Clear [facility] Specific gravity of Urine by Test strip 1.010 1.001 - 1.030 [facility] pH 7 5 - 9 [facility] Glucose [Mass/volume] in Urine by Test strip NORM NORMAL: Negat [facility] Bilirubin.total [Presence] in Urine by Test strip NEG NORMAL: Negative [facility] Ketones [Presence] in Urine by Test strip 5 NORMAL: Negative [facility] Protein [Mass/volume] in Urine by Test strip [facility] N[facility] [Presence] in Urine by Test strip NEG NORMAL: Negative [facility] BLOOD NEG NORMAL: Negative [facility] LEUK EST 25 NORMAL: Negative [facility] Urobilinogen [Mass/volume] in Urine by Test strip 1 less sergey n 1.0 mg/dL [facility] MICROSCOPIC See Below [facility] ital WBC 0 - 1 NORMAL: NONE SEEN [facility] Erythrocytes [#/volume] in Urine by Test strip 0 - 1 NORMAL: NON E SEEN [facility] ID Date Data Source [id number] 05/02/2021 12:01:00 PM EDT [facility] ([facility], ) Name Value Range Interpretation Code Description Data Queta rce(s) Supporting Document(s) Surgical pathology study Laboratory test result [facility] ([facility], ) FINAL DIAGNOSIS A--Stomach, prepyloric, biopsy: Gastric [...] MD 05/03/2021 1016 ID Date Data Source [id number] 03/20/2021 09:52:00 AM EDT [facility] FASTING:YESFASTING: YESReceived: 021 at 09:43:00 QPT: [facility], [address], [address] [place] [address], [phone] MD Received: 03/19/2021 at 09:43:00 QPT : [facility], [address], [address] [place] [address], [phone] MD Received: 03/19/2021 at 09:43:00 QPT : [facility], [address], [address] [place] [address], [phone] MD Received: 03/19/2021 at 09:43:00 QPT : [facility], [address], [address] [place] [address], [phone] MD Received: 03/19/2021 at 09:43:00 QPT : [facility], [address], [address] [place] [address], [phone] MD Received: 03/19/2021 at 09:43:00 QPT : [facility], [address], [address] [place], [address], Sky Will MD Received: 03/19/2021 at 09:43:00 QPT : [facility], [address], [address] [place], [phone], Sky Will MD Received: 03/19/2021 at 09:43:00 QPT : [facility], [address], [address] [place] [address], [address], Sky Will MD Received: 03/19/2021 at 09:43:00 QPT : [facility], [address], [address] [place] [address], [phone], Sky Will MD Received: 03/19/2021 at 09:43:00 QPT : [facility], [address], [address] [place] [address], [phone], Sky Will MD Name Value Range Interpretation Code Description Data Queta rce(s) Supporting Document(s) Magnesium [Mass/volume] in Serum or Plasma 1.8 mg/dL 1.5-2 .5 Normal (applies to non-numeric results) [facility] ID Date Data Source [id number] 03/20/2021 09:52:00 AM EDT [facility] FASTING:YESFASTING: YESReceived: 021 at 09:43:00 QPT: [facility], [address], [address] [place] [address], [phone] MD Received: 03/19/2021 at 09:43:00 QPT : [facility], [address], [address] [place] [address], [phone] MD Received: 03/19/2021 at 09:43:00 QPT : [facility], [address], [address] [place] [address], [phone] MD Received: 03/19/2021 at 09:43:00 QPT : [facility], [address], [address] [place], [address], Sky Will MD Received: 03/19/2021 at 09:43:00 QPT : [facility], [address], [address] [place], [address], Sky Will MD Received: 03/19/2021 at 09:43:00 QPT : [facility], [address], [address] [place] [address], [address], Sky Will MD Received: 03/19/2021 at 09:43:00 QPT : [facility], [address], [address] [place] [address], [phone], Sky Will MD Received: 03/19/2021 at 09:43:00 QPT : [facility], [address], [address] [place] [address], [phone], Sky Will MD Received: 03/19/2021 at 09:43:00 QPT : [facility], [address], [address] [place] [address], [phone], Sky Will MD Received: 03/19/2021 at 09:43:00 QPT : [facility], [address], [address] [place] [address], [phone], Sky Will MD Name Value Range Interpretation Code Description Data Queta rce(s) Supporting Document(s) Phosphate [Mass/volume] in Serum or Plasma 3.5 mg/dL 2.5-4 .5 Normal (applies to non-numeric results) [facility] ID Date Data Source [id number] 03/20/2021 09:52:00 AM EDT [facility] FASTING:YESFASTING: YESReceived: 021 at 09:43:00 QPT: [facility], [address], [address] [place] [address], [phone] MD Received: 03/19/2021 at 09:43:00 QPT : [facility], [address], [address] [place] [address], [phone], Sky Will MD Received: 03/19/2021 at 09:43:00 QPT : [facility], [address], [address] [place] [address], [phone], Sky Will MD Received: 03/19/2021 at 09:43:00 QPT : [facility], [address], [address] [place] [address], [phone], Sky Will MD Received: 03/19/2021 at 09:43:00 QPT : [facility], [address], [address] [place] [address], [phone], Sky Will MD Received: 03/19/2021 at 09:43:00 QPT : [facility], [address], [address] [place] [address], [phone], Sky Will MD Received: 03/19/2021 at 09:43:00 QPT : [facility], [address], [address] [place] [address], [phone], Sky Will MD Received: 03/19/2021 at 09:43:00 QPT : [facility], [address], [address] [place] [address], [phone], Sky Will MD Received: 03/19/2021 at 09:43:00 QPT : [facility], [address], [address] [place] [address], [phone], Sky Will MD Received: 03/19/2021 at 09:43:00 QPT : [facility], [address], [address] [place] [address], [phone], Sky Will MD Name Value Range Interpretation [...] normal [facility] ID Date Data Source [id number] 03/20/2021 09:52:00 AM EDT [facility] FASTING:YESFASTING: YESReceived: 021 at 09:43:00 QPT: [facility], [address], [address] [place] [address], [phone], Sky Will MD Received: 03/19/2021 at 09:43:00 QPT : [facility], [address], [address] [place] [address], [phone] MD Received: 03/19/2021 at 09:43:00 QPT : [facility], [address], [address] [place] [address], [phone] MD Received: 03/19/2021 at 09:43:00 QPT : [facility], [address], [address] [place] [address], [phone], Sky Will MD Received: 03/19/2021 at 09:43:00 QPT : [facility], [address], [address] [place] [address], [phone] MD Received: 03/19/2021 at 09:43:00 QPT : [facility], [address], [address] [place] [address], [phone] MD Received: 03/19/2021 at 09:43:00 QPT : [facility], [address], [address] [place] [address], [address]Sky MD Received: 03/19/2021 at 09:43:00 QPT : [facility], [address], [address] [place], [address], Sky Will MD Received: 03/19/2021 at 09:43:00 QPT : [facility], [address], [address] [place], [address], Sky Will MD Received: 03/19/2021 at 09:43:00 QPT : [facility], [address], [address] [place], [address], Syk Will MD Name Value Range Interpretation Code [...] to non-numeric results) [facility] eGFR NON-AFR. [place] 98 mL/min/1.73m2 > OR = 60 Normal [...] [facility] ID Date Data Source [id number] 03/20/2021 09:52:00 AM EDT [facility] FASTING:YESFASTING: YESReceived: 021 at 09:43:00 QPT: [facility], [address], [address] [place] [address], [phone], Sky Will MD Received: 03/19/2021 at 09:43:00 QPT : [facility], [address], [address] [place] [address], [phone] MD Received: 03/19/2021 at 09:43:00 QPT : [facility], [address], [address] [place] [address], [phone] MD Received: 03/19/2021 at 09:43:00 QPT : [facility], [address], [address] [place] [address], [phone] MD Received: 03/19/2021 at 09:43:00 QPT : [facility], [address], [address] [place], [address], Sky Will MD Received: 03/19/2021 at 09:43:00 QPT : [facility], [address], [address] [place], [address], Sky Will MD Received: 03/19/2021 at 09:43:00 QPT : [facility], [address], [address] [place], [address]Sky MD Received: 03/19/2021 at 09:43:00 QPT : [facility], [address], [address] [place], [address], Sky Will MD Received: 03/19/2021 at 09:43:00 QPT : [facility], [address], [address] [place] [address], [phone] MD Received: 03/19/2021 at 09:43:00 QPT : [facility], [address], [address] [place] [address], [address], Sky Will MD Name Value Range Interpretation [...] in Blood by Automated count 3862 cells/uL 1067-4285 Normal (applies to non-numeric results) [facility] [...] results) [facility] ID Date Data Source [id number] 03/20/2021 09:52:00 AM EDT [facility] FASTING:YESFASTING: YESReceived: 021 at 09:43:00 QPT: [facility], [address], [address] [place], [address], Sky Will MD Received: 03/19/2021 at 09:43:00 QPT : [facility], [address], [address] [place] [address], [phone], Sky Will MD Received: 03/19/2021 at 09:43:00 QPT : [facility], [address], [address] [place] [address], [phone], Sky Will MD Received: 03/19/2021 at 09:43:00 QPT : [facility], [address], [address] [place] [address], [address], Sky Will MD Received: 03/19/2021 at 09:43:00 QPT : [facility], [address], [address] [place] [address], [phone], Sky Will MD Received: 03/19/2021 at 09:43:00 QPT : [facility], [address], [address] [place] [address], [phone], Sky Will MD Received: 03/19/2021 at 09:43:00 QPT : [facility], [address], [address] [place] [address], [phone], Sky Will MD Received: 03/19/2021 at 09:43:00 QPT : [facility], [address], [address] [place] [address], [phone] MD Received: 03/19/2021 at 09:43:00 QPT : [facility], [address], [address] [place] [address], [phone] MD Received: 03/19/2021 at 09:43:00 QPT : [facility], [address], [address] [place] [address], [address]Sky MD Name Value Range Interpretation Code Description Data Queta rce(s) Supporting Document(s) Ferritin [Mass/volume] in Serum or Plasma 5 ng/mL 16-154 Below low normal [facility] ID Date Data Source [id number] 03/20/2021 09:52:00 AM EDT [facility] FASTING:YESFASTING: YESReceived: 021 at 09:43:00 QPT: [facility], [address], [address] [place] [address], [phone], Sky Will MD Received: 03/19/2021 at 09:43:00 QPT : [facility], [address], [address] [place] [address], [phone], Sky Will MD Received: 03/19/2021 at 09:43:00 QPT : [facility], [address], [address] [place] [address], [phone], Sky Will MD Received: 03/19/2021 at 09:43:00 QPT : [facility], [address], [address] [place] [address], [phone], Sky Will MD Received: 03/19/2021 at 09:43:00 QPT : [facility], [address], [address] [place] [address], [phone], Sky Will MD Received: 03/19/2021 at 09:43:00 QPT : [facility], [address], [address] [place] [address], [phone] MD Received: 03/19/2021 at 09:43:00 QPT : [facility], [address], [address] [place] [address], [phone] MD Received: 03/19/2021 at 09:43:00 QPT : [facility], [address], [address] [place] [address], [phone] MD Received: 03/19/2021 at 09:43:00 QPT : [facility], [address], [address] [place], [address], Sky Will MD Received: 03/19/2021 at 09:43:00 QPT : [facility], [address], [address] [place], [address], Sky Will MD Name Value Range Interpretation Code Description Data Queta rce(s) Supporting Document(s) Folate [Mass/volume] in Red Blood Cells 684 ng/mL RBC >280 Normal (applies to non-numeric results) [facility] ID Date Data Source [id number] 03/20/2021 09:52:00 AM EDT [facility] FASTING:YESFASTING: YESReceived: 021 at 09:43:00 QPT: [facility], [address], [address] [place] [address], [phone], Sky Will MD Received: 03/19/2021 at 09:43:00 QPT : [facility], [address], [address] [place] [address], [address]Sky MD Received: 03/19/2021 at 09:43:00 QPT : [facility], [address], [address] [place] [address], [phone] MD Received: 03/19/2021 at 09:43:00 QPT : [facility], [address], [address] [place] [address], [address]Sky MD Received: 03/19/2021 at 09:43:00 QPT : [facility], [address], [address] [place] [address], [phone] MD Received: 03/19/2021 at 09:43:00 QPT : [facility], [address], [address] [place] [address], [phone] MD Received: 03/19/2021 at 09:43:00 QPT : [facility], [address], [place], [address]Sky MD Received: 03/19/2021 at 09:43:00 QPT : [facility], [address], [address] [place], [address]Sky MD Received: 03/19/2021 at 09:43:00 QPT : [facility], [address], [address] [place], [address]Sky MD Received: 03/19/2021 at 09:43:00 QPT : [facility], [address], [address] [place], [address], Sky Will MD Name Value Range Interpretation Code Description Data Queta rce(s) Supporting Document(s) Cobalamin (Vitamin B12) [Mass/volume] in Serum or Plasma 335 pg/ mL 200-1100 Normal (applies to non-numeric results) [facility] Please Note: Although the reference rang e for [id number] is 200-1100 pg/mL, it has been reported that between5 and 10% of patients with values between 200 and 400pg/mL may experience neuropsychiatric and hematologicabnormalities due to occult B12 deficiency; less than 1%of patients with values above 400 pg/mL will have symptoms. ID Date Data Source [id number] 03/20/2021 09:52:00 AM EDT [facility] FASTING:YESFASTING: YESReceived: 021 at 09:43:00 QPT: [facility], [address], [address] [place], [address]Sky MD Received: 03/19/2021 at 09:43:00 QPT : [facility], [address], [address] [place], [address]Sky Thomason MD Received: 03/19/2021 at 09:43:00 QPT : [facility], [address], [address] [place], [address]Sky Thomason MD Received: 03/19/2021 at 09:43:00 QPT : [facility], [address], [address] [place], [address], Sky Will MD Received: 03/19/2021 at 09:43:00 QPT : [facility], [address], [address] [place], [address], Sky Will MD Received: 03/19/2021 at 09:43:00 QPT : [facility], [address], [address] [place], [address], Sky Will MD Received: 03/19/2021 at 09:43:00 QPT : [facility], [address], [address] [place], [address], Sky Will MD Received: 03/19/2021 at 09:43:00 QPT : [facility], [address], [address] [place] [address], [phone], Sky Will MD Received: 03/19/2021 at 09:43:00 QPT : [facility], [address], [address] [place] [address], [phone] MD Received: 03/19/2021 at 09:43:00 QPT : [facility], [address], [address] [place] [address], [phone] MD Name Value Range Interpretation Code Description [...] VIT D, (D2,D3), LC/MS/MS is recommended: ordercode [id number] (patients >2yrs).See Note 1Note 1For additional information, please refer tohttp://education.Friendfer.Fast Orientation/faq/RDU082(This link is being provided for informational/educational purposes only.) ID Date Data Source [id number] 03/20/2021 09:52:00 AM EDT [facility] FASTING:YESFASTING: YESReceived: 021 at 09:43:00 QPT: [facility], [address], [address] [place] [address], [phone] MD Received: 03/19/2021 at 09:43:00 QPT : [facility], [address], [address] [place] [address], [address]Sky Thomason MD Received: 03/19/2021 at 09:43:00 QPT : [facility], [address], [address] [place] [address], [phone] MD Received: 03/19/2021 at 09:43:00 QPT : [facility], [address], [address] [place] [address], [phone] MD Received: 03/19/2021 at 09:43:00 QPT : [facility], [address], [address] [place] [address], [phone] MD Received: 03/19/2021 at 09:43:00 QPT : [facility], [address], [address] [place] [address], [address]Sky MD Received: 03/19/2021 at 09:43:00 QPT : [facility], [address], [address] [place] [address], [phone] MD Received: 03/19/2021 at 09:43:00 QPT : [facility], [address], [address] [place] [address], [phone] Thomason MD Received: 03/19/2021 at 09:43:00 QPT : [facility], [address], [address] [place], [address], Sky Will MD Received: 03/19/2021 at 09:43:00 QPT : [facility], [address], [address] [place], [address], Sky Will MD Name Value Range Interpretation [...] Care in Diabetes(ADA). ID Date Data Source [id number] 03/04/2021 07:28:44 AM [facility]T [facility] INFORMATIONPatient MRN Name Date of Age Gend*PT [id number] Postal, Emily 1985 35 years F EDPT Location Admission Date/Time Visit ID Attending [id number] 03/04/21 0237 --- Arvind Ballard MD([id number]) EPI ID CSN Admitting Provider [id number] ---Patient provider in Triage NotesNo notes on fileHistory of Present IllnessChief ComplaintPatient presents with Abdominal Pain dull, constant with intermittent sharp stabbing right sided abd pain x 3 days,increases when eating. [facility], calledDr. Perez's [...] rce(s) Supporting Document(s) ID Date Data Source [id number] 03/04/2021 06:49:23 AM EDT [address] [address]Xlepdri Name: Emily PostalDOB: 1985Sex: FOrdering Provider: ARVIND BALLARDAuthorizing Prov: ARVIND BALLARDRefsilvia Provider: Procedure Performed: CT ABDOMEN PELVIS W CONTRASTExam Date: 03/04/2021 05:27MRN: [id number] Number: [id number] Class: INFORMATION: Exam: CT Abdomen And Pelvis [...] rce(s) Supporting Document(s) ID Date Data Source [id number] 03/04/2021 05:11:36 AM EDT [facility] Name Value Range Interpretation Code Description Data Queta rce(s) Supporting Document(s) HCG, QUAL. SERUM (NEG) [facility] ID Date Data Source [id number] 03/04/2021 04:54:01 AM EDT [facility] Name Value Range Interpretation Code Description Data Queta rce(s) Supporting Document(s) SODIUM 140 mmol/L (136-145) [facility] POTASSIUM 3.7 mmol/L (3.6-5.2) [facility] CHLORIDE 108 mmol/L (100-108) [facility] CO2 27 mmol/L (22-31) [facility] ANION GAP 5 mmol/L (7-16) L [facility] UREA NITROGEN 17 mg/dL (7-24) [facility] CREATININE 0.83 mg/dL (0.60-1.00) [facility] BUN/CREAT RATIO 20.5 RATIO (10.0-20.0) H [facility] GLUCOSE 75 mg/dL (70-99) [facility] CALCIUM 8.4 mg/dL (8.4-10.2) [facility] TOTAL PROTEIN 6.9 g/dL (6.4-8.2) [facility] ALBUMIN 3.2 g/dL (3.5-4.6) L [facility] GLOBULIN 3.7 g/dL (2.7-4.3) [facility] ALB/GLOB RATIO 0.9 RATIO [facility] ALKALINE PHOSPHATASE 95 U/L (45-117) [facility] BILIRUBIN,TOTAL 0.7 mg/dL (0.0-1.0) [facility] PLEASE NOTE:Total bilirubin results may be falselyelevated in patients taking Eltrombopag. AST (SGOT) 55 U/L (11-39) H [facility] ALT (SGPT) 82 U/L (12-78) H [facility] GFR >60 ml/min/1.73m2 (>59) [facility] GFR ( AMER) >60 ml/min/1.73m2 (>59) [facility] GFR INTERPRETATION [facility] --NORMAL KIDNEY FUNCTION OR MILD DISEASE - GFR >OR= 60CHRONIC KIDNEY DISEASE - GFR 15 - 59RENAL FAILURE - GFR <15 Est. GFR calculation based on the MDRDstudy equation, which assumes a steadystate for creatinine. Est. GFR should notbe used for medication dosing. ID Date Data Source [id number] 03/04/2021 04:51:35 AM EDT [facility] Name Value Range Interpretation Code Description Data Queta rce(s) Supporting Document(s) MAGNESIUM 2.2 mg/dL (1.7-2.4) [facility] ID Date Data Source [id number] 03/04/2021 04:51:35 AM EDT [facility] Name Value Range Interpretation Code Description Data Queta rce(s) Supporting Document(s) LIPASE 165 U/L (65-230) [facility] ID Date Data Source [id number] 03/04/2021 04:40:35 AM EDT [facility] Name Value Range Interpretation Code Description Data Queta rce(s) Supporting Document(s) WBC 7.8 10*3/uL (4.1-11.0) [facility] RBC 4.80 10*6/uL (4.00-5.40) [facility] HGB 11.7 g/dL (12.0-16.0) L [facility] HCT 35.7 % (36.0-47.0) L [facility] MCV 74.3 fL (80.0-95.0) L [facility] MCH 24.4 pg (27.0-32.0) L [facility] MCHC 32.9 g/dL (32.0-36.0) [facility] RDW 15.9 % (10.5-14.5) H [facility] PLT 231 10*3/uL (150-450) [facility] MPV 8.0 fL (7.1-10.7) [facility] NEUT % 51.3 % (35.0-75.0) [facility] LYMPH % 36.9 % (16.0-52.0) [facility] MONO % 6.7 % (0.0-8.0) [facility] EOS % 4.4 % (0.0-5.0) [facility] BASO % 0.7 % (0.0-4.0) [facility] NEUT # 4.0 10*3/uL (1.8-7.7) [facility] LYMPH # 2.9 10*3/uL (1.2-4.8) [facility] MONO # 0.5 10*3/uL (0.0-0.8) [facility] Eosinophils [#/volume] in Blood by Automated count 0.3 10*3/uL (0.0-0 .5) [facility] BASO # 0.1 10*3/uL (0.0-0.2) [facility] ID Date Data Source [id number] 03/04/2021 04:39:40 AM EDT [facility] Name Value Range Interpretation Code Description Data Queta rce(s) Supporting Document(s) COLOR [facility] APPEARANCE [facility] SPEC GRAV URINE 1.035 (1.003-1.030) H [facility] PH URINE 5.5 (5.0-7.5) [facility] LEUK ESTERASE (NEG) [facility] NITRITE URINE (NEG) [facility] PROTEIN URINE (NEG) [facility] GLUCOSE URINE (NEG) [facility] KETONE URINE (NEG) A [facility] UROBILINOGEN 0.2 mg/dL (0-1.0) [facility] BILIRUBIN URINE 1+ (NEG) A [facility] INTERFERING SUBSTANCES MAY CAUSE FALSEPO SITIVE BILIRUBIN, WHICH HAS BEENSHOWN TO BE CLINICALLY INSIGNIFICANT.CORRELATE WITH OTHER TESTING. BLOOD/HGB URINE (NEG) [facility] ID Date Data Source [id number] 10/31/2020 02:13:44 PM [facility] Name Value Range Interpretation Code Description Data Queta rce(s) Supporting Document(s) Progress Note [facility] NZVBXa6xBqWQYjJl94/CZWsoBZEzt5OqVQteMAl6NBerBHUhH1WpQMU0cX4mOML1URyZPqJkEeWmRGF5 lbm [file] ICAgICAgICAgICAgICAgICAgICAgICAgICAgICAgIC AgICAgICAgICAgICAgICAgICAgICAgICAgICAgICAgICAgICAgICAgICAgDQogICAgICAgICAgICAgIC AgICAgICAgICAgICAgICAgICAgICAgICAgICAgICAgICAgICAgICAgICAgICAgICAgICAgICAgICAgIC AgICAgICAgICAgICAgICAgICAgICAgICAgDQogICAg ICAgICAgICAgICAgICAgICAgICAgICAgICAgICAgICAgICAgICAgICAgICAgICAgICAgICAgICAgICAg ICAgICAgICAgICAgICAgICAgICAgICAgICAgICAgICAgICAgDQogICAgICAgICAgICAgICAgICAgICAg ICAgICAgICAgICAgICAgICAgICAgICAgICAgICAgIC AgICAgICAgICAgICAgICAgICAgICAgICAgICAgICAgICAgICAgICAgICAgICAgDQogICAgICAgICAgIC AgICAgICAgICAgICAgICAgICAgICAgICAgICAgICAgICAgICAgICAgICAgICAgICAgICAgICAgICAgIC AgICAgICAgICAgICAgICAgICAgICAgICAgICAgDQog ICAgICAgICAgICAgICAgICAgICAgICAgICAgICAgICAgICAgICAgICAgICAgICAgICAgICAgICAgICAg ICAgICAgICAgICAgICAgICAgICAgICAgICAgICAgICAgICAgICAgDQogICAgICAgICAgICAgICAgICAg ICAgICAgICAgICAgICAgICAgICAgICAgICAgICAgIC AgICAgICAgICAgICAgICAgICAgICAgICAgICAgICAgICAgICAgICAgICAgICAgICAgDQogICAgICAgIC AgICAgICAgICAgICAgICAgICAgICAgICAgICAgICAgICAgICAgICAgICAgICAgICAgICAgICAgICAgIC AgICAgICAgICAgICAgICAgICAgICAgICAgICAgICAg DQogICAgICAgICAgICAgICAgICAgICAgICAgICAgICAgICAgICAgICAgICAgICAgICAgICAgICAgICAg ICAgICAgICAgICAgICAgICAgICAgICAgICAgICAgICAgICAgICAgICAgDQogICAgICAgICAgICAgICAg ICAgICAgICAgICAgICAgICAgICAgICAgICAgICAgIC EgMWTgQGKoVKElMDBgYAFvKGGiVCLnCQOiYKBmNYKrNZYpOOVuDWKbCYXqCXOyOQPjAQElMMi4M2tcVO CzIHZbAN3fHZa7Mo8+BWmDLeUrDMJ5bjWnfL6RPC6zx6EbZWzoMQHtd5IoMHp8NR6UGVUaWRahZA5JRA gnrc3NEQZvYIQfmTAPh0nmObVxRAJ3ZQLmQpdyVB6B IXYaX2ntenWwXCPsCWIHYT7XGzNcC2AwwV92ZJRKTz1+CFzhavOfGxpIIsJ3UGVzv3OuTCe5EK0BBCSt Qyqza0JqQeOhYROWZJduBS7ZDUZ5HBBhGNMgIm6BXGPqF154xsDrGT3QQb6GTcPeXM0sef7NYlDpUEPa DkyNFpy1OCrxOQ8IzQUpHVqQps4wixEivvOHr7Uwxp FozVELMFO6lBM5ZENzO1DrlXj7HV5mKS3DQQA1LHTaLB7vEWOoIYPoNlJ3GXVYIY7PCHKyNEZbvDPvRN OuKXNIQR3MKPpgYIM8JEXsmkGjtWWpTDjrWW9AZZAtzwWaIQfqRXCZPZf+Wc2ZKZ4we7VtXEzeVWMnEP 2bvi6CLLhMImDmK0I9qRJlS3Z7QDdnJt5VLYVfTEJp DGopZDKWGJwbVH3XLB2bwmF2RB5LoQJmSZClQQQicOQyCGk0A71bdEYyJSdoFE8AFYR+Phylils+Zx5MYOTv UPOrDRAnDdWoUSSXLrBrF2XcI9OMz6IlX4KjOM94wWmdnjMaFTrnZM1ZVK7gDVYjHJZFLF3WfNKcwT8o kcGiTHQmNRAVIvVxN10vmVYoFAIlNLN3ENEaDr2LIL CqZ5EkbdZuuLzfpmLjYOEzALJFXD1VBFqdieKaeDUjaJbcNM49eOotAI9KKx2NDkPdUF6czo8ItETaPl 3TZBWpHm5YNVZqLBSbUBAuOZG2UQLjEcVgARyzYKPxIGQtJFC9QWJcIFLyLE3XViKiPWEoCSc9YFziOS FcLUUanc9XVLXaTGEvNTEeTdOxIYNfIAKvZEvmRZHh HALkMPL1VQAlFQArBK1NKfZiEKIiTRC4GORoFTYeBSGusr2FHQYmYPCiGeE4NOCeWCBeMWMaEGqoMWFc YTTkVxE4MTZkXWZeSV7CNjBwMWMeFIO3EBPpFQJyOEExkl1FAWDsIFEgSgk8DQOnRHYsJCDoPTtdEPBo XEC7IUFqQBBgCDCqPH4RSmBjMNQwNOPvUJQfRCVxTR Jich9DIPCmGVGyDXLyRONrFVYrBJNfMIyxOPHhDBM4Owy2RDBvECClLP4WCfGkUODvSQvqZYZvHPMfUN Bmsk0NGZMxNYIlCyLiJLOrNEYjVIMpQUysFGAqWQK7NSEnDZVbQXKwFM3LZiJsHNCoFFz7FGluJBRvTO Xfiv8QOZMhLGSoUkj7EkDqEWDfRQVrPJvrQCWdPTF0 SMJ8FKYgMOFjZW3FQxIkUPPqCGg2IQEeNCAuBBMmpw3ZQKAvYWGvIHW9QLDnQRKiBMEuFPn3lsIiqGAo EMk5EB2XS9QdbwIgHbMGYz5Ru266KZBaFZAdNr1AR8auIs6yYPOvBQLEVl4XWIc8BWO8JlBiPgYtDPAk BmPbWsL6DLc8KkLqBCqeCCy2YPY+TJyaIYn8BvR6Od CbWNLvIBLuJky1EMOyKtKlTFSsXHI2DG0cGFMNKh7+NWlubKOauJyeRVFAZmM5IYMvTOsvROJELm6S ID Date Data Source [id number] 10/04/2020 12:00:00 AM EST [facility] Name Value Range Interpretation Code Description Data Queta rce(s) Supporting Document(s) 2019-nCoV RNA XXX ZAHIRA+probe-Imp [facility] This lab was ordered by [facility] and reported by [employer] ID Date Data Source [id number] 08/13/2020 09:13:48 PM EDT [facility] Name Value Range Interpretation Code Description Data Queta rce(s) Supporting Document(s) ED Provider Notes [facility] MDAXAp2eChXSWdLa75/IDJccWHRyg1HoSMkfHIh3GDlaXSOfM7WkDSW1mU8mXEC7SLvPCrPwCnPsHFC4 lbm XyAfzKFnQqILLtNndTEcFvMRlmZyjciVXhQD6QkSG6PICuW47rUQVlPJOxB8TaNZF0FFV+Cr1YICTlrI IvOP7RLpkM5V5jvsdQIz3wqh3E/RqMjYGo1mVcBh1VWkeH2sGuBjV87WkFpvJDHABLtVl/fucqOEetzz P0GUoE9pQ3Tca69/rMTCNE/dtXSJ3lEnLz/+++ppkW wyvx97+MsMYx91GyzkTTJSTURar4uxSzQyzQWCmc3XK5II6YTUBuWpAZqVSYNS1Gvba8hMNdSiY3Yjbb kIJ6DRtWAi+/l6IQh+doGhREpFGez1HkmvOX/uir11+L/b4KEEZNWwqj5xYvssebKxJPZTkkf8iCUAB5 nPCg0Qth/ngzVzGFhkSDeH9F1RvLn8ZgmwDPxW3jLX V2ei3akVF3fCQh26SSRWAM05zmYtrixOLGKUcKzhIDEZILIDQSnKT9ghk1CVu1QcjUfkeSUWgmGAc2mk JTJR2+SKCziiptXVcFIBNSPrFEyGBOPOsxs3smZm/7+0y8uc6xyeGYxgJMfZmMDJAGv0QAo83yHBmQWL JYjLclvVLjFOtqS3GxrMW3YiOwDrCeuTsX0LXcMA+N tio/NNp7k3iEA1x1ho7lkI0AnVqRVswP1fDnFdipO0hPxKITh4mpk4OqhqsCbb4+b1kZ5wk8mnCk+mg6n [file] AgICAgICAgICAgICAgICAgICAgICAgICAgICAgICAg ICAgICAgICAgICAgICAgICAgICAgDQogICAgICAgICAgICAgICAgICAgICAgICAgICAgICAgICAgICAg ICAgICAgICAgICAgICAgICAgICAgICAgICAgICAgICAgICAgICAgICAgICAgICAgICAgICAgICAgICAg ICAgDQogICAgICAgICAgICAgICAgICAgICAgICAgIC AgICAgICAgICAgICAgICAgICAgICAgICAgICAgICAgICAgICAgICAgICAgICAgICAgICAgICAgICAgIC AgICAgICAgICAgICAgDQogICAgICAgICAgICAgICAgICAgICAgICAgICAgICAgICAgICAgICAgICAgIC AgICAgICAgICAgICAgICAgICAgICAgICAgICAgICAg ICAgICAgICAgICAgICAgICAgICAgICAgDQogICAgICAgICAgICAgICAgICAgICAgICAgICAgICAgICAg ICAgICAgICAgICAgICAgICAgICAgICAgICAgICAgICAgICAgICAgICAgICAgICAgICAgICAgICAgICAg ICAgICAgDQogICAgICAgICAgICAgICAgICAgICAgIC AgICAgICAgICAgICAgICAgICAgICAgICAgICAgICAgICAgICAgICAgICAgICAgICAgICAgICAgICAgIC AgICAgICAgICAgICAgICAgDQogICAgICAgICAgICAgICAgICAgICAgICAgICAgICAgICAgICAgICAgIC AgICAgICAgICAgICAgICAgICAgICAgICAgICAgICAg ICAgICAgICAgICAgICAgICAgICAgICAgICAgDQogICAgICAgICAgICAgICAgICAgICAgICAgICAgICAg ICAgICAgICAgICAgICAgICAgICAgICAgICAgICAgICAgICAgICAgICAgICAgICAgICAgICAgICAgICAg ICAgICAgICAgDQogICAgICAgICAgICAgICAgICAgIC AgICAgICAgICAgICAgICAgICAgICAgICAgICAgICAgICAgICAgICAgICAgICAgICAgICAgICAgICAgIC AgICAgICAgICAgICAgICAgICAgDQogICAgICAgICAgICAgICAgICAgICAgICAgICAgICAgICAgICAgIC AgICAgICAgICAgICAgICAgICAgICAgICAgICAgICAg CULtFHEsKTYjTNOnGMRjHASeQNPeTVQgAEHyZGYtLHw9W9zhYIMjMAHzCS6mDOq7Ou8+DQoNCmVuZHN0 fqYyyQ3OMY1ga3YpWKjkAKBuo5PaBGu2SE7EKSQhKNfnWH8GMYmnho1KNDZwTUWquORLl2gaFpWrLLX0 TASoMwcjZY0QSIGiQ1xbedQvDAQhXLRNXOgyZCYQOV atEGPGMI6GCgNoB3KyvH89ILHJLf0+CLrjysXoKkfLUqKuVTYpx3NgYWe0MC3ASANtOaqwl9OqQvPzMJ HXAXmdMW3GWSH9CIZwHOZhCi6OOCBzU794eoAyPL2UWg2LRjZaRB7fss3YMyDoKMJtBbtBZxn6CCuwDZ 9EmHTjOJfUXCUPue33iGLmefQAh5OpplDfiUNXoGCp BEZmSSXkYEK7VJBUNFWysVJfGM1mNW1vDTFiGJTjIhWqIYHBZU4PKDFyNGSybECxLROwRFOAKZ9DKCep MKG1UduymzYnbMUhXYbkIS9TFVSkpwYvMrVpAYOWEZa+Hd0VOA4km8ArHBvaESBzLH8tnc5XHJyFGeOd H0J3nSIfQ7B2SFinHa8WCPGiGAMvJcHvMDOTOIdyIT 3RPF2jfgW1CI4BeNDqZETnGJKunBYqMVh3W91lhTInWMnvRV4YANT+Phyllis+Bs0LMPIfLPIfXVBqJrQbHM PKUuWdK5VdS6KEx9OtI7FoGL17yVmernFaXEssXC1UOO2zBXMxLKQIQQ6ZuCVgjF6fmrEgIlGqWUYLHi OsY87qmNHqCKNzHOOyBGElXs4OVKBiL0RoamQbxEdb gePlZWUyAOTPOS0JXCdksxHrzJCmfIjjCF06cLzfKW4FAy9WSmOvOA2gio7IqUYgZz5IOHCwAL3HDEJo NYMsKGMfKCC0PSLuQrUwBGoqGKHsPCIqRUW8BGPlPWOcIL9INxEgYWApRgviSZLhVWJkGAPeld3BQVOo FBIyBLv2YFMaYHBdTGOsPAfnJJWfNTSpIVS6DBUrOE TuLW5QFeWwXITbEFV0JapsRVOkAMHzdz0LKENtCSAfXjF0MfHjIAOjAERwIYuqATNfAQJ3CPD3EGUoGR McOJ0IDvXfHPOwLSQrQWcjGYAzZDHwof5NBHZrZVItIOk7ACIvXSLkXWMtJItkVVQrJEQ3LGI6WOOzOE JoGY2AMuZtTOSfEVRiRwybILAzCKVvtf0QDDGgMEIe BYQmYYLvENRaVIYkEDukWPAqEGJzNXP9JDCmCFNmBN8TBaYlSIZbBEH9PjocXLRnNHUeat7GHQRlGUZb NDE1BKHbCTSdCEHjGBxcMEEyWGRdQAU3FCGaSBRhCU3ZGwLkBYAwMXF0CHWwPTDzGWRpii1DSMNuZSUj MzAxNiAwMDAwMCBuDQowMDAwMDEzMjAxIDAwMDAwIG 7FDhHfMSJfVUEhKaWgACRcZADcgp6UTZFbSCSvFVR9XdVqEKZtMRGtTRtfSQQxAAD0ELM4BYMnZJTdTS 8SImMzDOIpGPS1CQHbCQDzQHKavd2UYWYqZCAfILfhFhDiZRXbMBWhIZdnHVNyJGW7LTYbYSKrLPMkCV 4AHiYhCKApFzuiVvhyGXLlGIAruy2FFKIvVATtOLI0 YsDkHAQuYBOzONehRVTpVBC5MVP5KKPtAXVpTN3FGkJxFKXwDfblWNRbPOMgXIEejn3PMTLpSBFfDNV7 WCQuUHJbYXBqKZtdLIWhAUH2UkVtOERzLSReEZ1MFnAwBGIuJjYxHCOtOLWvNTBswy1EFBYzYUMwHNW3 EKMjCXLvVOVmKKtcNBUdEFZsXhBiZKMgJMYzSU0EYz YzJXbdOWILNyy7YLlqV8l9ZWRxGR5MP8Gxd5NaUqPaQQTVZJraIP3jeyJfHUTvRn4FD9eDGggiLDJ0Pa VfCMCeENSxWpE1SbKaCRNnXvGdRVufLedlOV5oICBrEGJuXgOkVbP0A2KyBamoSII2LkI8FlQgSBBjJY L0QtOxHO1DXo8AFuX7EGM2nKZvZl1FHoS4DFjUMlGaZU2ZRJs= ID Date Data Source [id number] 08/13/2020 04:06:48 PM EDT [facility] Patient: EMILY POSTLESLY : 1985 MR N: [id number] [facility] CERVICAL SPINE WO CONTRAST Provider: ABRAHAM [...] rce(s) Supporting Document(s) ID Date Data Source [id number] 08/13/2020 03:21:37 PM EDT [facility] Name Value Range Interpretation Code Description Data Queta rce(s) Supporting Document(s) ED Triage Notes [facility] MGCDTj1tAmHLWlOb63/SCFxjOMCvg9WtJBvyVBc9COjqVJNdX1BlNQS8rA5oGVO7PCiMWpXaKhTiYHB3 lbm [file] zcYwKnEEP3Jiu0UJ1rXEPZJk0+XHndbEVysBnkJWNPGcm2NiCWAsDiJC7UUJy= Procedure Social History Code Duration Value Status Description Data Source(s ) Smoking 09/11/2021 12:00:00 AM EST Patient is a former smoker completed Patient is a former smoker [facility] ([facility], ) Smoking 08/09/2021 12:00:00 AM EDT Former Smoker completed Former Smoker eCW1 ([facility]) Smoking 08/09/2021 12:00:00 AM EDT Former Smoker completed Former Smoker eCW1 ([facility]) Smoking 08/07/2021 12:00:00 AM EDT Former Smoker completed Former Smoker eCW1 ([facility]) Smoking 05/28/2021 12:00:00 AM EDT Former Smoker completed Former Smoker eCW1 ([facility]) Smoking 05/15/2021 12:00:00 AM EDT Former Smoker completed Former Smoker eCW1 ([facility]) Smoking 04/09/2021 12:00:00 AM EDT Former Smoker completed Former Smoker eCW1 ([facility]) Alcohol intake 03/04/2021 12:00:00 AM EDT Current drinker of al cohol (finding) completed Current drinker of alcohol (finding) [facility] Smoking 02/05/2021 12:00:00 AM EDT Former Smoker completed Former Smoker eCW1 ([facility]) Smoking 02/05/2021 12:00:00 AM EDT Former Smoker completed Former Smoker eCW1 ([facility]) Tobacco use and exposure 11/09/2020 12:00:00 AM EST Never used co mpleted Never used [facility] Cigarette pack-years 11/09/2020 12:00:00 AM EST UNK completed [facility] Cigarettes smoked current (pack per day) - Reported 11/09/19 12:00:00 AM EST UNK completed [facility] Smoking 11/09/2020 12:00:00 AM EST Former smoker completed Former smoker [facility] Alcohol intake 11/09/2020 12:00:00 AM EST Yes completed [facility] Cigarette pack-years 11/09/2020 12:00:00 AM EST UNK completed [facility] Cigarettes smoked current (pack per day) - Reported 11/09/19 12:00:00 AM EST UNK completed [facility] Smoking 11/09/2020 12:00:00 AM EST Former smoker completed Former smoker [facility] Alcohol intake 10/31/2020 12:00:00 AM EST Current non-d vicki of alcohol (finding) completed Current non-drinker of alcohol (finding) [facility] Tobacco use and exposure 10/31/2020 12:00:00 AM EST Never used co mpleted Never used [facility] Smoking 10/31/2020 12:00:00 AM EST Former smoker completed Former smoker [facility] Smoking 09/18/2020 12:00:00 AM EST Former Smoker completed Former Smoker eCW1 ([facility]) Smoking 09/18/2020 12:00:00 AM EST Former Smoker completed Former Smoker eCW1 ([facility]) Smoking 09/18/2020 12:00:00 AM EST Former Smoker completed Former Smoker eCW1 ([facility]) Smoking 08/22/2020 12:00:00 AM EDT Former Smoker completed Former Smoker eCW1 ([facility]) Smoking 08/10/2020 12:00:00 AM EDT Former Smoker completed Former Smoker eCW1 ([facility]) Vital Signs ID Date Data Source UNK Name Value Range Interpretation Code Description Data Source(s) Body mass index (BMI) [Ratio] 44.7 kg/m2 44.7 k g/m2 [facility] ([facility]) Swain body weight 106 [lb_av] 106 [lb_av] MED[facility] T ([facility]) Body temperature 98.4 [degF] 98.4 [degF] [facility] ([facility]) Body weight 100.359 kg 100.359 kg [facility] ([facility]) Body height 59 [in_i] 59 [in_i] [facility] ([facility]) 4'11" Body surface area Derived from formula 1.93 m2 1.93 m2 [facility] ([facility]) Body weight 221.25 [lb_av] 221.25 [lb_av] [facility] T ([facility]) Systolic blood pressure 102 mm[Hg] 102 mm[Hg] [facility] Diastolic blood pressure 58 mm[Hg] 58 mm[Hg] [facility] ([facility]) Body height 59 [in_i] 59 [in_i] [facility] ([facility]) 4'11" Body weight 221.25 [lb_av] 221.25 [lb_av] [facility] T ([facility]) Body mass index (BMI) [Ratio] 44.7 kg/m2 44.7 k g/m2 [facility] ([facility]) Swain body weight 100 [lb_av] 100 [lb_av] [facility] T ([facility]) Body weight 100.359 kg 100.359 kg [facility] ([facility]) Body surface area Derived from formula 1.93 m2 1.93 m2 [facility] ([facility]) Body weight 221.8 [lb_av] 221.8 [lb_av] eCW1 ([facility]placed by [facility]) Body temperature 97.3 [degF] 97.3 [degF] eCW1 ( [facility]) Systolic blood pressure 124 mm[Hg] 124 mm[Hg] e CW1 ([facility]) Body height 59 [in_i] 59 [in_i] eCW1 ([facility]) Diastolic blood pressure 76 mm[Hg] 76 mm[Hg] eCW1 ([facility]) Body mass index (BMI) [Ratio] 44.79 kg/m2 44.79 kg/m2 W1 ([facility]) Heart rate 86 /min 86 /min eCW1 ([facility]) Respiratory rate 18 /min 18 /min eCW1 ([facility]) Body weight 222 [lb_av] 222 [lb_av] eCW1 ([facility]) Body height 59 [in_i] 59 [in_i] eCW1 ([facility]) Body mass index (BMI) [Ratio] 44.83 kg/m2 44.83 kg/m2 eCW1 ([facility]) Systolic blood pressure 132 mm[Hg] 132 mm[Hg] e CW1 ([facility]) Diastolic blood pressure 94 mm[Hg] 94 mm[Hg] eCW1 ([facility]) Body mass index (BMI) [Ratio] 44.9 kg/m2 44.9 k g/m2 [facility] ([facility]) Swain body weight 100 [lb_av] 100 [lb_av] [facility] T ([facility]) Body weight 100.926 kg 100.926 kg [facility] ([facility]) Body surface area Derived from formula 1.93 m[facility] 1.93 [facility] Systolic blood pressure 126 mm[Hg] 126 mm[Hg] M EDENT ([facility]) Diastolic blood pressure 70 mm[Hg] 70 mm[Hg] [facility] ([facility]) Body height 59 [in_i] 59 [in_i] [facility] ([facility]) 4'11" Body weight 222.50 [lb_av] 222.50 [lb_av] [facility] T ([facility]) Body mass index (BMI) [Ratio] 44.9 kg/m2 44.9 k g/m2 [facility] ([facility]) [place] body weight 100 [lb_av] 100 [lb_av] [facility] T ([facility]) Body weight 100.926 kg 100.926 kg [facility] ([facility]) Body surface area Derived from formula 1.93 m2 1.93 m2 [facility] ([facility]) Body height 59 [in_i] 59 [in_i] [facility] ([facility]) 4'11" Body weight 222.50 [lb_av] 222.50 [lb_av] MED[facility] T ([facility]) Heart rate 70 /min 70 /min [facility] Systolic blood pressure 112 mm[Hg] 112 mm[Hg] [facility] Diastolic blood pressure 68 mm[Hg] 68 mm[Hg] [facility] Respiratory rate 18 /min 18 /min [facility] Oxygen saturation in Arterial blood by Pulse oximetry 96 % 96 % [facility] Body temperature 36.56 Anuradha 36.56 Anuradha [facility] Body weight 95.255 kg 95.255 kg [facility] Body mass index (BMI) [Ratio] 42.41 kg/m2 42.41 kg/m2 [facility] Body weight 224.2 [lb_av] 224.2 [lb_av] eCW1 (Replaced by [facility]) Body height 59 [in_i] 59 [in_i] eCW1 (Formerly [facility]) Body mass index (BMI) [Ratio] 45.28 kg/m2 45.28 kg/m2 eCW1 ([facility]) Heart rate 80 /min 80 /min eCW1 ([facility]) Respiratory rate 18 /min 18 /min eCW1 ([facility]) Body temperature 98.2 [degF] 98.2 [degF] eCW1 ( [facility]) Systolic blood pressure 108 mm[Hg] 108 mm[Hg] e CW1 ([facility]) Diastolic blood pressure 70 mm[Hg] 70 mm[Hg] eCW1 ([facility]) Systolic blood pressure 102 mm[Hg] 102 mm[Hg] [facility] Diastolic blood pressure 78 mm[Hg] 78 mm[Hg] [facility] Heart rate 63 /min 63 /min [facility] Body height 149.9 cm 149.9 cm [facility] Body weight 100.245 kg 100.245 kg [facility] Body mass index (BMI) [Ratio] 44.64 kg/m2 44.64 kg/m2 [facility] Oxygen saturation in Arterial blood by Pulse oximetry 97 % 97 % [facility] Body weight 220 [lb_av] 220 [lb_av] W1 ([facility]) Body height 59 [in_i] 59 [in_i] eCW1 ([facility]) Body mass index (BMI) [Ratio] 44.43 kg/m2 44.43 kg/m2 W1 ([facility]) Heart rate 96 /min 96 /min eCW1 ([facility]) Respiratory rate 18 /min 18 /min eCW1 ([facility]) Body temperature 97.7 [degF] 97.7 [degF] eCW1 ( [facility]) Systolic blood pressure 118 mm[Hg] 118 mm[Hg] e CW1 ([facility]) Diastolic blood pressure 80 mm[Hg] 80 mm[Hg] eCW1 ([facility]) Systolic blood pressure 146 mm[Hg] 146 mm[Hg] M [facility] Body height 149.9 cm 149.9 cm [facility] Diastolic blood pressure 103 mm[Hg] 103 mm[Hg] [facility] Body weight 95.255 kg 95.255 kg [facility] Body mass index (BMI) [Ratio] 42.41 kg/m2 42.41 kg/m2 [facility] Oxygen saturation in Arterial blood by Pulse oximetry 100 % 100 % [facility] Heart rate 86 /min 86 /min [facility] Body temperature 36.89 Anuradha 36.89 Anuradha [facility] Respiratory rate 18 /min 18 /min [facility] Body weight 219 [lb_av] 219 [lb_av] eCW1 ([facility]) Body height 59 [in_i] 59 [in_i] eCW1 ([facility]ly [facility]) Body mass index (BMI) [Ratio] 44.23 kg/m2 44.23 kg/m2 W1 ([facility]) Heart rate 112 /min 112 /min eCW1 ([facility]) Respiratory rate 18 /min 18 /min eCW1 ([facility]) Body temperature 97.2 [degF] 97.2 [degF] eCW1 ( [facility]) Systolic blood pressure 128 mm[Hg] 128 mm[Hg] e CW1 ([facility]) Diastolic blood pressure 80 mm[Hg] 80 mm[Hg] eCW1 ([facility]) Body temperature 97.3 [degF] 97.3 [degF] [facility] ([facility]) Body height 59 [in_i] 59 [in_i] [facility] ([facility]) 4'11" Body weight 2138.00 [lb_av] 2138.00 [lb_av] [facility] ([facility]) Body mass index (BMI) [Ratio] 431.8 kg/m2 431.8 kg/m2 [facility] ([facility]) ID Date Data Source [id number] 10/31/2020 02:13:44 PM [facility] Hospital Name Value Range Interpretation Code Description Data Source(s) PREFERRED NAME Emily Emily [facility] Patient Treatment Plan of Care Planned Activity Planned Date Details Description Data Source (s) Triamcinolone Acetonide 5 MG/ML Topical Cream 05/15/2021 12:00:00 A M EDT eCW1 ([facility]) Triamcinolone Acetonide 5 MG/ML Topical Cream 05/15/2021 12:00:00 A M EDT eCW1 ([facility]) topiramate 200 MG Oral Tablet 10/16/2020 12:00:00 AM EST [facility] topiramate 200 MG Oral Tablet 10/16/2020 12:00:00 AM [facility] valacyclovir 1000 MG Oral Tablet 09/18/2020 12:00:00 AM EST [facility] Fluconazole 150 MG Oral Tablet [Diflucan] 09/18/2020 12:00:00 AM ES T eCW1 ([facility]) valacyclovir 1000 MG Oral Tablet [Valtrex] 09/18/2020 12:00:[address] eCW1 ([facility]) Fluconazole 150 MG Oral Tablet [Diflucan] 09/18/2020 12:00:00 AM ES T eCW1 ([facility]) valacyclovir 1000 MG Oral Tablet [Valtrex] 09/18/2020 12:00:[address] eCW1 ([facility]) Fluconazole 150 MG Oral Tablet [Diflucan] 09/18/2020 12:00:00 AM ES T eCW1 ([facility]) valacyclovir 1000 MG Oral Tablet [Valtrex] 09/18/2020 12:00:[address] eCW1 ([facility]) rizatriptan 5 MG Disintegrating Oral Tablet 07/24/2020 12:00:00 AM EDT [facility] rizatriptan 5 MG Disintegrating Oral Tablet 07/24/2020 12:00:[address] [facility] Cholestyramine Resin 66.7 MG/ML Oral Suspension 02/11/2019 12:00:00 AM EDT [facility] Dicyclomine Hydrochloride 20 MG Oral Tablet 01/12/2019 12:00:00 AM EDT [facility] Acetaminophen 325 MG Oral Tablet 08/18/2018 12:00:00 AM EDT [facility] topiramate 50 MG Oral Tablet 05/29/2018 12:00:[address] [facility] Metformin hydrochloride 500 MG Oral Tablet 05/29/2018 12:00:[address] [facility] Acetaminophen 325 MG / Hydrocodone Bitartrate 7.5 MG O ral Tablet 03/29/2018 12:00:00 AM T [facility] Sucralfate 1000 MG Oral Tablet [facility] Prazosin 2 MG Oral Capsule S [facility] Nystatin 100 UNT/MG Topical Powder [facility] Prazosin 2 MG Oral Capsule U [facility] Misoprostol 0.[address] [facility] Famotidine [address] [facility] Sucralfate [address] [facility] rivaroxaban [address] [facility]
[2021-09-16] MEDS ORDERED: PANTOPRAZOLE 40MG TAB (PROTONIX) PO ONE (20:45)
[2021-09-16] MEDS ORDERED: SUCRALFATE 1 GM TAB PO ONE (20:45)
[2021-09-16 21:35] VITALS: BP 123/89
--- NOTE | 2021-09-16 22:18 | REPVR ---
PROCEDURE INFORMATION: Exam: US Abdomen, Limited; Right Upper Quadrant Exam date and time: 09/16/2021 8:40 PM Age: 36 years old Clinical indication: Abdominal pain; Acute; ; Prior surgery; Surgery date: 6+ months; Surgery type: Cholecystectomy; Additional info: Ruq pain, elevated lipase TECHNIQUE: Imaging protocol: US abdomen. Real time ultrasound with image documentation. Limited exam focused on the right upper quadrant. COMPARISON: CT ABD/PEL W/IV ORAL CONTRAS 03/01/2021 5:24 PM FINDINGS: Liver: Unremarkable. Gallbladder: Surgically absent. Common bile duct: No stones. No ductal dilatation. Pancreas: Unremarkable as visualized. Right kidney: No mass. No definite stones. No hydronephrosis. IMPRESSION: No acute sonographic findings. Electronically signed by: Camilo Guerin On 09/16/2021 22:17:52 PM
== END 2021-09-16 22:03 | disposition home or self-care (01) ==
LOC: M ED 15:44
DX: O26.891 Other specified pregnancy related conditions, first trimester (principal); R10.11 Right upper quadrant pain; O99.611 Diseases of the digestive system complicating pregnancy, first trimester; K27.3 Acute peptic ulcer, site unspecified, without hemorrhage or perforation; R74.8 Abnormal levels of other serum enzymes; Z3A.01 Less than 8 weeks gestation of pregnancy; Z88.6 Allergy status to analgesic agent; Z91.012 Allergy to eggs

== ENCOUNTER 2021-09-22 19:42 | Emergency (ER) | payer OTHER ==
[~2021-09-22] VITALS: Ht 149.9 cm; Wt 101.2 kg
[~2021-09-22 19:42] MED LIST changes: -FLUC150T; -FLUC150T PO; +FLUC150T9; +FLUC150T9 PO; -LATU40TA PO; +LATU40TA2 PO; -PHEN15CA PO; +PHEN15CA6 PO
[2021-09-22 19:45] VITALS: BP 135/76
[2021-09-22] MEDS ORDERED: PRENTAB9 PO (19:50)
== END 2021-09-23 04:04 | disposition left against medical advice (07) ==
LOC: M ED 19:42
DX: Z53.21 Procedure and treatment not carried out due to patient leaving prior to being seen by health care provider (principal)

== ENCOUNTER → 2022-02-05 | Outpatient (CLI) | payer OTHER ==
[~2022-02-05] MED LIST changes: +CHOL4POW14 PO; -CHOL4POW3 PO; +PRENTAB9 PO
[2022-02-05 13:49] LABS: BASO % 0.5 % (0.0-1.0); EOS # 0.2 10^3/uL (0.0-0.5); EOS % 2.9 % (0.0-3.0); HEMATOCRIT 39.9 % (36.0-47.0); HEMOGLOBIN 12.4 g/dl (12.0-15.5); LYMPH % 34.4 % (24.0-44.0); MEAN CORPUSCULAR HEMOGLOBIN 25.6 pg (27.0-33.0); MEAN CORPUSCULAR HGB CONC 31.1 g/dl (32.0-36.5); MEAN CORPUSCULAR VOLUME 82.4 fl (80.0-96.0); MONO # 0.4 10^3/uL (0.0-0.8); MONO % 6.3 % (2.0-8.0); NEUTROPHILS # 3.3 10^3/uL (1.5-8.5); NEUTROPHILS % 55.6 % (36.0-66.0); RED BLOOD COUNT 4.84 10^6/uL (4.00-5.40); WHITE BLOOD COUNT 5.9 10^3/uL (4.0-10.0)
[2022-02-05 14:16] LABS: PLATELET COUNT, AUTOMATED 217 10^3/uL (150-450)
[2022-02-05 17:10] LABS: C REACTIVE PROTEIN QUANTITATIV 0.67 MG/DL (0.00-0.30); RHEUMATOID FACTOR QUANT < 10.0 IU/ML (<15.0)
[2022-02-07 00:07] LABS: ANTINUCLEAR ANTIBODIES DIRECT Negative (Negative); CYCLIC CITRULLINATED PEPTIDE 6 units (0-19)
== END ==
LOC: M PLALAB 10:17
PROVIDERS: ATTEND Nurse Practitioner Family
DX: M25.50 Pain in unspecified joint (principal)
CPT/HCPCS: 36415; 85025; 86038; 86140; 86200; 86431; G0463

== ENCOUNTER → 2022-08-28 | Outpatient (CLI) | payer OTHER ==
[~2022-08-28] MED LIST changes: +CHOL378P3 PO; -CHOL4POW14 PO
== END ==
LOC: M PLALAB 11:42
PROVIDERS: ATTEND Nurse Practitioner Family
DX: Z32.01 Encounter for pregnancy test, result positive (principal)
CPT/HCPCS: 36415; 84702; G0463

== ENCOUNTER 2022-09-05 05:21 | Emergency (ER) | payer OTHER ==
[~2022-09-05] VITALS: Ht 149.9 cm; Wt 94.5 kg
[2022-09-05 09:19] VITALS: BP 137/68
== END 2022-09-05 09:40 | disposition home or self-care (01) ==
LOC: M ED 05:21
DX: S83.91XA Sprain of unspecified site of right knee, initial encounter (principal); W01.0XXA Fall on same level from slipping, tripping and stumbling without subsequent striking against object, initial encounter; K21.9 Gastro-esophageal reflux disease without esophagitis; E28.2 Polycystic ovarian syndrome; Z87.891 Personal history of nicotine dependence; Z91.012 Allergy to eggs; Z88.6 Allergy status to analgesic agent; Z79.899 Other long term (current) drug therapy

== ENCOUNTER 2023-02-01 19:11 | Outpatient (CLI) | payer OTHER, MEDICAID ==
[~2023-02-01] VITALS: Ht 144.8 cm; Wt 95.8 kg
[~2023-02-01 19:11] MED LIST changes: +TOPI-254; +TOPI-254 PO; -TOPI50TA9; -TOPI50TA9 PO
[2023-02-01 19:43] VITALS: BP 142/81
[2023-02-01] MEDS ORDERED: LOVE1INJ SC (19:51)
[2023-02-01] MEDS ORDERED: REGL10TA6 PO (19:51)
[2023-02-01] MEDS ORDERED: PROG1CAP9 VG (19:51)
[2023-02-01] MEDS ORDERED: ACET500P3 PO (19:51)
[2023-02-01] MEDS ORDERED: HOME MED LIST COMPLETE! XX SCH (19:55)
[2023-02-01 22:29] VITALS: BP 138/87
== END 2023-02-01 22:45 | disposition home or self-care (01) ==
LOC: M LDO 19:11
PROVIDERS: ATTEND Obstetrics & Gynecology
DX: O26.892 Other specified pregnancy related conditions, second trimester (principal); R10.2 Pelvic and perineal pain; Z3A.26 26 weeks gestation of pregnancy; O34.211 Maternal care for low transverse scar from previous cesarean delivery; O99.842 Bariatric surgery status complicating pregnancy, second trimester; Z90.49 Acquired absence of other specified parts of digestive tract; Z87.51 Personal history of pre-term labor; Z88.6 Allergy status to analgesic agent; Z91.012 Allergy to eggs
CPT/HCPCS: 59025; 76815; G0463

== ENCOUNTER → 2023-02-14 | Outpatient (CLI) | payer OTHER, MEDICAID ==
[~2023-02-14] MED LIST changes: +ACET-897 PO; +ACET500P3 PO; +FAMO10TA50 PO; +LOVE1INJ SC; +PROG1CAP9 VG; +REGL10TA6 PO; +TUMS500C PO
[2023-02-14 11:31] LABS: BASO % 0.3 % (0.0-1.0); EOS # 0.1 10^3/uL (0.0-0.5); EOS % 1.1 % (0.0-3.0); HEMOGLOBIN 8.3 g/dl (12.0-15.5); LYMPH % 21.4 % (24.0-44.0); MEAN CORPUSCULAR HEMOGLOBIN 24.4 pg (27.0-33.0); MEAN CORPUSCULAR HGB CONC 29.6 g/dl (32.0-36.5); MEAN CORPUSCULAR VOLUME 82.4 fl (80.0-96.0); MONO # 0.6 10^3/uL (0.0-0.8); MONO % 6.5 % (2.0-8.0); NEUTROPHILS # 6.4 10^3/uL (1.5-8.5); NEUTROPHILS % 70.2 % (36.0-66.0); PLATELET COUNT, AUTOMATED 248 10^3/uL (150-450); WHITE BLOOD COUNT 9.1 10^3/uL (4.0-10.0)
[2023-02-14 11:40] LABS: URIC ACID 5.2 MG/DL (3.1-7.8)
[2023-02-14 11:42] LABS: LDH LACTATE DEHYDROGENASE 158 U/L (120-246)
[2023-02-14 11:44] LABS: ALBUMIN 2.2 G/DL (3.2-5.2); ALKALINE PHOSPHATASE 69 U/L (46-116); ALT/SGPT < 9 U/L (7.0-40); AST/SGOT 9 U/L (<34); BILIRUBIN,TOTAL 0.3 MG/DL (0.3-1.2); BLOOD UREA NITROGEN 7 MG/DL (9-23); CALCIUM LEVEL 8.2 MG/DL (8.5-10.1); CARBON DIOXIDE LEVEL 24 MMOL/L (20-31); CHLORIDE LEVEL 106 MMOL/L (98-107); CREATININE FOR GFR 0.76 MG/DL (0.55-1.30); GLOMERULAR FILTRATION RATE > 60.0 (>60); GLUCOSE CHALLENGE TEST 1 HOUR 130 MG/DL (LESS THAN 140); GLUCOSE, FASTING 130 MG/DL (60-100); POTASSIUM SERUM 3.9 MMOL/L (3.5-5.1); SODIUM LEVEL 138 MMOL/L (136-145); TOTAL PROTEIN 5.3 G/DL (5.7-8.2)
[2023-02-14 11:59] LABS: TOTAL PROTEIN,RANDOM URINE 9.2 MG/DL (0.0-14.0)
[2023-02-14 12:04] LABS: CREATININE,RANDOM URINE 80.8 MG/DL
[2023-02-14 12:11] LABS: HIV 1&2 SCREEN CENTAUR NEGATIVE (NEGATIVE)
== END ==
LOC: M PLALAB 07:42
PROVIDERS: ATTEND Midwife
DX: O09.90 Supervision of high risk pregnancy, unspecified, unspecified trimester (principal); Z3A.00 Weeks of gestation of pregnancy not specified

== ENCOUNTER 2023-02-18 11:17 | Outpatient (CLI) | payer OTHER, MEDICAID ==
[~2023-02-18] VITALS: Ht 144.8 cm; Wt 95.9 kg
[~2023-02-18 11:17] MED LIST changes: -ACET-897 PO; -FAMO10TA50 PO; -TUMS500C PO
[2023-02-18 11:43] VITALS: BP 138/84
[2023-02-18] MEDS ORDERED: ACET-897 PO (11:47)
[2023-02-18] MEDS ORDERED: FAMO10TA50 PO (11:49)
[2023-02-18] MEDS ORDERED: TUMS500C PO (11:49)
[2023-02-18 12:13] VITALS: BP 135/72
[2023-02-18] MEDS ORDERED: HOME MED LIST COMPLETE! XX SCH (12:20)
[2023-02-18] MEDS ORDERED: FIORICET TAB PO ONE (13:00)
[2023-02-18 13:23] VITALS: BP 129/58
[2023-02-18 13:58] VITALS: BP 143/80
== END 2023-02-18 14:45 | disposition home or self-care (01) ==
LOC: M LDO 11:17
PROVIDERS: ATTEND Obstetrics & Gynecology
DX: O36.8130 Decreased fetal movements, third trimester, not applicable or unspecified (principal); O26.893 Other specified pregnancy related conditions, third trimester; R51.9 Headache, unspecified; O09.523 Supervision of elderly multigravida, third trimester; Z87.51 Personal history of pre-term labor; O34.219 Maternal care for unspecified type scar from previous cesarean delivery; O24.33 Unspecified pre-existing diabetes mellitus in the puerperium; Z3A.29 29 weeks gestation of pregnancy
CPT/HCPCS: 59025; 76815; 76819; 76820; G0463

== ENCOUNTER 2023-03-02 14:43 | Outpatient (CLI) | payer OTHER, MEDICAID ==
[~2023-03-02] VITALS: Ht 144.8 cm; Wt 94.4 kg
[~2023-03-02 14:43] MED LIST changes: +ACET-897 PO; +FAMO10TA50 PO; +NYST100085 TOP; -NYSTOI TOP; +TUMS500C PO
[2023-03-02 15:03] VITALS: BP 121/74
[2023-03-02] MEDS ORDERED: HOME MED LIST COMPLETE! XX SCH (15:20)
[2023-03-02] MEDS ORDERED: LR 800 ML IV ONE (15:25)
[2023-03-02 16:14] LABS: BASO # 0.1 10^3/uL (0.0-0.2); BASO % 0.5 % (0.0-1.0); EOS # 0.1 10^3/uL (0.0-0.5); EOS % 1.1 % (0.0-3.0); HEMATOCRIT 27.7 % (36.0-47.0); HEMOGLOBIN 8.3 g/dl (12.0-15.5); LYMPH # 2.5 10^3/uL (1.5-5.0); LYMPH % 22.8 % (24.0-44.0); MEAN CORPUSCULAR HEMOGLOBIN 23.4 pg (27.0-33.0); MEAN CORPUSCULAR VOLUME 78.2 fl (80.0-96.0); MONO # 0.8 10^3/uL (0.0-0.8); MONO % 7.7 % (2.0-8.0); NEUTROPHILS # 7.2 10^3/uL (1.5-8.5); PLATELET COUNT, AUTOMATED 267 10^3/uL (150-450); RED BLOOD COUNT 3.54 10^6/uL (4.00-5.40); WHITE BLOOD COUNT 10.8 10^3/uL (4.0-10.0)
[2023-03-02 16:15] LABS: AMORPHOUS SEDIMENT SMALL (NEGATIVE); APPEARANCE, URINE CLOUDY (CLEAR); BACTERIA, URINE AUTO 1+ (NEGATIVE); BILIRUBIN, URINE AUTO NEGATIVE (NEGATIVE); BLOOD, URINE BLOOD 2+ (NEGATIVE); CALCIUM OXALATE CRYSTALS MODERATE; COLOR, URINE AMBER (YELLOW); GLUCOSE, URINE (UA) AUTO NEGATIVE (NEGATIVE); KETONE, URINE AUTO TRACE mg/dL (NEGATIVE); LEUKOCYTE ESTERASE, URINE AUTO 3+ (NEGATIVE); MUCUS, URINE SMALL (NEGATIVE); NITRITE, URINE AUTO NEGATIVE (NEGATIVE); PROTEIN, URINE AUTO 1+ mg/dL (NEGATIVE); RBC, URINE AUTO 44 /HPF (0-3); SPECIFIC GRAVITY URINE AUTO 1.044 (1.002-1.035); SQUAMOUS EPITHELIAL CELL UR AU 10 /HPF (0-6); UROBILINOGEN, URINE AUTO 0.2 mg/dL (0.0-2.0); WBC, URINE AUTO 9 /HPF (0-3)
[2023-03-02 17:16] VITALS: BP 126/75
[2023-03-02 18:05] LABS: GC DNA AMPLIFICATION NEGATIVE (NEGATIVE)
== END 2023-03-02 18:28 | disposition home or self-care (01) ==
LOC: M LDO 14:43
PROVIDERS: ATTEND Obstetrics & Gynecology
DX: O47.03 False labor before 37 completed weeks of gestation, third trimester (principal); Z3A.34 34 weeks gestation of pregnancy; O09.523 Supervision of elderly multigravida, third trimester; O34.219 Maternal care for unspecified type scar from previous cesarean delivery; Z88.6 Allergy status to analgesic agent; Z91.012 Allergy to eggs
CPT/HCPCS: 59025; 76811; 76820; 81001; 82731; 85025; 87081; 87810; 87850; G0463

== ENCOUNTER → 2023-03-04 | Outpatient (CLI) | payer OTHER ==
[2023-03-04 15:38] LABS: URIC ACID 4.6 MG/DL (3.1-7.8)
[2023-03-04 15:41] LABS: BASO % 0.4 % (0.0-1.0); EOS # 0.1 10^3/uL (0.0-0.5); EOS % 0.6 % (0.0-3.0); HEMATOCRIT 29.5 % (36.0-47.0); HEMOGLOBIN 8.5 g/dl (12.0-15.5); LDH LACTATE DEHYDROGENASE 174 U/L (120-246); LYMPH # 2.3 10^3/uL (1.5-5.0); LYMPH % 22.1 % (24.0-44.0); MEAN CORPUSCULAR HEMOGLOBIN 23.2 pg (27.0-33.0); MEAN CORPUSCULAR HGB CONC 28.8 g/dl (32.0-36.5); MEAN CORPUSCULAR VOLUME 80.6 fl (80.0-96.0); MONO # 0.8 10^3/uL (0.0-0.8); MONO % 7.5 % (2.0-8.0); NEUTROPHILS # 7.1 10^3/uL (1.5-8.5); NEUTROPHILS % 68.3 % (36.0-66.0); PLATELET COUNT, AUTOMATED 261 10^3/uL (150-450); RED BLOOD COUNT 3.66 10^6/uL (4.00-5.40); WHITE BLOOD COUNT 10.3 10^3/uL (4.0-10.0)
[2023-03-04 15:42] LABS: ALBUMIN 2.5 G/DL (3.2-5.2); ALKALINE PHOSPHATASE 76 U/L (46-116); ALT/SGPT 10 U/L (7.0-40); AST/SGOT 10 U/L (<34); BILIRUBIN,TOTAL 0.4 MG/DL (0.3-1.2); BLOOD UREA NITROGEN 9 MG/DL (9-23); CALCIUM LEVEL 8.3 MG/DL (8.5-10.1); CARBON DIOXIDE LEVEL 23 MMOL/L (20-31); CHLORIDE LEVEL 107 MMOL/L (98-107); CREATININE FOR GFR 0.69 MG/DL (0.55-1.30); GLOMERULAR FILTRATION RATE > 60.0 (>60); GLUCOSE, FASTING 64 MG/DL (60-100); POTASSIUM SERUM 4.6 MMOL/L (3.5-5.1); SODIUM LEVEL 136 MMOL/L (136-145)
== END ==
LOC: M PLALAB 13:19
PROVIDERS: ATTEND Nurse Practitioner Family
DX: O12.13 Gestational proteinuria, third trimester (principal)

== ENCOUNTER 2023-03-30 17:20 | Outpatient (CLI) | payer OTHER, MEDICAID ==
[~2023-03-30] VITALS: Ht 147.3 cm; Wt 95.9 kg
[2023-03-30 17:36] VITALS: BP 121/76
[2023-03-30] MEDS ORDERED: VALT1TAB PO (17:40)
[2023-03-30] MEDS ORDERED: LR 1,000 ML IV ONE (17:45)
[2023-03-30] MEDS ORDERED: HOME MED LIST COMPLETE! XX SCH (17:45)
[2023-03-30] MEDS ORDERED: LR 1,000 ML IV SCH (17:45)
[2023-03-30 19:58] VITALS: BP 155/70
[2023-03-30 20:04] VITALS: BP 124/72
== END 2023-03-30 22:17 | disposition home or self-care (01) ==
LOC: M LDO 17:20
PROVIDERS: ATTEND Obstetrics & Gynecology
DX: O99.283 Endocrine, nutritional and metabolic diseases complicating pregnancy, third trimester (principal); E86.0 Dehydration; Z3A.36 36 weeks gestation of pregnancy; O34.219 Maternal care for unspecified type scar from previous cesarean delivery; O09.523 Supervision of elderly multigravida, third trimester; O34.33 Maternal care for cervical incompetence, third trimester; Z88.6 Allergy status to analgesic agent; Z91.012 Allergy to eggs
CPT/HCPCS: 59025; 96360; 96361; G0463

== ENCOUNTER → 2023-09-04 | Outpatient (REF) | payer OTHER, MEDICAID ==
[~2023-09-04] MED LIST changes: +VALT1TAB PO
== END ==
LOC: M SFHCWAGY 13:01
PROVIDERS: ATTEND Nurse Practitioner Family
DX: Z12.4 Encounter for screening for malignant neoplasm of cervix (principal); R87.618 Other abnormal cytological findings on specimens from cervix uteri; N88.0 Leukoplakia of cervix uteri
CPT/HCPCS: 87624; G0123; G0463

== ENCOUNTER 2023-12-11 19:44 | Emergency (ER) | payer MEDICAID, OTHER ==
[~2023-12-11] VITALS: Ht 147.3 cm; Wt 90.9 kg
[~2023-12-11 19:44] MED LIST changes: -EFFE150C2 PO; +EFFE150C3 PO; -EFFE37.5 PO; +EFFE37.52 PO; +TOPI-21; +TOPI-21 PO; -TOPI-254; -TOPI-254 PO
[2023-12-11] MEDS ORDERED: ABIL1TAB13 PO (20:02)
[2023-12-11 20:41] LABS: BASO # 0.1 10^3/uL (0.0-0.2); BASO % 0.7 % (0.0-1.0); EOS # 0.4 10^3/uL (0.0-0.5); EOS % 4.1 % (0.0-3.0); HEMATOCRIT 44.1 % (36.0-47.0); HEMOGLOBIN 14.7 g/dl (12.0-15.5); LYMPH # 3.1 10^3/uL (1.5-5.0); LYMPH % 33.2 % (24.0-44.0); MEAN CORPUSCULAR HEMOGLOBIN 29.4 pg (27.0-33.0); MEAN CORPUSCULAR HGB CONC 33.3 g/dl (32.0-36.5); MEAN CORPUSCULAR VOLUME 88.2 fl (80.0-96.0); MONO # 0.5 10^3/uL (0.0-0.8); MONO % 5.7 % (2.0-8.0); NEUTROPHILS # 5.3 10^3/uL (1.5-8.5); NEUTROPHILS % 56.1 % (36.0-66.0); PLATELET COUNT, AUTOMATED 279 10^3/uL (150-450); WHITE BLOOD COUNT 9.4 10^3/uL (4.0-10.0)
[2023-12-11] MEDS: NS 1,000 ML IV ONE (20:51)
[2023-12-11] MEDS: KETOROLAC 30 MG/ML 1ML VIAL IV ONE (20:51)
[2023-12-11] MEDS: ONDANSETRON 4MG 2ML VIAL IV ONE (20:51)
[2023-12-11 21:04] LABS: LIPASE 68 U/L (12-53)
[2023-12-11 21:06] LABS: ALBUMIN 3.5 G/DL (3.2-5.2); ALKALINE PHOSPHATASE 62 U/L (46-116); ALT/SGPT 15 U/L (7.0-40); AST/SGOT 13 U/L (<34); BILIRUBIN,DIRECT 0.3 MG/DL (<0.4); BILIRUBIN,TOTAL 0.8 MG/DL (0.3-1.2); BLOOD UREA NITROGEN 21 MG/DL (9-23); CALCIUM LEVEL 9.2 MG/DL (8.5-10.1); CARBON DIOXIDE LEVEL 28 MMOL/L (20-31); CHLORIDE LEVEL 108 MMOL/L (98-107); CREATININE FOR GFR 0.99 MG/DL (0.55-1.30); GLOMERULAR FILTRATION RATE > 60.0 (>60); GLUCOSE, FASTING 83 MG/DL (60-100); POTASSIUM SERUM 4.1 MMOL/L (3.5-5.1); SODIUM LEVEL 140 MMOL/L (136-145); TOTAL PROTEIN 6.7 G/DL (5.7-8.2)
[2023-12-11 21:14] LABS: HCG, SERUM QUALITATIVE NEGATIVE (NEGATIVE)
[2023-12-11] MEDS: GASTROGRAFIN SOLUTION 30ML PO SCH (21:40)
[2023-12-11] MEDS ORDERED: ISOVUE-370 76% 100ML VIAL As Ordered ONE (22:05)
[2023-12-12] MEDS: MORPHINE 4 MG/ML 1ML VIAL IV PRN (00:14)
[2023-12-12] MEDS ORDERED: ONDA4TAB6 PO (00:53)
[2023-12-12] MEDS: OXYCODONE/APAP 5MG/325MG(HOME DOSE PACK) PO ONE (01:07)
[2023-12-12 01:18] VITALS: BP 148/77; TEMP 98.8; O2SAT 98
== END 2023-12-12 01:19 | disposition home or self-care (01) ==
LOC: M ED 19:44
DX: N83.291 Other ovarian cyst, right side (principal); K85.90 Acute pancreatitis without necrosis or infection, unspecified; K21.9 Gastro-esophageal reflux disease without esophagitis; G43.909 Migraine, unspecified, not intractable, without status migrainosus; F43.10 Post-traumatic stress disorder, unspecified; F19.10 Other psychoactive substance abuse, uncomplicated; F10.10 Alcohol abuse, uncomplicated; Z88.6 Allergy status to analgesic agent; Z91.012 Allergy to eggs; Z79.83 Long term (current) use of bisphosphonates; Z79.899 Other long term (current) drug therapy
CPT/HCPCS: 74177; 76705; 80053; 81001; 82248; 83690; 84703; 85025; 96361; 96374; 96375; 99284; J1885; J2405; Q9963; Q9967

== ENCOUNTER → 2024-02-05 | Outpatient (CLI) | payer OTHER ==
[~2024-02-05] MED LIST changes: +ABIL1TAB13 PO; -MIRT-60 PO; +MIRT-89 PO; +NYST15OI13 TOP; -NYST1OIN TOP
[2024-02-05 11:06] LABS: ALBUMIN 3.5 G/DL (3.2-5.2); ALKALINE PHOSPHATASE 61 U/L (46-116); ALT/SGPT 13 U/L (7.0-40); AST/SGOT 10 U/L (<34); BILIRUBIN,TOTAL 0.8 MG/DL (0.3-1.2); BLOOD UREA NITROGEN 17 MG/DL (9-23); CALCIUM LEVEL 9.2 MG/DL (8.5-10.1); CARBON DIOXIDE LEVEL 31 MMOL/L (20-31); CHLORIDE LEVEL 107 MMOL/L (98-107); CHOLESTEROL LEVEL 151 MG/DL (<200); CHOLESTEROL RISK RATIO 2.53 (<5); CREATININE FOR GFR 0.83 MG/DL (0.55-1.30); GLOMERULAR FILTRATION RATE > 60.0 (>60); GLUCOSE, FASTING 81 MG/DL (60-100); HDL CHOLESTEROL 59.5 MG/DL (>40); LDL CHOLESTEROL 77.3 MG/DL (<100); NON-HDL-C 91.5 MG/DL; POTASSIUM SERUM 4.7 MMOL/L (3.5-5.1); SODIUM LEVEL 142 MMOL/L (136-145); TOTAL PROTEIN 6.4 G/DL (5.7-8.2); TRIGLYCERIDES LEVEL 71 MG/DL (<150)
[2024-02-05 11:08] LABS: FREE T4 1.06 NG/DL (0.89-1.76); THYROID STIMULATING HORMONE 1.549 uIU/ML (0.55-4.78); TOTAL 25(OH) VITAMIN D 21.1 NG/ML (20.0-100.0)
[2024-02-05 11:14] LABS: HEMOGLOBIN A1c 4.5 % (4.0-6.0)
== END ==
LOC: M PLALAB 08:12
PROVIDERS: ATTEND Nurse Practitioner Family
DX: E55.9 Vitamin D deficiency, unspecified (principal); R53.83 Other fatigue; Z13.220 Encounter for screening for lipoid disorders; Z13.228 Encounter for screening for other metabolic disorders

== ENCOUNTER 2024-02-07 23:18 | Emergency (ER) | payer OTHER ==
[~2024-02-07] VITALS: Ht 149.9 cm; Wt 94.9 kg
[2024-02-08] MEDS: ACETAMINOPHEN TAB 650MG DOSE (2X325MG) PO ONE (03:02)
[2024-02-08 05:17] VITALS: BP 135/65; TEMP 98.4; O2SAT 98
[2024-02-08] MEDS: predniSONE 20 MG TAB PO ONE (06:04)
== END 2024-02-08 06:15 | disposition home or self-care (01) ==
LOC: M ED 23:18
DX: M25.562 Pain in left knee (principal); W10.8XXA Fall (on) (from) other stairs and steps, initial encounter; Y92.009 Unspecified place in unspecified non-institutional (private) residence as the place of occurrence of the external cause; Y93.89 Activity, other specified; Y99.9 Unspecified external cause status; Z88.6 Allergy status to analgesic agent; Z91.012 Allergy to eggs; Z79.899 Other long term (current) drug therapy; Z79.83 Long term (current) use of bisphosphonates; Z79.52 Long term (current) use of systemic steroids
CPT/HCPCS: 73080; 73564; 99284; J7512

== ENCOUNTER → 2024-09-06 | Outpatient (CLI) | payer OTHER ==
[~2024-09-06] MED LIST changes: +CYTO100T2 PO; -CYTO1TAB2 PO; +NYST1POW3 TOP; -NYST1POW9 TOP; +ONDA-282 PO; -ONDA4TAB6 PO
== END ==
LOC: M WHC 09:44
PROVIDERS: ATTEND Nurse Practitioner Family
DX: Z12.31 Encounter for screening mammogram for malignant neoplasm of breast (principal)

== ENCOUNTER → 2024-09-06 | Outpatient (REF) | payer OTHER ==
[2024-09-06 15:01] LABS: GC DNA AMPLIFICATION NEGATIVE (NEGATIVE)
[2024-09-06 22:07] LABS: Trichomonas vaginalis (AMP) NOT DETECTED (NEGATIVE)
== END ==
LOC: M SFHCWAGY 12:47
PROVIDERS: ATTEND Nurse Practitioner Family
DX: N94.10 Unspecified dyspareunia (principal)

== ENCOUNTER → 2024-09-28 | Outpatient (CLI) | payer OTHER | LOC: M WHC 12:56 | PROVIDERS: ATTEND Nurse Practitioner Family | DX: R92.8 Other abnormal and inconclusive findings on diagnostic imaging of breast (principal); N63.11 Unspecified lump in the right breast, upper outer quadrant ==

== ENCOUNTER 2024-10-09 23:06 | Emergency (ER) | payer MEDICAID, OTHER ==
[~2024-10-09] VITALS: Ht 149.9 cm; Wt 96.3 kg
[2024-10-09 23:14] VITALS: BP 148/84; TEMP 97.8; O2SAT 97
[2024-10-10] MEDS ORDERED: AMOX875T2 PO (01:09)
[2024-10-10] MEDS: AUGMENTIN 875 MG TAB PO ONE (01:22)
[2024-10-10] MEDS: ACETAMINOPHEN 500 MG TAB PO ONE (01:23)
[2024-10-10] MEDS: KETOROLAC 60MG 2ML VIAL IM ONE (01:24)
== END 2024-10-10 01:35 | disposition home or self-care (01) ==
LOC: M ED 10-10 00:02
DX: K04.7 Periapical abscess without sinus (principal); K08.89 Other specified disorders of teeth and supporting structures; Z79.2 Long term (current) use of antibiotics; Z79.83 Long term (current) use of bisphosphonates; Z79.52 Long term (current) use of systemic steroids; Z79.899 Other long term (current) drug therapy
CPT/HCPCS: 96372; 99283; J1885

== ENCOUNTER 2024-10-14 08:28 | Outpatient (RCR) | payer OTHER ==
[~2024-10-14 08:28] MED LIST changes: +AMOX875T2 PO
[2024-10-18] MEDS ORDERED: DULO1CAP5 (08:46)
[2024-10-18] MEDS ORDERED: VALT1TAB PO (08:46)
[2024-10-18] MEDS ORDERED: LORAPOW30 (08:46)
== END 2024-10-26 ==
LOC: M PT 08:28
PROVIDERS: ATTEND Nurse Practitioner Family
DX: N94.10 Unspecified dyspareunia (principal)

== ENCOUNTER 2024-10-18 08:26 | Emergency (ER) | payer OTHER ==
[~2024-10-18] VITALS: Ht 149.9 cm; Wt 90.9 kg
[2024-10-18 08:36] VITALS: BP 153/85; TEMP 100.5; O2SAT 97
[2024-10-18] MEDS ORDERED: DULO1CAP5 (08:46)
[2024-10-18] MEDS ORDERED: LORAPOW30 (08:46)
[2024-10-18] MEDS ORDERED: VALT1TAB PO (08:46)
== END 2024-10-18 11:36 | disposition home or self-care (01) ==
LOC: M ED 08:26
DX: U07.1 COVID-19 (principal); J06.9 Acute upper respiratory infection, unspecified; R51.9 Headache, unspecified; G47.30 Sleep apnea, unspecified; E28.2 Polycystic ovarian syndrome; F43.10 Post-traumatic stress disorder, unspecified; M32.9 Systemic lupus erythematosus, unspecified; Z79.2 Long term (current) use of antibiotics; Z79.899 Other long term (current) drug therapy; Z98.84 Bariatric surgery status

== ENCOUNTER 2024-11-28 20:13 | Emergency (ER) | payer MEDICAID, OTHER ==
[~2024-11-28] VITALS: Ht 154.9 cm; Wt 96.3 kg
[~2024-11-28 20:13] MED LIST changes: +DULO1CAP5; +LORAPOW30
[2024-11-29] MEDS ORDERED: AMOX500C PO (02:07)
[2024-11-29 02:30] VITALS: BP 140/83; TEMP 98.9; O2SAT 97
[2024-11-29] MEDS: AMOXICILLIN 500 MG CAP PO ONE (02:44)
== END 2024-11-29 02:46 | disposition home or self-care (01) ==
LOC: M ED 20:13
DX: H65.01 Acute serous otitis media, right ear (principal); B97.4 Respiratory syncytial virus as the cause of diseases classified elsewhere; E28.2 Polycystic ovarian syndrome; G43.909 Migraine, unspecified, not intractable, without status migrainosus; K21.9 Gastro-esophageal reflux disease without esophagitis; F43.10 Post-traumatic stress disorder, unspecified; F10.10 Alcohol abuse, uncomplicated; Z88.6 Allergy status to analgesic agent; Z91.012 Allergy to eggs; Z79.2 Long term (current) use of antibiotics; Z79.899 Other long term (current) drug therapy

== ENCOUNTER → 2025-01-20 | Outpatient (CLI) | payer OTHER ==
[2025-01-20 14:08] LABS: BASO % 0.6 % (0.0-1.0); EOS # 0.4 10^3/uL (0.0-0.5); EOS % 5.8 % (0.0-3.0); HEMATOCRIT 43.1 % (36.0-47.0); HEMOGLOBIN 14.5 g/dl (12.0-15.5); LYMPH # 2.3 10^3/uL (1.5-5.0); LYMPH % 32.3 % (24.0-44.0); MEAN CORPUSCULAR HEMOGLOBIN 29.8 pg (27.0-33.0); MEAN CORPUSCULAR HGB CONC 33.6 g/dl (32.0-36.5); MEAN CORPUSCULAR VOLUME 88.7 fl (80.0-96.0); MONO # 0.3 10^3/uL (0.0-0.8); NEUTROPHILS % 57.2 % (36.0-66.0); PLATELET COUNT, AUTOMATED 291 10^3/uL (150-450); RED BLOOD COUNT 4.86 10^6/uL (4.00-5.40); WHITE BLOOD COUNT 7.1 10^3/uL (4.0-10.0)
[2025-01-20 14:39] LABS: ALBUMIN 3.4 G/DL (3.2-5.2); ALKALINE PHOSPHATASE 66 U/L (35-104); ALT/SGPT 26 U/L (7.0-40); AST/SGOT 33 U/L (<34); BILIRUBIN,TOTAL 0.5 MG/DL (0.3-1.2); BLOOD UREA NITROGEN 10 MG/DL (9-23); CALCIUM LEVEL 8.9 MG/DL (8.5-10.1); CARBON DIOXIDE LEVEL 29 MMOL/L (20-31); CHLORIDE LEVEL 104 MMOL/L (98-107); CREATININE FOR GFR 0.87 MG/DL (0.55-1.30); GLOMERULAR FILTRATION RATE > 60.0 (>58); GLUCOSE, FASTING 95 MG/DL (60-100); IRON (FE) 37 UG/DL (50-170); PERCENT SATURATION 13.4 % (13.2-45.0); POTASSIUM SERUM 4.2 MMOL/L (3.5-5.1); SODIUM LEVEL 141 MMOL/L (136-145); TOTAL IRON BINDING CAPACITY 276 UG/DL (250-425); TOTAL PROTEIN 6.5 G/DL (5.7-8.2)
[2025-01-20 14:41] LABS: VITAMIN B12 LEVEL 488 PG/ML (211-911)
== END ==
LOC: M LAB 13:33
PROVIDERS: ATTEND Nurse Practitioner
DX: D50.8 Other iron deficiency anemias (principal)

== ENCOUNTER 2025-06-30 08:35 | Emergency (ER) | payer OTHER ==
[~2025-06-30] VITALS: Ht 149.9 cm; Wt 94.1 kg
[~2025-06-30 08:35] MED LIST changes: +TOPI-14 PO; -TOPI200T7 PO
[2025-06-30] MEDS ORDERED: RAME8TAB2 (08:47)
[2025-06-30] MEDS ORDERED: TELM1TAB33 (08:47)
[2025-06-30] MEDS ORDERED: CYAN100017 (08:48)
[2025-06-30] MEDS ORDERED: ERGO500029 (08:48)
[2025-06-30 10:10] LABS: ALT/SGPT 24 U/L (7.0-40); AST/SGOT 70 U/L (<34); CALCIUM LEVEL 9.4 MG/DL (8.5-10.1); CARBON DIOXIDE LEVEL 24 MMOL/L (20-31); CHLORIDE LEVEL 104 MMOL/L (98-107); CREATININE FOR GFR 0.80 MG/DL (0.55-1.30); GLOMERULAR FILTRATION RATE > 90.0 (>58); POTASSIUM SERUM 5.4 MMOL/L (3.5-5.1); SODIUM LEVEL 140 MMOL/L (136-145)
[2025-06-30 10:23] LABS: BASO # 0.1 10^3/uL (0.0-0.2); BASO % 0.6 % (0.0-1.0); EOS # 0.3 10^3/uL (0.0-0.5); EOS % 2.5 % (0.0-3.0); LYMPH # 2.2 10^3/uL (1.5-5.0); LYMPH % 21.2 % (24.0-44.0); MONO # 0.7 10^3/uL (0.0-0.8); MONO % 6.5 % (2.0-8.0); NEUTROPHILS # 7.2 10^3/uL (1.5-8.5); NEUTROPHILS % 69.0 % (36.0-66.0); PLATELET COUNT, AUTOMATED 272 10^3/uL (150-450)
[2025-06-30] MEDS ORDERED: ISOVUE-370 76% 100 ML VIAL As Ordered ONE (10:34)
[2025-06-30] MEDS: ONDANSETRON 4MG 2ML VIAL IV ONE (10:35)
[2025-06-30] MEDS: MORPHINE 4 MG/ML 1 ML VIAL IV ONE (10:36)
[2025-06-30] MEDS: MORPHINE 4 MG/ML 1 ML VIAL IV PRN (12:49)
[2025-06-30] MEDS ORDERED: HYDROMORPHONE HCL 0.5 MG/0.5 ML SYRINGE IV ONE (19:25)
[2025-06-30] MEDS: HYDROMORPHONE HCL 0.5 MG/0.5 ML SYRINGE IV ONE (19:44)
[2025-06-30] MEDS: PIPERACILLIN/TAZOBACTAM SOD 4.5 GM in DEXTROSE 5% (D5W) ADV/MINI-BAG 50 ML IV ONE (21:22)
[2025-06-30] MEDS ORDERED: ONDA-282 PO (23:06)
[2025-06-30] MEDS ORDERED: OXYC1TAB23 PO (23:06)
[2025-06-30] MEDS ORDERED: AMOX875T2 PO (23:06)
[2025-06-30 23:30] VITALS: BP 103/66; TEMP 98.3; O2SAT 94
== END 2025-06-30 23:42 | disposition home or self-care (01) ==
LOC: M ED 08:35
DX: A09 Infectious gastroenteritis and colitis, unspecified (principal); R16.0 Hepatomegaly, not elsewhere classified; K76.0 Fatty (change of) liver, not elsewhere classified; J45.909 Unspecified asthma, uncomplicated; R51.9 Headache, unspecified; F43.10 Post-traumatic stress disorder, unspecified; Z98.84 Bariatric surgery status; Z90.49 Acquired absence of other specified parts of digestive tract; Z88.8 Allergy status to other drugs, medicaments and biological substances; Z91.012 Allergy to eggs; Z79.2 Long term (current) use of antibiotics; Z79.83 Long term (current) use of bisphosphonates; Z79.899 Other long term (current) drug therapy
CPT/HCPCS: 74177; 74181; 80048; 80076; 83605; 83690; 85025; 96365; 96366; 96375; 96376; 99285; J1171; J2405; J2543; J2765; Q9967

== ENCOUNTER 2025-07-14 18:47 | Emergency (ER) | payer OTHER ==
[~2025-07-14] VITALS: Ht 149.9 cm; Wt 90.9 kg
[~2025-07-14 18:47] MED LIST changes: +CYAN100017; +ERGO500029; +OXYC1TAB23 PO; +RAME8TAB2; +TELM1TAB33
[2025-07-15 00:34] VITALS: BP 156/99; TEMP 97.5; O2SAT 99
[2025-07-15] MEDS: predniSONE 20 MG TAB PO ONE (05:39)
== END 2025-07-15 05:42 | disposition home or self-care (01) ==
LOC: M ED 18:47
DX: M17.11 Unilateral primary osteoarthritis, right knee (principal); E28.2 Polycystic ovarian syndrome; Z88.8 Allergy status to other drugs, medicaments and biological substances; Z91.012 Allergy to eggs; Z79.2 Long term (current) use of antibiotics; Z79.52 Long term (current) use of systemic steroids; Z79.899 Other long term (current) drug therapy
CPT/HCPCS: 73564; 99283; J7512

== ENCOUNTER → 2025-07-22 | Outpatient (CLI) | payer OTHER ==
[2025-07-22 15:09] LABS: BASO # 0.1 10^3/uL (0.0-0.2); BASO % 0.7 % (0.0-1.0); EOS # 0.5 10^3/uL (0.0-0.5); EOS % 5.8 % (0.0-3.0); LYMPH # 1.9 10^3/uL (1.5-5.0); LYMPH % 21.9 % (24.0-44.0); MONO # 0.6 10^3/uL (0.0-0.8); MONO % 7.4 % (2.0-8.0); NEUTROPHILS # 5.6 10^3/uL (1.5-8.5); NEUTROPHILS % 63.9 % (36.0-66.0); PLATELET COUNT, AUTOMATED 239 10^3/uL (150-450)
[2025-07-22 15:50] LABS: ALT/SGPT 19.0 U/L (7.0-40); AST/SGOT 18.0 U/L (<34); CALCIUM LEVEL 9.5 MG/DL (8.5-10.1); CARBON DIOXIDE LEVEL 30.0 MMOL/L (20-31); CHLORIDE LEVEL 106.0 MMOL/L (98-107); CREATININE FOR GFR 0.88 MG/DL (0.55-1.30); GLOMERULAR FILTRATION RATE 84.6 (>58); IRON (FE) 149.0 UG/DL (50-170); PERCENT SATURATION 65.4 % (13.2-45.0); POTASSIUM SERUM 4.6 MMOL/L (3.5-5.1); SODIUM LEVEL 140.0 MMOL/L (136-145); VITAMIN B12 LEVEL 428.0 PG/ML (211-911)
== END ==
LOC: M PLALAB 10:39
PROVIDERS: ATTEND Registered Nurse
DX: D50.8 Other iron deficiency anemias (principal); D50.0 Iron deficiency anemia secondary to blood loss (chronic); K95.89 Other complications of other bariatric procedure; Z98.84 Bariatric surgery status

== ENCOUNTER → 2025-09-08 | Outpatient (CLI) | payer OTHER | LOC: M WHC 09:52 | PROVIDERS: ATTEND Nurse Practitioner Family | DX: Z12.31 Encounter for screening mammogram for malignant neoplasm of breast (principal) ==

== ENCOUNTER → 2025-09-08 | Outpatient (REF) | payer OTHER ==
[2025-09-10 14:22] LABS: HPV APTIMA Not Detected (Not Detected)
== END ==
LOC: M SFHCWAGY 14:44
PROVIDERS: ATTEND Nurse Practitioner Family
DX: Z11.51 Encounter for screening for human papillomavirus (HPV) (principal)
CPT/HCPCS: 87624; G0123

== ENCOUNTER → 2025-09-28 | Outpatient (REF) | payer OTHER ==
[~2025-09-28] MED LIST changes: -CYAN100017; +CYAN100017 IM; -DULO1CAP5; +DULO1CAP5 PO; +ENOX40IN3 SC; -ERGO500029; +ERGO500029 PO; +FERR325T82 PO; +MULTTAB61 PO; +PERCOCET PO; -RAME8TAB2; +RAME8TAB2 PO; -TELM1TAB33; +TELM1TAB33 PO
== END ==
LOC: M SFHCWAGY 14:56
PROVIDERS: ATTEND Obstetrics & Gynecology
DX: N93.9 Abnormal uterine and vaginal bleeding, unspecified (principal)

== ENCOUNTER → 2025-09-30 | Outpatient (CLI) | payer OTHER ==
[2025-09-30 17:42] LABS: BASO # 0.1 10^3/uL (0.0-0.2); BASO % 0.7 % (0.0-1.0); EOS # 0.3 10^3/uL (0.0-0.5); EOS % 3.5 % (0.0-3.0); LYMPH # 2.8 10^3/uL (1.5-5.0); LYMPH % 30.1 % (24.0-44.0); MONO # 0.6 10^3/uL (0.0-0.8); MONO % 6.3 % (2.0-8.0); NEUTROPHILS # 5.4 10^3/uL (1.5-8.5); NEUTROPHILS % 59.1 % (36.0-66.0); PLATELET COUNT, AUTOMATED 295 10^3/uL (150-450)
[2025-09-30 18:03] LABS: INR 1.0
[2025-09-30 18:05] LABS: ESTIMATED AVERAGE GLUCOSE 82.0 MG/DL (60-110)
[2025-09-30 18:06] LABS: ALT/SGPT 20.0 U/L (7.0-40); AST/SGOT 21.0 U/L (<34); CALCIUM LEVEL 9.3 MG/DL (8.5-10.1); CARBON DIOXIDE LEVEL 30.0 MMOL/L (20-31); CHLORIDE LEVEL 105.0 MMOL/L (98-107); CREATININE FOR GFR 0.97 MG/DL (0.55-1.30); GLOMERULAR FILTRATION RATE 75.3 (>58); POTASSIUM SERUM 4.3 MMOL/L (3.5-5.1); SODIUM LEVEL 142.0 MMOL/L (136-145)
[2025-09-30 18:13] LABS: VITAMIN B12 LEVEL 572.0 PG/ML (211-911)
== END ==
LOC: M PLALAB 15:31
PROVIDERS: ATTEND Family Medicine
DX: I10 Essential (primary) hypertension (principal); E66.01 Morbid (severe) obesity due to excess calories; D50.9 Iron deficiency anemia, unspecified

== ENCOUNTER 2025-10-05 08:16 | Observation (INO) | payer OTHER ==
[2025-10-05] VITALS (7 sets, daily range): BP systolic 112–158; BP diastolic 56–77; TEMP 97.2–98.5; O2SAT 94–97
[~2025-10-05] VITALS: Ht 149.9 cm; Wt 88.0 kg
[~2025-10-05 08:16] MED LIST changes: -ENOX40IN3 SC; +HYDROmorphone HCL 2 MG/ML 1 ML VIAL As Ordered ONE; +LIDOCAINE 2% 100 MG/5 ML SDV (FOR ANES.) As Ordered ONE; +MIDAZOLAM INJ 2 MG/2 ML VIAL As Ordered ONE; +ONDANSETRON 4MG/2ML VIAL As Ordered ONE; -PERCOCET PO; +ROCURONIUM BROMIDE 50MG/5ML VIAL As Ordered ONE; +SUGAMMADEX SODIUM 200 MG/2 ML VIAL As Ordered ONE; +dexAMETHasone 4 MG/ML 1 ML VIAL As Ordered ONE
[2025-10-05] MEDS ORDERED: ACETAMINOPHEN 1000MG/100ML IV BAG As Ordered ONE (08:29)
[2025-10-05 08:45] LABS: PLATELET COUNT, AUTOMATED 278 10^3/uL (150-450)
[2025-10-05] MEDS: ceFAZolin SOD 2 GM IV ONCE IV ONE (10:05)
[2025-10-05] MEDS ORDERED: GLYCOPYRROLATE INJ 0.2 MG/ML 2 ML VIAL As Ordered ONE (10:28)
[2025-10-05] MEDS: METHYLENE BLUE 0.5% (5 MG/ML) 10 ML AMP As Ordered ONE (11:23)
[2025-10-05] MEDS ORDERED: ONDANSETRON 4MG/2ML VIAL IV PRN ×2 (13:25→13:35)
[2025-10-05] MEDS ORDERED: MORPHINE 4 MG/ML 1 ML VIAL IV PRN (13:25)
[2025-10-05] MEDS ORDERED: PERCOCET 5MG/325MG TAB PO PRN (13:25)
[2025-10-05] MEDS ORDERED: PERCOCET PO (13:34)
[2025-10-05] MEDS ORDERED: COLA100C5 PO (13:34)
[2025-10-05] MEDS ORDERED: [UNRECOGNIZED DRUG - OTHER] XX PRN (13:35)
[2025-10-05] MEDS ORDERED: ONDA-282 PO (13:35)
[2025-10-05] MEDS: HYDROMORPHONE HCL 0.5 MG/0.5 ML SYRINGE IV PRN (13:53)
[2025-10-05] MEDS: KETOROLAC 30 MG/ML 1 ML VIAL IV SCH (14:04)
[2025-10-05] MEDS ORDERED: ENOX40IN3 SC (15:24)
[2025-10-05 15:51] LABS: PLATELET COUNT, AUTOMATED 236 10^3/uL (150-450)
[2025-10-05 16:06] LABS: CREATININE FOR GFR 0.87 MG/DL (0.55-1.30); GLOMERULAR FILTRATION RATE 85.8 (>58)
[2025-10-05] MEDS: LR 1,000 ML IV SCH ×2 (16:18→18:12)
[2025-10-05] MEDS: TELMISARTAN 20 MG TAB PO SCH (18:13)
[2025-10-05] MEDS: PERCOCET 5MG/325MG TAB PO PRN (18:16)
[2025-10-05] MEDS: DOCUSATE SODIUM 100 MG CAPSULE PO SCH (20:25)
[2025-10-06] VITALS: BP 102/71; TEMP 98.6; O2SAT 95
[2025-10-06 04:00] VITALS: BP 103/52; TEMP 99.4; O2SAT 97
[2025-10-06] MEDS: ENOXAPARIN 40 MG/0.4 ML SYRINGE (J1650 PER 10MG) SC SCH (08:24)
[2025-10-06 10:00] VITALS: BP 107/56; TEMP 98.8; O2SAT 95
[2025-10-06] MEDS ORDERED: FLUZONE VACCINE TRI PF(25-26) 0.5ML SYRINGE IM.IMMUN ONE (12:00)
== END 2025-10-06 13:33 | disposition home or self-care (01) ==
LOC: M SDC 08:16 → M RR INP 08:17 → M OBS 15:13
PROVIDERS: ADMIT Obstetrics & Gynecology; ATTEND Obstetrics & Gynecology
DX: N93.9 Abnormal uterine and vaginal bleeding, unspecified (principal); R10.20 Pelvic and perineal pain unspecified side; N73.6 Female pelvic peritoneal adhesions (postinfective); I10 Essential (primary) hypertension; K44.9 Diaphragmatic hernia without obstruction or gangrene; K21.9 Gastro-esophageal reflux disease without esophagitis; D68.51 Activated protein C resistance; Z86.711 Personal history of pulmonary embolism; F41.9 Anxiety disorder, unspecified; F32.A Depression, unspecified; Z79.51 Long term (current) use of inhaled steroids; J45.909 Unspecified asthma, uncomplicated; F43.10 Post-traumatic stress disorder, unspecified; Z79.899 Other long term (current) drug therapy; Z91.0120 Allergy to eggs, unspecified; Z98.84 Bariatric surgery status; Z88.8 Allergy status to other drugs, medicaments and biological substances; E28.2 Polycystic ovarian syndrome
CPT/HCPCS: 36415; 58571; 82565; 85027; 86850; 86900; 86901; 88307; 96361; 96372; 96374; 96376; J0131; J0665; J0688; J1100; J1171; J1596; J1650; J1885; J2250; J2405; J2765; J3010; J3490; S2900

== ENCOUNTER 2025-10-13 19:37 | Emergency (ER) | payer OTHER ==
[~2025-10-13] VITALS: Ht 149.9 cm; Wt 88.2 kg
[~2025-10-13 19:37] MED LIST changes: +ENOX40IN3 SC; -HYDROmorphone HCL 2 MG/ML 1 ML VIAL As Ordered ONE; -LIDOCAINE 2% 100 MG/5 ML SDV (FOR ANES.) As Ordered ONE; -MIDAZOLAM INJ 2 MG/2 ML VIAL As Ordered ONE; -ONDANSETRON 4MG/2ML VIAL As Ordered ONE; +PERCOCET PO; -ROCURONIUM BROMIDE 50MG/5ML VIAL As Ordered ONE; -SUGAMMADEX SODIUM 200 MG/2 ML VIAL As Ordered ONE; -dexAMETHasone 4 MG/ML 1 ML VIAL As Ordered ONE
[2025-10-13 20:05] LABS: APPEARANCE, URINE MANUAL CLOUDY (CLEAR); COLOR, URINE MANUAL ORANGE (YELLOW)
[2025-10-13 20:06] LABS: PH,URINE MAN 5.0 UNITS (5.0 - 7.0)
[2025-10-13 20:07] LABS: BILIRUBIN, URINE MANUAL NEGATIVE (NEGATIVE); BLOOD URINE MANUAL POSITIVE (NEGATIVE); GLUCOSE, URINE (UA) MANUAL NEGATIVE (NEGATIVE); KETONE, URINE MANUAL 1+ mg/dL (NEGATIVE); LEUKOCYTE ESTERASE, URINE MAN POSITIVE (NEGATIVE); NITRITE, URINE MANUAL NEGATIVE (NEGATIVE); PROTEIN, URINE MANUAL 2+ mg/dL (NEGATIVE); SPECIFIC GRAVITY,URINE MANUAL 1.037 (1.002-1.035); UROBILINOGEN, URINE MANUAL NORMAL (NORMAL)
[2025-10-13 20:21] LABS: BASO # 0.1 10^3/uL (0.0-0.2); BASO % 0.7 % (0.0-1.0); EOS # 0.3 10^3/uL (0.0-0.5); EOS % 3.7 % (0.0-3.0); LYMPH # 3.0 10^3/uL (1.5-5.0); LYMPH % 33.7 % (24.0-44.0); MONO # 0.7 10^3/uL (0.0-0.8); MONO % 7.7 % (2.0-8.0); NEUTROPHILS # 4.9 10^3/uL (1.5-8.5); NEUTROPHILS % 54.0 % (36.0-66.0); PLATELET COUNT, AUTOMATED 291 10^3/uL (150-450)
[2025-10-13 20:43] LABS: SQUAMOUS EPITHELIAL CELL URINE SMALL AMOUNT /hpf (SMALL AMT); WBC, URINE TNTC /hpf (0-3)
[2025-10-13 20:45] LABS: BACTERIA, URINE NONE SEEN; HYALINE CAST, URINE NONE SEEN /lpf (0-1); MUCUS, URINE SMALL AMOUNT (NEGATIVE)
[2025-10-13 20:48] LABS: CALCIUM LEVEL 8.9 MG/DL (8.5-10.1); CARBON DIOXIDE LEVEL 30 MMOL/L (20-31); CHLORIDE LEVEL 106 MMOL/L (98-107); CREATININE FOR GFR 0.92 MG/DL (0.55-1.30); GLOMERULAR FILTRATION RATE 80.2 (>58); POTASSIUM SERUM 4.6 MMOL/L (3.5-5.1); SODIUM LEVEL 144 MMOL/L (136-145)
[2025-10-13 23:55] LABS: HIV 1&2 SCREEN NEGATIVE (NEGATIVE)
[2025-10-14] MEDS: NS (Normal Saline) 0.9% 1,000 ML IV ONE (00:35)
[2025-10-14 01:13] LABS: INR 0.94
[2025-10-14 01:45] LABS: Trichomonas vaginalis (AMP) NOT DETECTED (NEGATIVE)
[2025-10-14] MEDS ORDERED: ISOVUE-370 76% 100 ML VIAL As Ordered ONE (02:02)
[2025-10-14 02:09] LABS: GC DNA AMPLIFICATION NEGATIVE (NEGATIVE)
[2025-10-14] MEDS ORDERED: AMOX875T2 PO (05:05)
[2025-10-14] MEDS: PIPERACILLIN/TAZOBACTAM SOD 4.5 GM in DEXTROSE 5% (D5W) ADV/MINI-BAG 50 ML IV ONE (05:15)
[2025-10-14] MEDS: OXYCODONE/APAP 5MG/325MG(HOME DOSE PACK) PO ONE (05:38)
[2025-10-14] MEDS: MORPHINE 4 MG/ML 1 ML VIAL IV ONE (05:38)
[2025-10-14 06:19] VITALS: BP 118/75; TEMP 98.4; O2SAT 98
== END 2025-10-14 06:21 | disposition home or self-care (01) ==
LOC: M ED 19:37
DX: N93.9 Abnormal uterine and vaginal bleeding, unspecified (principal); K65.1 Peritoneal abscess; I10 Essential (primary) hypertension; D68.51 Activated protein C resistance; F10.10 Alcohol abuse, uncomplicated; Z87.42 Personal history of other diseases of the female genital tract; Z86.711 Personal history of pulmonary embolism; Z87.891 Personal history of nicotine dependence; Z98.84 Bariatric surgery status; Z88.8 Allergy status to other drugs, medicaments and biological substances; Z91.0120 Allergy to eggs, unspecified; Z79.2 Long term (current) use of antibiotics; Z79.899 Other long term (current) drug therapy
CPT/HCPCS: 74177; 80048; 81000; 85025; 85610; 85730; 86780; 86850; 86900; 86901; 87210; 87389; 87661; 87810; 87850; 96361; 96365; 96375; 99284; J2543; Q9967